=== PATIENT | male | born 1935 | race Caucasian/White ===

== ENCOUNTER → 2016-11-06 | Outpatient (CLI) | payer MEDICARE, BC ==
[2016-11-06 13:25] LABS: Blood Urea Nitrogen 18 mg/dL (9-20); Non-African American GFR(MDRD) 56 (>60 ml/min/1.73 sqM)
--- NOTE | 2016-11-06 16:16 | CT ---
EXAMINATION TYPE: CT abdomen pelvis w con DATE OF EXAM: 11/06/2016 2:52 PM COMPARISON: NONE HISTORY: Patient complains of episode of gross hematuria. Patient has a history of prior bladder CA. CT DLP: 1982.6 mGycm Automated exposure control for dose reduction was used. TECHNIQUE: Helical acquisition of images was performed from the lung bases through the pelvis. CONTRAST: Performed with Oral Contrast and with IV Contrast, patient injected with 100 mL of Omnipaque 300. FINDINGS: LUNG BASES: There are dependent atelectatic changes, motion is present on the exam. The heart is enla rged. LIVER/GB: The liver shows low attenuation likely due to fatty infiltration. Gallbladder is within nor mal limits. PANCREAS: No significant abnormality is seen. SPLEEN: No significant abnormality is seen. ADRENALS: No significant abnormality is seen. KIDNEYS: There is a nonobstructive calculus at the lower pole and upper pole each measuring approxima tely 5 mm on the left RETROPERITONEAL ADENOPATHY: None visualized REPRODUCTIVE ORGANS: Prostate shows some associated calcifications. There is a right-sided hydrocele and possibly left-sided hydrocele. URINARY BLADDER: There is some bladder wall thickening possibly due to chronic outlet obstruction PELVIC ADENOPATHY: None visualized. OSSEOUS STRUCTURES: Degenerative disc changes are present in the visualized spine, there may be diff use idiopathic skeletal hyperostosis present in the lower thoracic spine BOWEL: Extensive diverticular changes associated with the colon. There is no evident obstruction. Ap pendix is normal. OTHER: Aorta shows normal caliber. There is atheromatous change. IMPRESSION: LEFT-SIDED NEPHROLITHIASIS IS NONOBSTRUCTIVE. PROBABLE FATTY INFILTRATION OF THE LIVER. CARDIOMEGALY. DIVERTICULOSIS.
== END | disposition home or self-care (01) ==
LOC: RADCTMAIN 12:45
PROVIDERS: ATTEND Urology
DX: C67.9 Malignant neoplasm of bladder, unspecified (principal); N20.0 Calculus of kidney; K57.90 Diverticulosis of intestine, part unspecified, without perforation or abscess without bleeding
CPT/HCPCS: 82565; 84520; 74177; 36415; Q9967

== ENCOUNTER 2017-11-30 15:26 | Inpatient (IN) | payer MEDICARE, BC ==
[2017-11-30 16:35] LABS: Basophils % (A) 0 %; Eosinophils # (A) 0.2 k/uL (0-0.7); Eosinophils % (A) 1 %; HCT 42.2 % (39.0-53.0); HGB 14.4 gm/dL (13.0-17.5); Lymphocytes # (A) 0.4 k/uL (1.0-4.8); Lymphocytes % (A) 2 %; MCHC 34.1 g/dL (31.0-37.0); MCV 99.7 fL (80.0-100.0); Mean Platelet Volume 6.9; Monocytes # (A) 0.6 k/uL (0-1.0); Monocytes % (A) 3 %; Neutrophils # (A) 16.7 k/uL (1.3-7.7); Neutrophils % (A) 93 %; Platelet Count 193 k/uL (150-450); RBC 4.24 m/uL (4.30-5.90); RDW 13.4 % (11.5-15.5)
[2017-11-30 16:40] LABS: INR 1.6 (<1.2); Partial Thromboplastin Time 43.4 sec (22.0-30.0); Prothrombin Time 14.7 sec (9.0-12.0)
[2017-11-30 16:45] LABS: Albumin 3.8 g/dL (3.5-5.0); Calcium 9.2 mg/dL (8.4-10.2); Magnesium 1.5 mg/dL (1.6-2.3); Potassium 3.9 mmol/L (3.5-5.1); Total Bilirubin 4.6 mg/dL (0.2-1.3); Total Protein 6.8 g/dL (6.3-8.2)
--- NOTE | 2017-11-30 16:55 | ED ---
General Adult HPI - General Chief complaint: Chest Pain Stated complaint: CHest Pain Time Seen by Provider: 11/30/17 15:42 Source: patient, EMS, RN notes reviewed Mode of arrival: EMS Limitations: no limitations - History of Present Illness Initial comments: 82-year-old male presenting as transfer from outside hospital with troponin elevation and non-ST segment elevation TX. Patient was also found to have an elevated lipase at 1999. Chief complaint was epigastric pain. He also had some nausea and vomiting. Symptoms began earlier this morning prior to presentation to outside emergency department. Patient has no history of coronary artery disease, he does have history of DVT and pulmonary embolism. He is on XArelto. At the time my evaluation, patient's symptoms had improved, no abdominal pain. No chest pain. No dyspnea. No nausea. His states that prior to initial presentation patient did have subjective fever and chills. Patient was started on heparin prior to transfer. Chest x-ray and CT angiography was obtained. - Related Data Home Medications Medication Instructions Recorded Confirmed RX: Fenofibrate 160 mg PO DAILY 08/17/15 11/30/17 RX: Meloxicam [Mobic] 7.5 mg PO DAILY 08/17/15 11/30/17 RX: Omeprazole [PriLOSEC] 20 mg PO AC-BRKFST 08/17/15 11/30/17 RX: Simvastatin [Zocor] 40 mg PO HS 08/17/15 11/30/17 Albuterol Nebulized [Ventolin 2.5 mg INHALATION RT-QID PRN 11/30/17 11/30/17 Nebulized] RX: Bacitracin Oint 1 applic TOPICAL DAILY PRN 11/30/17 11/30/17 RX: Lisinopril 40 mg PO DAILY 11/30/17 11/30/17 Rivaroxaban [Xarelto] 20 mg PO DAILY 11/30/17 11/30/17 Thiamine [Vitamin B-1] 100 mg PO DAILY 11/30/17 11/30/17 Allergies Allergy/AdvReac Type Severity Reaction Status Date / Time tetanus toxoid, adsorbed AdvReac Nausea & Verified 12/08/15 15:16 Vomiting Review of Systems ROS Statement: Those systems with pertinent positive or pertinent negative responses have been documented in the HPI. ROS Other: All systems not noted in ROS Statement are negative. Past Medical History Past Medical History: Cancer, GERD/Reflux, Hyperlipidemia, Hypertension, Osteoarthritis (OA) Additional Past Medical History / Comment(s): bladder cancer 20 years ago History of Any Multi-Drug Resistant Organisms: None Reported Additional Past Surgical History / Comment(s): bladder cancer Past Anesthesia/Blood Transfusion Reactions: No Reported Reaction Past Psychological History: No Psychological Hx Reported Smoking Status: Former smoker Past Alcohol Use History: Daily Past Drug Use History: None Reported General Exam Limitations: no limitations General appearance: alert, in no apparent distress Head exam: Present: atraumatic, normocephalic Eye exam: Present: normal appearance, PERRL ENT exam: Present: normal exam Neck exam: Present: normal inspection. Absent: tenderness, meningismus Respiratory exam: Present: normal lung sounds bilaterally. Absent: respiratory distress Cardiovascular Exam: Present: regular rate, normal rhythm GI/Abdominal exam: Present: soft. Absent: distended, tenderness, guarding, rebound Extremities exam: Present: normal inspection, full ROM, normal capillary refill. Absent: pedal edema Neurological exam: Present: alert, oriented X3, CN II-XII intact. Absent: motor sensory deficit Psychiatric exam: Present: normal affect, normal mood Skin exam: Present: warm, dry, intact. Absent: cyanosis, diaphoretic Course Vital Signs 11/30/17 15:27 Temperature 98.4 F Pulse Rate 108 H Respiratory 16 Rate Blood Pressure 125/98 O2 Sat by Pulse 97 Oximetry EKG Findings - EKG Comments: EKG Findings:: EKG obtained at 1651 normal sinus rhythm, no ST segment elevation , there is concern for septal infarct. Ventricular rate 89, WA interval 198, QRS duration 104, QTC 450 Medical Decision Making - Medical Decision Making 82-year-old male presenting as non-ST segment elevated TX and pancreatitis. Patient is pain-free at the time my evaluation. Patient's laboratory studies revealed a troponin of 0.435, this was repeated, it is up trending at 2.03. Patient also had elevated lipase at 2000, this is down trending to 700. Ultrasound is obtained, there was a dilated gallbladder with no dilation of the common bile duct, no signs of pericholecystic fluid or gallbladder wall thickening. Bili is elevated at 4.7, bili fractions are pending. Patient is afebrile and pain-free. Although he does have a elevation in his white blood cell count, he is given 1 dose of IV antibiotics with his elevated total bili. Symptoms may be related pasted gallstone. He was started on heparin prior to arrival the patient is currently taking Xarelto, both heparin and Xarelto will be held. Case discussed with Dr. Miller, recommends restarting heparin in the morning. Serial cardiac enzymes will be obtained. Repeat total bili and lipase ordered for the morning. Cardiology and gastroenterology placed on consult. - Lab Data Result diagrams: 11/30/17 16:10 11/30/17 16:10 Lab Results 11/30/17 11/30/17 11/30/17 Range/Units 15:51 16:10 16:10 WBC 18.0 H (3.8-10.6) k/uL RBC 4.24 L (4.30-5.90) m/uL Hgb 14.4 (13.0-17.5) gm/dL Hct 42.2 (39.0-53.0) % MCV 99.7 (80.0-100.0) fL MCH 34.0 (25.0-35.0) pg MCHC 34.1 (31.0-37.0) g/dL RDW 13.4 (11.5-15.5) % Plt Count 193 (150-450) k/uL Neutrophils % 93 % Lymphocytes % 2 % Monocytes % 3 % Eosinophils % 1 % Basophils % 0 % Neutrophils # 16.7 H (1.3-7.7) k/uL Lymphocytes # 0.4 L (1.0-4.8) k/uL Monocytes # 0.6 (0-1.0) k/uL Eosinophils # 0.2 (0-0.7) k/uL Basophils # 0.0 (0-0.2) k/uL PT (9.0-12.0) sec INR (<1.2) APTT (22.0-30.0) sec Sodium (137-145) mmol/L Potassium (3.5-5.1) mmol/L Chloride (98-107) mmol/L Carbon Dioxide (22-30) mmol/L Anion Gap mmol/L BUN (9-20) mg/dL Creatinine (0.66-1.25) mg/dL Est GFR (CKD-EPI)AfAm (>60 ml/min/1.73 sqM) Est GFR (CKD-EPI)NonAf (>60 ml/min/1.73 sqM) Glucose (74-99) mg/dL Calcium (8.4-10.2) mg/dL Magnesium (1.6-2.3) mg/dL Total Bilirubin (0.2-1.3) mg/dL Conjugated Bilirubin (0.0-0.3) mg/dL Unconjugated Bilirubin (0.0-1.1) mg/dL Delta Bilirubin (0.0-0.2) mg/dL AST (17-59) U/L ALT (21-72) U/L Alkaline Phosphatase (38-126) U/L Total Creatine Kinase 174 H (55-170) U/L CK-MB (CK-2) 3.9 H* (0.0-2.4) ng/mL CK-MB (CK-2) Rel Index 2.2 Troponin I 2.030 H* (0.000-0.034) ng/mL NT-Pro-B Natriuret Pep 1400 pg/mL Total Protein (6.3-8.2) g/dL Albumin (3.5-5.0) g/dL Lipase (23-300) U/L 11/30/17 11/30/17 11/30/17 Range/Units 16:10 16:10 16:10 WBC (3.8-10.6) k/uL RBC (4.30-5.90) m/uL Hgb (13.0-17.5) gm/dL Hct (39.0-53.0) % MCV (80.0-100.0) fL MCH (25.0-35.0) pg MCHC (31.0-37.0) g/dL RDW (11.5-15.5) % Plt Count (150-450) k/uL Neutrophils % % Lymphocytes % % Monocytes % % Eosinophils % % Basophils % % Neutrophils # (1.3-7.7) k/uL Lymphocytes # (1.0-4.8) k/uL Monocytes # (0-1.0) k/uL Eosinophils # (0-0.7) k/uL Basophils # (0-0.2) k/uL PT 14.7 H (9.0-12.0) sec INR 1.6 H (<1.2) APTT 43.4 H (22.0-30.0) sec Sodium 141 (137-145) mmol/L Potassium 3.9 (3.5-5.1) mmol/L Chloride 106 (98-107) mmol/L Carbon Dioxide 24 (22-30) mmol/L Anion Gap 11 mmol/L BUN 17 (9-20) mg/dL Creatinine 1.10 (0.66-1.25) mg/dL Est GFR (CKD-EPI)AfAm 73 (>60 ml/min/1.73 sqM) Est GFR (CKD-EPI)NonAf 63 (>60 ml/min/1.73 sqM) Glucose 103 H (74-99) mg/dL Calcium 9.2 (8.4-10.2) mg/dL Magnesium 1.5 L (1.6-2.3) mg/dL Total Bilirubin 4.6 H 4.6 H (0.2-1.3) mg/dL Conjugated Bilirubin 2.3 H (0.0-0.3) mg/dL Unconjugated Bilirubin 0.9 (0.0-1.1) mg/dL Delta Bilirubin 1.4 H (0.0-0.2) mg/dL AST 147 H (17-59) U/L ALT 62 (21-72) U/L Alkaline Phosphatase 80 (38-126) U/L Total Creatine Kinase (55-170) U/L CK-MB (CK-2) (0.0-2.4) ng/mL CK-MB (CK-2) Rel Index Troponin I (0.000-0.034) ng/mL NT-Pro-B Natriuret Pep pg/mL Total Protein 6.8 (6.3-8.2) g/dL Albumin 3.8 (3.5-5.0) g/dL Lipase 719 H (23-300) U/L Critical Care Time Critical Care Time: Yes Total Critical Care Time: 35 Disposition Clinical Impression: NSTEMI (non-ST elevated myocardial infarction), Pancreatitis Disposition: ADMITTED IP TO THIS [facility] Condition: Stable Referrals: Jalen Cobos MD [Primary Care Provider] - 1-2 days Decision to Admit Reason: Admit from [facility] Decision Date: 11/30/17 Decision Time: 17:34
[2017-11-30 17:08] LABS: Creatine Kinase MB 3.9 ng/mL (0.0-2.4); Troponin I 2.03 ng/mL (0.000-0.034)
--- NOTE | 2017-11-30 17:10 | US ---
EXAMINATION TYPE: US gallbladder DATE OF EXAM: 11/30/2017 COMPARISON: CT 2017 CLINICAL HISTORY: pain. [facility] patient with epigastric pain; pancreatitis per [facility] physician EXAM MEASUREMENTS: Liver Length: 18.0 cm Gallbladder Wall: 2.6mm CBD: 0.5 cm Right Kidney: 10.1 x 7.5 x 5.3 cm Pancreas: hyperechoic and tail is obscured by overlying bowel gas Liver: enlarged, fatty Gallbladder: wnl Evidence for sonographic Snider's sign: No CBD: wnl Right Kidney: No hydronephrosis or masses seen IMPRESSION: No gallstones or dilated ducts. Borderline dilated gallbladder.
[2017-11-30] MEDS ORDERED: NALOXONE 0.4 MG/ML 1 ML VIAL IV PRN ×2 (17:14→20:17)
[2017-11-30] MEDS ORDERED: MORPHINE SULFATE 4 MG/ML SYRINGE IV PRN (17:14)
[2017-11-30] MEDS ORDERED: ONDANSETRON 4 MG/2 ML VIAL IVP PRN (17:14)
[2017-11-30] MEDS ORDERED: PIPERACILLIN-TAZOBACTAM 3.375 GM in DEXTROSE/WATER 1 50ML.BAG IVPB STA (17:20)
[2017-11-30 17:22] LABS: Bilirubin, Conjugated 2.3 mg/dL (0.0-0.3); Bilirubin, Delta 1.4 mg/dL (0.0-0.2); Bilirubin,Unconjugated 0.9 mg/dL (0.0-1.1); Total Bilirubin 4.6 mg/dL (0.2-1.3)
[2017-11-30] MEDS: MAGNESIUM SULFATE-D5W PMX 1 GM in DEXTROSE/WATER 1 100ML.BAG IVPB SCH ×2 (17:28→18:41)
[2017-11-30] MEDS ORDERED: ALBUTEROL NEBULIZED 2.5 MG/3 ML INHALATION PRN (17:37)
[2017-11-30] MEDS ORDERED: MELATONIN 3 MG TABLET PO PRN (20:17)
[2017-11-30] MEDS ORDERED: LACTULOSE 20 GM/30 ML CUP PO PRN (20:17)
[2017-11-30] MEDS ORDERED: ACETAMINOPHEN TAB 325 MG TAB PO PRN (20:17)
[2017-11-30] MEDS ORDERED: MAGNESIUM HYDROXIDE 2,400 MG/10 ML CUP PO PRN (20:17)
[2017-11-30] MEDS ORDERED: LORazepam 0.5 MG TAB PO PRN (20:17)
[2017-11-30] MEDS ORDERED: CALCIUM CARBONATE 500 MG CHEWABLE PO PRN (20:17)
[2017-11-30] MEDS ORDERED: HEPARIN SOD,PORK IN 0.45% NACL 25,000 UNIT in 0.45% NACL 1 500ML.BAG IV SCH ×2 (20:30→21:15)
[2017-11-30 21:01] LABS: Glucose,Whole Blood 106 mg/dL (75-99)
--- NOTE | 2017-11-30 21:10 | HP ---
HISTORY AND PHYSICAL DATE OF ADMISSION: 11/30/17 PRESENT COMPLAINT: Abdominal chest pain. HISTORY OF PRESENTING COMPLAINT: A very pleasant 82-year-old patient of Dr. Cobos. 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 The patient has had history of bilateral pulmonary embolism and DVT in 2014 and is on Xarelto for the same. History is obtained by the . The patient took a shower, His regular after sat down on his comfort. Then started off with abdominal pain that went up to his chest. The patient took Pepto- Bismol, did feel a bit better and then patient started having rigors and became really warm. Patient and did take the temperature, was afebrile. The patient broke out in a sweat. The patient was taken down to Dr. Scott's office. Seen by the nurse practitioner who moved him to the [place] [facility]. There, patient's troponin came back to be 0.435. The EKG shows some ST-segment changes. Also, amylase was 315 and lipase was 2246. Hence patient was sent down here to [facility] for possible TX. The patient continues to feel weak and tired, run down. Some chest discomfort. Currently none. REVIEW OF SYSTEMS: Constitutional: Chills, rigors, tired. HEENT none. Respiratory: Slight shortness of breath, more at baseline. Cardiovascular as above. No radiation to the neck or the arm. Gastrointestinal as above. Genitourinary none. Musculoskeletal: Arthritic pain in major joints including lower back. Dermatological, hematologic, lymphatics none. Psychiatry none. Neurological none. 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 PAST SURGICAL HISTORY: Bladder cancer surgery 20 years ago. SOCIAL HISTORY: The patient smoked for close to 50 years, cigars, stopped about 10 years ago. 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 Lives with his . Drinks about 3-4 mixed drinks a day. HOME MEDICATIONS: 1. Thiamine 100 mg a day. 2. Zocor 40 mg q.h.s. 3. Xarelto 20 mg daily. 4. Prilosec 20 mg with breakfast. 5. Mobic 7.5 p.o. daily. 6. Lisinopril 40 mg p.o. daily. 7. Tricor 160 mg p.o. daily. 8. Bacitracin topical daily p.r.n. 9. Ventolin 2.5 q.i.d. p.r.n. ALLERGIES: TETANUS TOXOID. PHYSICAL EXAMINATION: Temperature 98.4, pulse 95, respiratory 18, blood pressure 144/68, pulse ox 95% on 2 L. General appearance: Well built, BMI 35.3. Lying in bed, tired appearing. Eyes: Conjunctivae dirty appearing. HEENT external appearance of nose and ears normal. Oral cavity normal. Neck: JVD unable to assess. Mass not palpable. Respiratory effort: Slightly increased. Lungs decreased breath sounds. Cardiovascular: First and second sounds normal. No edema. Abdomen: Upper abdomen tenderness. No guarding, rigidity. Liver and spleen not palpable. Bowel sounds are present. Lymphatics: No lymph nodes palpable in the neck and axilla. PSYCHIATRY: Alert and oriented x3. Mood and affect normal. Neurological: Pupils equal. Cranial nerves grossly intact. Power and sensation grossly intact. INVESTIGATIONS: Patient blood work from [facility]-CT scan chest negative for PE, aortic aneurysm of 4 cm. White count 9.8, hemoglobin 14.2, platelets 184, BUN 17, creatinine 1.1, potassium 4.2. Bilirubin was 4.7. Troponin 0.435. Amylase 315, lipase 2246. Lab done here at [facility], showed a white count of 18, hemoglobin 14.4. Pro-time of 14.7, potassium 4.9. AST was 147, ALT 62. Troponin is 2.030. Lipase 719. EKG shows ST-segment depression, especially inferolateral leads. ASSESSMENT: 1. Acute non-Q-wave myocardial infarction probably in the anterolateral wall. 2. Acute pancreatitis. 3. Alcoholic liver disease. 4. Slight coagulopathy with a ProTime of 14.7 likely from underlying alcoholic disease. 5. Systemic inflammatory response syndrome from underlying acute pancreatitis. 6. 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 Did not take a dose this morning per the . 7. Essential hypertension. 8. Hyperlipidemia. 9. 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 10.Gastroesophageal reflux disease. 11.Colonic diverticulosis. PLAN: At this point patient is put on IV heparin, some clear liquids and will be n.p.o. after midnight. The patient did receive aspirin. We will also put the patient on a beta torres. Cardiology and GI was consulted. Care was discussed with the patient's family at the bedside. Overall prognosis guarded. Copy to Dr. Cobos. STEVE / SHADI: [id number] /
[2017-11-30] MEDS: METOPROLOL TARTRATE 25 MG TAB PO SCH (21:43)
[2017-11-30] MEDS: ATORVASTATIN 20 MG TAB PO SCH (21:43)
[2017-11-30] MEDS: Acetaminophen-Codeine 300-30mg TAB PO PRN (23:11)
[2017-11-30 23:41] LABS: Creatine Kinase MB 3.9 ng/mL (0.0-2.4); Troponin I 2.8 ng/mL (0.000-0.034)
[2017-12-01 03:35] LABS: Basophils % (A) 0 %; Eosinophils # (A) 0.1 k/uL (0-0.7); Eosinophils % (A) 0 %; HCT 38.1 % (39.0-53.0); HGB 12.9 gm/dL (13.0-17.5); Lymphocytes # (A) 0.4 k/uL (1.0-4.8); Lymphocytes % (A) 2 %; MCH 34.5 pg (25.0-35.0); MCHC 33.8 g/dL (31.0-37.0); MCV 102.2 fL (80.0-100.0); Macrocytosis Slight; Mean Platelet Volume 7.5; Monocytes # (A) 0.6 k/uL (0-1.0); Monocytes % (A) 4 %; Neutrophils # (A) 15.4 k/uL (1.3-7.7); Neutrophils % (A) 93 %; Platelet Count 164 k/uL (150-450); RBC 3.73 m/uL (4.30-5.90); RDW 13.5 % (11.5-15.5); WBC 16.6 k/uL (3.8-10.6)
[2017-12-01 03:46] LABS: Albumin 3.3 g/dL (3.5-5.0); Calcium 8.9 mg/dL (8.4-10.2); Potassium 4.5 mmol/L (3.5-5.1); Total Bilirubin 6.9 mg/dL (0.2-1.3); Total Protein 6.1 g/dL (6.3-8.2)
[2017-12-01 04:17] LABS: Creatine Kinase MB 4.5 ng/mL (0.0-2.4); Troponin I 3.26 ng/mL (0.000-0.034)
[2017-12-01] MEDS ORDERED: HEPARIN SODIUM,PORCINE 5,000 UNIT/ML 1 ML VIAL IV PRN (04:32)
[2017-12-01] MEDS: Acetaminophen-Codeine 300-30mg TAB PO PRN (09:35)
--- NOTE | 2017-12-01 12:46 | P.CONS ---
History of Present Illness - Reason for Consult Consult date: 12/01/17 pancreatitis elevated liver enzymes Requesting physician: Markie Noland - History of Present Illness 82-year-old gentleman with a past medical history of bilateral pulmonary embolism maintained on Xarelto, DVT, bladder carcinoma, hypertension, hyperlipidemia, acid arthritis. Patient presented with upper abdomen chest pain with rigors chills 2 days with dark colored urine. Patient drinks liquor/beer on a daily basis for many years. Consult requested for pancreatitis elevated liver enzymes. No history of hepatitis or pancreatitis. Denies weight loss. Admission white count 18. Hemoglobin 14.4 presently 12.9. MCV 102. Platelet 164. INR 1.6. Troponin 2.0-3.2. Total bilirubin 4.6. Conjugated bilirubin 2.3. AST 147. ALT 62. Alkaline phosphatase 80. Lipase 719. Presently lipase is 595. Ultrasound abdomen reported normal common bile duct no mentioning of cholelithiasis. Review of Systems Constitutional: Denies fever, chills, sweats, weight gain, or loss. HEENT: Negative for migraines, blurred vision or loss, earaches, drainage, tinnitus, oral mucosal lesions, dysphagia, or odynophagia. Cardiac: Hypertension. Hyperlipidemia. Negative for chest pain, arrhythmias, or palpitation. Respiratory: Negative for shortness of breath, hemoptysis, cough, or sputum production. Gastrointestinal: See HPI for pertinent findings. Genitourinary: Bladder carcinoma. Negative for hematuria, urgency, frequency, polyuria, dysuria, or penile discharge. Musculoskeletal: Negative for muscle aches, swelling, arthritis, and arthralgias. Neurologic: Negative for stroke or TIA. Endocrine: Negative for thyroid problems. Hematology: PE/DVT. Skin: Negative for rash or itching. Psychiatric: Negative history for depression and anxiety Past Medical History Past Medical History: Cancer, Deep Vein Thrombosis (DVT), GERD/Reflux, Hyperlipidemia, Hypertension, Osteoarthritis (OA), Pulmonary Embolus (PE) Additional Past Medical History / Comment(s): bladder cancer 20 years ago, DVT and PE 2017 History of Any Multi-Drug Resistant Organisms: None Reported Additional Past Surgical History / Comment(s): bladder cancer Past Anesthesia/Blood Transfusion Reactions: No Reported Reaction Past Psychological History: No Psychological Hx Reported Smoking Status: Former smoker Past Alcohol Use History: Daily Past Drug Use History: None Reported - Past Family History Mother History Unknown: Yes Medications and Allergies Home Medications Medication Instructions Recorded Confirmed Type Fenofibrate 160 mg PO DAILY 08/17/15 11/30/17 History Meloxicam [Mobic] 7.5 mg PO DAILY 08/17/15 11/30/17 History Omeprazole [PriLOSEC] 20 mg PO AC-BRKFST 08/17/15 11/30/17 History Simvastatin [Zocor] 40 mg PO HS 08/17/15 11/30/17 History Albuterol Nebulized [Ventolin 2.5 mg INHALATION RT-QID PRN 11/30/17 11/30/17 History Nebulized] Bacitracin Oint 1 applic TOPICAL DAILY PRN 11/30/17 11/30/17 History Lisinopril 40 mg PO DAILY 11/30/17 11/30/17 History Rivaroxaban [Xarelto] 20 mg PO DAILY 11/30/17 11/30/17 History Thiamine [Vitamin B-1] 100 mg PO DAILY 11/30/17 11/30/17 History Allergies Allergy/AdvReac Type Severity Reaction Status Date / Time tetanus toxoid, adsorbed AdvReac Nausea & Verified 12/08/15 15:16 Vomiting Physical Exam Vitals: Vital Signs Temp Pulse Pulse Resp BP BP Pulse Ox 12/01/17 08:00 98 F 54 L 16 106/56 94 L 12/01/17 04:00 98.1 F 56 L 20 106/59 95 12/01/17 00:00 98.7 F 63 20 108/63 94 L 11/30/17 22:08 94 20 116/55 95 11/30/17 21:38 101 H 18 109/57 94 L 11/30/17 20:49 114 H 24 184/84 94 L 11/30/17 20:25 98.7 F 11/30/17 20:20 98.4 F 11/30/17 19:46 99.2 F 11/30/17 17:36 95 18 144/68 95 11/30/17 15:27 98.4 F 108 H 16 125/98 97 Intake and Output 11/30/17 12/01/17 12/01/17 22:59 06:59 14:59 Intake Total 309.333 Balance 309.333 Intake: IV 160 Heparin Sod,Pork in 0.45% 160 NaCl 25,000 unit In 0.45 % NaCl 1 500ml.bag @ 8.48 UNITS/KG/HR 20 mls/hr IV .Q24H [facility] Rx#:[id number] Intake, IV Titration 149.333 Amount Heparin Sod,Pork in 0.45% 149.333 NaCl 25,000 unit In 0.45 % NaCl 1 500ml.bag @ 8.48 UNITS/KG/HR 20 mls/hr IV .Q24H [facility] Rx#:[id number] Other: Voiding Method Urinal Urinal # Voids 1 Weight 117.934 kg General appearance: The patient is alert, oriented, in no acute distress. HET: Head is normocephalic and atraumatic. Pupils are equal and reactive. Oropharynx is clear without lesions. Neck: Supple without lymphadenopathy. Trachea midline. Heart: S1 S2. Regular rate and rhythm. Lungs: No crackles or wheezes are heard. Abdomen: Soft, nontender, nondistended with bowel sounds. No peritoneal signs. No palpable organomegaly or masses. Extremities: Normal skin color and turgor. No cyanosis, rash, ulceration, clubbing, or edema. Radial and pedal pulses are 2/4 bilaterally. Neurological: No focal deficits. Strength and sensation are grossly intact. Results CBC & Chem 7: 12/01/17 03:07 12/01/17 03:07 Labs: Abnormal Lab Results - Last 24 Hours (Table) 11/30/17 11/30/17 11/30/17 Range/Units 16:10 16:10 16:10 WBC 18.0 H (3.8-10.6) k/uL RBC 4.24 L (4.30-5.90) m/uL Hgb (13.0-17.5) gm/dL Hct (39.0-53.0) % MCV (80.0-100.0) fL Neutrophils # 16.7 H (1.3-7.7) k/uL Lymphocytes # 0.4 L (1.0-4.8) k/uL PT (9.0-12.0) sec INR (<1.2) APTT (22.0-30.0) sec D-Dimer (<0.60) mg/L FEU BUN (9-20) mg/dL Creatinine (0.66-1.25) mg/dL Glucose 103 H (74-99) mg/dL POC Glucose (mg/dL) (75-99) mg/dL Magnesium 1.5 L (1.6-2.3) mg/dL Total Bilirubin 4.6 H (0.2-1.3) mg/dL Conjugated Bilirubin (0.0-0.3) mg/dL Delta Bilirubin (0.0-0.2) mg/dL AST 147 H (17-59) U/L Total Creatine Kinase 174 H (55-170) U/L CK-MB (CK-2) 3.9 H* (0.0-2.4) ng/mL Troponin I 2.030 H* (0.000-0.034) ng/mL Total Protein (6.3-8.2) g/dL Albumin (3.5-5.0) g/dL Amylase (30-110) U/L Lipase 719 H (23-300) U/L 11/30/17 11/30/17 11/30/17 Range/Units 16:10 16:10 20:59 WBC (3.8-10.6) k/uL RBC (4.30-5.90) m/uL Hgb (13.0-17.5) gm/dL Hct (39.0-53.0) % MCV (80.0-100.0) fL Neutrophils # (1.3-7.7) k/uL Lymphocytes # (1.0-4.8) k/uL PT 14.7 H (9.0-12.0) sec INR 1.6 H (<1.2) APTT 43.4 H (22.0-30.0) sec D-Dimer (<0.60) mg/L FEU BUN (9-20) mg/dL Creatinine (0.66-1.25) mg/dL Glucose (74-99) mg/dL POC Glucose (mg/dL) 106 H (75-99) mg/dL Magnesium (1.6-2.3) mg/dL Total Bilirubin 4.6 H (0.2-1.3) mg/dL Conjugated Bilirubin 2.3 H (0.0-0.3) mg/dL Delta Bilirubin 1.4 H (0.0-0.2) mg/dL AST (17-59) U/L Total Creatine Kinase (55-170) U/L CK-MB (CK-2) (0.0-2.4) ng/mL Troponin I (0.000-0.034) ng/mL Total Protein (6.3-8.2) g/dL Albumin (3.5-5.0) g/dL Amylase (30-110) U/L Lipase (23-300) U/L 11/30/17 12/01/17 12/01/17 Range/Units 22:44 03:07 03:07 WBC 16.6 H (3.8-10.6) k/uL RBC 3.73 L (4.30-5.90) m/uL Hgb 12.9 L (13.0-17.5) gm/dL Hct 38.1 L (39.0-53.0) % MCV 102.2 H (80.0-100.0) fL Neutrophils # 15.4 H (1.3-7.7) k/uL Lymphocytes # 0.4 L (1.0-4.8) k/uL PT (9.0-12.0) sec INR (<1.2) APTT (22.0-30.0) sec D-Dimer (<0.60) mg/L FEU BUN (9-20) mg/dL Creatinine (0.66-1.25) mg/dL Glucose (74-99) mg/dL POC Glucose (mg/dL) (75-99) mg/dL Magnesium (1.6-2.3) mg/dL Total Bilirubin (0.2-1.3) mg/dL Conjugated Bilirubin (0.0-0.3) mg/dL Delta Bilirubin (0.0-0.2) mg/dL AST (17-59) U/L Total Creatine Kinase 293 H 469 H (55-170) U/L CK-MB (CK-2) 3.9 H* 4.5 H* (0.0-2.4) ng/mL Troponin I 2.800 H* 3.260 H* (0.000-0.034) ng/mL Total Protein (6.3-8.2) g/dL Albumin (3.5-5.0) g/dL Amylase (30-110) U/L Lipase (23-300) U/L 03/14/18 03/14/18 03/14/18 Range/Units 03:07 03:07 10:58 WBC (3.8-10.6) k/uL RBC (4.30-5.90) m/uL Hgb (13.0-17.5) gm/dL Hct (39.0-53.0) % MCV (80.0-100.0) fL Neutrophils # (1.3-7.7) k/uL Lymphocytes # (1.0-4.8) k/uL PT (9.0-12.0) sec INR (<1.2) APTT 35.8 H 56.7 H (22.0-30.0) sec D-Dimer (<0.60) mg/L FEU BUN 22 H (9-20) mg/dL Creatinine 1.60 H (0.66-1.25) mg/dL Glucose (74-99) mg/dL POC Glucose (mg/dL) (75-99) mg/dL Magnesium (1.6-2.3) mg/dL Total Bilirubin 6.9 H (0.2-1.3) mg/dL Conjugated Bilirubin (0.0-0.3) mg/dL Delta Bilirubin (0.0-0.2) mg/dL AST 135 H (17-59) U/L Total Creatine Kinase (55-170) U/L CK-MB (CK-2) (0.0-2.4) ng/mL Troponin I (0.000-0.034) ng/mL Total Protein 6.1 L (6.3-8.2) g/dL Albumin 3.3 L (3.5-5.0) g/dL Amylase 229 H (30-110) U/L Lipase 595 H (23-300) U/L 12/01/17 Range/Units 10:58 WBC (3.8-10.6) k/uL RBC (4.30-5.90) m/uL Hgb (13.0-17.5) gm/dL Hct (39.0-53.0) % MCV (80.0-100.0) fL Neutrophils # (1.3-7.7) k/uL Lymphocytes # (1.0-4.8) k/uL PT (9.0-12.0) sec INR (<1.2) APTT (22.0-30.0) sec D-Dimer 2.41 H (<0.60) mg/L FEU BUN (9-20) mg/dL Creatinine (0.66-1.25) mg/dL Glucose (74-99) mg/dL POC Glucose (mg/dL) (75-99) mg/dL Magnesium (1.6-2.3) mg/dL Total Bilirubin (0.2-1.3) mg/dL Conjugated Bilirubin (0.0-0.3) mg/dL Delta Bilirubin (0.0-0.2) mg/dL AST (17-59) U/L Total Creatine Kinase (55-170) U/L CK-MB (CK-2) (0.0-2.4) ng/mL Troponin I (0.000-0.034) ng/mL Total Protein (6.3-8.2) g/dL Albumin (3.5-5.0) g/dL Amylase (30-110) U/L Lipase (23-300) U/L US - abdomen: report reviewed (Dr. Shultz) Assessment and Plan (1) Pancreatitis Narrative/Plan: 82-year-old gentleman admitted with acute upper abdominal pain elevated troponin possible CA elevated pancreatic liver enzymes consistent with acute pancreatitis hepatitis suspect alcohol related with history of long-standing daily alcohol consumption. Current Visit: Yes Status: Acute Code(s): K85.90 - ACUTE PANCREATITIS WITHOUT NECROSIS OR INFECTION, UNSP SNOMED Code(s): 88044613 (2) Alcoholic hepatitis Current Visit: Yes Status: Acute Code(s): K70.10 - ALCOHOLIC HEPATITIS WITHOUT ASCITES SNOMED Code(s): 007232060 (3) ETOH abuse Current Visit: Yes Status: Acute Code(s): F10.10 - ALCOHOL ABUSE, UNCOMPLICATED SNOMED Code(s): 53507246 (4) Elevated troponin Current Visit: Yes Status: Acute Code(s): R74.8 - ABNORMAL LEVELS OF OTHER SERUM ENZYMES SNOMED Code(s): 594830765 Plan: 1. Alcohol abstinence was discussed and advised. Continue supportive measures. GI prophylaxis. Will allow clear liquid diet. Will follow with you. Thank you for this kind referral and the opportunity to participate in the care of your patient. This consultation was discussed with Dr. Shultz. The impression and plan of care have been directed as dictated.
[2017-12-01 13:55] LABS: Appearance,Urine Cloudy (Clear); Bilirubin,Urine 2+ (Negative); Blood,Urine Negative (Negative); Color,Urine Dark Brown; Glucose,Urine (UA) Negative (Negative); Ketones,Urine Negative (Negative); Leukocyte Esterase,Urine Negative (Negative); Mucus,Urine Rare /hpf; Nitrite,Urine Negative (Negative); PH, Urine 5.5 (5.0-8.0); Protein,Urine Trace (Negative); RBC,Urine 7 /hpf (0-5); Specific Gravity,Urine 1.038 (1.001-1.035); Squamous Epithelial Cell,Urine 3 /hpf (0-4); WBC,Urine 11 /hpf (0-5)
--- NOTE | 2017-12-01 13:55 | P.CRDCN ---
History of Present Illness History of present illness: Patient presenting to the hospital with severe abdominal pain Denied any chest discomfort but his stated that the discomfort did move upwards into his mid chest but his main discomfort was in the belly and no dizziness lightheadedness no undue shortness of breath Review of systems: No fever chills or rigors, no cough, phlegm or expectoration , no nausea, vomiting or diarrhea, no hematuria, dysuria, no musculoskeletal complaints, no strokes or seizures, no skin lesions. Medication list reviewed ALLERGIES reviewed Past history bilateral pulmonary emboli, DVT 2015 dyslipidemia hypertension GERD lateral cancer Bladder cancer surgery Social history he smoked cigars 10 years back. He drinks about 3-4 mixed drinks a day Afebrile 90F, pulse rate in the 50s, respirations 16, blood pressure 106/56. His mercury On examination his breath sounds are normal no rhonchi no crackles Heart sounds are normal no murmurs or gallops no rub Extremities are warm Abdomen is mildly tender Labs are reviewed White count 16.6, hemoglobin 12.9, sodium and potassium normal. BUN 22 creatinine 1.6 CPK 293 and then 469 Troponin 2.8 and 3.2 Lipase in the 700s and now 595 amylase elevated Urine is pink, possible hematuria or myoglobinuria Twelve-lead ECG shows sinus rhythm with a very subtle ST depression in the lateral precordial leads Impression Abnormal troponins in the setting of acute pancreatitis without any significant EKG changes in 2 serial ECGs. Very borderline upsloping ST depression in the lateral precordial leads noted Elevated d-dimer is but the patient had a computed tomography scan which did not show any pulmonary emboli. This computed tomography scan was performed at the outside hospital from where he was transferred Suggest Continue cardiac medications may hold heparin since patient is on xarelto Xarelto may be stopped in preparation for ERCP Evaluate for causes of pancreatitis including drug-induced pancreatitis and alcohol-related pancreatitis Past Medical History Past Medical History: Cancer, Deep Vein Thrombosis (DVT), GERD/Reflux, Hyperlipidemia, Hypertension, Osteoarthritis (OA), Pulmonary Embolus (PE) Additional Past Medical History / Comment(s): bladder cancer 20 years ago, DVT and PE 2017 History of Any Multi-Drug Resistant Organisms: None Reported Additional Past Surgical History / Comment(s): bladder cancer Past Anesthesia/Blood Transfusion Reactions: No Reported Reaction Past Psychological History: No Psychological Hx Reported Smoking Status: Former smoker Past Alcohol Use History: Daily Past Drug Use History: None Reported - Past Family History Mother History Unknown: Yes Medications and Allergies Home Medications Medication Instructions Recorded Confirmed Type Fenofibrate 160 mg PO DAILY 08/17/15 11/30/17 History Meloxicam [Mobic] 7.5 mg PO DAILY 08/17/15 11/30/17 History Omeprazole [PriLOSEC] 20 mg PO AC-BRKFST 08/17/15 11/30/17 History Simvastatin [Zocor] 40 mg PO HS 08/17/15 11/30/17 History Albuterol Nebulized [Ventolin 2.5 mg INHALATION RT-QID PRN 11/30/17 11/30/17 History Nebulized] Bacitracin Oint 1 applic TOPICAL DAILY PRN 11/30/17 11/30/17 History Lisinopril 40 mg PO DAILY 11/30/17 11/30/17 History Rivaroxaban [Xarelto] 20 mg PO DAILY 11/30/17 11/30/17 History Thiamine [Vitamin B-1] 100 mg PO DAILY 11/30/17 11/30/17 History Allergies Allergy/AdvReac Type Severity Reaction Status Date / Time tetanus toxoid, adsorbed AdvReac Nausea & Verified 12/08/15 15:16 Vomiting Physical Exam Vitals: Vital Signs Temp Pulse Pulse Resp BP BP Pulse Ox 12/01/17 12:00 54 L 18 12/01/17 08:00 98 F 54 L 16 106/56 94 L 12/01/17 04:00 98.1 F 56 L 20 106/59 95 12/01/17 00:00 98.7 F 63 20 108/63 94 L 11/30/17 22:08 94 20 116/55 95 11/30/17 21:38 101 H 18 109/57 94 L 11/30/17 20:49 114 H 24 184/84 94 L 11/30/17 20:25 98.7 F 11/30/17 20:20 98.4 F 11/30/17 19:46 99.2 F 11/30/17 17:36 95 18 144/68 95 11/30/17 15:27 98.4 F 108 H 16 125/98 97 Intake and Output 11/30/17 12/01/17 12/01/17 22:59 06:59 14:59 Intake Total 309.333 Output Total 200 Balance 309.333 -200 Intake: IV 160 Heparin Sod,Pork in 0.45% 160 NaCl 25,000 unit In 0.45 % NaCl 1 500ml.bag @ 8.48 UNITS/KG/HR 20 mls/hr IV .Q24H [facility] Rx#:[id number] Intake, IV Titration 149.333 Amount Heparin Sod,Pork in 0.45% 149.333 NaCl 25,000 unit In 0.45 % NaCl 1 500ml.bag @ 8.48 UNITS/KG/HR 20 mls/hr IV .Q24H [facility] Rx#:[id number] Output: Urine 200 Other: Voiding Method Urinal Urinal # Voids 1 Weight 117.934 kg 119.93 kg Patient Weight 12/02/17 06:59 Weight 119.93 kg Results 12/01/17 03:07 12/01/17 03:07 Cardiac Enzymes 11/30/17 11/30/17 11/30/17 Range/Units 16:10 16:10 22:44 AST 147 H (17-59) U/L CK-MB (CK-2) 3.9 H* 3.9 H* (0.0-2.4) ng/mL Troponin I 2.030 H* 2.800 H* (0.000-0.034) ng/mL 12/01/17 12/01/17 Range/Units 03:07 03:07 AST 135 H (17-59) U/L CK-MB (CK-2) 4.5 H* (0.0-2.4) ng/mL Troponin I 3.260 H* (0.000-0.034) ng/mL Coagulation 11/30/17 12/01/17 12/01/17 Range/Units 16:10 03:07 10:58 PT 14.7 H (9.0-12.0) sec APTT 43.4 H 35.8 H 56.7 H (22.0-30.0) sec CBC 11/30/17 12/01/17 Range/Units 16:10 03:07 WBC 18.0 H 16.6 H (3.8-10.6) k/uL RBC 4.24 L 3.73 L (4.30-5.90) m/uL Hgb 14.4 12.9 L (13.0-17.5) gm/dL Hct 42.2 38.1 L (39.0-53.0) % Plt Count 193 164 (150-450) k/uL Comprehensive Metabolic Panel 11/30/17 11/30/17 12/01/17 Range/Units 16:10 16:10 03:07 Sodium 141 140 (137-145) mmol/L Potassium 3.9 4.5 (3.5-5.1) mmol/L Chloride 106 104 (98-107) mmol/L Carbon Dioxide 24 27 (22-30) mmol/L BUN 17 22 H (9-20) mg/dL Creatinine 1.10 1.60 H (0.66-1.25) mg/dL Glucose 103 H 99 (74-99) mg/dL Calcium 9.2 8.9 (8.4-10.2) mg/dL Unconjugated Bilirubin 0.9 (0.0-1.1) mg/dL AST 147 H 135 H (17-59) U/L ALT 62 66 (21-72) U/L Alkaline Phosphatase 80 52 (38-126) U/L Total Protein 6.8 6.1 L (6.3-8.2) g/dL Albumin 3.8 3.3 L (3.5-5.0) g/dL Current Medications Generic Name Dose Route Start Last Admin Trade Name Freq PRN Reason Stop Dose Admin Acetaminophen 650 mg 11/30/17 20:17 Tylenol Tab PO Q6HR PRN Mild Pain or Fever > 100.5 Acetaminophen/Codeine Phosphate 1 each 11/30/17 20:17 12/01/17 09:35 Tylenol #3 PO 1 each Q4HR PRN Administration Moderate Pain Albuterol Sulfate 2.5 mg 11/30/17 17:37 Ventolin Nebulized INHALATION RT-QID PRN Shortness Of Breath Aspirin 162 mg 12/01/17 09:00 Aspirin PO DAILY [facility] Atorvastatin Calcium 20 mg 11/30/17 21:00 11/30/17 21:43 Lipitor PO 20 mg HS [facility] Administration Calcium Carbonate/Glycine 1,000 mg 11/30/17 20:17 Tums PO Q4HR PRN Dyspepsia Lactulose 20 gm 11/30/17 20:17 Cephulac PO DAILY PRN Constipation Lisinopril 40 mg 12/01/17 09:00 Zestril PO DAILY [facility] Lorazepam 0.5 mg 11/30/17 20:17 Ativan PO Q6HR PRN Anxiety Magnesium Hydroxide 2,400 mg 11/30/17 20:17 Milk Of Magnesia PO DAILY PRN Constipation Melatonin 3 mg 11/30/17 20:17 Melatonin PO HS PRN Insomnia Metoprolol Tartrate 25 mg 11/30/17 21:00 11/30/17 21:43 Lopressor PO 25 mg BID [facility] Administration Morphine Sulfate 4 mg 11/30/17 17:14 11/30/17 19:34 Morphine Sulfate (Inj) IV 4 mg Q4HR PRN Administration Severe Pain Naloxone HCl 0.2 mg 11/30/17 17:14 Narcan IV Q2M PRN Opioid Reversal Ondansetron HCl 4 mg 11/30/17 17:14 11/30/17 19:34 Zofran IVP 4 mg Q8HR PRN Administration Nausea And Vomiting Pantoprazole Sodium 40 mg 12/01/17 09:00 Protonix IV DAILY [facility] Rivaroxaban 20 mg 12/01/17 17:30 Xarelto PO W/SUPPER [facility] Intake and Output 11/30/17 12/01/17 12/01/17 22:59 06:59 14:59 Intake Total 309.333 Output Total 200 Balance 309.333 -200 Intake: IV 160 Heparin Sod,Pork in 0.45% 160 NaCl 25,000 unit In 0.45 % NaCl 1 500ml.bag @ 8.48 UNITS/KG/HR 20 mls/hr IV .Q24H [facility] Rx#:[id number] Intake, IV Titration 149.333 Amount Heparin Sod,Pork in 0.45% 149.333 NaCl 25,000 unit In 0.45 % NaCl 1 500ml.bag @ 8.48 UNITS/KG/HR 20 mls/hr IV .Q24H [facility] Rx#:[id number] Output: Urine 200 Other: Voiding Method Urinal Urinal # Voids 1 Weight 117.934 kg 119.93 kg Patient Weight 12/02/17 06:59 Weight 119.93 kg 12/01/17 03:07 12/01/17 03:07
[2017-12-01] MEDS: METOPROLOL TARTRATE 25 MG TAB PO SCH ×2 (14:14→21:02)
[2017-12-01] MEDS: LISINOPRIL 20 MG TAB PO SCH (14:18)
[2017-12-01] MEDS: PANTOPRAZOLE 40 MG/10 ML VIAL IV SCH (17:22)
[2017-12-01] MEDS: ASPIRIN 81 MG PO SCH (17:22)
[2017-12-01] MEDS: RIVAROXABAN 20 MG TAB PO SCH (17:23)
[2017-12-01] MEDS: ATORVASTATIN 20 MG TAB PO SCH (21:02)
[2017-12-01] MEDS ORDERED: LORazepam 2 MG/ML INJ IV PRN ×3 (22:21)
--- NOTE | 2017-12-01 22:23 | PN ---
PROGRESS NOTE DATE OF SERVICE: 12/01/2017 PRESENTING COMPLAINT: Abdominal pain. INTERVAL HISTORY: This is a patient who presented with acute myocardial infarction and acute pancreatitis. at the bedside. Abdominal pain is a bit better. No further chest pain. The patient was on IV heparin and did have some hematuria. I told the nurse to stop the IV heparin and inform Cardiology. Patient does feel a bit tired. REVIEW OF SYSTEMS: Done for constitutional, cardiovascular, GI, pulmonary, musculoskeletal; relevant findings as above. CURRENT MEDICATIONS: Reviewed. IV heparin was discontinued. PHYSICAL EXAMINATION: Temperature 98, pulse 54, respiration 16, blood pressure 106/56, pulse ox 94% on 4 L. GENERAL APPEARANCE: Lying in bed, tired-appearing. EYES: Pupils equal. Conjunctivae dirty-appearing. HEENT: External appearance of nose and ears normal. Oral cavity normal. NECK: JVD unable to assess. Mass not palpable. RESPIRATORY: Effort normal. LUNGS: Decreased breath sounds. CARDIOVASCULAR: First and second sounds normal. No edema. ABDOMEN: Upper abdominal tenderness. No guarding or rigidity. Liver and spleen not palpable. Bowel sounds are present. PSYCHIATRY: Alert and oriented x3. Mood and affect normal. INVESTIGATIONS: White count 16.6, hemoglobin 12.9, potassium 4.5, BUN 22, creatinine 1.60, troponin 3.2. Amylase 229, lipase 595. ASSESSMENT: 1. Acute non-Q-wave myocardial infarction, probably in the anterolateral wall. 2. Acute pancreatitis with some biochemical improvement. 3. Alcoholic liver disease. 4. Hepatic coagulopathy with pro time elevated, likely from alcohol disease. 5. Systemic inflammatory response syndrome from underlying acute pancreatitis. 6. 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 7. Intravenous heparin monitoring, but now this was being stopped because of hematuria. 8. Hematuria. 9. Essential hypertension. 10.Hyperlipidemia. 11.Primary osteoarthritis in multiple joints, including the lumbar herniated discs. 12.Gastroesophageal reflux disease. 13.Colonic diverticulosis. PLAN: Care was discussed with the patient and his at the bedside. Overall prognosis is guarded. Await further input from GI. From a cardiac standpoint, patient will be managed conservatively. Keep a close eye on patient's hemoglobin. MMODL / IJN: [id number] /
[2017-12-02 06:16] LABS: Basophils % (A) 0 %; Eosinophils # (A) 0.2 k/uL (0-0.7); Eosinophils % (A) 3 %; HCT 37.1 % (39.0-53.0); HGB 11.5 gm/dL (13.0-17.5); Hypochromasia Slight; Lymphocytes # (A) 0.8 k/uL (1.0-4.8); Lymphocytes % (A) 12 %; MCH 32.5 pg (25.0-35.0); MCHC 31.1 g/dL (31.0-37.0); MCV 104.7 fL (80.0-100.0); Macrocytosis Slight; Mean Platelet Volume 7.9; Monocytes # (A) 0.4 k/uL (0-1.0); Monocytes % (A) 5 %; Neutrophils # (A) 5.5 k/uL (1.3-7.7); Neutrophils % (A) 78 %; Platelet Count 136 k/uL (150-450); RBC 3.54 m/uL (4.30-5.90); RDW 13.5 % (11.5-15.5); WBC 7.1 k/uL (3.8-10.6)
[2017-12-02] MEDS: ASPIRIN 81 MG PO SCH (09:18)
[2017-12-02] MEDS: METOPROLOL TARTRATE 25 MG TAB PO SCH ×2 (09:19→22:12)
[2017-12-02] MEDS: PANTOPRAZOLE 40 MG/10 ML VIAL IV SCH (09:19)
[2017-12-02] MEDS: LISINOPRIL 20 MG TAB PO SCH (09:19)
--- NOTE | 2017-12-02 11:25 | P.PN ---
Subjective Patient interviewed and examined Likely alcoholic pancreatitis Acute myocardial injury most likely secondary to an acute myocardial infarction Medical treatment recommended at this time Maximize medical treatment Once pancreatitis resolves then proceed with coronary angiography Patient was interviewed and examined heart sounds are normal abdomen is soft breath sounds are clear vitals are stable Objective - Vital Signs Vital signs: Vital Signs Temp 97 F L 12/02/17 08:00 Pulse 67 12/02/17 08:00 Resp 18 12/02/17 08:00 BP 130/60 12/02/17 08:00 Pulse Ox 92 L 12/02/17 08:00 Intake & Output 12/01/17 12/02/17 12/02/17 18:59 06:59 18:59 Intake Total 625 Output Total 525 Balance 100 Weight 119.93 kg 120.4 kg Intake: Oral 625 Output: Urine 525 Other: Voiding Method Urinal Urinal # Voids 1 - Labs CBC & Chem 7: 12/02/17 05:38 12/01/17 03:07 Labs: Abnormal Lab Results - Last 24 Hours (Table) 12/01/17 12/01/17 12/01/17 Range/Units 10:58 10:58 13:15 RBC (4.30-5.90) m/uL Hgb (13.0-17.5) gm/dL Hct (39.0-53.0) % MCV (80.0-100.0) fL Plt Count (150-450) k/uL Lymphocytes # (1.0-4.8) k/uL APTT 56.7 H (22.0-30.0) sec D-Dimer 2.41 H (<0.60) mg/L FEU Ur Specific [place] 1.038 H (1.001-1.035) Urine Protein Trace H (Negative) Urine Bilirubin 2+ H (Negative) Urine RBC 7 H (0-5) /hpf Urine WBC 11 H (0-5) /hpf Urine Mucus Rare H (None) /hpf 12/02/17 Range/Units 05:38 RBC 3.54 L (4.30-5.90) m/uL Hgb 11.5 L (13.0-17.5) gm/dL Hct 37.1 L (39.0-53.0) % MCV 104.7 H (80.0-100.0) fL Plt Count 136 L (150-450) k/uL Lymphocytes # 0.8 L (1.0-4.8) k/uL APTT (22.0-30.0) sec D-Dimer (<0.60) mg/L FEU Ur Specific [place] (1.001-1.035) Urine Protein (Negative) Urine Bilirubin (Negative) Urine RBC (0-5) /hpf Urine WBC (0-5) /hpf Urine Mucus (None) /hpf Microbiology - Last 24 Hours (Table) 11/30/17 17:30 Blood Culture - Preliminary Blood No Growth after 24 hours 12/01/17 13:15 Urine Culture - Preliminary Urine,Voided
--- NOTE | 2017-12-02 12:54 | ECHOF ---
Referral Reason:abn trop MEASUREMENTS -------- HEIGHT: 177.8 cm WEIGHT: 120.2 kg BP: 130/60 RVIDd: 3.5 cm (< 3.3) IVSd: 1.2 cm (0.6 - 1.1) LVIDd: 5.6 cm (3.9 - 5.3) LVPWd: 1.2 cm (0.6 - 1.1) IVSs: 1.5 cm LVIDs: 3.9 cm LVPWs: 2.0 cm LAESV Index (A-L): 27.92 ml/m Ao Diam: 4.4 cm (2.0 - 3.7) AV Cusp: 2.2 cm (1.5 - 2.6) LA Diam: 3.2 cm (2.7 - 3.8) EPSS: 0.6 cm MV E Ted: 0.89 m/s MV DecT: 435 ms MV A Ted: 1.15 m/s MV E/A Ratio: 0.78 RAP: 10.00 mmHg RVSP: 43.77 mmHg MV EF SLOPE: 84.64 mm/s (70 - 150) MV EXCURSION: 1.80 cm (> 18.000) FINDINGS -------- Sinus rhythm. This was a technically difficult study with suboptimal views. The left ventricular size is normal. There is mild concentric left ventricular hypertrophy. Overa ll left ventricular systolic function is normal with, an EF between 55 - 60 %. The right ventricle is mildly enlarged. Normal LA size by volume 22+/-6 ml/m2. RA appears enlarged. 5ml of Lumason was utilized for enhancement of images. Aortic valve is trileaflet and is mildly thickened. There is no evidence of aortic regurgitation. There is no evidence of aortic stenosis. The mitral valve leaflets are mildly thickened. There is trace to mild mitral regurgitation. Mild tricuspid regurgitation present. There is mild pulmonary hypertension. The right ventricular systolic pressure, as measured by Doppler, is 43.77mmHg. Trace/mild (physiologic) pulmonic regurgitation. The aortic root and ascending aorta are dilated measuring up to 3.8 cm. The IVC is dilated with normal collapse. There is no pericardial effusion. CONCLUSIONS -------- 1. Sinus rhythm. 2. This was a technically difficult study with suboptimal views. 3. The left ventricular size is normal. 4. There is mild concentric left ventricular hypertrophy. 5. Overall left ventricular systolic function is normal with, an EF between 55 - 60 %. 6. The right ventricle is mildly enlarged. 7. Normal LA size by volume 22+/-6 ml/m2. 8. RA appears enlarged. 9. 5ml of Lumason was utilized for enhancement of images. 10. Aortic valve is trileaflet and is mildly thickened. 11. The mitral valve leaflets are mildly thickened. 12. There is trace to mild mitral regurgitation. 13. Mild tricuspid regurgitation present. 14. There is mild pulmonary hypertension. 15. The right ventricular systolic pressure, as measured by Doppler, is 43.77mmHg. 16. Trace/mild (physiologic) pulmonic regurgitation. 17. The aortic root and ascending aorta are dilated measuring up to 3.8 cm. 18. The IVC is dilated with normal collapse. 19. There is no pericardial effusion. DIRECTOR OF ENTERPRISE STRATEGY: Flex Shirley RDCS
--- NOTE | 2017-12-02 13:13 | P.PN ---
Subjective Progress Note Date: 12/02/17 Principal diagnosis: Severe Abdominal Pain This is an 82-year-old gentleman with history of a DVT, hyperlipidemia , hypertension, GERD, PE, history of bladder cancer, patient presented to the hospital with symptoms of severe abdominal discomfort. He denied any chest discomfort, but according to the he had symptoms that initiated in his abdomen and moved up into his chest wall area. Patient was noted to have troponin elevation as well as associated EKG changes in the anterior leads. Echocardiogram with Doppler study revealed a normal left ventricular systolic function. Patient was seen in consultation by Dr. Llamas, decision was made to maximize medical therapy. Abnormality in troponin as well as EKG changes were felt to be also possibly secondary to the pancreatitis. Blood pressure 128 /68 with a heart rate in the 60s, 93% on 2 L of oxygen. Hemoglobin 11.5, platelet count 136. D-dimer 2.4. Objective - Vital Signs Vital signs: Vital Signs Temp 97 F L 12/02/17 11:20 Pulse 68 12/02/17 11:20 Resp 18 12/02/17 11:20 BP 128/68 12/02/17 11:20 Pulse Ox 93 L 12/02/17 11:20 Intake & Output 12/01/17 12/02/17 12/02/17 18:59 06:59 18:59 Intake Total 625 Output Total 525 Balance 100 Weight 119.93 kg 120.4 kg Intake: Oral 625 Output: Urine 525 Other: Voiding Method Urinal Urinal # Voids 1 - Exam PHYSICAL EXAMINATION: HEENT: Head is atraumatic, normocephalic. Pupils equal, round. Neck is supple. There is no elevated jugular venous pressure. HEART EXAMINATION: Heart S1, S2 normal. No murmur or gallop heard. CHEST EXAMINATION: Lungs reveal decreased air exchange to the bases. ABDOMEN: Soft, nontender. Bowel sounds are heard. No organomegaly noted. EXTREMITIES: 2+ peripheral pulses with no evidence of peripheral edema and no calf tenderness noted. NEUROLOGIC patient is awake, alert and oriented -3. . - Labs CBC & Chem 7: 12/02/17 05:38 12/01/17 03:07 Labs: Abnormal Lab Results - Last 24 Hours (Table) 12/01/17 12/02/17 Range/Units 13:15 05:38 RBC 3.54 L (4.30-5.90) m/uL Hgb 11.5 L (13.0-17.5) gm/dL Hct 37.1 L (39.0-53.0) % MCV 104.7 H (80.0-100.0) fL Plt Count 136 L (150-450) k/uL Lymphocytes # 0.8 L (1.0-4.8) k/uL Ur Specific [place] 1.038 H (1.001-1.035) Urine Protein Trace H (Negative) Urine Bilirubin 2+ H (Negative) Urine RBC 7 H (0-5) /hpf Urine WBC 11 H (0-5) /hpf Urine Mucus Rare H (None) /hpf Microbiology - Last 24 Hours (Table) 11/30/17 17:30 Blood Culture - Preliminary Blood No Growth after 24 hours 12/01/17 13:15 Urine Culture - Preliminary Urine,Voided Assessment and Plan Plan: Assessment and plan #1 acute pancreatitis #2 abnormality in troponin with associated EKG changes, could reflect non-Q- wave VT, may also be secondary to acute pancreatitis. LV function by echo is normal #3 alcoholic liver disease #4 hypertension #5 hyperlipidemia Plan From cardiology's perspective, we will recommend to continue current maximal medical therapy. Patient has been encouraged regarding the cessation of EtOH. DNP note has been reviewed, I agree with a documented findings and plan of care. Patient was seen and examined.
--- NOTE | 2017-12-02 14:38 | P.PN ---
Subjective Progress Note Date: 12/02/17 Principal diagnosis: pancreatitis hepatitis possible acute ME Seen around 0900 this morning. No abdominal complaints. Resting. No liver/ pancreatic chemistries to review. Afebrile. Objective - Vital Signs Vital signs: Vital Signs Temp 97 F L 12/02/17 11:20 Pulse 68 12/02/17 11:20 Resp 18 12/02/17 11:20 BP 128/68 12/02/17 11:20 Pulse Ox 93 L 12/02/17 11:20 Intake & Output 12/01/17 12/02/17 12/02/17 18:59 06:59 18:59 Intake Total 625 Output Total 525 Balance 100 Weight 119.93 kg 120.4 kg Intake: Oral 625 Output: Urine 525 Other: Voiding Method Urinal Urinal # Voids 1 - Constitutional General appearance: Present: obese - EENT Eyes: Present: normal appearance ENT: Present: hard of hearing - Neck Neck: Present: normal ROM - Respiratory Respiratory: bilateral: CTA - Cardiovascular Rhythm: regular - Gastrointestinal Gastrointestinal Comment(s): nontender General gastrointestinal: Present: soft - Integumentary Integumentary: Present: normal turgor - Neurologic Neurologic: Present: CNII-XII intact - Psychiatric Psychiatric: Present: A&O x's 3 - Labs CBC & Chem 7: 12/02/17 05:38 12/01/17 03:07 Labs: Abnormal Lab Results - Last 24 Hours (Table) 12/02/17 Range/Units 05:38 RBC 3.54 L (4.30-5.90) m/uL Hgb 11.5 L (13.0-17.5) gm/dL Hct 37.1 L (39.0-53.0) % MCV 104.7 H (80.0-100.0) fL Plt Count 136 L (150-450) k/uL Lymphocytes # 0.8 L (1.0-4.8) k/uL Microbiology - Last 24 Hours (Table) 11/30/17 17:30 Blood Culture - Preliminary Blood No Growth after 24 hours 12/01/17 13:15 Urine Culture - Preliminary Urine,Voided Assessment and Plan (1) Pancreatitis Narrative/Plan: 82-year-old gentleman admitted with acute upper abdominal pain elevated troponin possible ME elevated pancreatic liver enzymes consistent with acute pancreatitis hepatitis suspect alcohol related with history of long-standing daily alcohol consumption. Current Visit: Yes Status: Acute Code(s): K85.90 - ACUTE PANCREATITIS WITHOUT NECROSIS OR INFECTION, UNSP SNOMED Code(s): 46746513 (2) Alcoholic hepatitis Current Visit: Yes Status: Acute Code(s): K70.10 - ALCOHOLIC HEPATITIS WITHOUT ASCITES SNOMED Code(s): 836319313 (3) ETOH abuse Current Visit: Yes Status: Acute Code(s): F10.10 - ALCOHOL ABUSE, UNCOMPLICATED SNOMED Code(s): 68447822 (4) Elevated troponin Current Visit: Yes Status: Acute Code(s): R74.8 - ABNORMAL LEVELS OF OTHER SERUM ENZYMES SNOMED Code(s): 015913527 Plan: 1. Lipase/CMP in am. 2. Full liquid diet. 3. Will continue to follow. Assessment and plan of care discussed with Dr. Shultz
[2017-12-02] MEDS: RIVAROXABAN 20 MG TAB PO SCH (17:21)
[2017-12-02] MEDS: ATORVASTATIN 20 MG TAB PO SCH (22:12)
--- NOTE | 2017-12-02 22:57 | PN ---
PROGRESS NOTE DATE OF SERVICE: 12/02/2017 PRESENTING COMPLAINT: Abdominal pain. INTERVAL HISTORY: This patient presented with acute pancreatitis and acute myocardial infarction. Abdominal pain is better. Because of hematuria, IV heparin was discontinued. Later the patient was put back on Xarelto. Two-dimensional echo did not show any wall motion abnormality. Patient's chronic back pain is bothering him; otherwise comfortable. REVIEW OF SYSTEMS: Done for constitutional, cardiovascular, GI, pulmonary, musculoskeletal; relevant findings as above. CURRENT MEDICATIONS: Current medications are reviewed that include: 1. Aspirin. 2. Lipitor. 3. Lopressor. 4. Xarelto. PHYSICAL EXAMINATION: Temperature 97, pulse 68, respiration 18, blood pressure 128/68, pulse ox 93% on 2 L. GENERAL APPEARANCE: Lying in bed, more comfortable. EYES: Pupils equal. Conjunctivae normal, dirty-appearing. HEENT: External appearance of nose and ears normal. Oral cavity normal. NECK: JVD not raised. Mass not palpable. RESPIRATORY: Effort normal. LUNGS: Diminished breath sounds. CARDIOVASCULAR: First and second sounds normal. No edema. ABDOMEN: Decreased upper abdominal tenderness. No guarding or rigidity. Liver and spleen not palpable. PSYCHIATRY: Alert and oriented x3. Mood and affect normal. INVESTIGATIONS: White count 7.1, hemoglobin 11.5. Two-dimensional echo shows preserved LV function, no wall motion abnormality. ASSESSMENT: 1. Acute non-Q-wave myocardial infarction, present on admission. 2. Acute pancreatitis with clinical and biochemical improvement. 3. Alcoholic liver disease. 4. Hepatic coagulopathy with pro time elevated, likely from alcohol use. 5. Systemic inflammatory response syndrome response from acute pancreatitis. No evidence of infection. 6. 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 7. Hematuria from IV heparin which is now discontinued. 8. Essential hypertension. 9. Hyperlipidemia. 10.Primary osteoarthritis in multiple joints, including lumbar herniated disc. 11.Gastroesophageal reflux disease. 12.Colonic diverticulosis. PLAN: Patient was put on full liquid diet per GI. Other medication and treatment plan is to continue. Patient is back on Xarelto and a baby aspirin. Because of liver function, Lipitor dose will not be further increased. Care was discussed with the patient. Patient was encouraged to be out of bed. MMODL / IJN: [id number] /
[2017-12-03 06:54] LABS: Albumin 3.2 g/dL (3.5-5.0); Calcium 9.1 mg/dL (8.4-10.2); Potassium 4.5 mmol/L (3.5-5.1); Total Bilirubin 1.9 mg/dL (0.2-1.3)
[2017-12-03] MEDS: ASPIRIN 81 MG PO SCH (08:23)
[2017-12-03] MEDS: LISINOPRIL 20 MG TAB PO SCH (08:23)
[2017-12-03] MEDS: PANTOPRAZOLE 40 MG TABLET PO SCH (08:23)
[2017-12-03] MEDS: METOPROLOL TARTRATE 25 MG TAB PO SCH ×2 (08:24→20:35)
--- NOTE | 2017-12-03 09:27 | P.PN ---
Subjective Progress Note Date: 12/03/17 Principal diagnosis: pancreatitis hepatitis possible acute HI No abdominal complaints. Resting. Liver/pancreatic chemistries improved. Afebrile. Objective - Vital Signs Vital signs: Vital Signs Temp 96.3 F L 12/03/17 08:14 Pulse 60 12/03/17 08:14 Resp 20 12/03/17 08:14 BP 136/70 12/03/17 08:14 Pulse Ox 95 12/03/17 08:14 Intake & Output 12/02/17 12/03/17 12/03/17 18:59 06:59 18:59 Intake Total 720 Balance 720 Weight 119 kg Intake: Oral 720 Other: Voiding Method Toilet Urinal # Voids 1 2 - Exam General appearance: The patient is alert, oriented, in no acute distress. HET: Head is normocephalic and atraumatic. Pupils are equal and reactive. Oropharynx is clear without lesions. Neck: Supple without lymphadenopathy. Trachea midline. Heart: S1 S2. Regular rate and rhythm. Lungs: No crackles or wheezes are heard. Abdomen: Soft, nontender, nondistended with bowel sounds. No peritoneal signs. No palpable organomegaly or masses. Extremities: Normal skin color and turgor. No cyanosis, rash, ulceration, clubbing, or edema. Radial and pedal pulses are 2/4 bilaterally. Neurological: No focal deficits. Strength and sensation are grossly intact. - Labs CBC & Chem 7: 12/02/17 05:38 12/03/17 06:10 Labs: Abnormal Lab Results - Last 24 Hours (Table) 12/02/17 12/03/17 Range/Units 23:34 06:10 Glucose 104 H (74-99) mg/dL Total Bilirubin 1.9 H (0.2-1.3) mg/dL AST 64 H (17-59) U/L Troponin I 0.524 H* (0.000-0.034) ng/mL Total Protein 6.0 L (6.3-8.2) g/dL Albumin 3.2 L (3.5-5.0) g/dL Microbiology - Last 24 Hours (Table) 12/01/17 13:15 Urine Culture - Final Urine,Voided 11/30/17 17:30 Blood Culture - Preliminary Blood No Growth after 48 hours Assessment and Plan (1) Pancreatitis Narrative/Plan: 82-year-old gentleman admitted with acute upper abdominal pain elevated troponin possible HI elevated pancreatic liver enzymes consistent with acute pancreatitis hepatitis suspect alcohol related with history of long-standing daily alcohol consumption. Current Visit: Yes Status: Acute Code(s): K85.90 - ACUTE PANCREATITIS WITHOUT NECROSIS OR INFECTION, UNSP SNOMED Code(s): 37467748 (2) Alcoholic hepatitis Current Visit: Yes Status: Acute Code(s): K70.10 - ALCOHOLIC HEPATITIS WITHOUT ASCITES SNOMED Code(s): 445645564 (3) ETOH abuse Current Visit: Yes Status: Acute Code(s): F10.10 - ALCOHOL ABUSE, UNCOMPLICATED SNOMED Code(s): 65209632 (4) Elevated troponin Current Visit: Yes Status: Acute Code(s): R74.8 - ABNORMAL LEVELS OF OTHER SERUM ENZYMES SNOMED Code(s): 387371989 Plan: 1. Supportive measures. Discharge per medicine. 2. Healthy heart diet. Return to office 3-4 weeks for reevaluation. 3. Will follow as needed. Assessment and plan of care discussed with Dr. Pina
--- NOTE | 2017-12-03 11:25 | P.PN ---
Progress Note - Text Patient steadily improving in terms of his abdominal symptoms Amylase lipase has normalized. Liver function tests have improved When he came in he did complain of a burning sensation in the chest according to his and he had abnormal cardiac enzymes Medical treatment for CAD and non-Q-wave OK versus initiated He may not proceed with invasive workup in the next few days
[2017-12-03] MEDS ORDERED: ALPRAZolam 0.25 MG TAB PO PRN (12:48)
[2017-12-03] MEDS ORDERED: ASPIRIN 325 MG TAB PO STA (12:48)
[2017-12-03] MEDS ORDERED: SODIUM CHLORIDE 0.9% 1,000 ML in EMPTY BAG 1 BAG IV ONE (12:48)
[2017-12-03] MEDS ORDERED: NITROGLYCERIN SL TABS 0.4 MG TAB SUBLINGUAL PRN (12:48)
[2017-12-03] MEDS ORDERED: ATORVASTATIN 80 MG TAB PO STA (12:48)
[2017-12-03] MEDS ORDERED: ALPRAZolam 0.5 MG TAB PO PRN (12:48)
--- NOTE | 2017-12-03 12:53 | P.PN ---
Subjective Progress Note Date: 12/03/17 Principal diagnosis: Severe Abdominal Pain This is an 82-year-old gentleman with history of a DVT, hyperlipidemia , hypertension, GERD, PE, history of bladder cancer, patient presented to the hospital with symptoms of severe abdominal discomfort. He denied any chest discomfort, but according to the he had symptoms that initiated in his abdomen and moved up into his chest wall area. Patient was noted to have troponin elevation as well as associated EKG changes in the anterior leads. Echocardiogram with Doppler study revealed a normal left ventricular systolic function. Patient was seen in consultation by Dr. Llamas, decision was made to maximize medical therapy. Abnormality in troponin as well as EKG changes were felt to be also possibly secondary to the pancreatitis. Blood pressure 128 /68 with a heart rate in the 60s, 93% on 2 L of oxygen. Hemoglobin 11.5, platelet count 136. D-dimer 2.4. 12/03/2017 Patient was seen and examined this morning, denies any abdominal pain, no chest discomfort. Blood pressure 140/60 heart rate in the 60s. Sodium 139, potassium 4.5, BUN 19, creatinine 0.9. Total bilirubin 1.9 today, AST 64, ALT 52, alk phos 73. Amylase 37, lipase 65. It was explained to the patient and his , that he may benefit from undergoing a cardiac catheterization because of the abnormal enzymes and EKG changes. This was also discussed with Dr. London. The plan is to proceed with a cardiac catheterization on Wednesday. The risks and the benefits were explained to both the patient and his in detail and he is willing to proceed. The patient is currently on Xarelto, he will get a dose tomorrow morning, we will hold his dose on Wednesday and proceed with a heart cath on Wednesday. Objective - Vital Signs Vital signs: Vital Signs Temp 96.8 F L 12/03/17 12:00 Pulse 60 12/03/17 12:00 Resp 20 12/03/17 12:00 BP 148/62 12/03/17 12:00 Pulse Ox 95 12/03/17 12:00 Intake & Output 12/02/17 12/03/17 12/03/17 18:59 06:59 18:59 Intake Total 720 600 Output Total 400 Balance 720 200 Weight 119 kg Intake: Oral 720 600 Output: Urine 400 Other: Voiding Method Toilet Toilet Urinal # Voids 1 2 4 # Bowel Movements 1 - Exam PHYSICAL EXAMINATION: HEENT: Head is atraumatic, normocephalic. Pupils equal, round. Neck is supple. There is no elevated jugular venous pressure. HEART EXAMINATION: Heart S1, S2 normal. No murmur or gallop heard. CHEST EXAMINATION: Lungs reveal decreased air exchange to the bases. ABDOMEN: Soft, nontender. Bowel sounds are heard. No organomegaly noted. EXTREMITIES: 2+ peripheral pulses with no evidence of peripheral edema and no calf tenderness noted. NEUROLOGIC patient is awake, alert and oriented -3. . - Labs CBC & Chem 7: 12/02/17 05:38 12/03/17 06:10 Labs: Abnormal Lab Results - Last 24 Hours (Table) 12/02/17 12/03/17 Range/Units 23:34 06:10 Glucose 104 H (74-99) mg/dL Total Bilirubin 1.9 H (0.2-1.3) mg/dL AST 64 H (17-59) U/L Troponin I 0.524 H* (0.000-0.034) ng/mL Total Protein 6.0 L (6.3-8.2) g/dL Albumin 3.2 L (3.5-5.0) g/dL Microbiology - Last 24 Hours (Table) 12/01/17 13:15 Urine Culture - Final Urine,Voided 11/30/17 17:30 Blood Culture - Preliminary Blood No Growth after 48 hours Assessment and Plan Plan: Assessment and plan #1 acute pancreatitis #2 abnormality in troponin with associated EKG changes, suggesting non-Q-wave myocardial infarction #3 alcoholic liver disease #4 hypertension #5 hyperlipidemia #6 history of pulmonary embolism and DVT, on xarelto Plan From cardiology's perspective, we will recommend that the patient undergo cardiac catheterization. The risks and benefits were explained to him and his in detail. He is currently on Xarelto because of history of PE and DVT, he will get a dose tomorrow morning, then the Xarelto will be placed on hold, cardiac catheterization will be performed Wednesday by Dr. London. DNP note has been reviewed, I agree with a documented findings and plan of care. Patient was seen and examined.
--- NOTE | 2017-12-03 13:21 | XR ---
EXAMINATION TYPE: XR chest 2V DATE OF EXAM: 12/03/2017 COMPARISON: 12/08/2015 HISTORY: Shortness of breath TECHNIQUE: Frontal and lateral views of the chest are obtained. FINDINGS: Scattered senescent parenchymal changes noted. Hyperinflation compatible with COPD. No evidence for infiltrate. No evidence for atelectasis. Heart size is stable. Mediastinal structures are stable and grossly unremarkable. No evidence for hilar prominence. Degenerative changes dorsal spine. IMPRESSION: 1. No evidence for acute pulmonary disease.
[2017-12-03] MEDS ORDERED: MORPHINE ORAL SOLN 10 MG/5 ML CUP PO PRN (14:02)
[2017-12-03 16:07] VITALS: RESP 18
[2017-12-03] MEDS: RIVAROXABAN 20 MG TAB PO SCH (17:06)
--- NOTE | 2017-12-03 17:43 | PN ---
PROGRESS NOTE DATE OF SERVICE: 12/03/2017 PRESENTING COMPLAINT: Abdominal pain. INTERVAL HISTORY: This patient presented with acute pancreatitis and acute myocardial infarction. Abdominal pain has completely resolved. Patient is back on Xarelto. Patient has been up and about in the hallway, doing much better. Today he was seen earlier by Dr. Llamas from Cardiology, who decided to proceed with cardiac catheterization, scheduling him for Wednesday. REVIEW OF SYSTEMS: Done for constitutional, cardiovascular, GI, pulmonary; relevant findings as above. Currently no chest pain with walking about. CURRENT MEDICATIONS: Reviewed. They include: 1. Aspirin. 2. Lipitor. 3. Zestril. 4. Xarelto. 5. Lopressor. PHYSICAL EXAMINATION: Temperature 96.8, pulse 60, respiration 20, blood pressure 148/62, pulse ox 95% on 2 L. GENERAL APPEARANCE: Sitting on bed, comfortable. EYES: Pupils equal. Conjunctivae normal. HEENT: External appearance of nose and ears normal. Oral cavity normal. NECK: JVD not raised. Mass not palpable. RESPIRATORY: Effort normal. LUNGS: Decreased breath sounds. CARDIOVASCULAR: First and second sounds normal. No edema. ABDOMEN: Soft, nontender. Liver and spleen not palpable. PSYCHIATRY: Alert and oriented x3. Mood and affect normal. INVESTIGATIONS: Potassium 4.5. Troponin down to 0.524. ProBNP 2390. Amylase and lipase normal. ASSESSMENT: 1. Acute non-Q-wave myocardial infarction, present on admission. 2. Acute pancreatitis with clinical and biochemical resolution. 3. Alcoholic liver disease. 4. Hepatic coagulopathy with pro time elevated, likely from alcohol use. 5. Systemic inflammatory response syndrome, response from acute pancreatitis. No evidence of infection. 6. 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 7. Hematuria from IV heparin; that was discontinued. 8. Essential hypertension. 9. Hyperlipidemia. 10.Primary osteoarthritis in multiple joints, including the lumbar herniated disc. 11.Gastroesophageal reflux disease. 12.Colonic diverticulosis. PLAN: I talked to the patient earlier in the day and his . He was doing better. Then Cardiology decided to proceed with cardiac catheterization. Continue current medication and treatment plan and follow with Cardiology. MMODL / IJN: [id number] /
[2017-12-04] MEDS: PANTOPRAZOLE 40 MG TABLET PO SCH (06:18)
[2017-12-04 06:52] LABS: Anion Gap 7 mmol/L; Blood Urea Nitrogen 16 mg/dL (9-20); Calcium 9.6 mg/dL (8.4-10.2); Carbon Dioxide 30 mmol/L (22-30); Chloride 100 mmol/L (98-107); Glucose 113 mg/dL (74-99); Potassium 4.8 mmol/L (3.5-5.1); Sodium 137 mmol/L (137-145)
[2017-12-04] MEDS: LISINOPRIL 20 MG TAB PO SCH (08:47)
[2017-12-04] MEDS: ASPIRIN 81 MG PO SCH (08:47)
[2017-12-04] MEDS: METOPROLOL TARTRATE 25 MG TAB PO SCH ×2 (08:47→19:57)
--- NOTE | 2017-12-04 10:46 | P.PN ---
Subjective Progress Note Date: 12/04/17 Principal diagnosis: Severe Abdominal Pain This is an 82-year-old gentleman with history of a DVT, hyperlipidemia , hypertension, GERD, PE, history of bladder cancer, patient presented to the hospital with symptoms of severe abdominal discomfort. He denied any chest discomfort, but according to the he had symptoms that initiated in his abdomen and moved up into his chest wall area. Patient was noted to have troponin elevation as well as associated EKG changes in the anterior leads. Echocardiogram with Doppler study revealed a normal left ventricular systolic function. Patient was seen in consultation by Dr. Llamas, decision was made to maximize medical therapy. Abnormality in troponin as well as EKG changes were felt to be also possibly secondary to the pancreatitis. Blood pressure 128 /68 with a heart rate in the 60s, 93% on 2 L of oxygen. Hemoglobin 11.5, platelet count 136. D-dimer 2.4. 12/03/2017 Patient was seen and examined this morning, denies any abdominal pain, no chest discomfort. Blood pressure 140/60 heart rate in the 60s. Sodium 139, potassium 4.5, BUN 19, creatinine 0.9. Total bilirubin 1.9 today, AST 64, ALT 52, alk phos 73. Amylase 37, lipase 65. It was explained to the patient and his , that he may benefit from undergoing a cardiac catheterization because of the abnormal enzymes and EKG changes. This was also discussed with Dr. London. The plan is to proceed with a cardiac catheterization on Wednesday. The risks and the benefits were explained to both the patient and his in detail and he is willing to proceed. The patient is currently on Xarelto, he will get a dose tomorrow morning, we will hold his dose on Wednesday and proceed with a heart cath on Wednesday. 12/04/2017 Patient was seen and examined this morning, denies any chest pain, no abdominal discomfort or difficulty in breathing. Blood pressure 140/70, heart rate in the 60s, 94% on 2 L of oxygen. Sodium 137, potassium 4.8, BUN 16, creatinine 0.9. Objective - Vital Signs Vital signs: Vital Signs Temp 98.3 F 12/04/17 08:00 Pulse 68 12/04/17 08:00 Resp 18 12/04/17 08:00 BP 144/73 12/04/17 08:00 Pulse Ox 94 L 12/04/17 08:00 Intake & Output 12/03/17 12/04/17 12/04/17 18:59 06:59 18:59 Intake Total 830 600 Output Total 1850 Balance -1020 600 Weight 117 kg Intake: Oral 830 600 Output: Urine 1850 Other: Voiding Method Toilet Toilet Toilet # Voids 4 2 # Bowel Movements 1 - Exam PHYSICAL EXAMINATION: HEENT: Head is atraumatic, normocephalic. Pupils equal, round. Neck is supple. There is no elevated jugular venous pressure. HEART EXAMINATION: Heart S1, S2 normal. No murmur or gallop heard. CHEST EXAMINATION: Lungs clear to auscultation. ABDOMEN: Soft, nontender. Bowel sounds are heard. No organomegaly noted. EXTREMITIES: 2+ peripheral pulses with no evidence of peripheral edema and no calf tenderness noted. NEUROLOGIC patient is awake, alert and oriented -3. . - Labs CBC & Chem 7: 12/02/17 05:38 12/04/17 06:07 Labs: Abnormal Lab Results - Last 24 Hours (Table) 12/04/17 Range/Units 06:07 Glucose 113 H (74-99) mg/dL Microbiology - Last 24 Hours (Table) 11/30/17 17:30 Blood Culture - Preliminary Blood No Growth after 72 hours Assessment and Plan Plan: Assessment and plan #1 acute pancreatitis #2 abnormality in troponin with associated EKG changes, suggesting non-Q-wave myocardial infarction #3 alcoholic liver disease #4 hypertension #5 hyperlipidemia #6 history of pulmonary embolism and DVT, on xarelto Plan From cardiology's perspective, we will recommend that the patient undergo cardiac catheterization. The risks and benefits were explained to him and his in detail. He is currently on Xarelto because of history of PE and DVT, he will receive his dose today, then it will be discontinued until after the heart catheterization which will be performed Wednesday by Dr. London. DNP note has been reviewed, I agree with a documented findings and plan of care. Patient was seen and examined.
--- NOTE | 2017-12-04 11:59 | P.PN ---
Subjective 82-year-old gentleman was admitted for acute pancreatitis found to have non-ST elevation microinfarction is presently on anticoagulation with Xeralto for his pulmonary embolism 3 years ago. Patient will undergo cardiac catheterization on Wednesday patient is clinically doing well. Constitutional: Denied any fatigue denied any fever. Cardio vascular: denied any chest pain, palpitations Gastrointestinal denied any nausea vomiting Pulmonary: Denied any shortness of breath cough Neurologic denied any new focal deficits Objective - Vital Signs Vital signs: Vital Signs Temp 96.8 F L 12/04/17 11:45 Pulse 66 12/04/17 11:45 Resp 18 12/04/17 11:45 BP 146/82 12/04/17 11:45 Pulse Ox 93 L 12/04/17 11:45 Intake & Output 12/03/17 12/04/17 12/04/17 18:59 06:59 18:59 Intake Total 830 600 Output Total 1850 Balance -1020 600 Weight 117 kg Intake: Oral 830 600 Output: Urine 1850 Other: Voiding Method Toilet Toilet Toilet # Voids 4 2 # Bowel Movements 1 - Exam PHYSICAL EXAMINATION: GENERAL: The patient is alert and oriented x3, not in any acute distress. Well developed, well nourished. HEENT: Pupils are round and equally reacting to light. EOMI. No scleral icterus. No conjunctival pallor. Normocephalic, atraumatic. No pharyngeal erythema. No thyromegaly. CARDIOVASCULAR: S1 and S2 present. No murmurs, rubs, or gallops. PULMONARY: Chest is clear to auscultation, no wheezing or crackles. ABDOMEN: Soft, nontender, nondistended, normoactive bowel sounds. No palpable organomegaly. MUSCULOSKELETAL: No joint swelling or deformity. EXTREMITIES: No cyanosis, clubbing, or pedal edema. NEUROLOGICAL: Gross neurological examination did not reveal any focal deficits. SKIN: No rashes. - Labs CBC & Chem 7: 12/02/17 05:38 12/04/17 06:07 Labs: Abnormal Lab Results - Last 24 Hours (Table) 12/04/17 Range/Units 06:07 Glucose 113 H (74-99) mg/dL Microbiology - Last 24 Hours (Table) 11/30/17 17:30 Blood Culture - Preliminary Blood No Growth after 72 hours Assessment and Plan Plan: -Acute pancreatitis: Resolved at this point of time patient is on regular diet. -Non-ST elevation microinfarction: Cardiac catheterization on Wednesday patient is on anti-correlation as mentioned above -history of pulmonary embolism in the past -Hyperlipidemia -hypertension -Gastroesophageal reflux disease
[2017-12-04] MEDS: RIVAROXABAN 20 MG TAB PO SCH (16:48)
[2017-12-04] MEDS: ATORVASTATIN 20 MG TAB PO SCH (19:57)
[2017-12-05] MEDS: PANTOPRAZOLE 40 MG TABLET PO SCH (06:22)
[2017-12-05 07:00] LABS: Calcium 9.6 mg/dL (8.4-10.2); Potassium 4.4 mmol/L (3.5-5.1)
[2017-12-05] MEDS: ASPIRIN 81 MG PO SCH (08:56)
[2017-12-05] MEDS: LISINOPRIL 20 MG TAB PO SCH (08:57)
[2017-12-05] MEDS: METOPROLOL TARTRATE 25 MG TAB PO SCH ×2 (08:57→19:59)
[2017-12-05] MEDS ORDERED: SODIUM CHLORIDE 0.9% 1,000 ML in EMPTY BAG 1 BAG IV ONE (14:00)
--- NOTE | 2017-12-05 14:24 | P.PN ---
Subjective Progress Note Date: 12/05/17 Mr. Katz seen today in follow-up. He has family at the bedside. He denies symptoms of chest pain, shortness of breath, dizziness or palpitations.potassium 4.4, creatinine 1.0. Blood [id number] heart rate 54 afebrile maintaining oxygen saturation on nasal cannula. Telemetry tracings have been unremarkable. Objective - Vital Signs Vital signs: Vital Signs Temp 97.9 F 12/05/17 12:00 Pulse 54 L 12/05/17 12:00 Resp 18 12/05/17 12:00 BP 132/72 12/05/17 12:00 Pulse Ox 95 12/05/17 12:00 Intake & Output 12/04/17 12/05/17 12/05/17 18:59 06:59 18:59 Intake Total 900 Balance 900 Weight 116.5 kg Intake: Oral 900 Other: Voiding Method Toilet Toilet Toilet # Voids 2 - Exam GENERAL: Well-appearing, well-nourished and in no acute distress. NECK: Supple without JVD or thyromegaly. LUNGS: Breath sounds clear to auscultation bilaterally. Respiration equal and unlabored. No wheezes, rales or rhonchi. HEART: Regular rate and rhythm without murmurs, rubs or gallops. S1 and S2 heard. EXTREMITIES: Normal range of motion, no edema. No clubbing or cyanosis. Peripheral pulses intact and strong. - Labs CBC & Chem 7: 12/02/17 05:38 12/05/17 06:04 Labs: Abnormal Lab Results - Last 24 Hours (Table) 12/05/17 Range/Units 06:04 Glucose 113 H (74-99) mg/dL Microbiology - Last 24 Hours (Table) 11/30/17 17:30 Blood Culture - Preliminary Blood No Growth after 96 hours Assessment and Plan Assessment: ASSESSMENT 1. acute pancreatitis 2. Troponin abnormality with associated EKG changes, suggesting non-Q-wave myocardial infarction 3. Alcoholic liver disease 4. Hypertension 5. Dyslipidemia 6. History of pulmonary embolism and DVT on Xarelto PLAN He will be nothing by mouth after midnight for cardiac catheterization tomorrow morning. Xarelto is currently on hold. Further recommendations to follow. The above impression and plan of care have been discussed and directed by the signing physician. Lacey Webster, nurse practitioner, acting as scribe for signing physician.
--- NOTE | 2017-12-05 14:41 | P.PN ---
Subjective 82-year-old gentleman was admitted for acute pancreatitis found to have non-ST elevation microinfarction is presently on anticoagulation with Xeralto for his pulmonary embolism 3 years ago. Patient will undergo cardiac catheterization on Wednesday patient is clinically doing well. 12/05/2017 No overnight events awaiting cardiac catheterization tomorrow Constitutional: Denied any fatigue denied any fever. Cardio vascular: denied any chest pain, palpitations Gastrointestinal denied any nausea vomiting Pulmonary: Denied any shortness of breath cough Neurologic denied any new focal deficits Objective - Vital Signs Vital signs: Vital Signs Temp 97.9 F 12/05/17 12:00 Pulse 54 L 12/05/17 12:00 Resp 18 12/05/17 12:00 BP 132/72 12/05/17 12:00 Pulse Ox 95 12/05/17 12:00 Intake & Output 12/04/17 12/05/17 12/05/17 18:59 06:59 18:59 Intake Total 900 Balance 900 Weight 116.5 kg Intake: Oral 900 Other: Voiding Method Toilet Toilet Toilet # Voids 2 - Exam PHYSICAL EXAMINATION: GENERAL: The patient is alert and oriented x3, not in any acute distress. Well developed, well nourished. HEENT: Pupils are round and equally reacting to light. EOMI. No scleral icterus. No conjunctival pallor. Normocephalic, atraumatic. No pharyngeal erythema. No thyromegaly. CARDIOVASCULAR: S1 and S2 present. No murmurs, rubs, or gallops. PULMONARY: Chest is clear to auscultation, no wheezing or crackles. ABDOMEN: Soft, nontender, nondistended, normoactive bowel sounds. No palpable organomegaly. MUSCULOSKELETAL: No joint swelling or deformity. EXTREMITIES: No cyanosis, clubbing, or pedal edema. NEUROLOGICAL: Gross neurological examination did not reveal any focal deficits. SKIN: No rashes. - Labs CBC & Chem 7: 12/02/17 05:38 12/05/17 06:04 Labs: Abnormal Lab Results - Last 24 Hours (Table) 12/05/17 Range/Units 06:04 Glucose 113 H (74-99) mg/dL Microbiology - Last 24 Hours (Table) 11/30/17 17:30 Blood Culture - Preliminary Blood No Growth after 96 hours Assessment and Plan Plan: -Acute pancreatitis: Resolved at this point of time patient is on regular diet. -Non-ST elevation microinfarction: Cardiac catheterization on Wednesday patient is on anti-correlation as mentioned above -history of pulmonary embolism in the past -Hyperlipidemia -hypertension -Gastroesophageal reflux disease
[2017-12-05] MEDS: ATORVASTATIN 20 MG TAB PO SCH (19:59)
[2017-12-05] MEDS ORDERED: ATORVASTATIN 80 MG TAB PO STA (23:59)
[2017-12-06] MEDS ORDERED: ASPIRIN 325 MG TAB PO STA (00:02)
[2017-12-06] MEDS: METOPROLOL TARTRATE 25 MG TAB PO SCH ×2 (05:58→20:14)
[2017-12-06] MEDS: LISINOPRIL 20 MG TAB PO SCH (05:58)
[2017-12-06] MEDS: PANTOPRAZOLE 40 MG TABLET PO SCH (05:59)
[2017-12-06] MEDS: ASPIRIN 81 MG PO SCH (05:59)
[2017-12-06 06:32] LABS: Calcium 9.6 mg/dL (8.4-10.2); Potassium 4.4 mmol/L (3.5-5.1)
[2017-12-06] MEDS ORDERED: LIDOCAINE 2% INJ 20 MG/ML (20 ML MDV) ONE (07:16)
[2017-12-06] MEDS ORDERED: fentaNYL (PF) 50 MCG/ML 2 ML AMP ONE (07:17)
[2017-12-06] MEDS ORDERED: VERAPAMIL 2.5 MG/ML 2 ML AMP ONE (07:27)
[2017-12-06] MEDS ORDERED: IV FLUID CONTINUATION 1,000 ML IV ONE (07:33)
[2017-12-06] MEDS ORDERED: fentaNYL (PF) 50 MCG/ML 2 ML AMP IV ONE (07:33)
[2017-12-06] MEDS ORDERED: LIDOCAINE 2% INJ 20 MG/ML SQ ONE (07:38)
[2017-12-06] MEDS: VERAPAMIL SYRINGE (5 MG/10 ML) IV ONE ×3 (07:41→08:17)
[2017-12-06] MEDS ORDERED: MIDAZOLAM 2 MG/2 ML VIAL ONE (07:51)
[2017-12-06] MEDS ORDERED: MIDAZOLAM 2 MG/2 ML VIAL IV ONE (07:53)
[2017-12-06] MEDS ORDERED: HEPARIN SODIUM 1,000 UN/ML (10ML VL) ONE (07:53)
[2017-12-06] MEDS ORDERED: HEPARIN SODIUM 1,000 UN/ML (10ML VL) IV ONE (07:55)
[2017-12-06] MEDS ORDERED: IOHEXOL 350 MG/ML 125ML BOTTLE INJ ONE (08:22)
[2017-12-06] MEDS ORDERED: RX INFO: IV CONTRAST WAS GIVEN 1 EACH MISC MISCELLANE PRN (08:23)
[2017-12-06] MEDS ORDERED: SODIUM CHLORIDE 0.9% 1,000 ML IV SCH (08:30)
--- NOTE | 2017-12-06 10:15 | CC ---
CARDIAC CATHETERIZATION REPORT HISTORY: Mr. Espinoza is an 82-year-old male, known history of hypertension, hyperlipidemia, who presented with symptoms of abdominal discomfort, was diagnosed with pancreatitis and had elevation of the troponins. After resolution of his pancreatitis and evaluation by Dr. Llamas, recommendations were made regarding cardiac catheterization. The procedure as well as the risks and complications, were discussed with the patient who is in full understanding and agreement. PROCEDURE: Patient was brought to carpenter/labor in a fasting, semi-sedated state, after receiving fentanyl Benadryl and achieving moderate conscious sedated state. Using Xylocaine anesthesia and Seldinger technique, a 6-Nigerian sheath was introduced in the right radial artery. Right coronary angiography performed using 5-Nigerian 3 and half bend right Stephie catheter. Multiple attempts to cannulate the left coronary ostium using 5-Nigerian 3-1/2 bend left Stephie, a Edwardo 6-Nigerian, a Jayashree 6-Nigerian, as well as multipurpose B2 were unsuccessful because of tortuosity in the subclavian area. In view of that, using Xylocaine anesthesia in the Seldinger technique, a 6-Nigerian sheath was introduced in right femoral artery. Selective left coronary angiography performed using 6-Nigerian 4 bend left chest catheter. Images of the coronary arteries were obtained. Following that, a 6-Nigerian tight pigtail catheter was introduced in the left ventricle and a 30 degree GARCIA view of the left ventricle was obtained. Following that, the catheter and sheaths were removed. Hemostasis was obtained with deployment of Angio-Seal on the left femoral artery and a TR band on the right radial artery. There was no immediate complication. Patient was returned to his room in stable condition. Of note, the patient received 5000 units of intravenous heparin as well as intra - arterial verapamil. FINDINGS: LEFT MAIN: This is a short size vessel bifurcating in left circumflex, left anterior descending artery. Left main coronary artery has no evidence of high-grade stenosis. LEFT ANTERIOR DESCENDING ARTERY: This is a large-sized vessel reaching toward the apex with a wraparound the apex segment, giving rise to a large diagonal branch proximally. In the mid segment of the LAD. There was a 40 to 50% plaque. The rest of the vessel has no high-grade stenosis. LEFT CIRCUMFLEX: This is a nondominant vessel giving rise to 2 obtuse marginal branches. The first one is very proximal, almost in the ramus intermedius territory. The left circumflex and its branches have no evidence of obstructive coronary disease. RIGHT CORONARY ARTERY: This is a large dominant vessel, bifurcating into PDA and posterolateral segment branches. The right coronary artery has mild intimal disease proximally, 10% to 20% without any evidence of high-grade stenosis. LEFT VENTRICULOGRAM: Left ventriculogram performed in 30 degree GARCIA view, reveals small area of hypokinesis in the mid anterior wall. Ejection fraction 50%. HEMODYNAMICS: There was no gradient across the aortic valve. The left ventricle end-diastolic pressure was 40 mmHg. CONCLUSION: 1. Mild disease involving the LAD and the right coronary artery. 2. minimally impaired left ventricular systolic function. RECOMMENDATIONS: In view of finding anatomy, recommend continued medical therapy with aggressive those medications been initiated. It is possible that the patient may have an acute thrombosis that resolved. Those findings and recommendation were discussed with the patient and his family who are in full understanding and agreement. DURATION OF PROCEDURE: 42 minutes. MMJERIL / JALENN: [id number] / MAURICE
--- NOTE | 2017-12-06 13:48 | P.PN ---
Subjective 82-year-old gentleman was admitted for acute pancreatitis found to have non-ST elevation microinfarction is presently on anticoagulation with Xeralto for his pulmonary embolism 3 years ago. Patient will undergo cardiac catheterization on Wednesday patient is clinically doing well. 12/05/2017 No overnight events awaiting cardiac catheterization tomorrow 12/06/2017 Patient underwent cardiac catheterization today which did not show any significant coronary atherosclerotic occlusive disease, patient will be discharged tomorrow patient's saturations are on the low normal side most probably related to atelectasis we'll obtain a chest x-ray to make sure patient does not have any pulmonary edema. Constitutional: Denied any fatigue denied any fever. Cardio vascular: denied any chest pain, palpitations Gastrointestinal denied any nausea vomiting Pulmonary: Denied any shortness of breath cough Neurologic denied any new focal deficits Objective - Vital Signs Vital signs: Vital Signs Temp 97.0 F L 12/06/17 08:35 Pulse 63 12/06/17 12:20 Resp 18 12/06/17 12:20 BP 152/72 12/06/17 12:20 Pulse Ox 90 L 12/06/17 12:20 Intake & Output 12/05/17 12/06/17 12/06/17 18:59 06:59 18:59 Intake Total 720 1000 425 Output Total 400 Balance 720 1000 25 Weight 115.6 kg Intake: IV 75 Intake, IV Titration 700 350 Amount Sodium Chloride 0.9% 1, 350 000 ml @ 100 mls/hr IV . Q10H [facility] Rx#:[id number] Sodium Chloride 0.9% 1, 700 000 ml In Empty Bag 1 bag @ 1 ML/KG/HR 119 mls/hr IV .[id number] [facility] Rx#: [id number] Oral 720 300 0 Output: Urine 400 Other: Voiding Method Toilet Toilet Toilet # Voids 1 1 - Exam PHYSICAL EXAMINATION: GENERAL: The patient is alert and oriented x3, not in any acute distress. Well developed, well nourished. HEENT: Pupils are round and equally reacting to light. EOMI. No scleral icterus. No conjunctival pallor. Normocephalic, atraumatic. No pharyngeal erythema. No thyromegaly. CARDIOVASCULAR: S1 and S2 present. No murmurs, rubs, or gallops. PULMONARY: Chest is clear to auscultation, no wheezing or crackles. ABDOMEN: Soft, nontender, nondistended, normoactive bowel sounds. No palpable organomegaly. MUSCULOSKELETAL: No joint swelling or deformity. EXTREMITIES: No cyanosis, clubbing, or pedal edema. NEUROLOGICAL: Gross neurological examination did not reveal any focal deficits. SKIN: No rashes. - Labs CBC & Chem 7: 12/02/17 05:38 12/06/17 05:54 Labs: Abnormal Lab Results - Last 24 Hours (Table) 12/06/17 Range/Units 05:54 Glucose 114 H (74-99) mg/dL Microbiology - Last 24 Hours (Table) 11/30/17 17:30 Blood Culture - Preliminary Blood No Growth after 120 hours Assessment and Plan Plan: -Acute pancreatitis: Resolved at this point of time patient is on regular diet. -Non-ST elevation microinfarction: Cardiac catheterization did not show any significant coronary occlusive disease, elevation of troponin is probably related to systemic inflammatory response from pancreatitis -history of pulmonary embolism in the past -Hyperlipidemia -hypertension -Gastroesophageal reflux disease
--- NOTE | 2017-12-06 15:53 | XR ---
EXAMINATION TYPE: XR chest 1V portable DATE OF EXAM: 12/06/2017 COMPARISON: 12/03/2017 HISTORY: Low oxygen saturation TECHNIQUE: Single frontal view of the chest is obtained. FINDINGS: Prominence of the upper mediastinum. There is subsegmental changes at both lung bases. Tin y effusions not excluded. There is arthropathy of the AC joints. There is diffuse osteopenia. Hypertr ophic change of the spine noted. Interstitium stable. IMPRESSION: 1. Bibasilar subsegmental atelectasis or early infiltrate with tiny effusion. 2. Mild prominence to the central interstitium can be seen with mild central venous congestion.
[2017-12-06] MEDS: ATORVASTATIN 20 MG TAB PO SCH (20:14)
[2017-12-07] MEDS: PANTOPRAZOLE 40 MG TABLET PO SCH (06:13)
[2017-12-07] MEDS: METOPROLOL TARTRATE 25 MG TAB PO SCH (09:06)
[2017-12-07] MEDS: LISINOPRIL 20 MG TAB PO SCH (09:06)
[2017-12-07] MEDS: ASPIRIN 81 MG PO SCH (09:06)
--- NOTE | 2017-12-07 11:15 | P.PN ---
Subjective Progress Note Date: 12/07/17 Principal diagnosis: Severe Abdominal Pain This is an 82-year-old gentleman with history of a DVT, hyperlipidemia , hypertension, GERD, PE, history of bladder cancer, patient presented to the hospital with symptoms of severe abdominal discomfort. He denied any chest discomfort, but according to the he had symptoms that initiated in his abdomen and moved up into his chest wall area. Patient was noted to have troponin elevation as well as associated EKG changes in the anterior leads. Echocardiogram with Doppler study revealed a normal left ventricular systolic function. Patient was seen in consultation by Dr. Llamas, decision was made to maximize medical therapy. Abnormality in troponin as well as EKG changes were felt to be also possibly secondary to the pancreatitis. Blood pressure 128 /68 with a heart rate in the 60s, 93% on 2 L of oxygen. Hemoglobin 11.5, platelet count 136. D-dimer 2.4. 12/03/2017 Patient was seen and examined this morning, denies any abdominal pain, no chest discomfort. Blood pressure 140/60 heart rate in the 60s. Sodium 139, potassium 4.5, BUN 19, creatinine 0.9. Total bilirubin 1.9 today, AST 64, ALT 52, alk phos 73. Amylase 37, lipase 65. It was explained to the patient and his , that he may benefit from undergoing a cardiac catheterization because of the abnormal enzymes and EKG changes. This was also discussed with Dr. London. The plan is to proceed with a cardiac catheterization on Wednesday. The risks and the benefits were explained to both the patient and his in detail and he is willing to proceed. The patient is currently on Xarelto, he will get a dose tomorrow morning, we will hold his dose on Wednesday and proceed with a heart cath on Wednesday. 12/04/2017 Patient was seen and examined this morning, denies any chest pain, no abdominal discomfort or difficulty in breathing. Blood pressure 140/70, heart rate in the 60s, 94% on 2 L of oxygen. Sodium 137, potassium 4.8, BUN 16, creatinine 0.9. 12/07/2017 Patient was taken to the cardiac catheterization lab yesterday by Dr. London, he was found to have mild disease involving the LAD and right coronary artery, minimally impaired left ventricular systolic function. In view of the findings of his anatomy, maximal medical therapy was advised. It is possible that the patient may have had an acute thrombosis that resolved. Patient was seen and examined this morning, denies any chest pain or difficulty in breathing. Right groin is soft no hematoma, right radial site clean and dry, good distal pulse. Blood pressure 136/80 with a heart rate in the 80s, 91% on room air. Sodium 141 , potassium 4.4, BUN 17, creatinine 1.0. Objective - Vital Signs Vital signs: Vital Signs Temp 97.6 F 12/07/17 08:00 Pulse 81 12/07/17 08:00 Resp 18 12/07/17 08:00 BP 137/84 12/07/17 08:00 Pulse Ox 91 L 12/07/17 08:00 Intake & Output 12/06/17 12/07/17 12/07/17 18:59 06:59 18:59 Intake Total 1025 120 240 Output Total 400 Balance 625 120 240 Weight 115.8 kg Intake: IV 75 Intake, IV Titration 350 Amount Sodium Chloride 0.9% 1, 350 000 ml @ 100 mls/hr IV . Q10H [facility] Rx#:[id number] Oral 600 120 240 Output: Urine 400 Other: Voiding Method Toilet Toilet Toilet # Voids 1 1 2 - Exam PHYSICAL EXAMINATION: HEENT: Head is atraumatic, normocephalic. Pupils equal, round. Neck is supple. There is no elevated jugular venous pressure. HEART EXAMINATION: Heart S1, S2 normal. No murmur or gallop heard. CHEST EXAMINATION: Lungs clear to auscultation. ABDOMEN: Soft, nontender. Bowel sounds are heard. No organomegaly noted. EXTREMITIES: 2+ peripheral pulses with no evidence of peripheral edema and no calf tenderness noted. Right groin soft, no hematoma. Right radial site clean and dry, good distal pulse. NEUROLOGIC patient is awake, alert and oriented -3. . - Labs CBC & Chem 7: 12/02/17 05:38 12/06/17 05:54 Labs: Microbiology - Last 24 Hours (Table) 11/30/17 17:30 Blood Culture - Final Blood No Growth after 144 hours Assessment and Plan Plan: Assessment and plan #1 acute pancreatitis #2 abnormality in troponin with associated EKG changes, suggesting non-Q-wave myocardial infarction #3 alcoholic liver disease #4 hypertension #5 hyperlipidemia #6 history of pulmonary embolism and DVT, on xarelto at home Plan Patient did undergo a cardiac catheterization yesterday which revealed mild disease involving the LAD and right coronary artery. In view of this patient was recommended maximum medical therapy, it is possible that the patient may have had an acute thrombosis that resolved. Xarelto will be resumed at 20 mg daily, we'll continue his current medications. He may be able to be discharged home today from cardiology's perspective, we will make him a follow-up appointment to see Dr. London in the office post discharge. DNP note has been reviewed, I agree with a documented findings and plan of care. Patient was seen and examined.
[2017-12-07 11:50] VITALS: BMI 36.6
[2017-12-07 12:37] VITALS: BP 150/87; PULSE 63; TEMP 96.2
[2017-12-07] MEDS ORDERED: FUROSEMIDE 10 MG/ML 4 ML VIAL IV STA (12:37)
--- NOTE | 2017-12-07 13:30 | P.DS ---
Providers Date of admission: 11/30/17 17:14 Attending physician: Markie Noland Consults: 11/30/17 17:18 Consult Physician Urgent Consulting Provider: Michael Miller Consult Reason/Comments: NSTEMI Do you want consulting provider notified?: Already Contacted Primary care physician: [facility] Course: 82-year-old gentleman was admitted for acute pancreatitis found to have non-ST elevation microinfarction is presently on anticoagulation with Xeralto for his pulmonary embolism 3 years ago. Patient will undergo cardiac catheterization on Wednesday patient is clinically doing well. 12/05/2017 No overnight events awaiting cardiac catheterization tomorrow 12/06/2017 Patient underwent cardiac catheterization today which did not show any significant coronary atherosclerotic occlusive disease, patient will be discharged tomorrow patient's saturations are on the low normal side most probably related to atelectasis we'll obtain a chest x-ray to make sure patient does not have any pulmonary edema. 12/07/2017 Patient is clinically doing well is cleared for discharge patient will be discharged today. PHYSICAL EXAMINATION: GENERAL: The patient is alert and oriented x3, not in any acute distress. Well developed, well nourished. HEENT: Pupils are round and equally reacting to light. EOMI. No scleral icterus. No conjunctival pallor. Normocephalic, atraumatic. No pharyngeal erythema. No thyromegaly. CARDIOVASCULAR: S1 and S2 present. No murmurs, rubs, or gallops. PULMONARY: Chest is clear to auscultation, no wheezing or crackles. ABDOMEN: Soft, nontender, nondistended, normoactive bowel sounds. No palpable organomegaly. MUSCULOSKELETAL: No joint swelling or deformity. EXTREMITIES: No cyanosis, clubbing, or pedal edema. NEUROLOGICAL: Gross neurological examination did not reveal any focal deficits. SKIN: No rashes. Assessment and Plan Plan: -Acute pancreatitis: Resolved at this point of time patient is on regular diet. -Non-ST elevation microinfarction: Cardiac catheterization did not show any significant coronary occlusive disease, elevation of troponin is probably related to systemic inflammatory response from pancreatitis -history of pulmonary embolism in the past -Hyperlipidemia -hypertension -Gastroesophageal reflux disease Patient Condition at Discharge: Stable Plan - Discharge Summary Discharge Rx Participant: No New Discharge Prescriptions: New Aspirin 81 mg PO DAILY #30 chew Metoprolol Tartrate [Lopressor] 25 mg PO BID #60 tab Nitroglycerin Sl Tabs [Nitrostat] 0.4 mg SUBLINGUAL Q5M PRN #25 tab PRN Reason: Chest Pain Continue Omeprazole [PriLOSEC] 20 mg PO AC-BRKFST Simvastatin [Zocor] 40 mg PO HS Fenofibrate 160 mg PO DAILY Lisinopril 40 mg PO DAILY Albuterol Nebulized [Ventolin Nebulized] 2.5 mg INHALATION RT-QID PRN PRN Reason: Shortness Of Breath Thiamine [Vitamin B-1] 100 mg PO DAILY Rivaroxaban [Xarelto] 20 mg PO DAILY Bacitracin Oint 1 applic TOPICAL DAILY PRN PRN Reason: Skin Irritation Discontinued Meloxicam [Mobic] 7.5 mg PO DAILY Discharge Medication List Fenofibrate 160 mg PO DAILY 08/17/15 [History] Omeprazole [PriLOSEC] 20 mg PO AC-BRKFST 08/17/15 [History] Simvastatin [Zocor] 40 mg PO HS 08/17/15 [History] Albuterol Nebulized [Ventolin Nebulized] 2.5 mg INHALATION RT-QID PRN 11/30/17 [ History] Bacitracin Oint 1 applic TOPICAL DAILY PRN 11/30/17 [History] Lisinopril 40 mg PO DAILY 11/30/17 [History] Rivaroxaban [Xarelto] 20 mg PO DAILY 11/30/17 [History] Thiamine [Vitamin B-1] 100 mg PO DAILY 11/30/17 [History] Aspirin 81 mg PO DAILY #30 chew 12/07/17 [Rx] Metoprolol Tartrate [Lopressor] 25 mg PO BID #60 tab 12/07/17 [Rx] Nitroglycerin Sl Tabs [Nitrostat] 0.4 mg SUBLINGUAL Q5M PRN #25 tab 12/07/17 [Rx ] Follow up Appointment(s)/Referral(s): Angel Luis London MD [STAFF PHYSICIAN] - 12/14/17 3:30 pm (wednesday) Jalen Cobos MD [Primary Care Provider] - 12/15/17 4:00 pm (Wednesday) Michelle Shultz MD [STAFF PHYSICIAN] - 01/19/18 1:45 pm Patient Instructions/Handouts: *Surgery [facility] - After Heart Catheterization - Chip Mucker Instructions, Left Heart Catheterization (DC) Discharge Disposition: HOME SELF-CARE
[2017-12-07] MEDS ORDERED: RIVAROXABAN 20 MG TAB PO SCH (17:30)
== END 2017-12-07 14:59 | disposition home or self-care (01) | DRG 280 ==
LOC: EC 15:26 → 6SEL 17:14
PROVIDERS: ADMIT Hospitalist; ATTEND Hospitalist
PROC: 4A023N7 Measurement of Cardiac Sampling and Pressure, Left Heart, Percutaneous Approach (ICD-10-PCS; principal; 2017-11-30)
PROC: B2111ZZ Fluoroscopy of Multiple Coronary Arteries using Low Osmolar Contrast (ICD-10-PCS; 2017-11-30)
PROC: B2151ZZ Fluoroscopy of Left Heart using Low Osmolar Contrast (ICD-10-PCS; 2017-11-30)
DX: I21.4 Non-ST elevation (NSTEMI) myocardial infarction (principal); K85.90 Acute pancreatitis without necrosis or infection, unspecified; D68.4 Acquired coagulation factor deficiency; R65.10 Systemic inflammatory response syndrome (SIRS) of non-infectious origin without acute organ dysfunction; K70.10 Alcoholic hepatitis without ascites; J98.11 Atelectasis; R31.9 Hematuria, unspecified; I25.10 Atherosclerotic heart disease of native coronary artery without angina pectoris; E78.5 Hyperlipidemia, unspecified; G89.29 Other chronic pain; I10 Essential (primary) hypertension; K21.9 Gastro-esophageal reflux disease without esophagitis; F10.10 Alcohol abuse, uncomplicated; E78.00 Pure hypercholesterolemia, unspecified; K57.30 Diverticulosis of large intestine without perforation or abscess without bleeding; M15.9 Polyosteoarthritis, unspecified; M47.9 Spondylosis, unspecified; M51.26 Other intervertebral disc displacement, lumbar region; Z79.01 Long term (current) use of anticoagulants; Z79.899 Other long term (current) drug therapy; Z88.7 Allergy status to serum and vaccine; Z85.51 Personal history of malignant neoplasm of bladder; Z87.891 Personal history of nicotine dependence; Z86.718 Personal history of other venous thrombosis and embolism; Z86.711 Personal history of pulmonary embolism
CPT/HCPCS: 36415; 71045; 71046; 76705; 80048; 80053; 81001; 82150; 82248; 82550; 82553; 83605; 83690; 83735; 83880; 84484; 85025; 85379; 85610; 85730; 87040; 87086; 93005; 93306; 93458; 94760; 96365; 96366; 96368; 96375; 99291

== ENCOUNTER 2018-01-13 17:13 | Inpatient (IN) | payer MEDICARE, BC ==
[2018-01-13] MEDS ORDERED: ONDANSETRON 4 MG/2 ML VIAL IVP PRN (18:09)
[2018-01-13] MEDS ORDERED: NALOXONE 0.4 MG/ML 1 ML VIAL IV PRN (18:09)
[2018-01-13] MEDS ORDERED: MORPHINE SULFATE 4 MG/0.8 ML SYRINGE (INJ) IVP PRN (18:14)
[2018-01-13] MEDS ORDERED: NITROGLYCERIN SL TABS 0.4 MG TAB SUBLINGUAL PRN (18:15)
[2018-01-13] MEDS ORDERED: ALBUTEROL NEBULIZED 2.5 MG/3 ML INHALATION PRN (18:15)
--- NOTE | 2018-01-13 18:27 | P.GSHP ---
History of Present Illness H&P Date: 01/13/18 Chief Complaint: Abdominal pain The patient is a 82-year-old man who presented to my office with complaints of abdominal pain. He had a outpatient CT scan showing gallbladder wall thickening and fluid. He's had severe pain in the right upper quadrant which woke him from sleep on Wednesday night. He had never had anything like this. He was hospitalized last month with pancreatitis and jaundice. At that time his ultrasound was normal. The pancreatitis was felt to be due to alcohol. He has not had any alcohol since that admission. The pain has been continuous. He hasn't felt like eating anything. No diarrhea or constipation. No vomiting. No jaundice that he or his had noticed. - Constitutional Constitutional: Reports as per HPI, Reports anorexia, Reports malaise, Reports poor appetite - Cardiovascular Cardiovascular: Reports as per HPI, Denies dyspnea on exertion, Denies leg edema , Denies shortness of breath - Respiratory Respiratory: Reports cough - Gastrointestinal Gastrointestinal: Reports as per HPI, Reports abdominal pain, Reports bloating, Reports loss of appetite, Denies jaundice - Integumentary Integumentary: Denies darkening of skin Past Medical History Past Medical History: Cancer, Deep Vein Thrombosis (DVT), GERD/Reflux, Hyperlipidemia, Hypertension, Osteoarthritis (OA), Pulmonary Embolus (PE) Additional Past Medical History / Comment(s): bladder cancer 20 years ago, DVT and PE 2017 History of Any Multi-Drug Resistant Organisms: None Reported Additional Past Surgical History / Comment(s): bladder cancer Past Anesthesia/Blood Transfusion Reactions: No Reported Reaction Past Psychological History: No Psychological Hx Reported Smoking Status: Former smoker Past Alcohol Use History: Daily Additional Past Alcohol Use History / Comment(s): None since previous hospitalization in November Past Drug Use History: None Reported - Past Family History Mother History Unknown: Yes Medications and Allergies Home Medications Medication Instructions Recorded Confirmed Type Fenofibrate 160 mg PO DAILY 08/17/15 11/30/17 History Omeprazole [PriLOSEC] 20 mg PO AC-BRKFST 08/17/15 11/30/17 History Simvastatin [Zocor] 40 mg PO HS 08/17/15 11/30/17 History Albuterol Nebulized [Ventolin 2.5 mg INHALATION RT-QID PRN 11/30/17 11/30/17 History Nebulized] Bacitracin Oint 1 applic TOPICAL DAILY PRN 11/30/17 11/30/17 History Lisinopril 40 mg PO DAILY 11/30/17 11/30/17 History Rivaroxaban [Xarelto] 20 mg PO DAILY 11/30/17 11/30/17 History Thiamine [Vitamin B-1] 100 mg PO DAILY 11/30/17 11/30/17 History Aspirin 81 mg PO DAILY #30 chew 12/07/17 Rx Metoprolol Tartrate [Lopressor] 25 mg PO BID #60 tab 12/07/17 Rx Nitroglycerin Sl Tabs [Nitrostat] 0.4 mg SUBLINGUAL Q5M PRN #25 tab 12/07/17 Rx Allergies Allergy/AdvReac Type Severity Reaction Status Date / Time tetanus toxoid, adsorbed AdvReac Nausea & Verified 12/08/15 15:16 Vomiting Surgical - Exam Osteopathic Statement: *. No significant issues noted on an osteopathic structural exam other than those noted in the History and Physical/Consult. Vital Signs Temp Pulse Resp BP Pulse Ox 98.7 F 96 16 115/68 90 L 01/13/18 18:04 01/13/18 18:04 01/13/18 18:04 01/13/18 18:04 01/13/18 18:04 - General well developed, well nourished, moderate distress - Eyes normal ocular movement, no icteric - ENT normal nares, normal mucosa - Neck no masses, trachea midline, no lymphadectomy - Respiratory normal respiratory effort - Cardiovascular Rhythm: regular - Abdomen Abdomen: soft, tender (Right upper quadrant), masses (Fullness in the right upper quadrant), guarding (Voluntary), rebound (Tenderness to percussion) - Integumentary no abnormal pigmentation Assessment and Plan (1) Acute cholecystitis Current Visit: Yes Status: Acute Code(s): K81.0 - ACUTE CHOLECYSTITIS SNOMED Code(s): 46255151 (2) History of DVT (deep vein thrombosis) Current Visit: Yes Status: Acute Code(s): Z86.718 - PERSONAL HISTORY OF OTHER VENOUS THROMBOSIS AND EMBOLISM SNOMED Code(s): 087437178 (3) History of pulmonary embolism Current Visit: Yes Status: Acute Code(s): Z86.711 - PERSONAL HISTORY OF PULMONARY EMBOLISM SNOMED Code(s): 244285944 (4) GERD (gastroesophageal reflux disease) Current Visit: Yes Status: Acute Code(s): K21.9 - GASTRO-ESOPHAGEAL REFLUX DISEASE WITHOUT ESOPHAGITIS SNOMED Code(s): 223213802 (5) History of pancreatitis Current Visit: Yes Status: Acute Code(s): Z87.19 - PERSONAL HISTORY OF OTHER DISEASES OF THE DIGESTIVE SYSTEM SNOMED Code(s): 74030148646160 (6) HTN (hypertension) Current Visit: No Status: Acute Code(s): I10 - ESSENTIAL (PRIMARY) HYPERTENSION SNOMED Code(s): 18744115 (7) Hyperlipemia Current Visit: No Status: Acute Code(s): E78.5 - HYPERLIPIDEMIA, UNSPECIFIED SNOMED Code(s): 21474297 (8) History of bladder cancer Current Visit: Yes Status: Acute Code(s): Z85.51 - PERSONAL HISTORY OF MALIGNANT NEOPLASM OF BLADDER SNOMED Code(s): 324108274 Plan: A CT scan done at [facility] showed evidence of gallbladder distention, gallbladder wall thickening, pericholecystic fluid. The patient's having significant pain. He will be admitted. IV antibiotics. Pain control. Hydration. DVT and ulcer prophylaxis. We will hold his or L toe at this time and start him on Lovenox with SCDs. Labs including CBC, CMP, amylase, lipase, coags. Depending on the laboratory picture, may consult GI if it appears there is a common bile duct stone. Consult medicine and cardiology. Further recommendations to follow.
[2018-01-13 19:04] LABS: HCT 35.3 % (39.0-53.0); HGB 11.8 gm/dL (13.0-17.5); MCH 32.6 pg (25.0-35.0); MCHC 33.3 g/dL (31.0-37.0); Mean Platelet Volume 7.8; Platelet Count 188 k/uL (150-450); RBC 3.61 m/uL (4.30-5.90); RDW 12.9 % (11.5-15.5); WBC 12.7 k/uL (3.8-10.6)
[2018-01-13 19:06] LABS: MCV 97.8 fL (80.0-100.0)
[2018-01-13 19:09] LABS: Amylase <30 U/L (30-110); Lipase 25 U/L (23-300)
[2018-01-13] MEDS: MORPHINE SULFATE 4 MG/0.8 ML SYRINGE (INJ) IVP PRN (19:25)
[2018-01-13] MEDS: D5-0.45% NACL WITH KCL 20MEQ/L 1,000 ML IV SCH (19:27)
[2018-01-13] MEDS: AMPICILLIN-SULBACTAM 3 GM in SODIUM CHLORIDE 0.9% 100 ML IVPB SCH (19:28)
[2018-01-13] MEDS: ENOXAPARIN 40 MG/0.4 ML SYRINGE SQ SCH (19:28)
[2018-01-13 19:29] LABS: INR 1.8 (<1.2); Prothrombin Time 16.8 sec (9.0-12.0)
[2018-01-13] MEDS: METOPROLOL TARTRATE 25 MG TAB PO SCH (21:29)
[2018-01-13] MEDS: ATORVASTATIN 20 MG TAB PO SCH (21:29)
[2018-01-14] MEDS: AMPICILLIN-SULBACTAM 3 GM in SODIUM CHLORIDE 0.9% 100 ML IVPB SCH ×3 (00:29→22:21)
[2018-01-14 07:35] LABS: Basophils % (A) 0 %; Eosinophils # (A) 0.1 k/uL (0-0.7); Eosinophils % (A) 1 %; HCT 35.4 % (39.0-53.0); HGB 11.3 gm/dL (13.0-17.5); Lymphocytes % (A) 9 %; MCH 31.5 pg (25.0-35.0); MCV 98.4 fL (80.0-100.0); Mean Platelet Volume 8.2; Monocytes # (A) 0.6 k/uL (0-1.0); Monocytes % (A) 6 %; Neutrophils # (A) 9.1 k/uL (1.3-7.7); Neutrophils % (A) 84 %; Platelet Count 160 k/uL (150-450); RBC 3.59 m/uL (4.30-5.90); RDW 12.9 % (11.5-15.5); WBC 10.9 k/uL (3.8-10.6)
--- NOTE | 2018-01-14 07:41 | P.PN ---
Subjective Progress Note Date: 01/14/18 Principal diagnosis: Cholecystitis The patient continues to have pain in the right upper quadrant and epigastrium. Worse if he coughs. He doesn't want to take a deep breath. He does want something to drink. He is on oxygen as his pulse oximetry was low. Objective - Vital Signs Vital signs: Vital Signs Temp 97.3 F L 01/13/18 22:20 Pulse 68 01/13/18 22:20 Resp 16 01/13/18 22:20 BP 101/64 01/13/18 22:20 Pulse Ox 95 01/13/18 22:20 Intake & Output 01/13/18 01/14/18 01/14/18 18:59 06:59 18:59 Intake Total 1290 Balance 1290 Weight 68.039 kg Intake: Intake, IV Titration 700 Amount Ampicillin-Sulbactam 3 gm 100 In Sodium Chloride 0.9% 100 ml @ 100 mls/hr IVPB Q8HR MEL Rx#:[id number] D5-0.45% NaCl with KCl 600 20Meq/l 1,000 ml @ 75 mls /hr IV .[id number] MEL Rx#: [id number] Oral 590 Other: # Voids 1 - Constitutional General appearance: Present: cooperative - Respiratory Respiratory: bilateral: CTA, diminished (At the bases) - Gastrointestinal General gastrointestinal: Present: decreased bowel sounds, distended (In the upper abdomen), tenderness Localized gastrointestinal: guarding: RUQ (Fullness and tenderness in the epigastrium and right upper quadrant), mass: RUQ - Labs CBC & Chem 7: 01/13/18 18:38 Labs: Abnormal Lab Results - Last 24 Hours (Table) 01/13/18 01/13/18 01/13/18 Range/Units 18:38 18:38 18:38 WBC 12.7 H (3.8-10.6) k/uL RBC 3.61 L (4.30-5.90) m/uL Hgb 11.8 L (13.0-17.5) gm/dL Hct 35.3 L (39.0-53.0) % PT 16.8 H (9.0-12.0) sec INR 1.8 H (<1.2) APTT 54.8 H (22.0-30.0) sec Amylase (30-110) U/L 01/13/18 Range/Units 18:38 WBC (3.8-10.6) k/uL RBC (4.30-5.90) m/uL Hgb (13.0-17.5) gm/dL Hct (39.0-53.0) % PT (9.0-12.0) sec INR (<1.2) APTT (22.0-30.0) sec Amylase <30 L (30-110) U/L Assessment and Plan (1) Acute cholecystitis Current Visit: Yes Status: Acute Code(s): K81.0 - ACUTE CHOLECYSTITIS SNOMED Code(s): 99902225 (2) History of DVT (deep vein thrombosis) Current Visit: Yes Status: Acute Code(s): Z86.718 - PERSONAL HISTORY OF OTHER VENOUS THROMBOSIS AND EMBOLISM SNOMED Code(s): 378812780 (3) History of pulmonary embolism Current Visit: Yes Status: Acute Code(s): Z86.711 - PERSONAL HISTORY OF PULMONARY EMBOLISM SNOMED Code(s): 721191425 (4) GERD (gastroesophageal reflux disease) Current Visit: Yes Status: Acute Code(s): K21.9 - GASTRO-ESOPHAGEAL REFLUX DISEASE WITHOUT ESOPHAGITIS SNOMED Code(s): 350952234 (5) History of pancreatitis Current Visit: Yes Status: Acute Code(s): Z87.19 - PERSONAL HISTORY OF OTHER DISEASES OF THE DIGESTIVE SYSTEM SNOMED Code(s): 51414045177927 (6) HTN (hypertension) Current Visit: No Status: Acute Code(s): I10 - ESSENTIAL (PRIMARY) HYPERTENSION SNOMED Code(s): 61886932 (7) Hyperlipemia Current Visit: No Status: Acute Code(s): E78.5 - HYPERLIPIDEMIA, UNSPECIFIED SNOMED Code(s): 59415198 (8) History of bladder cancer Current Visit: Yes Status: Acute Code(s): Z85.51 - PERSONAL HISTORY OF MALIGNANT NEOPLASM OF BLADDER SNOMED Code(s): 166994842 (9) Coagulopathy Current Visit: Yes Status: Acute Code(s): D68.9 - COAGULATION DEFECT, UNSPECIFIED SNOMED Code(s): 25396824 Plan: We'll order a ultrasound of the abdomen to evaluate the common bile duct. Also consult GI due to the coagulopathy also review the results of the ultrasound to see if he needs a ERCP.. His liver function tests this morning are still pending. His amylase and lipase were normal. Obtain a PA lateral chest x-ray due to the cough. Further recommendations to follow
[2018-01-14 08:11] LABS: Albumin 2.5 g/dL (3.5-5.0); Calcium 8.4 mg/dL (8.4-10.2); Potassium 3.9 mmol/L (3.5-5.1); Total Bilirubin 3.6 mg/dL (0.2-1.3); Total Protein 5.1 g/dL (6.3-8.2)
--- NOTE | 2018-01-14 08:51 | US ---
EXAMINATION TYPE: US abdomen limited DATE OF EXAM: 01/14/2018 COMPARISON: US 11/30/2017, CT 11/06/2016 CLINICAL HISTORY: cholecystitis. Extremely difficult and limited exam due to patient body habitus and overlying bowel gas EXAM MEASUREMENTS: Liver Length: 20.0 cm Gallbladder Wall: 0.26 cm CBD: 0.86 cm Right Kidney: 10.5 x 5.3 x 4.3 cm Pancreas: Obscured by bowel gas Liver: Limited visualization due to overlying bowel gas. Visualized portion heterogeneous Gallbladder: No shadowing mobile gallstones visualized Evidence for sonographic Snider's sign: Yes CBD: Dilated. Distal portion obscured by bowel gas Right Kidney: No hydronephrosis or masses seen Suboptimal study per technologist due to patient's body habitus and overlying bowel gas. There is sub optimal evaluation of pancreas. Visualized liver is heterogeneous. Evaluation for focal masses is sub optimal due to the heterogeneity. Visualized portion of gallbladder shows no shadowing mobile gallsto leon. IMPRESSION: No shadowing mobile gallstones or convincing secondary ultrasound evidence for acute chol ecystitis. Consider HIDA scan correlation given suboptimal study if clinical suspicion persists.
--- NOTE | 2018-01-14 09:06 | XR ---
EXAMINATION TYPE: XR chest 2V DATE OF EXAM: 01/14/2018 COMPARISON: 12/06/2017 TECHNIQUE: PA and lateral views submitted. HISTORY: Cough FINDINGS: Subsegmental consolidation in both lung bases with tiny effusion. Interstitial pattern is prominent t here is cardiomegaly. Hypertrophic and degenerative change of the spine. Arthropathy of the AC joints . Upper mediastinal remains prominent and stable. IMPRESSION: 1. Basilar atelectasis or infiltrate with tiny effusion. Mild central venous congestion in the differ ential diagnosis. Correlate clinically.
--- NOTE | 2018-01-14 09:23 | P.CONS ---
History of Present Illness - Reason for Consult Consult date: 01/14/18 abdominal pain Requesting physician: Gracie Barnard - History of Present Illness 82-year-old gentleman with a past medical history of bilateral pulmonary embolism maintained on Xarelto, DVT, bladder carcinoma, hypertension, hyperlipidemia, and EtOH abuse. Patient admitted with severe right upper quadrant abdominal pain that started Wednesday without fever chills hematemesis hematochezia or melena. He has not had an alcoholic drink for at least a month. Prior to that he was drinking liquor and beer on a daily basis for more than 10 years. He was recently hospitalized 6 weeks ago with upper abdominal chest pain with elevated troponin, liver enzymes and pancreatic enzymes. His presentation was suspected alcohol-induced pancreatitis hepatitis. Ultrasound of the abdomen at that time was within normal limits also acalculus. Prior to discharge his pancreatic liver enzymes improved. On this admission white count was 12.7. Hemoglobin 11.8. Platelet 188. INR 1.8. BUN 46. Creatinine 2.0. Total bilirubin 3.6. AST/ALT/AP within normal limits. Lipase 25. Amylase less than 30. T-max 98.7. Repeat abdominal ultrasound suboptimal study liver is heterogeneous. No shadowing mobile gallstones. Gallbladder wall 0.26 cm. CBD 0.8 cm. Review of Systems Constitutional: Denies fever, chills, sweats, weight gain, or loss. HEENT: Negative for migraines, blurred vision or loss, earaches, drainage, tinnitus, oral mucosal lesions, dysphagia, or odynophagia. Cardiac: Hypertension. Hyperlipidemia. Negative for chest pain, arrhythmias, or palpitation. Respiratory: Negative for shortness of breath, hemoptysis, cough, or sputum production. Gastrointestinal: See HPI for pertinent findings. Genitourinary: Bladder carcinoma. Negative for hematuria, urgency, frequency, polyuria, dysuria, or penile discharge. Musculoskeletal: Negative for muscle aches, swelling, arthritis, and arthralgias. Neurologic: Negative for stroke or TIA. Endocrine: Negative for thyroid problems. Hematology: PE/DVT. Skin: Negative for rash or itching. Psychiatric: Negative history for depression and anxiety 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 lesion-sees cattyman, vertigo , no cpap machine- tired in past but could'nt tolerate."never definitely told if he had aheart attack or not when here in november" History of Any Multi-Drug Resistant Organisms: None Reported Past Surgical History: Heart Catheterization Additional Past Surgical History / Comment(s): bladder cancer d/t cancer(sx only , no chemo, no radiaiton), maximilian cataracats removed-lens implants, colonoscopy/ polypectomy-benign Past Anesthesia/Blood Transfusion Reactions: Motion Sickness Smoking Status: Former smoker - Past Family History Mother History Unknown: Yes Additional Family Medical History / Comment(s): bladder tumor. lived till age 93 Father Additional Family Medical History / Comment(s): ? cancer of the stomach, lung disease, smoker Medications and Allergies Home Medications Medication Instructions Recorded Confirmed Type Omeprazole [PriLOSEC] 20 mg PO AC-BRKFST 08/17/15 01/13/18 History Simvastatin [Zocor] 40 mg PO HS 08/17/15 01/13/18 History Lisinopril 40 mg PO BID 11/30/17 01/13/18 History Rivaroxaban [Xarelto] 20 mg PO DAILY 11/30/17 01/13/18 History Metoprolol Tartrate [Lopressor] 25 mg PO BID #60 tab 12/07/17 01/13/18 Rx Allergies Allergy/AdvReac Type Severity Reaction Status Date / Time tetanus toxoid, adsorbed AdvReac Nausea & Verified 01/13/18 19:39 Vomiting Physical Exam Vitals: Vital Signs Temp Pulse Resp BP Pulse Ox 01/14/18 08:44 98.7 F 88 16 126/66 91 L 01/13/18 22:20 97.3 F L 68 16 101/64 95 01/13/18 19:19 98.4 F 92 16 103/60 93 L 01/13/18 18:04 98.7 F 96 16 115/68 90 L Intake and Output 01/13/18 01/14/18 01/14/18 22:59 06:59 14:59 Intake Total 590 700 Balance 590 700 Intake: Intake, IV Titration 700 Amount Ampicillin-Sulbactam 3 gm 100 In Sodium Chloride 0.9% 100 ml @ 100 mls/hr IVPB Q8HR MEL Rx#:[id number] D5-0.45% NaCl with KCl 600 20Meq/l 1,000 ml @ 75 mls /hr IV .[id number] MEL Rx#: [id number] Oral 590 Other: # Voids 2 1 Weight 68.039 kg General appearance: The patient is alert, oriented, in no acute distress. HET: Head is normocephalic and atraumatic. Pupils are equal and reactive. Sclerae dull. Oropharynx is clear without lesions. Neck: Supple without lymphadenopathy. Trachea midline. Heart: S1 S2. Regular rate and rhythm. Lungs: No crackles or wheezes are heard. Abdomen: Soft, moderate tenderness right upper quadrant positive McBurney, nondistended with bowel sounds. No peritoneal signs. No palpable organomegaly or masses. Extremities: Normal skin color and turgor. No cyanosis, rash, ulceration, clubbing, or edema. Radial and pedal pulses are 2/4 bilaterally. Neurological: No focal deficits. Strength and sensation are grossly intact. Results CBC & Chem 7: 01/14/18 06:40 01/14/18 06:40 Labs: Abnormal Lab Results - Last 24 Hours (Table) 01/13/18 01/13/18 01/13/18 Range/Units 18:38 18:38 18:38 WBC 12.7 H (3.8-10.6) k/uL RBC 3.61 L (4.30-5.90) m/uL Hgb 11.8 L (13.0-17.5) gm/dL Hct 35.3 L (39.0-53.0) % Neutrophils # (1.3-7.7) k/uL PT 16.8 H (9.0-12.0) sec INR 1.8 H (<1.2) APTT 54.8 H (22.0-30.0) sec Sodium (137-145) mmol/L Chloride (98-107) mmol/L BUN (9-20) mg/dL Creatinine (0.66-1.25) mg/dL Glucose (74-99) mg/dL Total Bilirubin (0.2-1.3) mg/dL Total Protein (6.3-8.2) g/dL Albumin (3.5-5.0) g/dL Amylase (30-110) U/L 01/13/18 01/14/18 01/14/18 Range/Units 18:38 06:40 06:40 WBC 10.9 H (3.8-10.6) k/uL RBC 3.59 L (4.30-5.90) m/uL Hgb 11.3 L (13.0-17.5) gm/dL Hct 35.4 L (39.0-53.0) % Neutrophils # 9.1 H (1.3-7.7) k/uL PT (9.0-12.0) sec INR (<1.2) APTT (22.0-30.0) sec Sodium 130 L (137-145) mmol/L Chloride 95 L (98-107) mmol/L BUN 46 H (9-20) mg/dL Creatinine 2.08 H (0.66-1.25) mg/dL Glucose 105 H (74-99) mg/dL Total Bilirubin 3.6 H (0.2-1.3) mg/dL Total Protein 5.1 L (6.3-8.2) g/dL Albumin 2.5 L (3.5-5.0) g/dL Amylase <30 L (30-110) U/L US - abdomen: report reviewed (Dr. Shultz) Assessment and Plan (1) Right upper quadrant pain Narrative/Plan: 82 year old male history of bilateral PE DVT maintained on anticoagulation with underlying history of EtOH abuse admitted with severe right upper quadrant abdominal pain 4 days with leukocytosis and hyperbilirubinemia suspect secondary to acute acalculous cholecystitis underlying alcohool liver disease cannot be entirely excluded. Last alcohol consumption 6 weeks ago. Recent hospitalization for suspected alcohol related pancreatitis hepatitis. Current Visit: Yes Status: Acute Code(s): R10.11 - RIGHT UPPER QUADRANT PAIN SNOMED Code(s): 312781728 (2) H/O ETOH abuse Current Visit: Yes Status: Acute Code(s): Z87.898 - PERSONAL HISTORY OF OTHER SPECIFIED CONDITIONS SNOMED Code(s): 557757537 (3) Coagulopathy Narrative/Plan: possible underlying alcohol liver disease contributing to the coagulopathy. Current Visit: Yes Status: Acute Code(s): D68.9 - COAGULATION DEFECT, UNSPECIFIED SNOMED Code(s): 44215371 (4) History of DVT (deep vein thrombosis) Current Visit: Yes Status: Acute Code(s): Z86.718 - PERSONAL HISTORY OF OTHER VENOUS THROMBOSIS AND EMBOLISM SNOMED Code(s): 267708957 (5) History of pancreatitis Current Visit: Yes Status: Acute Code(s): Z87.19 - PERSONAL HISTORY OF OTHER DISEASES OF THE DIGESTIVE SYSTEM SNOMED Code(s): 97980216667115 (6) History of pulmonary embolism Current Visit: Yes Status: Acute Code(s): Z86.711 - PERSONAL HISTORY OF PULMONARY EMBOLISM SNOMED Code(s): 223137614 (7) Elevated serum creatinine Current Visit: Yes Status: Acute Code(s): R79.89 - OTHER SPECIFIED ABNORMAL FINDINGS OF BLOOD CHEMISTRY SNOMED Code(s): 683644465 Plan: 1. Agree with general surgical evaluation of acute cholecystitis. Surgical intervention recommendations per GS. ERCP not indicated at this time. 2. Nothing by mouth. IV antibiotics. 3. Supportive measures. GI prophylaxis. Hold anticoagulation. Thank you for this kind referral and the opportunity to participate in the care of your patient. This consultation was discussed with Dr. Shultz. The impression and plan of care have been directed as dictated.
[2018-01-14] MEDS: METOPROLOL TARTRATE 25 MG TAB PO SCH ×2 (09:31→22:21)
[2018-01-14] MEDS: ENOXAPARIN 40 MG/0.4 ML SYRINGE SQ SCH (09:31)
[2018-01-14] MEDS: FENOFIBRATE 160 MG TAB PO SCH ×2 (09:31→09:44)
[2018-01-14] MEDS: LISINOPRIL 20 MG TAB PO SCH (09:31)
[2018-01-14] MEDS: PANTOPRAZOLE 40 MG/10 ML VIAL IV SCH (09:32)
[2018-01-14] MEDS ORDERED: PHYTONADIONE 10 MG in SODIUM CHLORIDE 0.9% 50 ML IVPB STA (10:58)
[2018-01-14] MEDS: D5-0.45% NACL WITH KCL 20MEQ/L 1,000 ML IV SCH ×2 (11:19→22:37)
[2018-01-14] MEDS: MORPHINE SULFATE 4 MG/0.8 ML SYRINGE (INJ) IVP PRN ×2 (11:28→18:09)
[2018-01-14] MEDS: THIAMINE 100 MG TAB PO SCH (13:14)
--- NOTE | 2018-01-14 13:38 | P.CRDCN ---
History of Present Illness Consult date: 01/14/18 History of present illness: Mr. 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 He follows with Dr. London in the office. We have been asked to see him for cardiac evaluation prior to surgery for removal of his gallbladder. He presented to the hospital after seeing Dr. Barnard in the office for acute right upper quadrant abdominal pain. He underwent outpatient diagnostic testing that revealed gallbladder wall thickening with fluid. Repeat ultrasound today shows no mobile gallstones or acute cholecystitis. HIDA recommended. GI was consulted for possible ERCP and recommends no ERCP, ongoing surgical management. Xarelto has been held since admission yesterday. He was recently admitted with acute pancreaatits and troponin elevation and underwent cardiac catheterization that revealed mild non-obstructive disease in the mid- LAD and EF 50%. Medical therapy recommended. Chest xray reveals bibasilar atelectasis or infiltrate with tiny effusion. Mild central venous congestion. Laboratory data reviewed, WBC 10.9 down from 12.7 on admission, hemoglobin 11.3 , platelets 160, INR 1.8, sodium 1:30, potassium 3.9, creatinine 2.08. Current medications include simvastatin 40 mg daily, Xarelto 20 mg daily, Lopressor 25 mg twice a day and Lopressor 40 mg twice a day. He also takes omeprazole 20 mg daily. Most recent echocardiogram performed 12/02/2017 reveals preserved left ventricular systolic function with ejection fraction 55-60%, RA enlargement, mild TR and mild pulmonary hypertension with an RVSP of 43.77 mmHg. Review of Systems At the time of my exam: CONSTITUTIONAL: Denies fever. Denies chills. EYES: Denies blurred vision. Denies vision changes. Denies eye pain. EARS, NOSE, MOUTH & THROAT: Denies headache. Denies sore throat. Denies ear pain. CARDIOVASCULAR: Denies chest pain. Denies shortness of breath. Denies orthopnea. Denies PND. Denies palpitations. RESPIRATORY: Denies cough. GASTROINTESTINAL: Complains of abdominal pain. Denies diarrhea. Denies constipation. Denies nausea. Denies vomiting. MUSCULOSKELETAL: Denies myalgias. INTEGUMENTARY: Denies pruitis. Denies rash. NEUROLOGIC: Denies numbness. Denies tingling. Denies weakness. PSYCHIATRIC: Denies anxiety. Denies depression. ENDOCRINE: Denies fatigue. Denies weight change. Denies polydipsia. Denies polyurina. GENITOURINARY: Denies burning, hematuria or urgency with micturation. HEMATOLOGIC: Denies history of anemia. Denies bleeding. 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 lesion-sees machine staker, vertigo , no cpap machine- tired in past but could'nt tolerate."never definitely told if he had aheart attack or not when here in november" History of Any Multi-Drug Resistant Organisms: None Reported Past Surgical History: Heart Catheterization Additional Past Surgical History / Comment(s): bladder cancer d/t cancer(sx only , no chemo, no radiaiton), maximilian cataracats removed-lens implants, colonoscopy/ polypectomy-benign Past Anesthesia/Blood Transfusion Reactions: Motion Sickness Smoking Status: Former smoker - Past Family History Mother History Unknown: Yes Additional Family Medical History / Comment(s): bladder tumor. lived till age 93 Father Additional Family Medical History / Comment(s): ? cancer of the stomach, lung disease, smoker Medications and Allergies Home Medications Medication Instructions Recorded Confirmed Type Omeprazole [PriLOSEC] 20 mg PO AC-BRKFST 08/17/15 01/13/18 History Simvastatin [Zocor] 40 mg PO HS 08/17/15 01/13/18 History Lisinopril 40 mg PO BID 11/30/17 01/13/18 History Rivaroxaban [Xarelto] 20 mg PO DAILY 11/30/17 01/13/18 History Metoprolol Tartrate [Lopressor] 25 mg PO BID #60 tab 12/07/17 01/13/18 Rx Allergies Allergy/AdvReac Type Severity Reaction Status Date / Time tetanus toxoid, adsorbed AdvReac Nausea & Verified 01/13/18 19:39 Vomiting Physical Exam Vitals: Vital Signs Temp Pulse Resp BP Pulse Ox 01/14/18 12:17 98.9 F 80 16 124/67 95 01/14/18 11:57 98.9 F 86 16 117/67 90 L 01/14/18 08:44 98.7 F 88 16 126/66 91 L 01/13/18 22:20 97.3 F L 68 16 101/64 95 01/13/18 19:19 98.4 F 92 16 103/60 93 L 01/13/18 18:04 98.7 F 96 16 115/68 90 L Intake and Output 01/13/18 01/14/18 01/14/18 22:59 06:59 14:59 Intake Total 590 700 Balance 590 700 Intake: Intake, IV Titration 700 Amount Ampicillin-Sulbactam 3 gm 100 In Sodium Chloride 0.9% 100 ml @ 100 mls/hr IVPB Q8HR MEL Rx#:[id number] D5-0.45% NaCl with KCl 600 20Meq/l 1,000 ml @ 75 mls /hr IV .[id number] MEL Rx#: [id number] Oral 590 Other: # Voids 2 1 Weight 68.039 kg Blood pressure 126/66 heart rate 88 afebrile maintaining oxygen saturation on room air GENERAL: This is a 82-year-old male in no apparent distress at the time of my examination. HEENT: Head is atraumatic, normocephalic. Pupils are equal, round. Sclerae anicteric. Conjunctivae are clear. Mucous membranes of the mouth are moist. Neck is supple. There is no jugular venous distention. No carotid bruit is heard. LUNGS: Clear to auscultation no wheezes, rales or rhonchi. No chest wall tenderness is noted on palpation or with deep breathing. HEART: Regular rate and rhythm without murmurs, rubs or gallops. S1 and S2 heard. ABDOMEN: Soft, diffusely tender. Bowel sounds are heard. No organomegaly noted. Positive Snider sign. EXTREMITIES: No evidence of peripheral edema and no calf tenderness noted. VASCULAR: Radial and dorsalis pedis pulses palpated, no evidence of clubbing. NEUROLOGIC: Patient is awake, alert and oriented x3. Results 01/14/18 06:40 01/14/18 06:40 Cardiac Enzymes 01/14/18 Range/Units 06:40 AST 45 (17-59) U/L Coagulation 01/13/18 01/13/18 Range/Units 18:38 18:38 PT 16.8 H (9.0-12.0) sec APTT 54.8 H (22.0-30.0) sec CBC 01/13/18 01/14/18 Range/Units 18:38 06:40 WBC 12.7 H 10.9 H (3.8-10.6) k/uL RBC 3.61 L 3.59 L (4.30-5.90) m/uL Hgb 11.8 L 11.3 L (13.0-17.5) gm/dL Hct 35.3 L 35.4 L (39.0-53.0) % Plt Count 188 160 (150-450) k/uL Comprehensive Metabolic Panel 01/14/18 Range/Units 06:40 Sodium 130 L (137-145) mmol/L Potassium 3.9 (3.5-5.1) mmol/L Chloride 95 L (98-107) mmol/L Carbon Dioxide 23 (22-30) mmol/L BUN 46 H (9-20) mg/dL Creatinine 2.08 H (0.66-1.25) mg/dL Glucose 105 H (74-99) mg/dL Calcium 8.4 (8.4-10.2) mg/dL AST 45 (17-59) U/L ALT 37 (21-72) U/L Alkaline Phosphatase 123 (38-126) U/L Total Protein 5.1 L (6.3-8.2) g/dL Albumin 2.5 L (3.5-5.0) g/dL Current Medications Generic Name Dose Route Start Last Admin Trade Name Freq PRN Reason Stop Dose Admin Albuterol Sulfate 2.5 mg 01/13/18 18:15 Ventolin Nebulized INHALATION RT-QID PRN Shortness Of Breath Atorvastatin Calcium 20 mg 01/13/18 21:00 01/13/18 21:29 Lipitor PO 20 mg HS MEL Administration Enoxaparin Sodium 30 mg 01/15/18 09:00 Lovenox SQ DAILY MEL Potassium Chloride/Dextrose/Sod Cl 1,000 mls @ 75 mls/hr 01/13/18 18:15 01/14 11:19 D5%-1/2ns-Kcl 20 Meq/L Iv Solution IV 75 mls/hr .[id number] [facility] Administration Ampicillin Sodium/Sulbactam 100 mls @ 100 mls/hr 01/14/18 21:00 Sodium 3 gm/ Sodium Chloride IVPB Q12HR [facility] Lisinopril 40 mg 01/14/18 09:00 01/14/18 09:31 Zestril PO 40 mg DAILY [facility] Administration Metoprolol Tartrate 25 mg 01/13/18 21:00 01/14/18 09:31 Lopressor PO 25 mg BID [facility] Administration Morphine Sulfate 2 mg 01/13/18 18:14 Morphine Sulfate (Inj) IVP Q4HR PRN Pain Morphine Sulfate 4 mg 01/13/18 18:14 01/14/18 11:28 Morphine Sulfate (Inj) IVP 4 mg Q4HR PRN Administration SEVERE PAIN Naloxone HCl 0.2 mg 01/13/18 18:09 Narcan IV Q2M PRN Opioid Reversal Nitroglycerin 0.4 mg 01/13/18 18:15 Nitrostat SUBLINGUAL Q5M PRN Chest Pain Ondansetron HCl 4 mg 01/13/18 18:09 Zofran IVP Q8HR PRN Nausea And Vomiting Pantoprazole Sodium 40 mg 01/14/18 09:00 01/14/18 09:32 Protonix IV 40 mg DAILY [facility] Administration Thiamine HCl 100 mg 01/14/18 12:00 Vitamin B-1 PO 1200 [facility] Intake and Output 01/13/18 01/14/18 01/14/18 22:59 06:59 14:59 Intake Total 590 700 Balance 590 700 Intake: Intake, IV Titration 700 Amount Ampicillin-Sulbactam 3 gm 100 In Sodium Chloride 0.9% 100 ml @ 100 mls/hr IVPB Q8HR [facility] Rx#:[id number] D5-0.45% NaCl with KCl 600 20Meq/l 1,000 ml @ 75 mls /hr IV .[id number] [facility] Rx#: [id number] Oral 590 Other: # Voids 2 1 Weight 68.039 kg 01/14/18 06:40 01/14/18 06:40 Assessment and Plan Assessment: ASSESSMENT 1. Acute cholecystitis 2. Hypertension 3. Dyslipidemia 4. History of DVT and PE on terminal worker anticoagulation with xarelto 5. 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 Acute kidney injury, GFR 29. Stage 4. 7. Chronic alcohol abuse PLAN Mr. Espinoza is an appropriate surgical risk from a cardiac perspective. Hold Xarelto 24-48 prior to surgery and resume post-operatively as soon as is possible per surgeon. Continue with simvastatin 40 mg daily, metoprolol 25 mg twice a day and lisinopril 40 mg twice a day. Thank you kindly for this consultation. The above impression and plan of care have been discussed and directed by the signing physician. Lacey Webster, nurse practitioner, acting as scribe for signing physician.
--- NOTE | 2018-01-14 20:02 | CONS ---
CONSULTATION DATE OF CONSULTATION: 01/14/2018 REASON FOR CONSULTATION: Medical management requested by Dr. Barnard. CONSULTATION: This is an 82-year-old patient of Dr. 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 The patient in November of this year had an acute WI with cardiac cath only showing mild coronary artery disease. Patient may have had a thrombus that got resolved, it was felt. Patient is here with his . Starting 4 days ago, patient developed right upper quadrant pain that has been getting worse. Denies any nausea or vomiting. No obvious fever. Pain has become rather severe, kind of localized there. Patient has a bowel movement normally every other day. Patient is felt to have acute cholecystitis, being admitted for the same. REVIEW OF SYSTEMS: CONSTITUTIONAL: Tired. HEENT: None. RESPIRATORY: None. CARDIOVASCULAR: None. GASTROINTESTINAL: As above. GENITOURINARY: None. MUSCULOSKELETAL: Arthritic pain in many joints, including lower back. DERMATOLOGICAL: None. HEMATOLOGICAL: None. LYMPHATICS: None. PSYCHIATRY: None. NEUROLOGICAL: None. PAST MEDICAL HISTORY: 1. Acute WI with cardiac catheterization showing mild coronary artery disease. 2. Alcoholic liver disease. 3. DVT and bilateral PE in 2016, for which patient is on Xarelto. 4. Hypertension. 5. Hyperlipidemia. 6. Osteoarthritis of the lumbar spine. 7. Herniated disc. 8. GERD. 9. Diverticulosis. 10.Obstructive sleep apnea; does not use CPAP machine. PAST SURGICAL HISTORY: 1. Cardiac catheterization. 2. Bladder cancer treated with surgery. 3. Bilateral cataract removal with lens implants. 4. Colonoscopy with polypectomy. SOCIAL HISTORY: Patient was drinking 4-5 drinks a day up until November of this year. Patient was smoking cigars up until near 1999; smoked for close to 50 years. . FAMILY HISTORY: Bladder tumor. HOME MEDICATIONS: 1. Zocor 40 mg at bedtime. 2. Xarelto 20 mg p.o. daily. 3. Prilosec 20 mg p.o. daily. 4. Lopressor 25 p.o. b.i.d. 5. Lisinopril 40 mg b.i.d. ALLERGIES: TETANUS TOXOID only causing nausea and vomiting. PHYSICAL EXAMINATION: Temperature 98.7, pulse 88, respiration 16, blood pressure 126/66, pulse ox 91% on room air. GENERAL APPEARANCE: Average build. Lying in bed, somewhat uncomfortable-appearing. EYES: Pupils equal. Conjunctivae normal. HEENT: External appearance of nose and ears normal. Oral cavity normal. NECK: JVD not raised. Mass not palpable. RESPIRATORY: Effort normal. LUNGS: Slightly decreased breath sounds. CARDIOVASCULAR: First and second sounds normal. No edema. ABDOMEN: Right upper tenderness. No guarding or rigidity. Liver and spleen not palpable. LYMPHATIC: No lymph node palpable in neck or axillae. PSYCHIATRY: Alert and oriented x3. Mood and affect normal. NEUROLOGICAL: Pupils equal. Cranial nerves grossly intact. Power and sensation grossly intact. MUSCULOSKELETAL: Evidence of osteoarthritis in multiple joints. INVESTIGATIONS: White count 12.7; repeat 10.9. Hemoglobin 11.8, platelets 188. Pro time 16.8, potassium 3.9. BUN 46, creatinine 2.08. Total bilirubin is 3.6. Patient's BUN and creatinine were 17 and 1 on 12/06/2017. Abdominal ultrasound showed no convincing evidence of acute cholecystitis. Chest x-ray showed some atelectasis. ASSESSMENT: 1. Acute right upper quadrant does appear to be cholecystitis. Patient is rather tender in the area, though the ultrasound is not very impressive. 2. Coronary artery disease with myocardial infarction in November of this year with cardiac catheterization showing mild coronary artery disease. 3. 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 4. Essential hypertension. 5. Hyperlipidemia. 6. Primary osteoarthritis in multiple joints, including herniated lumbar disc. 7. Gastroesophageal reflux disease. 8. Diverticulosis. 9. Obstructive sleep apnea; does not use CPAP machine. PLAN: Given that patient was on Xarelto, surgery probably needs to be postponed for at least 24 hours. Patient in the meantime is put on IV Unasyn. Since the patient is already anticoagulated, we will hold off any DVT prophylaxis at this point. The patient is n.p.o., getting IV fluids. Definitely given the half-life of Xarelto, patient's risk for bleeding from surgery is far less after 24 hours. Patient needs to go back on Xarelto once postoperatively the risk of bleeding reduces; that is within 24 hours. Care was discussed with the patient's family at the bedside. Thank you, Dr. Barnard. STEVE / SHADI: [id number] /
[2018-01-14] MEDS: ATORVASTATIN 20 MG TAB PO SCH (22:21)
[2018-01-15 07:04] LABS: HCT 33.2 % (39.0-53.0); HGB 11.2 gm/dL (13.0-17.5); MCH 33.1 pg (25.0-35.0); MCHC 33.8 g/dL (31.0-37.0); MCV 97.9 fL (80.0-100.0); Mean Platelet Volume 7.6; Platelet Count 172 k/uL (150-450); RBC 3.39 m/uL (4.30-5.90); RDW 12.8 % (11.5-15.5); WBC 10.5 k/uL (3.8-10.6)
[2018-01-15 07:14] LABS: INR 1.3 (<1.2); Partial Thromboplastin Time 37.2 sec (22.0-30.0); Prothrombin Time 12.7 sec (9.0-12.0)
[2018-01-15] MEDS ORDERED: ENOXAPARIN 30 MG/0.3 ML SYRINGE SQ SCH (09:00)
[2018-01-15] MEDS: PANTOPRAZOLE 40 MG/10 ML VIAL IV SCH (09:52)
[2018-01-15] MEDS: METOPROLOL TARTRATE 25 MG TAB PO SCH ×2 (09:53→22:11)
[2018-01-15] MEDS: AMPICILLIN-SULBACTAM 3 GM in SODIUM CHLORIDE 0.9% 100 ML IVPB SCH ×2 (09:53→22:11)
[2018-01-15] MEDS: LISINOPRIL 20 MG TAB PO SCH (09:53)
--- NOTE | 2018-01-15 10:42 | PN ---
PROGRESS NOTE DATE OF SERVICE: 01/15/18 Patient is an 82-year-old pleasant white male admitted to hospital with severe epigastric and right upper quadrant abdominal pain. For the last 4 days duration the pain has been progressively getting worse. No nausea, vomiting. The patient was admitted to hospital yesterday for possible acute cholecystitis and was seen by Dr. Barnard. He did have ultrasound of the gallbladder done that did not show any evidence of gallstones. The patient had an episode of acute pancreatitis about a month ago at which time he was treated symptomatically and was discharged home and was thought to be alcohol related. This morning he feels a little bit better. He still has persistent epigastric right upper quadrant abdominal pain. No fever or chills. PHYSICAL EXAMINATION: He appears comfortable. No apparent distress. Vital signs stable. Blood pressure is 110/63, pulse 80, temperature 98.5. HEENT examination unremarkable. Conjunctivae pink. Sclerae anicteric. Oral cavity no lesions. Neck no JVD or lymph node enlargement. Chest was clear to auscultation. HEART: Regular rate and rhythm. ABDOMEN: Soft. There was severe tenderness in the epigastric area as well as in the right upper quadrant area. Extremities: No pedal edema. Skin: No rashes. Neuro: He is alert and oriented x3. No focal deficits. LABS: From today WBC 7.5, hemoglobin 11.2, platelets 172. INR is 1.3. Yesterday AST, ALT were 45 and 37 respectively. T- bilirubin is 3.6, alkaline phosphatase is normal. IMPRESSION: The patient presents to the hospital with acute onset of epigastric and right upper quadrant abdominal pain for the last 4-5 days duration and clinically has significant tenderness in the right upper quadrant area. Ultrasound of the abdomen did not show any evidence of gallstones but there was positive Snider sign. Clinically patient appears to have acute cholecystitis/acalculous cholecystitis. RECOMMENDATIONS: 1. Agree with broad-spectrum antibiotics. 2. Patient is already scheduled for laparoscopic cholecystectomy this afternoon by Dr. Barnard. Thank you for this consultation. MMODL / IJN: [id number] /
[2018-01-15] MEDS: THIAMINE 100 MG TAB PO SCH (11:41)
[2018-01-15] MEDS: D5-0.45% NACL WITH KCL 20MEQ/L 1,000 ML IV SCH (11:41)
--- NOTE | 2018-01-15 14:02 | P.PN ---
Subjective Progress Note Date: 01/15/18 Principal diagnosis: Cholecystitis The patient continues with abdominal pain, more so in RUQ. He has been cleared medically for surgery. His INR and ptt are improved. Objective - Vital Signs Vital signs: Vital Signs Temp 98.6 F 01/15/18 07:00 Pulse 75 01/15/18 07:00 Resp 14 01/15/18 07:00 BP 124/78 01/15/18 09:49 Pulse Ox 97 01/15/18 07:38 Intake & Output 01/14/18 01/15/18 01/15/18 18:59 06:59 18:59 Intake Total 1390 Balance 1390 Intake: Intake, IV Titration 850 Amount Ampicillin-Sulbactam 3 gm 100 In Sodium Chloride 0.9% 100 ml @ 100 mls/hr IVPB Q12HR [facility] Rx#:[id number] D5-0.45% NaCl with KCl 750 20Meq/l 1,000 ml @ 75 mls /hr IV .[id number] [facility]EL Rx#: [id number] Oral 540 Other: Voiding Method Toilet Toilet Urinal Urinal # Voids 3 # Bowel Movements 1 - Constitutional General appearance: Present: average body habitus, no acute distress - Gastrointestinal General gastrointestinal: Present: decreased bowel sounds, tenderness Localized gastrointestinal: tender: diffuse, guarding: RUQ, mass: RUQ - Labs CBC & Chem 7: 01/15/18 06:36 01/14/18 06:40 Labs: Abnormal Lab Results - Last 24 Hours (Table) 01/15/18 01/15/18 Range/Units 06:36 06:36 RBC 3.39 L (4.30-5.90) m/uL Hgb 11.2 L (13.0-17.5) gm/dL Hct 33.2 L (39.0-53.0) % PT 12.7 H (9.0-12.0) sec INR 1.3 H (<1.2) APTT 37.2 H (22.0-30.0) sec Assessment and Plan (1) Acute cholecystitis Current Visit: Yes Status: Acute Code(s): K81.0 - ACUTE CHOLECYSTITIS SNOMED Code(s): 28489084 (2) History of DVT (deep vein thrombosis) Current Visit: Yes Status: Acute Code(s): Z86.718 - PERSONAL HISTORY OF OTHER VENOUS THROMBOSIS AND EMBOLISM SNOMED Code(s): 087136011 (3) History of pulmonary embolism Current Visit: Yes Status: Acute Code(s): Z86.711 - PERSONAL HISTORY OF PULMONARY EMBOLISM SNOMED Code(s): 598389177 (4) GERD (gastroesophageal reflux disease) Current Visit: Yes Status: Acute Code(s): K21.9 - GASTRO-ESOPHAGEAL REFLUX DISEASE WITHOUT ESOPHAGITIS SNOMED Code(s): 387320730 (5) History of pancreatitis Current Visit: Yes Status: Acute Code(s): Z87.19 - PERSONAL HISTORY OF OTHER DISEASES OF THE DIGESTIVE SYSTEM SNOMED Code(s): 05991401828337 (6) HTN (hypertension) Current Visit: No Status: Acute Code(s): I10 - ESSENTIAL (PRIMARY) HYPERTENSION SNOMED Code(s): 74881559 (7) Hyperlipemia Current Visit: No Status: Acute Code(s): E78.5 - HYPERLIPIDEMIA, UNSPECIFIED SNOMED Code(s): 78919910 (8) History of bladder cancer Current Visit: Yes Status: Acute Code(s): Z85.51 - PERSONAL HISTORY OF MALIGNANT NEOPLASM OF BLADDER SNOMED Code(s): 358507795 (9) Coagulopathy Current Visit: Yes Status: Acute Code(s): D68.9 - COAGULATION DEFECT, UNSPECIFIED SNOMED Code(s): 51979245 Plan: Laparoscopic cholecystectomy today. The risk for open cholecystectomy is high due to length of symptoms and amount of distention of the gallbladder. The procedure, risks and complications were discussed with patient and . To OR.
[2018-01-15 14:25] VITALS: BMI 20.9
[2018-01-15] MEDS ORDERED: LIDOCAINE 1% INJ 10MG/ML (20 ML MDV) ONE (15:06)
[2018-01-15] MEDS ORDERED: PROPOFOL 10 MG/ML 20 ML VIAL IV ONE (15:06)
[2018-01-15] MEDS ORDERED: IV FLUID CONTINUATION 100 ML IV ONE (15:06)
[2018-01-15] MEDS ORDERED: MIDAZOLAM 2 MG/2 ML VIAL ONE (15:06)
[2018-01-15] MEDS ORDERED: NEOSTIGMINE 1 MG/ML 10 ML VIAL ONE (15:06)
[2018-01-15] MEDS ORDERED: fentaNYL (PF) 50 MCG/ML 2 ML AMP ONE (15:06)
[2018-01-15] MEDS ORDERED: ROCURONIUM BROMIDE 10 MG/ML 10 ML VIAL IV ONE (15:06)
[2018-01-15] MEDS ORDERED: SUCCINYLCHOLINE CHLORIDE 100 MG/5 ML SYR IV ONE (15:06)
[2018-01-15] MEDS ORDERED: KETOROLAC 30 MG/ML 1 ML VIAL ONE (15:06)
[2018-01-15] MEDS ORDERED: ePHEDrine SULFATE/0.9% NACL/PF 50 MG/5 ML SYRINGE IV ONE (15:06)
[2018-01-15] MEDS ORDERED: GLYCOPYRROLATE 0.2 MG/ML 2 ML VIAL ONE (15:06)
[2018-01-15] MEDS ORDERED: LACTATED RINGERS 1,000 ML IV ONE (15:20)
[2018-01-15] MEDS ORDERED: PHYTONADIONE 10 MG in SODIUM CHLORIDE 0.9% 50 ML IVPB STA (15:49)
[2018-01-15] MEDS ORDERED: BUPIVACAINE (PF) 0.25% 30 ML VIAL SQ ONE (15:53)
--- NOTE | 2018-01-15 16:20 | P.OP ---
Date of Procedure: 01/15/18 Preoperative Diagnosis: Acute cholecystitis Postoperative Diagnosis: Acute gangrenous cholecystitis Procedure(s) Performed: Laparoscopy, open cholecystectomy with placement of drain Anesthesia: JEAN-PIERRE Surgeon: [employer] [facility] [employer] Receptionist #1: Juan Carlos Nunes Estimated Blood Loss (ml): 200 Pathology: other (Gallbladder) Condition: stable Disposition: PACU Indications for Procedure: The patient presented with acute onset of abdominal pain Wednesday. I saw him in the office on and admitted him. His PT, PTT and INR were all elevated. He was stabilized for surgery and given IV antibiotics. Operative Findings: Densely adherent omentum to the gallbladder, falciform ligament, liver. The gallbladder was markedly distended and gangrenous. Description of Procedure: The patient is taken to the operative suite where he is prepped and draped in the usual sterile manner under general endotracheal anesthetic. A supraumbilical incision was made and a varies needle was placed into the abdominal cavity. Pneumoperitoneum was established with CO2 gas. Trochars were placed through accessory trochars. The omentum was peeled off the falciform ligament, liver and gallbladder. The gallbladder was markedly distended with gangrenous changes. He was converted to an open cholecystectomy. The abdomen was entered through a right upper quadrant incision. A Bookwalter retractor was placed. The area where the common bile duct, cystic duct and cystic artery were were very edematous. The gallbladder was dissected free from the liver bed in a domed down manner. The cystic artery and cystic duct were then able to be identified. The artery was clipped and cut. The duct was clipped and then suture of 0 silk was placed. The gallbladder was passed off. The liver bed was irrigated. Small bleeding points are controlled with electrocautery. A drain was placed through one of the trocar sites and allowed to lay in the liver bed and right paracolic gutter. The retractor and lap pads were removed. The posterior fashion peritoneum were closed with #1 Vicryl. The anterior fascia was closed with 1 Vicryl. The fascia at the umbilical port site was closed with 0 Vicryl. Skin was closed with verito. Sterile dressings were applied. He tolerated the procedure without difficulty and was taken recovery room in satisfactory condition. According to or personnel, WERE correct.
[2018-01-15] MEDS ORDERED: ONDANSETRON 4 MG/2 ML VIAL IVP ONE (16:44)
[2018-01-15] MEDS ORDERED: MORPHINE SULFATE 4 MG/0.8 ML SYRINGE (INJ) IVP ONE (16:45)
--- NOTE | 2018-01-15 18:17 | XR ---
EXAMINATION TYPE: XR chest 1V DATE OF EXAM: 01/15/2018 COMPARISON: 01/14/2018 HISTORY: 82 year-old male shortness of breath, evaluate for possible CHF TECHNIQUE: Single frontal view of the chest is obtained. FINDINGS: Heart is mildly moderately enlarged. Diffuse interstitial prominence. Some thickening of the minor fi ssure could be secondary to fluid patchy bibasilar densities. Left basilar underpenetrated and not we ll assessed. IMPRESSION: 1. Cardiomegaly and interstitial changes. Possible fluid thickening the minor fissure. Mild CHF is no t excluded. 2. Patchy atelectasis or consolidation at the right base. Left base underpenetrated and not well asse ssed.
--- NOTE | 2018-01-15 18:32 | P.PN ---
Subjective Patient is admitted for a cholecystitis underwent cholecystectomy. Patient is getting half-normal saline but patient's sodium is only 1:30 because of which I' ll change in the IV fluids to either D5 normal saline are normal saline. Patient is on 4 L of oxygen I'm unable to assess JVD, chest x-ray from yesterday was suspicious for pulmonary edema will end up in the chest x-ray make sure patient is not having pulmonary edema, we'll also obtain BNP, patient does have history of PE in the past anticoagulation will be resumed whenever it's appropriate from surgical perspective. Patient had a recent episode of pancreatitis. Constitutional: Denied any fatigue denied any fever. Cardio vascular: denied any chest pain, palpitations Gastrointestinal denied any nausea vomiting Pulmonary: Denied any shortness of breath cough Neurologic denied any new focal deficits Objective - Vital Signs Vital signs: Vital Signs Temp 98.0 F 01/15/18 16:28 Pulse 98 01/15/18 17:46 Resp 14 01/15/18 17:00 BP 126/63 01/15/18 17:00 Pulse Ox 92 L 01/15/18 17:47 Intake & Output 01/14/18 01/15/18 01/15/18 18:59 06:59 18:59 Intake Total 1390 400 Output Total 25 Balance 1390 375 Weight 68.039 kg Intake: IV 400 Intake, IV Titration 850 Amount Ampicillin-Sulbactam 3 gm 100 In Sodium Chloride 0.9% 100 ml @ 100 mls/hr IVPB Q12HR MEL Rx#:[id number] D5-0.45% NaCl with KCl 750 20Meq/l 1,000 ml @ 75 mls /hr IV .[id number] MEL Rx#: [id number] Oral 540 Output: Estimated Blood Loss 25 Other: Voiding Method Toilet Toilet Urinal Urinal # Voids 3 # Bowel Movements 1 - Exam PHYSICAL EXAMINATION: GENERAL: The patient is alert and oriented x3, not in any acute distress. Obese HEENT: Pupils are round and equally reacting to light. EOMI. No scleral icterus. No conjunctival pallor. Normocephalic, atraumatic. No pharyngeal erythema. No thyromegaly. CARDIOVASCULAR: S1 and S2 present. No murmurs, rubs, or gallops. PULMONARY: Rhonchus breath sounds, no wheezing or crackles. ABDOMEN: Sluggish bowel sounds abdominal binder in place MUSCULOSKELETAL: No joint swelling or deformity. EXTREMITIES: No cyanosis, clubbing, or pedal edema. NEUROLOGICAL: Gross neurological examination did not reveal any focal deficits. SKIN: No rashes. - Labs CBC & Chem 7: 01/15/18 06:36 01/14/18 06:40 Labs: Abnormal Lab Results - Last 24 Hours (Table) 01/15/18 01/15/18 Range/Units 06:36 06:36 RBC 3.39 L (4.30-5.90) m/uL Hgb 11.2 L (13.0-17.5) gm/dL Hct 33.2 L (39.0-53.0) % PT 12.7 H (9.0-12.0) sec INR 1.3 H (<1.2) APTT 37.2 H (22.0-30.0) sec Assessment and Plan Plan: -Hyponatremia: Hypervolemic hyponatremia possibly from sepsis patient will be continued on IV fluids after making sure doesn't have any worsening pulmonary edema area -Acute renal failure:. Most probably poorly azotemia rather than acute tubular necrosis IV fluids as mentioned above -Acute cholecystitis status post cholecystectomy -History of DVT patient will be resumed on anticoagulation as mentioned above since we can -Acute hypoxemia: Obtain chest x-ray as mentioned above and a BNP as mentioned above. -Essential hypertension: Patient is expected to be hypotensive postsurgery because of which hold off on lisinopril -Hyperlipidemia -Obstructive sleep apnea uses CPAP machine at home
[2018-01-15] MEDS: SODIUM CHLORIDE 0.9% 1,000 ML IV SCH (18:55)
[2018-01-15] MEDS: ATORVASTATIN 20 MG TAB PO SCH (22:12)
[2018-01-16] MEDS: SODIUM CHLORIDE 0.9% 1,000 ML IV SCH ×2 (04:46→10:10)
[2018-01-16 07:37] LABS: Calcium 8.5 mg/dL (8.4-10.2); Potassium 4.4 mmol/L (3.5-5.1)
--- NOTE | 2018-01-16 08:40 | P.PN ---
Subjective Progress Note Date: 01/16/18 Patient seen and examined at bedside. Complains of appropriate abdominal pain. Denies nausea and vomiting. Tolerating diet. Needed straight catheterization around midnight with 700 mL output. He has not urinated since. Last bladder scan did not show a significant amount of bladder. Objective - Vital Signs Vital signs: Vital Signs Temp 98.1 F 01/16/18 01:15 Pulse 68 01/16/18 01:15 Resp 16 01/16/18 01:15 BP 99/62 01/16/18 01:15 Pulse Ox 95 01/16/18 07:20 Intake & Output 01/15/18 01/16/18 01/16/18 18:59 06:59 18:59 Intake Total 400 60 Output Total 25 815 Balance 375 -755 Weight 68.039 kg Intake: IV 400 Intake, IV Titration 60 Amount Sodium Chloride 0.9% 1, 60 000 ml @ 100 mls/hr IV . Q10H MEL Rx#:[id number] Output: Drainage 90 Left Abdomen 90 Urine 725 Straight 725 Estimated Blood Loss 25 Other: Voiding Method Toilet Urinal # Voids 0 - Constitutional General appearance: Present: cooperative - EENT ENT: Present: hearing grossly normal - Neck Neck: Present: normal ROM - Respiratory Details: No difficulty with respiration, appropriate cough - Gastrointestinal Gastrointestinal Comment(s): Soft, appropriate tenderness, nondistended, no rebound, no guarding, incision sites with dressings in place and clean and dry - Musculoskeletal Musculoskeletal: Present: generalized weakness - Psychiatric Psychiatric: Present: A&O x's 3 - Labs CBC & Chem 7: 01/15/18 06:36 01/16/18 06:44 Labs: Abnormal Lab Results - Last 24 Hours (Table) 01/16/18 Range/Units 06:44 Sodium 133 L (137-145) mmol/L BUN 34 H (9-20) mg/dL Creatinine 1.41 H (0.66-1.25) mg/dL Glucose 115 H (74-99) mg/dL Assessment and Plan (1) Acute cholecystitis Narrative/Plan: 82-year-old male status post laparoscopic converted to open cholecystectomy, postoperative day #1 - Needed straight catheterization at midnight, has not urinated since. We will restart fluids at 50 mL an hour and recheck bladder scan in few hours. Plan for possible straight catheterization if unable to urinate. - Continue diet - Increase activity - Discussed the importance of incentive spirometry and deep breathing and coughing. The patient states that he understood and will continue to do deep breathing. - Continue antibiotics. Current Visit: Yes Status: Acute Code(s): K81.0 - ACUTE CHOLECYSTITIS SNOMED Code(s): 95019755
[2018-01-16] MEDS: AMPICILLIN-SULBACTAM 3 GM in SODIUM CHLORIDE 0.9% 100 ML IVPB SCH ×2 (10:09→21:54)
[2018-01-16] MEDS: METOPROLOL TARTRATE 25 MG TAB PO SCH ×2 (10:09→21:54)
[2018-01-16] MEDS: PANTOPRAZOLE 40 MG/10 ML VIAL IV SCH (10:09)
[2018-01-16] MEDS: THIAMINE 100 MG TAB PO SCH (10:10)
--- NOTE | 2018-01-16 16:04 | P.PN ---
Subjective Patient is admitted for a cholecystitis underwent cholecystectomy. Patient is getting half-normal saline but patient's sodium is only 1:30 because of which I' ll change in the IV fluids to either D5 normal saline are normal saline. Patient is on 4 L of oxygen I'm unable to assess JVD, chest x-ray from yesterday was suspicious for pulmonary edema will end up in the chest x-ray make sure patient is not having pulmonary edema, we'll also obtain BNP, patient does have history of PE in the past anticoagulation will be resumed whenever it's appropriate from surgical perspective. Patient had a recent episode of pancreatitis. 01/16/2018 Patient's overall clinical condition did improve respiratory status did improve and patient is presently on 3 L of oxygen saturating well patient hypoxemia may be related to atelectasis and unable to take deep breaths because of the abdominal pain. BNP is only minimally elevated my suspicion is low for pulmonary edema either cardiogenic or noncardiogenic pending echocardiogram serum sodium did improve, patient is not on any IV fluids at this time. Serum creatinine did improve. Patient didn't move his bowel did pass gas. Constitutional: Denied any fatigue denied any fever. Cardio vascular: denied any chest pain, palpitations Gastrointestinal denied any nausea vomiting Pulmonary: Denied any shortness of breath cough Neurologic denied any new focal deficits Objective - Vital Signs Vital signs: Vital Signs Temp 98.1 F 01/16/18 15:00 Pulse 85 01/16/18 15:00 Resp 18 01/16/18 15:00 BP 121/68 01/16/18 15:00 Pulse Ox 93 L 01/16/18 15:00 Intake & Output 01/15/18 01/16/18 01/16/18 18:59 06:59 18:59 Intake Total 400 60 577 Output Total 25 815 460 Balance 375 -755 117 Weight 68.039 kg Intake: IV 400 100 Ampicillin-Sulbactam 3 gm 100 In Sodium Chloride 0.9% 100 ml @ 100 mls/hr IVPB Q12HR MEL Rx#:[id number] Intake, IV Titration 60 Amount Sodium Chloride 0.9% 1, 60 000 ml @ 100 mls/hr IV . Q10H MEL Rx#:[id number] Oral 477 Output: Drainage 90 60 Left Abdomen 90 60 Urine 725 400 Straight 725 400 Estimated Blood Loss 25 Other: Voiding Method Toilet Urinal # Voids 0 - Exam PHYSICAL EXAMINATION: GENERAL: The patient is alert and oriented x3, not in any acute distress. Obese HEENT: Pupils are round and equally reacting to light. EOMI. No scleral icterus. No conjunctival pallor. Normocephalic, atraumatic. No pharyngeal erythema. No thyromegaly. CARDIOVASCULAR: S1 and S2 present. No murmurs, rubs, or gallops. PULMONARY: Rhonchus breath sounds, no wheezing or crackles. ABDOMEN: Abdominal binder in place normoactive bowel sounds MUSCULOSKELETAL: No joint swelling or deformity. EXTREMITIES: No cyanosis, clubbing, or pedal edema. NEUROLOGICAL: Gross neurological examination did not reveal any focal deficits. SKIN: No rashes. - Labs CBC & Chem 7: 01/15/18 06:36 01/16/18 06:44 Labs: Abnormal Lab Results - Last 24 Hours (Table) 01/16/18 Range/Units 06:44 Sodium 133 L (137-145) mmol/L BUN 34 H (9-20) mg/dL Creatinine 1.41 H (0.66-1.25) mg/dL Glucose 115 H (74-99) mg/dL Assessment and Plan Plan: -Hyponatremia: Hypervolemic hyponatremia improved and patient is not getting any IV fluids because of concerns of pulmonary edema although my suspicion is low for that -Acute renal failure:. Most probably poorly azotemia rather than acute tubular necrosis IV fluids as mentioned above, improved compared to yesterday Will repeat basic metabolic profile tomorrow -Acute cholecystitis status post cholecystectomy -History of DVT patient will be resumed on anticoagulation as mentioned above since we can -Acute hypoxemia: Most probably due to atelectasis and patient is unable to take deep breaths -Essential hypertension: Patient is expected to be hypotensive postsurgery because of which hold off on lisinopril -Hyperlipidemia -Obstructive sleep apnea uses CPAP machine at home
[2018-01-16] MEDS: ATORVASTATIN 20 MG TAB PO SCH (21:54)
[2018-01-17] MEDS: SODIUM CHLORIDE 0.9% 1,000 ML IV SCH ×2 (01:45→09:38)
[2018-01-17 07:31] LABS: Basophils % (A) 0 %; Eosinophils # (A) 0.2 k/uL (0-0.7); Eosinophils % (A) 4 %; HCT 33.6 % (39.0-53.0); HGB 10.4 gm/dL (13.0-17.5); Lymphocytes # (A) 0.7 k/uL (1.0-4.8); Lymphocytes % (A) 12 %; MCHC 30.9 g/dL (31.0-37.0); MCV 100.3 fL (80.0-100.0); Mean Platelet Volume 8.2; Monocytes # (A) 0.4 k/uL (0-1.0); Monocytes % (A) 6 %; Neutrophils # (A) 4.7 k/uL (1.3-7.7); Neutrophils % (A) 76 %; Platelet Count 242 k/uL (150-450); RBC 3.35 m/uL (4.30-5.90); RDW 13.1 % (11.5-15.5); WBC 6.2 k/uL (3.8-10.6)
[2018-01-17 07:50] LABS: ALT 39 U/L (21-72); AST 44 U/L (17-59); Albumin 2.3 g/dL (3.5-5.0); Alkaline Phosphatase 206 U/L (38-126); Anion Gap 8 mmol/L; Bilirubin, Delta 1.6 mg/dL (0.0-0.2); Bilirubin,Unconjugated 0.4 mg/dL (0.0-1.1); Blood Urea Nitrogen 19 mg/dL (9-20); Calcium 8.5 mg/dL (8.4-10.2); Carbon Dioxide 26 mmol/L (22-30); Chloride 102 mmol/L (98-107); Glucose 116 mg/dL (74-99); Potassium 4.3 mmol/L (3.5-5.1); Sodium 136 mmol/L (137-145); Total Protein 4.9 g/dL (6.3-8.2)
--- NOTE | 2018-01-17 08:44 | P.PN ---
Subjective Progress Note Date: 01/17/18 Principal diagnosis: Acute gangrenous cholecystitis, status post open cholecystectomy The patient is seen on rounds. He is postoperative day 2 open cholecystectomy for gangrenous cholecystitis. He says he is "going home today ". He admits to not doing well on his incentive spirometry. He states that he hasn't been out of bed since surgery. No nausea or vomiting. Passing flatus. Objective - Vital Signs Vital signs: Vital Signs Temp 97.8 F 01/17/18 07:10 Pulse 79 01/17/18 00:45 Resp 18 01/17/18 07:10 BP 128/68 01/17/18 07:10 Pulse Ox 93 L 01/17/18 07:10 Intake & Output 01/16/18 01/17/18 01/17/18 18:59 06:59 18:59 Intake Total 577 240 Output Total 570 1050 Balance 7 -810 Intake: IV 100 Ampicillin-Sulbactam 3 gm 100 In Sodium Chloride 0.9% 100 ml @ 100 mls/hr IVPB Q12HR MEL Rx#:[id number] Intake, IV Titration 240 Amount Sodium Chloride 0.9% 1, 240 000 ml @ 100 mls/hr IV . Q10H MEL Rx#:[id number] Oral 477 Output: Drainage 120 Left Abdomen 120 Urine 450 1050 Straight 400 Other: # Voids 1 - Constitutional Constitutional Comment(s): Seems somewhat confused. He is complaining about a pile of dirty clothing in the corner of his room, I do not see any there. General appearance: Present: cooperative, no acute distress - Respiratory Respiratory: bilateral: CTA, diminished (At the bases) - Cardiovascular Rhythm: regular - Gastrointestinal General gastrointestinal: Present: normal bowel sounds, soft Localized gastrointestinal: surgical scar: RUQ (Incision is intact clean and dry , minimal ecchymosis. MARYAM is serosanguineous) - Labs CBC & Chem 7: 01/17/18 07:12 01/17/18 07:12 Labs: Abnormal Lab Results - Last 24 Hours (Table) 01/17/18 01/17/18 Range/Units 07:12 07:12 RBC 3.35 L (4.30-5.90) m/uL Hgb 10.4 L (13.0-17.5) gm/dL Hct 33.6 L (39.0-53.0) % MCV 100.3 H (80.0-100.0) fL MCHC 30.9 L (31.0-37.0) g/dL Lymphocytes # 0.7 L (1.0-4.8) k/uL Sodium 136 L (137-145) mmol/L Glucose 116 H (74-99) mg/dL Total Bilirubin 2.0 H (0.2-1.3) mg/dL Delta Bilirubin 1.6 H (0.0-0.2) mg/dL Alkaline Phosphatase 206 H (38-126) U/L Total Protein 4.9 L (6.3-8.2) g/dL Albumin 2.3 L (3.5-5.0) g/dL Assessment and Plan (1) Acute cholecystitis Current Visit: Yes Status: Acute Code(s): K81.0 - ACUTE CHOLECYSTITIS SNOMED Code(s): 98160720 (2) History of DVT (deep vein thrombosis) Current Visit: Yes Status: Acute Code(s): Z86.718 - PERSONAL HISTORY OF OTHER VENOUS THROMBOSIS AND EMBOLISM SNOMED Code(s): 031494799 (3) History of pulmonary embolism Current Visit: Yes Status: Acute Code(s): Z86.711 - PERSONAL HISTORY OF PULMONARY EMBOLISM SNOMED Code(s): 253449307 (4) GERD (gastroesophageal reflux disease) Current Visit: Yes Status: Acute Code(s): K21.9 - GASTRO-ESOPHAGEAL REFLUX DISEASE WITHOUT ESOPHAGITIS SNOMED Code(s): 850562069 (5) History of pancreatitis Current Visit: Yes Status: Acute Code(s): Z87.19 - PERSONAL HISTORY OF OTHER DISEASES OF THE DIGESTIVE SYSTEM SNOMED Code(s): 41922169168606 (6) HTN (hypertension) Current Visit: No Status: Acute Code(s): I10 - ESSENTIAL (PRIMARY) HYPERTENSION SNOMED Code(s): 24730018 (7) Hyperlipemia Current Visit: No Status: Acute Code(s): E78.5 - HYPERLIPIDEMIA, UNSPECIFIED SNOMED Code(s): 10952603 (8) History of bladder cancer Current Visit: Yes Status: Acute Code(s): Z85.51 - PERSONAL HISTORY OF MALIGNANT NEOPLASM OF BLADDER SNOMED Code(s): 080679264 (9) Coagulopathy Current Visit: Yes Status: Acute Code(s): D68.9 - COAGULATION DEFECT, UNSPECIFIED SNOMED Code(s): 05684967 (10) Hypoxemia Current Visit: Yes Status: Acute Code(s): R09.02 - HYPOXEMIA SNOMED Code(s ): 258605289 (11) Urinary retention Current Visit: Yes Status: Acute Code(s): R33.9 - RETENTION OF URINE, UNSPECIFIED SNOMED Code(s): 562416528 Plan: We'll make sure the patient ambulates today. Order physical therapy evaluation. I encouraged incentive spirometry. I explained that he cannot go home until his hypoxia is improved. He can improve this by using his incentive spirometry, coughing, deep breathing. We'll start Flomax on him for the urinary retention. Progressing slowly.
[2018-01-17] MEDS ORDERED: MORPHINE ORAL SOLN 10 MG/5 ML CUP PO PRN (08:57)
[2018-01-17] MEDS: PANTOPRAZOLE 40 MG/10 ML VIAL IV SCH (09:35)
[2018-01-17] MEDS: METOPROLOL TARTRATE 25 MG TAB PO SCH ×2 (09:35→21:33)
[2018-01-17] MEDS: TAMSULOSIN 0.4 MG CAP.ER.24H PO SCH (09:35)
[2018-01-17] MEDS: AMPICILLIN-SULBACTAM 3 GM in SODIUM CHLORIDE 0.9% 100 ML IVPB SCH ×2 (09:35→16:10)
[2018-01-17] MEDS: THIAMINE 100 MG TAB PO SCH (09:35)
[2018-01-17] MEDS: MORPHINE ORAL SOLN 10 MG/5 ML CUP PO PRN (09:44)
--- NOTE | 2018-01-17 10:15 | ECHOF ---
Referral Reason:CHF MEASUREMENTS -------- HEIGHT: 180.3 cm WEIGHT: 113.4 kg BP: 136/71 RVIDd: 3.7 cm (< 3.3) IVSd: 1.3 cm (0.6 - 1.1) LVIDd: 5.1 cm (3.9 - 5.3) LVPWd: 1.3 cm (0.6 - 1.1) IVSs: 2.1 cm LVIDs: 3.9 cm LVPWs: 2.0 cm LA Diam: 3.7 cm (2.7 - 3.8) LAESV Index (A-L): 20.40 ml/m Ao Diam: 4.2 cm (2.0 - 3.7) AV Cusp: 2.7 cm (1.5 - 2.6) MV EXCURSION: 14.382 mm (> 18.000) MV EF SLOPE: 44 mm/s (70 - 150) EPSS: 0.8 cm MV E Ted: 0.89 m/s MV DecT: 247 ms MV A Ted: 0.98 m/s MV E/A Ratio: 0.91 FINDINGS -------- Sinus rhythm. This was a technically adequate study. The left ventricular size is normal. There is mild concentric left ventricular hypertrophy. Overa ll left ventricular systolic function is normal with, an EF between 55 - 60 %. The right ventricle is mildly enlarged. Normal LA size by volume 22+/-6 ml/m2. The right atrium is normal in size. The aortic valve is trileaflet and appears structurally normal. There is trace to mild mitral regurgitation. The tricuspid valve appears structurally normal. Trace/mild (physiologic) pulmonic regurgitation. The aortic root is dilated measuring 4.2cm. There is no pericardial effusion. CONCLUSIONS -------- 1. Sinus rhythm. 2. This was a technically adequate study. 3. The left ventricular size is normal. 4. There is mild concentric left ventricular hypertrophy. 5. Overall left ventricular systolic function is normal with, an EF between 55 - 60 %. 6. The right ventricle is mildly enlarged. 7. Normal LA size by volume 22+/-6 ml/m2. 8. The right atrium is normal in size. 9. The aortic valve is trileaflet and appears structurally normal. 10. There is trace to mild mitral regurgitation. 11. The tricuspid valve appears structurally normal. 12. Trace/mild (physiologic) pulmonic regurgitation. 13. The aortic root is dilated measuring 4.2cm. 14. There is no pericardial effusion. CHANNEL BUSINESS MANAGER: Neeta Hancock RDCS
[2018-01-17] MEDS ORDERED: KETOROLAC 30 MG/ML 1 ML VIAL IVP PRN (10:50)
--- NOTE | 2018-01-17 11:04 | P.PN ---
Subjective Patient is admitted for a cholecystitis underwent cholecystectomy. Patient is getting half-normal saline but patient's sodium is only 1:30 because of which I' ll change in the IV fluids to either D5 normal saline are normal saline. Patient is on 4 L of oxygen I'm unable to assess JVD, chest x-ray from yesterday was suspicious for pulmonary edema will end up in the chest x-ray make sure patient is not having pulmonary edema, we'll also obtain BNP, patient does have history of PE in the past anticoagulation will be resumed whenever it's appropriate from surgical perspective. Patient had a recent episode of pancreatitis. 01/16/2018 Patient's overall clinical condition did improve respiratory status did improve and patient is presently on 3 L of oxygen saturating well patient hypoxemia may be related to atelectasis and unable to take deep breaths because of the abdominal pain. BNP is only minimally elevated my suspicion is low for pulmonary edema either cardiogenic or noncardiogenic pending echocardiogram serum sodium did improve, patient is not on any IV fluids at this time. Serum creatinine did improve. Patient didn't move his bowel did pass gas. 01/17/2018 Patient is off oxygen now, saturating well is passing gas but did not move his bowel yet patient is on morphine which I will try to avoid and use Toradol for pain. Patient related to ambulate. Patient's echo cardiac exam is essentially within normal limits patient is off lisinopril since his hospitalization, patient anti-correlation is being held and will restart anticoagulation effect agreeable by surgery. Patient will need to hold his lisinopril at the time of discharge until he sees his primary care physician and continued metoprolol. Constitutional: Denied any fatigue denied any fever. Cardio vascular: denied any chest pain, palpitations Gastrointestinal denied any nausea vomiting Pulmonary: Denied any shortness of breath cough Neurologic denied any new focal deficits Objective - Vital Signs Vital signs: Vital Signs Temp 97.8 F 01/17/18 07:10 Pulse 79 01/17/18 00:45 Resp 18 01/17/18 08:20 BP 128/68 01/17/18 07:10 Pulse Ox 93 L 01/17/18 07:10 Intake & Output 01/16/18 01/17/18 01/17/18 18:59 06:59 18:59 Intake Total 577 240 Output Total 570 1050 Balance 7 -810 Intake: IV 100 Ampicillin-Sulbactam 3 gm 100 In Sodium Chloride 0.9% 100 ml @ 100 mls/hr IVPB Q12HR MEL Rx#:[id number] Intake, IV Titration 240 Amount Sodium Chloride 0.9% 1, 240 000 ml @ 100 mls/hr IV . Q10H MEL Rx#:[id number] Oral 477 Output: Drainage 120 Left Abdomen 120 Urine 450 1050 Straight 400 Other: Voiding Method Indwelling Catheter # Voids 1 - Exam PHYSICAL EXAMINATION: GENERAL: The patient is alert and oriented x3, not in any acute distress. Obese HEENT: Pupils are round and equally reacting to light. EOMI. No scleral icterus. No conjunctival pallor. Normocephalic, atraumatic. No pharyngeal erythema. No thyromegaly. CARDIOVASCULAR: S1 and S2 present. No murmurs, rubs, or gallops. PULMONARY: Rhonchus breath sounds, no wheezing or crackles. ABDOMEN: Abdominal binder in place normoactive bowel sounds MUSCULOSKELETAL: No joint swelling or deformity. EXTREMITIES: No cyanosis, clubbing, or pedal edema. NEUROLOGICAL: Gross neurological examination did not reveal any focal deficits. SKIN: No rashes. - Labs CBC & Chem 7: 01/17/18 07:12 01/17/18 07:12 Labs: Abnormal Lab Results - Last 24 Hours (Table) 01/17/18 01/17/18 Range/Units 07:12 07:12 RBC 3.35 L (4.30-5.90) m/uL Hgb 10.4 L (13.0-17.5) gm/dL Hct 33.6 L (39.0-53.0) % MCV 100.3 H (80.0-100.0) fL MCHC 30.9 L (31.0-37.0) g/dL Lymphocytes # 0.7 L (1.0-4.8) k/uL Sodium 136 L (137-145) mmol/L Glucose 116 H (74-99) mg/dL Total Bilirubin 2.0 H (0.2-1.3) mg/dL Delta Bilirubin 1.6 H (0.0-0.2) mg/dL Alkaline Phosphatase 206 H (38-126) U/L Total Protein 4.9 L (6.3-8.2) g/dL Albumin 2.3 L (3.5-5.0) g/dL Assessment and Plan Plan: -Hyponatremia: Hypervolemic hyponatremia improved, part related tolerating oral diet well and patient's the hyponatremia resolved and patient's echo cardiac murmur essentially within normal limits -Acute renal failure:. Most probably poorly azotemia , improved creatinine. -Acute cholecystitis status post cholecystectomy -History of DVT patient will be resumed on anticoagulation as mentioned above since we can -Acute hypoxemia: Most probably due to atelectasis, patient is off oxygen now and saturating well -Essential hypertension: Hold lisinopril until he sees his prior care physician -Hyperlipidemia -Obstructive sleep apnea uses CPAP machine at home
[2018-01-17] MEDS: ATORVASTATIN 20 MG TAB PO SCH (21:33)
[2018-01-18] MEDS: AMPICILLIN-SULBACTAM 3 GM in SODIUM CHLORIDE 0.9% 100 ML IVPB SCH ×3 (00:48→15:03)
[2018-01-18] MEDS: TAMSULOSIN 0.4 MG CAP.ER.24H PO SCH (07:35)
[2018-01-18] MEDS: METOPROLOL TARTRATE 25 MG TAB PO SCH ×2 (07:35→22:32)
[2018-01-18] MEDS: RIVAROXABAN 20 MG TAB PO SCH (07:35)
[2018-01-18] MEDS: PANTOPRAZOLE 40 MG/10 ML VIAL IV SCH (07:36)
--- NOTE | 2018-01-18 08:57 | P.PN ---
Subjective Progress Note Date: 01/18/18 Principal diagnosis: Acute gangrenous cholecystitis, status post open cholecystectomy The patient is anxious to go home. He doesn't think he is ambulated in the [place] yet. He is tolerating a diet. Passing some flatus. No nausea or vomiting. Pain is controlled. Objective - Vital Signs Vital signs: Vital Signs Temp 98.7 F 01/18/18 07:35 Pulse 63 01/18/18 07:35 Resp 16 01/18/18 07:35 BP 137/75 01/18/18 07:35 Pulse Ox 95 01/18/18 07:35 Intake & Output 01/17/18 01/18/18 01/18/18 18:59 06:59 18:59 Intake Total 750 1380 1280 Output Total 940 540 300 Balance -190 840 980 Intake: IV 100 800 Ampicillin-Sulbactam 3 gm 100 800 In Sodium Chloride 0.9% 100 ml @ 100 mls/hr IVPB Q12HR MEL Rx#:[id number] Intake, IV Titration 500 800 Amount Ampicillin-Sulbactam 3 gm 100 In Sodium Chloride 0.9% 100 ml @ 100 mls/hr IVPB Q8HR MEL Rx#:[id number] Sodium Chloride 0.9% 1, 400 800 000 ml @ 100 mls/hr IV . Q10H MEL Rx#:[id number] Oral 250 480 480 Output: Drainage 40 40 Left Abdomen 40 40 Urine 900 500 300 Straight 300 Other: Voiding Method Indwelling Catheter Indwelling Catheter - Constitutional General appearance: Present: cooperative, no acute distress - Respiratory Details: Still requiring O2 by nasal cannula Respiratory: bilateral: CTA, diminished (At the bases) - Gastrointestinal General gastrointestinal: Present: normal bowel sounds, soft Localized gastrointestinal: surgical scar: RUQ (Healing well, MARYAM is serous) - Labs CBC & Chem 7: 01/17/18 07:12 01/17/18 07:12 Assessment and Plan (1) Acute cholecystitis Current Visit: Yes Status: Acute Code(s): K81.0 - ACUTE CHOLECYSTITIS SNOMED Code(s): 39525849 (2) History of DVT (deep vein thrombosis) Current Visit: Yes Status: Acute Code(s): Z86.718 - PERSONAL HISTORY OF OTHER VENOUS THROMBOSIS AND EMBOLISM SNOMED Code(s): 268367627 (3) History of pulmonary embolism Current Visit: Yes Status: Acute Code(s): Z86.711 - PERSONAL HISTORY OF PULMONARY EMBOLISM SNOMED Code(s): 322623315 (4) GERD (gastroesophageal reflux disease) Current Visit: Yes Status: Acute Code(s): K21.9 - GASTRO-ESOPHAGEAL REFLUX DISEASE WITHOUT ESOPHAGITIS SNOMED Code(s): 211588946 (5) History of pancreatitis Current Visit: Yes Status: Acute Code(s): Z87.19 - PERSONAL HISTORY OF OTHER DISEASES OF THE DIGESTIVE SYSTEM SNOMED Code(s): 95037497614597 (6) HTN (hypertension) Current Visit: No Status: Acute Code(s): I10 - ESSENTIAL (PRIMARY) HYPERTENSION SNOMED Code(s): 83196120 (7) Hyperlipemia Current Visit: No Status: Acute Code(s): E78.5 - HYPERLIPIDEMIA, UNSPECIFIED SNOMED Code(s): 68318145 (8) History of bladder cancer Current Visit: Yes Status: Acute Code(s): Z85.51 - PERSONAL HISTORY OF MALIGNANT NEOPLASM OF BLADDER SNOMED Code(s): 874173663 (9) Coagulopathy Current Visit: Yes Status: Resolved Code(s): D68.9 - COAGULATION DEFECT, UNSPECIFIED SNOMED Code(s): 32748942 (10) Hypoxemia Current Visit: Yes Status: Acute Code(s): R09.02 - HYPOXEMIA SNOMED Code(s ): 155411888 (11) Urinary retention Current Visit: Yes Status: Acute Code(s): R33.9 - RETENTION OF URINE, UNSPECIFIED SNOMED Code(s): 619272101 Plan: We'll decrease the rate of his IV fluids. Encouraged incentive spirometry. Ambulate in the halls. Explained the need to improve his oxygenation before discharge. Progressing slowly.
--- NOTE | 2018-01-18 14:22 | P.PN ---
Subjective Patient is admitted for a cholecystitis underwent cholecystectomy. Patient is getting half-normal saline but patient's sodium is only 1:30 because of which I' ll change in the IV fluids to either D5 normal saline are normal saline. Patient is on 4 L of oxygen I'm unable to assess JVD, chest x-ray from yesterday was suspicious for pulmonary edema will end up in the chest x-ray make sure patient is not having pulmonary edema, we'll also obtain BNP, patient does have history of PE in the past anticoagulation will be resumed whenever it's appropriate from surgical perspective. Patient had a recent episode of pancreatitis. 01/16/2018 Patient's overall clinical condition did improve respiratory status did improve and patient is presently on 3 L of oxygen saturating well patient hypoxemia may be related to atelectasis and unable to take deep breaths because of the abdominal pain. BNP is only minimally elevated my suspicion is low for pulmonary edema either cardiogenic or noncardiogenic pending echocardiogram serum sodium did improve, patient is not on any IV fluids at this time. Serum creatinine did improve. Patient didn't move his bowel did pass gas. 01/17/2018 Patient is off oxygen now, saturating well is passing gas but did not move his bowel yet patient is on morphine which I will try to avoid and use Toradol for pain. Patient related to ambulate. Patient's echo cardiac exam is essentially within normal limits patient is off lisinopril since his hospitalization, patient anti-correlation is being held and will restart anticoagulation effect agreeable by surgery. Patient will need to hold his lisinopril at the time of discharge until he sees his primary care physician and continued metoprolol. 01/18/2018 Patient the full catheter is out unable to urinate during bladder scan patient' s urinary retention is probably secondary to pain patient did not receive any morphine are Toradol today kidney function did improve. Constitutional: Denied any fatigue denied any fever. Cardio vascular: denied any chest pain, palpitations Gastrointestinal denied any nausea vomiting Pulmonary: Denied any shortness of breath cough Neurologic denied any new focal deficits Objective - Vital Signs Vital signs: Vital Signs Temp 98.7 F 01/18/18 07:35 Pulse 63 01/18/18 07:35 Resp 16 01/18/18 07:35 BP 137/75 01/18/18 07:35 Pulse Ox 95 01/18/18 07:35 Intake & Output 01/17/18 01/18/18 01/18/18 18:59 06:59 18:59 Intake Total 750 1380 1280 Output Total 940 540 300 Balance -190 840 980 Weight 68.039 kg Intake: IV 100 800 Ampicillin-Sulbactam 3 gm 100 800 In Sodium Chloride 0.9% 100 ml @ 100 mls/hr IVPB Q12HR MEL Rx#:[id number] Intake, IV Titration 500 800 Amount Ampicillin-Sulbactam 3 gm 100 In Sodium Chloride 0.9% 100 ml @ 100 mls/hr IVPB Q8HR MEL Rx#:[id number] Sodium Chloride 0.9% 1, 400 800 000 ml @ 100 mls/hr IV . Q10H MEL Rx#:[id number] Oral 250 480 480 Output: Drainage 40 40 Left Abdomen 40 40 Urine 900 500 300 Straight 300 Other: Voiding Method Indwelling Catheter Indwelling Catheter Indwelling Catheter - Exam PHYSICAL EXAMINATION: GENERAL: The patient is alert and oriented x3, not in any acute distress. Obese HEENT: Pupils are round and equally reacting to light. EOMI. No scleral icterus. No conjunctival pallor. Normocephalic, atraumatic. No pharyngeal erythema. No thyromegaly. CARDIOVASCULAR: S1 and S2 present. No murmurs, rubs, or gallops. PULMONARY: Bibasilar crackles no wheezing was appreciated ABDOMEN: Abdominal binder in place normoactive bowel sounds MUSCULOSKELETAL: No joint swelling or deformity. EXTREMITIES: No cyanosis, clubbing, or pedal edema. NEUROLOGICAL: Gross neurological examination did not reveal any focal deficits. SKIN: No rashes. - Labs CBC & Chem 7: 01/17/18 07:12 01/17/18 07:12 Assessment and Plan Plan: -Hyponatremia: Hypervolemic hyponatremia improved, part related tolerating oral diet well and patient's the hyponatremia resolved and patient's echo cardiac murmur essentially within normal limits -Acute renal failure:. Most probably poorly azotemia , improved creatinine. -Acute cholecystitis status post cholecystectomy -History of DVT patient will be resumed on anticoagulation as mentioned above since we can -Acute hypoxemia: Most probably due to atelectasis, patient is off oxygen now and saturating well -Essential hypertension: Hold lisinopril until he sees his prior care physician -Hyperlipidemia -Obstructive sleep apnea uses CPAP machine at home
[2018-01-18] MEDS: THIAMINE 100 MG TAB PO SCH (15:30)
[2018-01-18] MEDS: SODIUM CHLORIDE 0.9% 1,000 ML IV SCH (15:31)
[2018-01-18] MEDS: ATORVASTATIN 20 MG TAB PO SCH (22:32)
[2018-01-19] MEDS: AMPICILLIN-SULBACTAM 3 GM in SODIUM CHLORIDE 0.9% 100 ML IVPB SCH ×3 (00:07→16:26)
[2018-01-19] MEDS: SODIUM CHLORIDE 0.9% 1,000 ML IV SCH ×2 (00:15→10:55)
[2018-01-19 07:20] VITALS: RESP 16
[2018-01-19] MEDS ORDERED: PANTOPRAZOLE 40 MG TABLET PO SCH (07:30)
[2018-01-19 07:58] LABS: HGB 10.4 gm/dL (13.0-17.5); Hypochromasia Slight; MCH 32.7 pg (25.0-35.0); MCHC 32.4 g/dL (31.0-37.0); MCV 100.8 fL (80.0-100.0); Platelet Count 296 k/uL (150-450); RBC 3.18 m/uL (4.30-5.90); RDW 13.1 % (11.5-15.5); WBC 6.6 k/uL (3.8-10.6)
[2018-01-19 08:11] LABS: Anion Gap 7 mmol/L; Blood Urea Nitrogen 12 mg/dL (9-20); Calcium 8.3 mg/dL (8.4-10.2); Carbon Dioxide 29 mmol/L (22-30); Chloride 99 mmol/L (98-107); Glucose 107 mg/dL (74-99); Sodium 135 mmol/L (137-145)
[2018-01-19] MEDS: MORPHINE ORAL SOLN 10 MG/5 ML CUP PO PRN (09:18)
[2018-01-19] MEDS: RIVAROXABAN 20 MG TAB PO SCH (09:19)
[2018-01-19] MEDS: TAMSULOSIN 0.4 MG CAP.ER.24H PO SCH (09:19)
[2018-01-19] MEDS: METOPROLOL TARTRATE 25 MG TAB PO SCH (09:19)
[2018-01-19 15:16] VITALS: BP 128/73; PULSE 62; TEMP 98.9
--- NOTE | 2018-01-19 15:38 | P.PN ---
Subjective Patient is admitted for a cholecystitis underwent cholecystectomy. Patient is getting half-normal saline but patient's sodium is only 1:30 because of which I' ll change in the IV fluids to either D5 normal saline are normal saline. Patient is on 4 L of oxygen I'm unable to assess JVD, chest x-ray from yesterday was suspicious for pulmonary edema will end up in the chest x-ray make sure patient is not having pulmonary edema, we'll also obtain BNP, patient does have history of PE in the past anticoagulation will be resumed whenever it's appropriate from surgical perspective. Patient had a recent episode of pancreatitis. 01/16/2018 Patient's overall clinical condition did improve respiratory status did improve and patient is presently on 3 L of oxygen saturating well patient hypoxemia may be related to atelectasis and unable to take deep breaths because of the abdominal pain. BNP is only minimally elevated my suspicion is low for pulmonary edema either cardiogenic or noncardiogenic pending echocardiogram serum sodium did improve, patient is not on any IV fluids at this time. Serum creatinine did improve. Patient didn't move his bowel did pass gas. 01/17/2018 Patient is off oxygen now, saturating well is passing gas but did not move his bowel yet patient is on morphine which I will try to avoid and use Toradol for pain. Patient related to ambulate. Patient's echo cardiac exam is essentially within normal limits patient is off lisinopril since his hospitalization, patient anti-correlation is being held and will restart anticoagulation effect agreeable by surgery. Patient will need to hold his lisinopril at the time of discharge until he sees his primary care physician and continued metoprolol. 01/18/2018 Patient the full catheter is out unable to urinate during bladder scan patient' s urinary retention is probably secondary to pain patient did not receive any morphine are Toradol today kidney function did improve. 01/19/2018 Patient's drain was removed. Patient is not taking deep breaths leading to atelectasis because of which will obtain a chest x-ray make sure patient doesn' t have any pneumonic process patient is high risk for pneumonia extensive counseling regarding atelectasis was provided and patient whenever patient doesn 't take deep breath his saturations does drop upper ambulation. Although patient will not require any home oxygen. Patient should be encouraged to do incentive spirometry at home now that his biliary drain is out hopefully he will keep doing the incentive spirometry. or else patient will be high risk for pneumonia Constitutional: Denied any fatigue denied any fever. Cardio vascular: denied any chest pain, palpitations Gastrointestinal denied any nausea vomiting Pulmonary: Denied any shortness of breath cough Neurologic denied any new focal deficits Objective - Vital Signs Vital signs: Vital Signs Temp 98.9 F 01/19/18 14:25 Pulse 62 01/19/18 14:25 Resp 16 01/19/18 14:25 BP 128/73 01/19/18 14:25 Pulse Ox 97 01/19/18 14:25 Intake & Output 01/18/18 01/19/18 01/19/18 18:59 06:59 18:59 Intake Total 1780 550 Output Total 600 630 480 Balance 1180 -630 70 Weight 68.039 kg Intake: IV 800 Ampicillin-Sulbactam 3 gm 800 In Sodium Chloride 0.9% 100 ml @ 100 mls/hr IVPB Q12HR MEL Rx#:[id number] Intake, IV Titration 500 100 Amount Ampicillin-Sulbactam 3 gm 500 100 In Sodium Chloride 0.9% 100 ml @ 100 mls/hr IVPB Q8HR MEL Rx#:[id number] Oral 480 450 Output: Drainage 80 Left Abdomen 80 Urine 600 630 400 Straight 600 Other: Voiding Method Indwelling Catheter Urinal # Voids 2 - Exam PHYSICAL EXAMINATION: GENERAL: The patient is alert and oriented x3, not in any acute distress. Obese HEENT: Pupils are round and equally reacting to light. EOMI. No scleral icterus. No conjunctival pallor. Normocephalic, atraumatic. No pharyngeal erythema. No thyromegaly. CARDIOVASCULAR: S1 and S2 present. No murmurs, rubs, or gallops. PULMONARY: Bibasilar crackles no wheezing was appreciated ABDOMEN: Abdominal binder in place normoactive bowel sounds MUSCULOSKELETAL: No joint swelling or deformity. EXTREMITIES: No cyanosis, clubbing, or pedal edema. NEUROLOGICAL: Gross neurological examination did not reveal any focal deficits. SKIN: No rashes. - Labs CBC & Chem 7: 01/19/18 06:58 01/19/18 06:58 Labs: Abnormal Lab Results - Last 24 Hours (Table) 01/19/18 01/19/18 Range/Units 06:58 06:58 RBC 3.18 L (4.30-5.90) m/uL Hgb 10.4 L (13.0-17.5) gm/dL Hct 32.0 L (39.0-53.0) % MCV 100.8 H (80.0-100.0) fL Sodium 135 L (137-145) mmol/L Glucose 107 H (74-99) mg/dL Calcium 8.3 L (8.4-10.2) mg/dL Assessment and Plan Plan: -Hyponatremia: Hypervolemic hyponatremia improved -Atelectasis bilateral : patient should be using incentive spirometry at home. Patient is high risk for pneumonia because of continued atelectasis and poor inspiration -Acute renal failure:. Most probably poorly azotemia , improved creatinine. -Acute cholecystitis status post cholecystectomy -History of DVT patient will be resumed on anticoagulation -Acute hypoxemia: Most probably due to atelectasis, patient is off oxygen now and saturating well though still desaturates initially upon ambulation and does well after taking deep breath -Essential hypertension: Hold lisinopril until he sees his prior care physician -Hyperlipidemia -Obstructive sleep apnea uses CPAP machine at home Patient is okay to be discharged from medical perspective.
--- NOTE | 2018-01-19 15:59 | XR ---
EXAMINATION TYPE: XR chest 1V portable DATE OF EXAM: 01/19/2018 HISTORY: Shortness of breath. Hypoxia COMPARISON: 01/15/2018 TECHNIQUE: Single view of the chest is submitted. FINDINGS: Demonstrated are scattered senescent parenchymal change. Basilar atelectasis and small effusions. Overall no significant change from prior examination. The heart is stable. Hilar and mediastinal structures are within normal limits. Degenerative changes are seen of the dorsal spine. IMPRESSION: 1. Basilar atelectasis and small effusions. Overall no significant change from prior examination.
[2018-01-19] MEDS: THIAMINE 100 MG TAB PO SCH (16:26)
--- NOTE | 2018-01-19 18:35 | P.DS ---
Providers Date of admission: 01/13/18 17:34 Expected date of discharge: 01/19/18 Attending physician: Gracie Barnard Consults: 01/13/18 18:09 Consult Physician Routine Consulting Provider: Markie Noland Consult Reason/Comments: medical management Do you want consulting provider notified?: Yes Primary care physician: Jalen Cobos - Discharge Diagnosis(es) (1) Acute cholecystitis Current Visit: Yes Status: Acute (2) History of DVT (deep vein thrombosis) Current Visit: Yes Status: Acute (3) History of pulmonary embolism Current Visit: Yes Status: Acute (4) GERD (gastroesophageal reflux disease) Current Visit: Yes Status: Acute (5) History of pancreatitis Current Visit: Yes Status: Acute (6) HTN (hypertension) Current Visit: No Status: Acute (7) Hyperlipemia Current Visit: No Status: Acute (8) History of bladder cancer Current Visit: Yes Status: Acute (9) Coagulopathy Current Visit: Yes Status: Resolved (10) Hypoxemia Current Visit: Yes Status: Acute (11) Urinary retention Current Visit: Yes Status: Acute Hospital Course: The patient presented to the office with right upper quadrant pain which had started Wednesday night. An outpatient computed tomography scan was performed which showed gallbladder wall thickening and possible pericholecystic fluid. He was very tender and was felt to have acute cholecystitis so was admitted. His anti-coagulation was held. He was started on IV antibiotics. He was given vitamin K. By Wednesday as INR was 1.3 and he was felt to be stable for the OR. He had a laparoscopy performed and the gallbladder was very thickened and showed gangrenous changes. An open cholecystectomy was carried out. A drain was placed. He was given antibiotics. He was given DVT and ulcer prophylaxis. He was gradually increase his activity. He was doing fairly poorly initially was that this incentive spirometry. That had to be encouraged and he did have hypoxemia and required supplemental oxygen. By 01-19-2018 he was felt to be's stable for discharge. Plan - Discharge Summary Discharge Rx Participant: No New Discharge Prescriptions: New Tamsulosin HCl [Flomax] 0.4 mg PO DAILY #30 cap Continue Omeprazole [PriLOSEC] 20 mg PO AC-BRKFST Simvastatin [Zocor] 40 mg PO HS Rivaroxaban [Xarelto] 20 mg PO DAILY Metoprolol Tartrate [Lopressor] 25 mg PO BID #60 tab Discharge Medication List Omeprazole [PriLOSEC] 20 mg PO AC-BRKFST 08/17/15 [History] Simvastatin [Zocor] 40 mg PO HS 08/17/15 [History] Rivaroxaban [Xarelto] 20 mg PO DAILY 11/30/17 [History] Metoprolol Tartrate [Lopressor] 25 mg PO BID #60 tab 12/07/17 [Rx] Tamsulosin HCl [Flomax] 0.4 mg PO DAILY #30 cap 01/19/18 [Rx] Follow up Appointment(s)/Referral(s): Grcaie Barnard DO [Doctor of Osteopathic Medicine] - 1 Week Activity/Diet/Wound Care/Special Instructions: You may shower. A light dressing over verito if they are draining or rubbing on your clothes. No driving for 1 week. No lifting > 10# for 4-6 weeks. Low- fat diet. Continue to use incentive spirometry every hour for the next week. Call if you develop fever, chills, nausea, vomiting, wound concerns. Discharge Disposition: HOME SELF-CARE
== END 2018-01-19 19:35 | disposition home or self-care (01) | DRG 415 ==
LOC: 3SUR 17:34
PROVIDERS: ADMIT Surgery; ATTEND Surgery
PROC: 0FT40ZZ Resection of Gallbladder, Open Approach (ICD-10-PCS; principal; 2018-01-15 14:00)
PROC: 0FJ44ZZ Inspection of Gallbladder, Percutaneous Endoscopic Approach (ICD-10-PCS; principal; 2018-01-15 14:00)
DX: K81.0 Acute cholecystitis (principal); D68.9 Coagulation defect, unspecified; J98.11 Atelectasis; K86.0 Alcohol-induced chronic pancreatitis; N17.9 Acute kidney failure, unspecified; E87.1 Hypo-osmolality and hyponatremia; Z85.51 Personal history of malignant neoplasm of bladder; E78.5 Hyperlipidemia, unspecified; F10.10 Alcohol abuse, uncomplicated; F17.290 Nicotine dependence, other tobacco product, uncomplicated; G47.33 Obstructive sleep apnea (adult) (pediatric); I10 Essential (primary) hypertension; I25.10 Atherosclerotic heart disease of native coronary artery without angina pectoris; I25.2 Old myocardial infarction; I27.20 Pulmonary hypertension, unspecified; K21.9 Gastro-esophageal reflux disease without esophagitis; K57.90 Diverticulosis of intestine, part unspecified, without perforation or abscess without bleeding; K70.9 Alcoholic liver disease, unspecified; M15.9 Polyosteoarthritis, unspecified; M51.26 Other intervertebral disc displacement, lumbar region; R09.02 Hypoxemia; Z79.01 Long term (current) use of anticoagulants; Z79.82 Long term (current) use of aspirin; Z79.899 Other long term (current) drug therapy; Z80.0 Family history of malignant neoplasm of digestive organs; Z86.711 Personal history of pulmonary embolism; Z86.718 Personal history of other venous thrombosis and embolism; Z96.1 Presence of intraocular lens; Z98.41 Cataract extraction status, right eye; Z98.42 Cataract extraction status, left eye; Z88.7 Allergy status to serum and vaccine; R33.9 Retention of urine, unspecified; E66.9 Obesity, unspecified; Z68.20 Body mass index [BMI] 20.0-20.9, adult
CPT/HCPCS: 71045; 71046; 76705; 80048; 80053; 80076; 82150; 83690; 83880; 85025; 85027; 85610; 85730; 88304; 93306; 94640; 94760

== ENCOUNTER 2018-04-01 20:01 | Inpatient (IN) | payer MEDICARE, BC ==
[2018-04-01] MEDS ORDERED: SODIUM CHLORIDE 0.9% 1,000 ML IV STA (21:00)
[2018-04-01] MEDS ORDERED: IBUPROFEN 600 MG TAB PO STA (21:03)
--- NOTE | 2018-04-01 21:03 | ED ---
Abdominal Pain HPI - General Source: patient Mode of arrival: ambulatory Limitations: no limitations <Amy Deras - Last Filed: 04/01/18 23:29> <Elias Mejia - Last Filed: 04/04/18 09:22> - General Chief Complaint: Abdominal Pain Stated Complaint: Abd pain Time Seen by Provider: 04/01/18 20:20 - History of Present Illness Initial Comments: 83-year-old male patient presents to the emergency department today for evaluation of upper abdominal pain and fever. Patient states that early this morning he developed some upper abdominal pain. States that it resolved after a short period. States that he went shopping was feeling okay and then when he got home the pain started again. He describes the pain as a cramping. Patient states he also developed shaking chills and felt ill. Patient states he has not had an appetite today. Patient states he has had a history of pancreatitis has had a cholecystectomy. He denies any nausea or vomiting with this. States last bowel movement was 3-4 days ago. No hematochezia or melena. States he is urinating without difficulty. Patient denies any recent rash, shortness breath, chest pain, back pain, numbness, tingling, dizziness, weakness, hematuria, dysuria, urinary urgency, urinary frequency, headache, visual changes, or any other complaints. reports that patient is a daily drinker. (Amy Deras) - Related Data Home Medications Medication Instructions Recorded Confirmed Omeprazole [PriLOSEC] 20 mg PO AC-BRKFST 08/17/15 04/01/18 Simvastatin [Zocor] 40 mg PO 08/17/15 04/01/18 Rivaroxaban [Xarelto] 20 mg PO DAILY 11/30/17 04/01/18 Acetaminophen Tab [Tylenol Tab] 1,000 mg PO HS 04/01/18 04/01/18 Lisinopril 40 mg PO DAILY 04/01/18 04/01/18 Previous Rx's Medication Instructions Recorded Metoprolol Tartrate [Lopressor] 25 mg PO BID #60 tab 12/07/17 Allergies Allergy/AdvReac Type Severity Reaction Status Date / Time tetanus toxoid, adsorbed AdvReac Nausea & Verified 04/01/18 20:38 Vomiting Review of Systems ROS Other: All systems not noted in ROS Statement are negative. <Amy Deras - Last Filed: 04/01/18 23:29> ROS Other: All systems not noted in ROS Statement are negative. <Elias Mejia - Last Filed: 04/04/18 09:22> ROS Statement: Those systems with pertinent positive or pertinent negative responses have been documented in the HPI. 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, vertigo , no cpap machine- tired in past but could'nt tolerate."never definitely told if he had aheart attack or not when here in november" History of Any Multi-Drug Resistant Organisms: None Reported Past Surgical History: Heart Catheterization Additional Past Surgical History / Comment(s): bladder cancer d/t cancer(sx only , no chemo, no radiaiton), maximilian cataracats removed-lens implants, colonoscopy/ polypectomy-benign Past Anesthesia/Blood Transfusion Reactions: Motion Sickness Past Psychological History: No Psychological Hx Reported Smoking Status: Former smoker - Past Family History Mother History Unknown: Yes Additional Family Medical History / Comment(s): bladder tumor. lived till age 93 Father Additional Family Medical History / Comment(s): ? cancer of the stomach, lung disease, smoker <Amy Deras - Last Filed: 04/01/18 23:29> General Exam Limitations: no limitations General appearance: alert, in no apparent distress, other (This is a well- developed, well-nourished adult male patient no acute distress. Vital signs upon presentation are temperature 101.7F, pulse 75, respirations 18, blood pressure 122/62, pulse ox 95% on room air.) Eye exam: Present: normal appearance, PERRL, EOMI. Absent: scleral icterus, conjunctival injection, periorbital swelling ENT exam: Present: normal exam, normal oropharynx, mucous membranes moist Neck exam: Present: normal inspection. Absent: tenderness, meningismus, lymphadenopathy Respiratory exam: Present: normal lung sounds bilaterally. Absent: respiratory distress, wheezes, rales, rhonchi, stridor Cardiovascular Exam: Present: regular rate, normal rhythm, normal heart sounds. Absent: systolic murmur, diastolic murmur, rubs, gallop, clicks GI/Abdominal exam: Present: soft, tenderness (Midepigastric tenderness), normal bowel sounds. Absent: distended, guarding, rebound, rigid Neurological exam: Present: alert, oriented X3, CN II-XII intact Psychiatric exam: Present: normal affect, normal mood Skin exam: Present: warm, dry, intact, normal color. Absent: rash <Amy Deras - Last Filed: 04/01/18 23:29> Vital Signs 04/01/18 04/01/18 04/01/18 20:15 22:52 23:25 Temperature 101.7 F H 98.7 F 98.7 F Pulse Rate 75 84 80 Respiratory 18 16 16 Rate Blood Pressure 122/62 95/50 100/80 O2 Sat by Pulse 95 98 99 Oximetry Medical Decision Making - Lab Data Result diagrams: 04/01/18 21:03 04/01/18 21:03 - Radiology Data Radiology results: report reviewed, image reviewed <Amy Deras - Last Filed: 04/01/18 23:29> - Lab Data Result diagrams: 04/03/18 07:20 04/03/18 07:20 <Elias Mejia - Last Filed: 04/04/18 09:22> - Medical Decision Making 83-year-old male patient with history of drinking alcohol daily presents the emergency department today for intermittent upper abdominal pain today and fever. Physical examination does reveal some midepigastric tenderness. Labs reviewed and showed an elevated lipase at over 9000. Patient will be admitted for acute pancreatitis. IV fluids and pain management will be provided. He is made nothing by mouth. He'll be admitted to Dr. Noland with GI consult. (Amy Deras) I saw this patient in conjunction with the physician print shop assistant. I performed independent history and physical exam. Agree with case management. (Elias Mejia) - Lab Data Lab Results 04/01/18 04/01/18 04/01/18 Range/Units 21:03 21:03 21:03 WBC 9.4 (3.8-10.6) k/uL RBC 4.17 L (4.30-5.90) m/uL Hgb 13.8 (13.0-17.5) gm/dL Hct 41.0 (39.0-53.0) % MCV 98.2 (80.0-100.0) fL MCH 33.0 (25.0-35.0) pg MCHC 33.5 (31.0-37.0) g/dL RDW 14.6 (11.5-15.5) % Plt Count 300 (150-450) k/uL Neutrophils % 91 % Lymphocytes % 4 % Monocytes % 3 % Eosinophils % 2 % Basophils % 0 % Neutrophils # 8.5 H (1.3-7.7) k/uL Lymphocytes # 0.3 L (1.0-4.8) k/uL Monocytes # 0.3 (0-1.0) k/uL Eosinophils # 0.2 (0-0.7) k/uL Basophils # 0.0 (0-0.2) k/uL Sodium 137 (137-145) mmol/L Potassium 4.3 (3.5-5.1) mmol/L Chloride 105 (98-107) mmol/L Carbon Dioxide 23 (22-30) mmol/L Anion Gap 9 mmol/L BUN 14 (9-20) mg/dL Creatinine 0.80 (0.66-1.25) mg/dL Est GFR (CKD-EPI)AfAm >90 (>60 ml/min/1.73 sqM) Est GFR (CKD-EPI)NonAf 84 (>60 ml/min/1.73 sqM) Glucose 92 (74-99) mg/dL Plasma Lactic Acid Kei 0.9 (0.7-2.0) mmol/L Calcium 9.2 (8.4-10.2) mg/dL Total Bilirubin 6.2 H (0.2-1.3) mg/dL AST 149 H (17-59) U/L ALT 102 H (21-72) U/L Alkaline Phosphatase 190 H (38-126) U/L Total Protein 6.7 (6.3-8.2) g/dL Albumin 3.7 (3.5-5.0) g/dL Amylase 746 H* (30-110) U/L Lipase 9430 H (23-300) U/L Urine Color Urine Appearance (Clear) Urine pH (5.0-8.0) Ur Specific Wheeler (1.001-1.035) Urine Protein (Negative) Urine Glucose (UA) (Negative) Urine Ketones (Negative) Urine Blood (Negative) Urine Nitrite (Negative) Urine Bilirubin (Negative) Urine Urobilinogen (<2.0) mg/dL Ur Leukocyte Esterase (Negative) Urine RBC (0-5) /hpf Urine WBC (0-5) /hpf Ur Squamous Epith Cells (0-4) /hpf Urine Mucus (None) /hpf 04/01/18 Range/Units 21:41 WBC (3.8-10.6) k/uL RBC (4.30-5.90) m/uL Hgb (13.0-17.5) gm/dL Hct (39.0-53.0) % MCV (80.0-100.0) fL MCH (25.0-35.0) pg MCHC (31.0-37.0) g/dL RDW (11.5-15.5) % Plt Count (150-450) k/uL Neutrophils % % Lymphocytes % % Monocytes % % Eosinophils % % Basophils % % Neutrophils # (1.3-7.7) k/uL Lymphocytes # (1.0-4.8) k/uL Monocytes # (0-1.0) k/uL Eosinophils # (0-0.7) k/uL Basophils # (0-0.2) k/uL Sodium (137-145) mmol/L Potassium (3.5-5.1) mmol/L Chloride (98-107) mmol/L Carbon Dioxide (22-30) mmol/L Anion Gap mmol/L BUN (9-20) mg/dL Creatinine (0.66-1.25) mg/dL Est GFR (CKD-EPI)AfAm (>60 ml/min/1.73 sqM) Est GFR (CKD-EPI)NonAf (>60 ml/min/1.73 sqM) Glucose (74-99) mg/dL Plasma Lactic Acid Kei (0.7-2.0) mmol/L Calcium (8.4-10.2) mg/dL Total Bilirubin (0.2-1.3) mg/dL AST (17-59) U/L ALT (21-72) U/L Alkaline Phosphatase (38-126) U/L Total Protein (6.3-8.2) g/dL Albumin (3.5-5.0) g/dL Amylase (30-110) U/L Lipase (23-300) U/L Urine Color Dark Yellow Urine Appearance Clear (Clear) Urine pH 6.5 (5.0-8.0) Ur Specific Wheeler 1.011 (1.001-1.035) Urine Protein Negative (Negative) Urine Glucose (UA) Negative (Negative) Urine Ketones Negative (Negative) Urine Blood Moderate H (Negative) Urine Nitrite Negative (Negative) Urine Bilirubin 1+ H (Negative) Urine Urobilinogen 12.0 (<2.0) mg/dL Ur Leukocyte Esterase Negative (Negative) Urine RBC 103 H (0-5) /hpf Urine WBC <1 (0-5) /hpf Ur Squamous Epith Cells 1 (0-4) /hpf Urine Mucus Rare H (None) /hpf - Radiology Data Two-view x-ray of the chest is obtained. Report was reviewed in its entirety. Impression by Dr. Naidu shows no definite acute process. Two-view x-ray of the abdomen is obtained. Report was reviewed in its entirety. Impression by Dr. Kye Belcher shows negative examination. (Amy Deras) Disposition Decision to Admit Reason: Admit from EC Decision Date: 04/01/18 Decision Time: 22:43 <Amy Deras - Last Filed: 04/01/18 23:29> <Elias Mejia - Last Filed: 04/04/18 09:22> Clinical Impression: Pancreatitis, Fever Disposition: ADMITTED IP TO THIS [facility] Condition: Serious
[2018-04-01 21:33] LABS: Basophils % (A) 0 %; Eosinophils # (A) 0.2 k/uL (0-0.7); Eosinophils % (A) 2 %; HGB 13.8 gm/dL (13.0-17.5); Lymphocytes # (A) 0.3 k/uL (1.0-4.8); Lymphocytes % (A) 4 %; MCHC 33.5 g/dL (31.0-37.0); MCV 98.2 fL (80.0-100.0); Monocytes # (A) 0.3 k/uL (0-1.0); Monocytes % (A) 3 %; Neutrophils # (A) 8.5 k/uL (1.3-7.7); Neutrophils % (A) 91 %; Platelet Count 300 k/uL (150-450); RBC 4.17 m/uL (4.30-5.90); RDW 14.6 % (11.5-15.5); WBC 9.4 k/uL (3.8-10.6)
--- NOTE | 2018-04-01 21:39 | XR ---
EXAMINATION: XR chest 2V DATE AND TIME: 04/01/2018 9:29 PM ORDERING PROVIDER: Amy Deras CLINICAL INDICATION: Pain fever TECHNIQUE: PA and lateral COMPARISON: 01/19/2018 DESCRIPTION: The lungs are clear. The pleural spaces are negative. The cardiac silhouette is mildly enlarged. The mediastinal and pleural silhouettes are unremarkable. The skeletal structures are intact without focal findings. The soft tissues are unremarkable. IMPRESSION: NO DEFINITE ACUTE PROCESS.
--- NOTE | 2018-04-01 21:40 | XR ---
EXAMINATION TYPE: XR KUB 2 views DATE OF EXAM: 04/01/2018 COMPARISON: NONE HISTORY: Fever and abdominal pain TECHNIQUE: 2 upright views FINDINGS: The visualized lung bases and pleural spaces are unremarkable. There is no pneumoperitoneum or pneumatosis. Bowel gas pattern is normal. No definite acute skeletal or soft tissue findings are evident. IMPRESSION: NEGATIVE EXAMINATION.
[2018-04-01 21:44] LABS: ALT 102 U/L (21-72); AST 149 U/L (17-59); Albumin 3.7 g/dL (3.5-5.0); Alkaline Phosphatase 190 U/L (38-126); Anion Gap 9 mmol/L; Blood Urea Nitrogen 14 mg/dL (9-20); Calcium 9.2 mg/dL (8.4-10.2); Carbon Dioxide 23 mmol/L (22-30); Chloride 105 mmol/L (98-107); Glucose 92 mg/dL (74-99); Potassium 4.3 mmol/L (3.5-5.1); Sodium 137 mmol/L (137-145); Total Bilirubin 6.2 mg/dL (0.2-1.3); Total Protein 6.7 g/dL (6.3-8.2)
[2018-04-01 21:51] LABS: Amylase 746 U/L (30-110)
[2018-04-01 22:12] LABS: Appearance,Urine Clear (Clear); Bilirubin,Urine 1+ (Negative); Blood,Urine Moderate (Negative); Color,Urine Dark Yellow; Glucose,Urine (UA) Negative (Negative); Ketones,Urine Negative (Negative); Leukocyte Esterase,Urine Negative (Negative); Mucus,Urine Rare /hpf; Nitrite,Urine Negative (Negative); PH, Urine 6.5 (5.0-8.0); Protein,Urine Negative (Negative); RBC,Urine 103 /hpf (0-5); Specific Gravity,Urine 1.011 (1.001-1.035); Squamous Epithelial Cell,Urine 1 /hpf (0-4); WBC,Urine <1 /hpf (0-5)
[2018-04-01 22:37] LABS: Lipase 9430 U/L (23-300)
[2018-04-01] MEDS ORDERED: NALOXONE 0.4 MG/ML 1 ML VIAL IV PRN (22:41)
[2018-04-01] MEDS ORDERED: MORPHINE SULFATE 4 MG/ML SYRINGE IV PRN (22:41)
[2018-04-01] MEDS ORDERED: ONDANSETRON 4 MG/2 ML VIAL IVP PRN (22:41)
[2018-04-01] MEDS: SODIUM CHLORIDE 0.9% 1,000 ML IV SCH (23:48)
[2018-04-01 23:56] VITALS: BMI 34.7
[2018-04-02 07:55] LABS: Albumin 2.9 g/dL (3.5-5.0); Calcium 8.5 mg/dL (8.4-10.2); Total Bilirubin 7.7 mg/dL (0.2-1.3); Total Protein 5.6 g/dL (6.3-8.2)
[2018-04-02 08:12] LABS: HCT 38.1 % (39.0-53.0); HGB 12.6 gm/dL (13.0-17.5); MCH 33.3 pg (25.0-35.0); MCV 100.8 fL (80.0-100.0); Macrocytosis Slight; Mean Platelet Volume 7.6; Platelet Count 289 k/uL (150-450); RBC 3.78 m/uL (4.30-5.90); RDW 14.7 % (11.5-15.5); WBC 11.3 k/uL (3.8-10.6)
[2018-04-02 08:36] LABS: Toxic Granulation Present
[2018-04-02 08:37] LABS: Toxic Vacuolation Present
[2018-04-02 08:39] LABS: Band Neutrophils % 10 %; Lymphocytes # (M) 0.23 k/uL (1.0-4.8); Metamyelocytes # (M) 0.23 k/uL (0); Metamyelocytes % 2 %; Monocytes # (M) 0.23 k/uL (0-1.0); Neutrophils % (M) 85 %; Nucleated Red Blood Cells 0 /100 WBC (0-0); Total Cells Counted 200
[2018-04-02] MEDS ORDERED: LORazepam 0.5 MG TAB PO PRN (12:33)
[2018-04-02] MEDS ORDERED: CALCIUM CARBONATE 500 MG CHEWABLE PO PRN (12:33)
[2018-04-02] MEDS ORDERED: MELATONIN 3 MG TABLET PO PRN (12:33)
--- NOTE | 2018-04-02 13:32 | CT ---
EXAMINATION TYPE: CT abdomen pelvis wo con DATE OF EXAM: 04/02/2018 COMPARISON: Previous study dated 11/06/2016 HISTORY: Stomach pains CT DLP: 1380.80 mGycm Automated exposure control for dose reduction was used. FINDINGS: There is dependent atelectasis in the dependent portions of the lungs. There are tiny, bila teral pleural effusions. The heart is enlarged. There is a tiny hiatal hernia present. Within the abdomen, the gallbladder is been removed. Liver and spleen appear unremarkable. Both adrenal glands appear normal. There is a nonobstructing 5.6 mm calculus in the posterior lower pole calyx of the left kidney. There is no evidence of hydronephrosis in either kidney. The pancreas appears mildly atrophic. There is no significant retroperitoneal, iliac or inguinal adenopathy. The bladder is unremarkable. There is moderate diverticular change throughout the left side of the colon without radiographic evid ence of diverticulitis. Breathing motion artifact makes assessment of the hepatic flexure incomplete. The appendix appears unremarkable. The small bowel is normal in caliber. No free fluid and no free air is seen. 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 No bony destructive lesion is seen. IMPRESSION: 1. TINY, BILATERAL EFFUSIONS. 2. SMALL HIATAL HERNIA. 3. BREATHING MOTION ARTIFACT IS CAUSING RIGHT UPPER QUADRANT ARTIFACT. IT WOULD BE DIFFICULT TO EXCLU DE INFLAMMATORY CHANGE IN THIS REGION. 4. DIVERTICULOSIS INVOLVING THE LEFT SIDE OF THE COLON. 5. NONOBSTRUCTING LEFT RENAL CALCULUS. 6. 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
[2018-04-02] MEDS: METOPROLOL TARTRATE 25 MG TAB PO SCH ×2 (14:41→20:17)
[2018-04-02] MEDS: LISINOPRIL 20 MG TAB PO SCH (14:41)
[2018-04-02] MEDS: SODIUM CHLORIDE 0.9% 1,000 ML IV SCH (14:41)
[2018-04-02] MEDS: LACTATED RINGERS 1,000 ML IV SCH (14:44)
[2018-04-02] MEDS: RIVAROXABAN 20 MG TAB PO SCH (14:44)
[2018-04-02] MEDS: PANTOPRAZOLE 40 MG TABLET PO SCH (14:45)
--- NOTE | 2018-04-02 15:02 | HP ---
HISTORY AND PHYSICAL DATE OF ADMISSION: 04/01/2018 DATE OF SERVICE: 04/02/2018. PRESENTING COMPLAINT: Abdominal pain. HISTORY OF PRESENTING COMPLAINT: This is a pleasant 83-year-old patient of Dr. Cobos. Chronic stable medical conditions include DVT with PE in 2017, for which patient is on Xarelto, GERD, hypertension, hyperlipidemia, osteoarthritis. Patient was drinking 4-5 drinks a day up until about 3 months ago, and 2 days ago went to a friend's republican and also drank alcohol there. Yesterday morning patient started off with severe abdominal pain which progressed, more so in the central abdomen, slightly going to the back. There was no nausea or vomiting. No obvious fever or chills. Pain did get a bit better but again got worse. Patient's last bowel movement was 2 days ago. Patient was somewhat uncomfortable. Patient was admitted from the ER with a diagnosis of acute pancreatitis with amylase being 746, lipase being 9430. REVIEW OF SYSTEMS: CONSTITUTIONAL: Weak, tired. HEENT: None. RESPIRATORY: None. CARDIOVASCULAR: None. GASTROINTESTINAL: As above. GENITOURINARY: None. MUSCULOSKELETAL: Arthritic pain in joints. DERMATOLOGICAL: None. HEMATOLOGICAL: None. LYMPHATICS: None. PSYCHIATRY: None. NEUROLOGICAL: None. PAST MEDICAL HISTORY: 1. DVT. 2. GERD. 3. Hyperlipidemia. 4. Hypertension. 5. Osteoarthritis. 6. Pulmonary embolism in 2017. 7. Sleep apnea; does not use CPAP. 8. Bladder cancer 20 years ago. 9. DVT and PE in 2017. 10.Pancreatitis. 11.Pre-cancerous skin lesions; sees awake overnight monitor. 12.Vertigo. 13.Does not use CPAP. PAST SURGICAL HISTORY: 1. Bladder cancer. 2. Cardiac catheterization. 3. Bilateral cataracts removed. 4. Colonoscopy. 5. Polypectomy. SOCIAL HISTORY: Was drinking 4-5 drinks per day until about 3 months ago, then had 2 drinks 2 nights ago. Patient has been smoking cigars up until about 1999; now stopped. FAMILY HISTORY: Bladder tumor. HOME MEDICATIONS: 1. Zocor 40 mg at bedtime. 2. Xarelto 20 mg p.o. daily. 3. Prilosec 20 mg with breakfast. 4. Lopressor 25 p.o. b.i.d. 5. Lisinopril 40 mg a day. 6. Tylenol 1000 mg p.o. at bedtime. ALLERGIES: TETANUS TOXOID. PHYSICAL EXAMINATION: VITAL SIGNS ON PRESENTATION: Temperature 101.7, pulse 75, respiration 18, blood pressure 122/62, pulse ox 95% on 2 L. GENERAL APPEARANCE: Well built; BMI 34.7. Lying in bed. EYES: Pupils equal. Conjunctivae normal. HEENT: External appearance of nose and ears normal. Oral cavity normal. NECK: JVD not raised. Mass not palpable. RESPIRATORY: Effort normal. LUNGS: Slightly decreased breath sounds. CARDIOVASCULAR: First and second sounds normal. No edema. ABDOMEN: Diffuse tenderness. No guarding or rigidity. Liver and spleen not palpable. LYMPHATIC: No lymph node palpable in neck or axillae. PSYCHIATRY: Alert and oriented x3. Mood and affect normal. NEUROLOGICAL: Pupils equal. Cranial nerves grossly intact. Power and sensation grossly intact. INVESTIGATIONS: Relevant labs as below: White count 9.4; went up to 11.3. Hemoglobin 12.6. Left shift. Creatinine was 0.8, then 1.42. Total bilirubin 6.2, then 7.7. Amylase 746, then 608. Lipase 9430, then 4667. KUB x-ray film interpreted by me shows some slight small bowel distention, no air fluid level. Chest x-ray film interpreted by me shows a bit unfolding of the aorta, mild cardiomegaly, slightly elevated right diaphragm. ASSESSMENT: 1. Acute severe pancreatitis in a patient who has been drinking alcohol for quite a few years, stopped 3 months ago, then had some drinks again 2 nights ago, manifested by elevated amylase and lipase of 746 and 9430 on presentation and significant abdominal tenderness. 2. Hyperbilirubinemia. Bilirubin went from 6.2 to 7.7. 3. Acute renal failure, probably acute tubular necrosis from systemic inflammatory response syndrome. The creatinine has gone from 0.8 to 1.42 this morning. 4. Systemic inflammatory response syndrome due to acute pancreatitis. Patient's white count is 11.3. Patient has evidence of probably significant inflammation in the pancreas. 5. Obesity; body mass index of 34.7. 6. 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 7. Chronic gastroesophageal reflux disease. 8. Essential hypertension. 9. Hyperlipidemia. 10.Primary osteoarthritis in multiple joints. PLAN: Patient is getting morphine for pain control. Patient is getting IV fluids. Consultation to GI has been done. No obvious evidence of infection. Probably all these signs are from inflammation. I told the patient to completely abstain from alcohol. Will follow electrolytes closely. Will get a CT scan of the abdomen without contrast. Will keep the patient strictly n.p.o. Patient is rather sick and will require hospitalization for at least 2 nights. STEVE / SHADI: [id number] /
[2018-04-02] MEDS: ACETAMINOPHEN TAB 325 MG TAB PO PRN (20:16)
[2018-04-02] MEDS: ATORVASTATIN 20 MG TAB PO SCH (20:17)
[2018-04-03] MEDS: LACTATED RINGERS 1,000 ML IV SCH ×4 (06:37→22:29)
[2018-04-03] MEDS: LISINOPRIL 20 MG TAB PO SCH (07:17)
[2018-04-03] MEDS: METOPROLOL TARTRATE 25 MG TAB PO SCH ×2 (07:17→22:29)
[2018-04-03] MEDS: PANTOPRAZOLE 40 MG TABLET PO SCH (07:17)
[2018-04-03] MEDS: RIVAROXABAN 20 MG TAB PO SCH (07:18)
[2018-04-03 07:38] LABS: Basophils % (A) 0 %; Eosinophils # (A) 0.2 k/uL (0-0.7); Eosinophils % (A) 2 %; HCT 35.8 % (39.0-53.0); HGB 11.7 gm/dL (13.0-17.5); Lymphocytes % (A) 11 %; MCH 32.6 pg (25.0-35.0); MCHC 32.6 g/dL (31.0-37.0); MCV 99.8 fL (80.0-100.0); Macrocytosis Slight; Mean Platelet Volume 7.6; Monocytes # (A) 0.4 k/uL (0-1.0); Monocytes % (A) 5 %; Neutrophils % (A) 81 %; Platelet Count 233 k/uL (150-450); RBC 3.59 m/uL (4.30-5.90); RDW 14.6 % (11.5-15.5); WBC 8.7 k/uL (3.8-10.6)
[2018-04-03 07:53] LABS: Albumin 2.7 g/dL (3.5-5.0); Calcium 8.3 mg/dL (8.4-10.2); Potassium 3.8 mmol/L (3.5-5.1); Total Bilirubin 5.4 mg/dL (0.2-1.3); Total Protein 5.2 g/dL (6.3-8.2)
--- NOTE | 2018-04-03 16:39 | P.CONS ---
History of Present Illness - Reason for Consult Consult date: 04/03/18 - History of Present Illness Pleasant 83-year-old male who presented to Hospital with concerns to significant progressive abdominal pain as well as fever without significant amounts of chills or rigors. The patient's is present who does help also with history. The patient is a pleasant gentleman relates it has been doing relatively well over time. Apparently in the recent past he has started to ingest some alcohol again, patient's relates he does have history of pancreatitis in the past. The patient developed a progressive and severe abdominal pain and upon presentation emergency center had evidence of pancreatitis. He also had evidence of significant elevated total bilirubin that fortunately is improving at this time. The patient relates that his pain is now much improved. He is trying some ice chips without great difficulty. He has been seen by gastroenterology. Infectious diseases consultation regarding the fever and leukocytosis. Fortunately the patient is feeling better at this time. He does not have taken other symptoms relates that he is starting to feel somewhat hungry. Review of Systems HEENT:Denies headache or acute visual change. Denies sinus or mouth discomforts. Denies neck stiffness or pain. Denies significant oral cavity pain. Denies difficulty on swallowing. Lungs: Denies significant shortness of breath, cough, sputum production, or hemoptysis. Cardiovascular: Denies significant shortness of breath, chest pain, chest wall pain, orthopnea, dyspnea on exertion, syncope Gastrointestinal: Significant abdominal pain is improved and he is not having significant ongoing nausea or emesis. He is in no hematemesis melena or hematochezia. No spitting and diarrhea Musculoskeletal: denies significant myalgias or arthralgias. No new joint swelling. Denies new back pain. Skin: Denies new rash or lesions. No new ulcers or wounds are related.. Neuro: Denies headache or visual change. Denies any new onset weakness or difficulty with ambulation. Denies falls or seizures. Psychiatric:Denies anxiety or depression. 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, vertigo , no cpap machine- tired in past but could'nt tolerate."never definitely told if he had aheart attack or not when here in november" History of Any Multi-Drug Resistant Organisms: None Reported Past Surgical History: Heart Catheterization Additional Past Surgical History / Comment(s): bladder cancer d/t cancer(sx only , no chemo, no radiaiton), maximilian cataracats removed-lens implants, colonoscopy/ polypectomy-benign Past Anesthesia/Blood Transfusion Reactions: Motion Sickness Past Psychological History: No Psychological Hx Reported Additional Psychological History / Comment(s): and lives with the and the family home. 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 Was in the [place] traveling overseas but no international travel since. No animals in the home. As noted is a history of alcohol use. Not been using for a while recently restarted Smoking Status: Former smoker Past Alcohol Use History: Daily Additional Past Alcohol Use History / Comment(s): used to drink 4-5 drinks a day -None since november except last night 03/31/18 had 2 drinks.. started smoking as a teen smoked cigarettes for 2 years then switched to cigars and quit 1999 Past Drug Use History: None Reported - Past Family History Mother History Unknown: Yes Additional Family Medical History / Comment(s): bladder tumor. lived till age 93 Father Additional Family Medical History / Comment(s): ? cancer of the stomach, lung disease, smoker Medications and Allergies Home Medications and Allergies Comment(s): Current Medications Acetaminophen (Tylenol Tab) 650 mg PO Q6HR PRN PRN Reason: Mild Pain or Fever > 100.5 Last Admin: 04/02/18 20:16 Dose: 650 mg Atorvastatin Calcium (Lipitor) 20 mg PO HS MEL Last Admin: 04/02/18 20:17 Dose: 20 mg Calcium Carbonate/Glycine (Tums) 1,000 mg PO Q4HR PRN PRN Reason: Dyspepsia Lactated Ringer's (Lactated Ringers) 1,000 mls @ 125 mls/hr IV .Q8H MEL Last Admin: 04/03/18 14:22 Dose: 125 mls/hr Lisinopril (Zestril) 40 mg PO DAILY MEL Last Admin: 04/03/18 07:17 Dose: 40 mg Lorazepam (Ativan) 0.5 mg PO Q6HR PRN PRN Reason: Anxiety Melatonin (Melatonin) 3 mg PO HS PRN PRN Reason: Insomnia Metoprolol Tartrate (Lopressor) 25 mg PO BID [facility] Last Admin: 04/03/18 07:17 Dose: 25 mg Morphine Sulfate (Morphine Sulfate (Inj)) 4 mg IV Q4HR PRN PRN Reason: Severe Pain Naloxone HCl (Narcan) 0.2 mg IV Q2M PRN PRN Reason: Opioid Reversal Ondansetron HCl (Zofran) 4 mg IVP Q8HR PRN PRN Reason: Nausea And Vomiting Pantoprazole Sodium (Protonix) 40 mg PO [facility] Last Admin: 04/03/18 07:17 Dose: 40 mg Rivaroxaban (Xarelto) 20 mg PO DAILY [facility] Last Admin: 04/03/18 07:18 Dose: 20 mg Home Medications Medication Instructions Recorded Confirmed Type Omeprazole [PriLOSEC] 20 mg PO [facility] 08/17/15 04/01/18 History Simvastatin [Zocor] 40 mg PO 08/17/15 04/01/18 History Rivaroxaban [Xarelto] 20 mg PO DAILY 11/30/17 04/01/18 History Metoprolol Tartrate [Lopressor] 25 mg PO BID #60 tab 12/07/17 04/01/18 Rx Acetaminophen Tab [Tylenol Tab] 1,000 mg PO 04/01/18 04/01/18 History Lisinopril 40 mg PO DAILY 04/01/18 04/01/18 History Allergies Allergy/AdvReac Type Severity Reaction Status Date / Time tetanus toxoid, adsorbed AdvReac Nausea & Verified 04/01/18 20:38 Vomiting Physical Exam Vitals: Vital Signs Temp Pulse Resp BP Pulse Ox 04/03/18 15:31 60 18 04/03/18 15:00 98.2 F 57 L 20 165/82 93 L 04/03/18 12:52 95 04/03/18 07:00 98.2 F 60 18 143/76 94 L 04/03/18 00:00 58 L 16 04/02/18 23:00 97.9 F 58 L 16 95/54 91 L 04/02/18 20:15 73 121/62 Intake and Output 04/03/18 04/03/18 04/03/18 06:59 14:59 22:59 Intake Total 1000 1500 Balance 1000 1500 Intake: Intake, IV Titration 1000 1500 Amount Lactated Ringers 1,000 ml 1000 1500 @ 125 mls/hr IV .Q8H [facility] Rx#:[id number] Other: Voiding Method Toilet Toilet # Voids 3 4 4 # Bowel Movements 1 2 2 Weight 106.594 kg Pleasant 83-year-old male who is obese seems comfortable at this time which apparently is much improved the patient is obviously jaundiced HEENT: Significantly jaundiced, conjunctiva are pink and moist nasal mucosa grossly intact without significant lesions, there is no thrush. Evidence of jaundice under the tongue Neck: The neck is supple without significant lymphadenopathy or thyromegaly. Lungs: Good bilateral air entry without significant crackles or wheezing. There is no significant bronchial sounds. There is no egophony or dullness. Heart: Regular rate and rhythm with an audible S1-S2, no S3 no S4. There is no significant murmur click or rub, PMI was nondisplaced. Abdomen: Obese, there are positive bowel sounds, abdomen is soft but is tender in the epigastrium without palpable mass. There is minimal right upper quadrant tenderness but no hepatosplenomegaly is noted. There is no guarding or rebound. The abdomen was not rigid. Extremities: The upper extremities have excellent pulses they are symmetric, no significant petechiae or telangiectasia. No splinter hemorrhages were noted. The lower extremities are free from significant edema. The peripheral pulses were 2+ and symmetric. Neuro: Awake alert oriented to person place and time. There are no acute new gross focal sensory motor deficits. Results CBC & Chem 7: 04/03/18 07:20 04/03/18 07:20 Labs: Abnormal Lab Results - Last 24 Hours (Table) 04/03/18 04/03/18 Range/Units 07:20 07:20 RBC 3.59 L (4.30-5.90) m/uL Hgb 11.7 L (13.0-17.5) gm/dL Hct 35.8 L (39.0-53.0) % BUN 28 H (9-20) mg/dL Creatinine 1.30 H (0.66-1.25) mg/dL Calcium 8.3 L (8.4-10.2) mg/dL Total Bilirubin 5.4 H (0.2-1.3) mg/dL Alkaline Phosphatase 135 H (38-126) U/L Total Protein 5.2 L (6.3-8.2) g/dL Albumin 2.7 L (3.5-5.0) g/dL Microbiology - Last 24 Hours (Table) 04/01/18 21:03 Blood Culture Gram Stain - Preliminary Blood Blood Culture - Preliminary Gram Neg Bacilli 04/01/18 21:03 Blood Culture - Final Blood Laboratory Results WBC 8.7 k/uL (3.8-10.6) 04/03/18 07:20 RBC 3.59 m/uL (4.30-5.90) L 04/03/18 07:20 Hgb 11.7 gm/dL (13.0-17.5) L 04/03/18 07:20 Hct 35.8 % (39.0-53.0) L 04/03/18 07:20 MCV 99.8 fL (80.0-100.0) 04/03/18 07:20 MCH 32.6 pg (25.0-35.0) 04/03/18 07:20 MCHC 32.6 g/dL (31.0-37.0) 04/03/18 07:20 RDW 14.6 % (11.5-15.5) 04/03/18 07:20 Plt Count 233 k/uL (150-450) 04/03/18 07:20 Neutrophils % 81 % 04/03/18 07:20 Neutrophils % (Manual) 85 % 04/02/18 07:01 Band Neutrophils % 10 % 04/02/18 07:01 Lymphocytes % 11 % 04/03/18 07:20 Lymphocytes % (Manual) 2 % 04/02/18 07:01 Monocytes % 5 % 04/03/18 07:20 Monocytes % (Manual) 2 % 04/02/18 07:01 Eosinophils % 2 % 04/03/18 07:20 Basophils % 0 % 04/03/18 07:20 Metamyelocytes % 2 % 04/02/18 07:01 Neutrophils # 7.0 k/uL (1.3-7.7) 04/03/18 07:20 Neutrophils # (Manual) 10.70 k/uL (1.3-7.7) H 04/02/18 07:01 Lymphocytes # 1.0 k/uL (1.0-4.8) 04/03/18 07:20 Lymphocytes # (Manual) 0.23 k/uL (1.0-4.8) L 04/02/18 07:01 Monocytes # 0.4 k/uL (0-1.0) 04/03/18 07:20 Monocytes # (Manual) 0.23 k/uL (0-1.0) 04/02/18 07:01 Eosinophils # 0.2 k/uL (0-0.7) 04/03/18 07:20 Basophils # 0.0 k/uL (0-0.2) 04/03/18 07:20 Metamyelocytes # (Man) 0.23 k/uL (0) H 04/02/18 07:01 Nucleated RBCs 0 /100 WBC (0-0) 04/02/18 07:01 Manual Slide Review Performed 04/02/18 07:01 Toxic Granulation Present 04/02/18 07:01 Toxic Vacuolation Present 04/02/18 07:01 Macrocytosis Slight 04/03/18 07:20 Sodium 138 mmol/L (137-145) 04/03/18 07:20 Potassium 3.8 mmol/L (3.5-5.1) 04/03/18 07:20 Chloride 107 mmol/L (98-107) 04/03/18 07:20 Carbon Dioxide 25 mmol/L (22-30) 04/03/18 07:20 Anion Gap 6 mmol/L 04/03/18 07:20 BUN 28 mg/dL (9-20) H 04/03/18 07:20 Creatinine 1.30 mg/dL (0.66-1.25) H 04/03/18 07:20 Est GFR (CKD-EPI)AfAm 59 (>60 ml/min/1.73 sqM) 04/03/18 07:20 Est GFR (CKD-EPI)NonAf 51 (>60 ml/min/1.73 sqM) 04/03/18 07:20 Glucose 81 mg/dL (74-99) 04/03/18 07:20 Plasma Lactic Acid Kei 0.9 mmol/L (0.7-2.0) 04/01/18 21:03 Calcium 8.3 mg/dL (8.4-10.2) L 04/03/18 07:20 Total Bilirubin 5.4 mg/dL (0.2-1.3) H 04/03/18 07:20 AST 49 U/L (17-59) 04/03/18 07:20 ALT 62 U/L (21-72) 04/03/18 07:20 Alkaline Phosphatase 135 U/L (38-126) H 04/03/18 07:20 Total Protein 5.2 g/dL (6.3-8.2) L 04/03/18 07:20 Albumin 2.7 g/dL (3.5-5.0) L 04/03/18 07:20 Amylase 608 U/L (30-110) H* 04/02/18 07:01 Lipase 4667 U/L (23-300) H 04/02/18 07:01 Urine Color Dark Yellow 04/01/18 21:41 Urine Appearance Clear (Clear) 04/01/18 21:41 Urine pH 6.5 (5.0-8.0) 04/01/18 21:41 Ur Specific [place] 1.011 (1.001-1.035) 04/01/18 21:41 Urine Protein Negative (Negative) 04/01/18 21:41 Urine Glucose (UA) Negative (Negative) 04/01/18 21:41 Urine Ketones Negative (Negative) 04/01/18 21:41 Urine Blood Moderate (Negative) H 04/01/18 21:41 Urine Nitrite Negative (Negative) 04/01/18 21:41 Urine Bilirubin 1+ (Negative) H 04/01/18 21:41 Urine Urobilinogen 12.0 mg/dL (<2.0) 04/01/18 21:41 Ur Leukocyte Esterase Negative (Negative) 04/01/18 21:41 Urine RBC 103 /hpf (0-5) H 04/01/18 21:41 Urine WBC <1 /hpf (0-5) 04/01/18 21:41 Ur Squamous Epith Cells 1 /hpf (0-4) 04/01/18 21:41 Urine Mucus Rare /hpf (None) H 04/01/18 21:41 Microbiology 04/01/18 21:03 Blood Blood Culture Gram Stain - Preliminary 04/01/18 21:03 Blood Blood Culture - Preliminary Gram Neg Bacilli 04/01/18 21:03 Blood Blood Culture - Final Assessment and Plan (1) Pancreatitis Current Visit: Yes Status: Acute Code(s): K85.90 - ACUTE PANCREATITIS WITHOUT NECROSIS OR INFECTION, UNSP SNOMED Code(s): 12164541 (2) Jaundice Current Visit: Yes Status: Acute Code(s): R17 - UNSPECIFIED JAUNDICE SNOMED Code(s): 63000577 (3) Gram negative sepsis Narrative/Plan: 83-year-old male with a history of multiple medical troubles presents to hospital with significant abdominal pain associated with nausea emesis and jaundice. As noted the patient had been abstaining from alcohol for a while and started to drink some alcohol prior to the onset of his severe symptoms. Concerned underlying pancreatitis. The patient does have a history of cholecystectomy earlier this year. There is concern about potential retained stone in the onset of a gallstone pancreatitis. He has been seen by gastroenterology. Fortunately total bilirubin history to improve a bit however the patient does have evidence of gram-negative bacteremia. With this carbapenem is initiated until we have further information given the biliary tract infection and concern to infected pancreatitis. Follow blood cultures are requested Diet as per gastroenterology Continue IV fluids currently with lactated Ringer's. Current Visit: Yes Status: Acute Code(s): A41.50 - GRAM-NEGATIVE SEPSIS, UNSPECIFIED SNOMED Code(s): 587604967
[2018-04-03] MEDS: MEROPENEM 1 GM in SODIUM CHLORIDE 0.9% 100 ML IVPB SCH ×2 (17:46→23:51)
[2018-04-03] MEDS: ATORVASTATIN 20 MG TAB PO SCH (22:29)
[2018-04-03] MEDS: ACETAMINOPHEN TAB 325 MG TAB PO PRN (22:30)
[2018-04-04] MEDS: LACTATED RINGERS 1,000 ML IV SCH (06:44)
[2018-04-04] MEDS: METOPROLOL TARTRATE 25 MG TAB PO SCH ×2 (08:57→21:13)
[2018-04-04] MEDS: PANTOPRAZOLE 40 MG TABLET PO SCH (08:57)
[2018-04-04] MEDS: LISINOPRIL 20 MG TAB PO SCH (08:57)
[2018-04-04] MEDS: MEROPENEM 1 GM in SODIUM CHLORIDE 0.9% 100 ML IVPB SCH ×2 (08:57→17:26)
[2018-04-04] MEDS: RIVAROXABAN 20 MG TAB PO SCH (08:57)
--- NOTE | 2018-04-04 10:48 | P.CONS ---
History of Present Illness - Reason for Consult Consult date: 04/03/18 Pancreatitis. - History of Present Illness 83-year-old male patient presents to the emergency department today for evaluation of upper abdominal pain and fever. Patient states that early this morning he developed some upper abdominal pain. States that it resolved after a short period. States that he went shopping was feeling okay and then when he got home the pain started again. He describes the pain as a cramping. Patient states he also developed shaking chills and felt ill. Patient states he has not had an appetite today. Patient states he has had a history of pancreatitis has had a cholecystectomy. He denies any nausea or vomiting with this. States last bowel movement was 3-4 days ago. No hematochezia or melena. States he is urinating without difficulty. Patient denies any recent rash, shortness breath, chest pain, back pain, numbness, tingling, dizziness, weakness, hematuria, dysuria, urinary urgency, urinary frequency, headache, visual changes, or any other complaints. reports that patient is a daily drinker. Review of Systems Constitutional: Denies fever, chills or unintentional weight loss Neurologic: No headaches, double vision, slurring in the speech or other sensory or motor changes Cardiopulmonary: No chest pains, shortness of breath or palpitations Gastrointestinal: See present illness above Genitourinary: No hematuria, dysuria or frequency Musculoskeletal: No joint swelling or pain Skin: No rashes Endocrine: No diabetes or thyroid disease Hematologic: No bleeding tendency or anemia Psychiatry: No anxiety or depression 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, vertigo , no cpap machine- tired in past but could'nt tolerate."never definitely told if he had aheart attack or not when here in november" History of Any Multi-Drug Resistant Organisms: None Reported Past Surgical History: Heart Catheterization Additional Past Surgical History / Comment(s): bladder cancer d/t cancer(sx only , no chemo, no radiaiton), maximilian cataracats removed-lens implants, colonoscopy/ polypectomy-benign Past Anesthesia/Blood Transfusion Reactions: Motion Sickness Past Psychological History: No Psychological Hx Reported Smoking Status: Former smoker Past Alcohol Use History: Daily Additional Past Alcohol Use History / Comment(s): used to drink 4-5 drinks a day -None since november except last night 03/31/18 had 2 drinks.. started smoking as a teen smoked cigarettes for 2 years then switched to cigars and quit 1999 Past Drug Use History: None Reported - Past Family History Mother History Unknown: Yes Additional Family Medical History / Comment(s): bladder tumor. lived till age 93 Father Additional Family Medical History / Comment(s): ? cancer of the stomach, lung disease, smoker Medications and Allergies Home Medications Medication Instructions Recorded Confirmed Type Omeprazole [PriLOSEC] 20 mg PO AC-BRKFST 08/17/15 04/01/18 History Simvastatin [Zocor] 40 mg PO HS 08/17/15 04/01/18 History Rivaroxaban [Xarelto] 20 mg PO DAILY 11/30/17 04/01/18 History Metoprolol Tartrate [Lopressor] 25 mg PO BID #60 tab 12/07/17 04/01/18 Rx Acetaminophen Tab [Tylenol Tab] 1,000 mg PO HS 04/01/18 04/01/18 History Lisinopril 40 mg PO DAILY 04/01/18 04/01/18 History Allergies Allergy/AdvReac Type Severity Reaction Status Date / Time tetanus toxoid, adsorbed AdvReac Nausea & Verified 04/01/18 20:38 Vomiting Physical Exam Vitals: Vital Signs Temp Pulse Resp BP Pulse Ox 04/03/18 07:00 98.2 F 60 18 143/76 94 L 04/03/18 00:00 58 L 16 04/02/18 23:00 97.9 F 58 L 16 95/54 91 L 04/02/18 20:15 73 121/62 04/02/18 14:35 98.4 F 77 18 102/65 91 L 04/02/18 13:28 91 L Intake and Output 04/02/18 04/03/18 04/03/18 22:59 06:59 14:59 Intake Total 1000 1000 Balance 1000 1000 Intake: Intake, IV Titration 1000 1000 Amount Lactated Ringers 1,000 ml 1000 1000 @ 125 mls/hr IV .Q8H [facility] Rx#:[id number] Other: Voiding Method Toilet # Voids 2 3 # Bowel Movements 1 General: Appeared stated age, very pleasant in no acute distress Head and neck: Normocephalic and atraumatic, conjunctivae pink and sclerae are not icteric, mucous membranes moist and pink. No masses in the neck or tracheal shifts Lungs: Clear to auscultation with no dullness to percussion Heart: Regular, no murmurs, gallops or friction rubs Abdomen: Soft, no masses or organomegalies. No tenderness. Bowel sounds present Extremities: No clubbing, cyanosis or edema Neurologic: Alert and oriented 3. Cranial nerves grossly intact, no gross sensory or motor abnormalities Results CBC & Chem 7: 04/03/18 07:20 04/03/18 07:20 Labs: Abnormal Lab Results - Last 24 Hours (Table) 04/03/18 04/03/18 Range/Units 07:20 07:20 RBC 3.59 L (4.30-5.90) m/uL Hgb 11.7 L (13.0-17.5) gm/dL Hct 35.8 L (39.0-53.0) % BUN 28 H (9-20) mg/dL Creatinine 1.30 H (0.66-1.25) mg/dL Calcium 8.3 L (8.4-10.2) mg/dL Total Bilirubin 5.4 H (0.2-1.3) mg/dL Alkaline Phosphatase 135 H (38-126) U/L Total Protein 5.2 L (6.3-8.2) g/dL Albumin 2.7 L (3.5-5.0) g/dL Microbiology - Last 24 Hours (Table) 04/01/18 21:03 Blood Culture Gram Stain - Preliminary Blood Blood Culture - Preliminary Gram Neg Bacilli 04/01/18 21:03 Blood Culture - Final Blood Assessment and Plan Assessment: Acute pancreatitis and abnormal liver chemistries could be related to choledocholithiasis. With his history of alcohol use, alcohol etiology we have to be considered as well. Plan: Agree with your current management. We will follow with you closely. I would consider an ERCP this hospitalization depending on his course.
--- NOTE | 2018-04-04 12:01 | P.PN ---
Subjective 83-year-old with history of gallstone pancreas in the past came in with pancreatitis and elevated liver enzymes. Elevated liver enzymes are improving because of which I'm not anticipating ERCP. Patient has bacteremia with gram- negative bacilli because of which patient was started on meropenem with concerns of intra-abdominal source contributing to his bacteremia. Repeat blood cultures were obtained as today we'll obtain another repeat today. Patient is clinically doing well patient will be started on diet and will be advanced. Patient has poor renal function secondary to hypotension and lisinopril the dose of which I'll cut it down to 10 mg from 40 mg repeat basic metabolic profile tomorrow I'll also discontinue IV fluids which are going on at higher rate with concerns of fluid retention secondary to his age Constitutional: Denied any fatigue denied any fever. Cardio vascular: denied any chest pain, palpitations Gastrointestinal denied any nausea vomiting Pulmonary: Denied any shortness of breath cough Neurologic denied any new focal deficits Objective - Vital Signs Vital signs: Vital Signs Temp 97.9 F 04/04/18 07:00 Pulse 53 L 04/04/18 08:50 Resp 18 04/04/18 08:50 BP 134/72 04/04/18 07:00 Pulse Ox 92 L 04/04/18 07:00 Intake & Output 04/03/18 04/04/18 04/04/18 18:59 06:59 18:59 Intake Total 1500 1350 Balance 1500 1350 Weight 106.594 kg Intake: Intake, IV Titration 1500 1350 Amount Lactated Ringers 1,000 ml 1500 1250 @ 125 mls/hr IV .Q8H [facility] Rx#:[id number] Meropenem 1 gm In Sodium 100 Chloride 0.9% 100 ml @ 100 mls/hr IVPB Q8HR [facility] Rx#:[id number] Other: Voiding Method Toilet Toilet Toilet # Voids 4 1 # Bowel Movements 2 - Exam PHYSICAL EXAMINATION: GENERAL: The patient is alert and oriented x3, not in any acute distress. Well developed, well nourished. HEENT: Pupils are round and equally reacting to light. EOMI. No scleral icterus. No conjunctival pallor. Normocephalic, atraumatic. No pharyngeal erythema. No thyromegaly. CARDIOVASCULAR: S1 and S2 present. No murmurs, rubs, or gallops. PULMONARY: Chest is clear to auscultation, no wheezing or crackles. ABDOMEN: Soft, nontender, nondistended, normoactive bowel sounds. No palpable organomegaly. MUSCULOSKELETAL: No joint swelling or deformity. EXTREMITIES: No cyanosis, clubbing, or pedal edema. NEUROLOGICAL: Gross neurological examination did not reveal any focal deficits. SKIN: No rashes. - Labs CBC & Chem 7: 04/03/18 07:20 04/03/18 07:20 Assessment and Plan Plan: -Acute pancreatitis, with bacteremia: Patient will be started on diet as thank you Aníbal is improving continue with meropenem repeat blood cultures as mentioned above -Bacteremia possibly secondary to pancreatitis necrotizing pancreatitis is a concern. -Acute renal failure secondary to hypotension, cut down the dose of lisinopril -Obesity with BMI of 34 -DVT in the past continue with anticoagulation -Gastroesophageal reflux disease -Essential hypertension -hyperlipidemia -Osteoarthritis
[2018-04-04 14:02] LABS: Basophils % (A) 0 %; Eosinophils # (A) 0.1 k/uL (0-0.7); Eosinophils % (A) 2 %; HCT 36.7 % (39.0-53.0); HGB 11.8 gm/dL (13.0-17.5); Lymphocytes # (A) 0.8 k/uL (1.0-4.8); Lymphocytes % (A) 13 %; MCH 32.3 pg (25.0-35.0); Macrocytosis Slight; Mean Platelet Volume 7.7; Monocytes # (A) 0.3 k/uL (0-1.0); Monocytes % (A) 5 %; Neutrophils # (A) 4.6 k/uL (1.3-7.7); Neutrophils % (A) 79 %; Platelet Count 220 k/uL (150-450); RBC 3.64 m/uL (4.30-5.90); RDW 14.7 % (11.5-15.5); WBC 5.9 k/uL (3.8-10.6)
[2018-04-04 14:06] LABS: ALT 47 U/L (21-72); AST 32 U/L (17-59); Albumin 2.7 g/dL (3.5-5.0); Alkaline Phosphatase 163 U/L (38-126); Amylase 89 U/L (30-110); Anion Gap 9 mmol/L; Blood Urea Nitrogen 20 mg/dL (9-20); Calcium 8.9 mg/dL (8.4-10.2); Carbon Dioxide 20 mmol/L (22-30); Chloride 107 mmol/L (98-107); Lipase 860 U/L (23-300); Potassium 4.3 mmol/L (3.5-5.1); Sodium 136 mmol/L (137-145); Total Bilirubin 2.8 mg/dL (0.2-1.3); Total Protein 5.5 g/dL (6.3-8.2)
[2018-04-04 14:18] LABS: Glucose 48 mg/dL (74-99)
--- NOTE | 2018-04-04 14:22 | PN ---
PROGRESS NOTE DATE OF SERVICE: 04/03/2018 PRESENTING COMPLAINT: Abdominal pain. INTERVAL HISTORY: This patient is seen by me yesterday afternoon, presented with acute pancreatitis and also a septic picture with blood cultures being positive. CT scan of the abdomen was nonspecific, abdominal pain is a bit better. No nausea, vomiting. Patient had spiked a fever when he initially presented, but no further fevers. Patient is on meropenem. Patient is tolerating some ice chips. REVIEW OF SYSTEMS: Done for constitutional, cardiovascular, GI, pulmonary; relevant findings as above. CURRENT MEDICATIONS: Reviewed that include IV meropenem. PHYSICAL EXAMINATION: Afebrile, pulse 60, respiration 18, blood pressure 143/76, pulse ox 94% on room air. GENERAL APPEARANCE: Lying in bed, awake. Looks a bit better. EYES: Pupils equal, conjunctivae normal. HEENT: External appearance of nose and ear normal, oral cavity normal. NECK: JVD not raised. Mass not palpable. RESPIRATORY: Effort normal. LUNGS: Decreased breath sounds. CARDIOVASCULAR: First and second sounds normal, no edema. ABDOMEN: Decreased tenderness. No guarding or rigidity. Liver and spleen not palpable. PSYCHIATRY: Alert and oriented x3. Mood and affect normal. INVESTIGATIONS: White count 8.7, hemoglobin 11.7, BUN 28, creatinine 1.30, potassium 3.8, total bilirubin 5.4, AST 49, ALT 62, blood cultures growing gram-negative bacilli. ASSESSMENT: 1. Acute severe pancreatitis secondary to chronic alcoholism with some clinical improvement. 2. Hyperbilirubinemia. 3. Acute renal failure probably. 4. Acute renal failure probably from acute tubular necrosis from sepsis. Note that patient's blood pressure has been running good this morning. 5. Sepsis from acute pancreatitis. Blood cultures positive for gram-negative bacilli this could be from initial hypotension translocations. 6. Obesity; BMI 34.7. 7. 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 8. Chronic gastroesophageal reflux disease. 9. Essential hypertension. 10.Hyperlipidemia. 11.Primary osteoarthritis multiple joints. Abdomen investigations the patient's CT scan of the abdomen did not show much evidence of pancreatitis and also shows diverticulosis active assessment colonic diverticulosis asymptomatic. Also, kidney and also nephrolithiasis asymptomatic. PLAN: Continue medication and treatment plan antibiotics await cultures to come back. He is following the case. Blood pressure actually has come up. Expect renal function to start improving care was discussed with the patient and at the bedside the patient is on ice chips. We will see how he does. Repeat labs in the morning. STEVE / JALENN: [id number] /
[2018-04-04 14:29] LABS: Glucose,Whole Blood 111 mg/dL (75-99)
--- NOTE | 2018-04-04 15:17 | US ---
EXAMINATION TYPE: US abdomen limited DATE OF EXAM: 04/04/2018 COMPARISON: CT 04/02/18 CLINICAL HISTORY: ASSESS GALLBLADDER-acute pancreatitis/acute abdomen. Pain EXAM MEASUREMENTS: Liver is 18.3 cm Gallbladder Wall: Surgically absent cm CBD: 0.5 cm Right Kidney: 12.1 x 5.5 x 5.2 cm Pancreas: Obscured by bowel gas Liver: Partially obscured by overlying bowel gas, liver is poorly penetrated by the ultrasound being Gallbladder: Surgically absent Evidence for sonographic Snider's sign: No CBD: wnl Right Kidney: No hydronephrosis or masses seen There is no ascites. IMPRESSION: Gallbladder is absent. Suspect possible hepatic steatosis. Exam is limited.
[2018-04-04] MEDS: ATORVASTATIN 20 MG TAB PO SCH (21:13)
--- NOTE | 2018-04-04 21:34 | P.PN ---
Subjective Progress Note Date: 04/04/18 - History of Present Illness Pleasant 83-year-old male who presented to Hospital with concerns to significant progressive abdominal pain as well as fever without significant amounts of chills or rigors. The patient's is present who does help also with history. The patient is a pleasant gentleman relates it has been doing relatively well over time. Apparently in the recent past he has started to ingest some alcohol again, patient's relates he does have history of pancreatitis in the past. The patient developed a progressive and severe abdominal pain and upon presentation emergency center had evidence of pancreatitis. He also had evidence of significant elevated total bilirubin that fortunately is improving at this time. The patient relates that his pain is now much improved. He is trying some ice chips without great difficulty. He has been seen by gastroenterology. Infectious diseases consultation regarding the fever and leukocytosis. Fortunately the patient is feeling better at this time. He does not have taken other symptoms relates that he is starting to feel somewhat hungry. 04/04/2018 reveals this patient to be feeling somewhat better. He did have evidence of extensive pancreatitis admission which is improving. As with significant jaundice which is also improving. He is on clear liquids. As noted blood cultures become back is positive for gram-negative bacilli and we await the final culture. Is improved on current antibiotic therapy. Objective - Vital Signs Vital signs: Vital Signs Temp 98.4 F 04/04/18 15:20 Pulse 50 L 04/04/18 15:20 Resp 16 04/04/18 15:20 BP 162/75 04/04/18 15:20 Pulse Ox 93 L 04/04/18 15:20 Intake & Output 04/04/18 04/04/18 04/05/18 06:59 18:59 06:59 Intake Total 1350 240 Balance 1350 240 Intake: Intake, IV Titration 1350 Amount Lactated Ringers 1,000 ml 1250 @ 125 mls/hr IV .Q8H [facility] Rx#:[id number] Meropenem 1 gm In Sodium 100 Chloride 0.9% 100 ml @ 100 mls/hr IVPB Q8HR [facility] Rx#:[id number] Oral 240 Other: Voiding Method Toilet Toilet # Voids 1 2 - Exam Pleasant 83-year-old male who is obese seems comfortable at this time which apparently is much improved the patient is less jaundiced HEENT: Remains jaundiced but improved, conjunctiva are pink and moist nasal mucosa grossly intact without significant lesions, there is no thrush. Evidence of jaundice under the tongue Neck: The neck is supple without significant lymphadenopathy or thyromegaly. Lungs: Good bilateral air entry without significant crackles or wheezing. There is no significant bronchial sounds. There is no egophony or dullness. Heart: Regular rate and rhythm with an audible S1-S2, no S3 no S4. There is no significant murmur click or rub, PMI was nondisplaced. Abdomen: Obese, there are positive bowel sounds, abdomen is soft but is tender in the epigastrium without palpable mass. There is minimal right upper quadrant tenderness but no hepatosplenomegaly is noted. There is no guarding or rebound. The abdomen was not rigid. Extremities: The upper extremities have excellent pulses they are symmetric, no significant petechiae or telangiectasia. No splinter hemorrhages were noted. The lower extremities are free from significant edema. The peripheral pulses were 2+ and symmetric. Neuro: Awake alert oriented to person place and time. There are no acute new gross focal sensory motor deficits. - Labs CBC & Chem 7: 04/04/18 12:24 04/04/18 12:24 Labs: Abnormal Lab Results - Last 24 Hours (Table) 04/04/18 04/04/18 04/04/18 Range/Units 12:24 12:24 14:28 RBC 3.64 L (4.30-5.90) m/uL Hgb 11.8 L (13.0-17.5) gm/dL Hct 36.7 L (39.0-53.0) % MCV 101.0 H (80.0-100.0) fL Lymphocytes # 0.8 L (1.0-4.8) k/uL Sodium 136 L (137-145) mmol/L Carbon Dioxide 20 L (22-30) mmol/L Glucose 48 L* (74-99) mg/dL POC Glucose (mg/dL) 111 H (75-99) mg/dL Total Bilirubin 2.8 H (0.2-1.3) mg/dL Alkaline Phosphatase 163 H (38-126) U/L Total Protein 5.5 L (6.3-8.2) g/dL Albumin 2.7 L (3.5-5.0) g/dL Lipase 860 H (23-300) U/L Microbiology - Last 24 Hours (Table) 04/01/18 21:03 Blood Culture Gram Stain - Final Blood Blood Culture - Final Klebsiella oxytoca 04/03/18 18:00 Blood Culture - Preliminary Blood No Growth after 24 hours 04/03/18 17:30 Blood Culture - Preliminary Blood No Growth after 24 hours Laboratory Results WBC 5.9 k/uL (3.8-10.6) 04/04/18 12:24 RBC 3.64 m/uL (4.30-5.90) L 04/04/18 12:24 Hgb 11.8 gm/dL (13.0-17.5) L 04/04/18 12:24 Hct 36.7 % (39.0-53.0) L 04/04/18 12:24 MCV 101.0 fL (80.0-100.0) H 04/04/18 12:24 MCH 32.3 pg (25.0-35.0) 04/04/18 12:24 MCHC 32.0 g/dL (31.0-37.0) 04/04/18 12:24 RDW 14.7 % (11.5-15.5) 04/04/18 12:24 Plt Count 220 k/uL (150-450) 04/04/18 12:24 Neutrophils % 79 % 04/04/18 12:24 Neutrophils % (Manual) 85 % 04/02/18 07:01 Band Neutrophils % 10 % 04/02/18 07:01 Lymphocytes % 13 % 04/04/18 12:24 Lymphocytes % (Manual) 2 % 04/02/18 07:01 Monocytes % 5 % 04/04/18 12:24 Monocytes % (Manual) 2 % 04/02/18 07:01 Eosinophils % 2 % 04/04/18 12:24 Basophils % 0 % 04/04/18 12:24 Metamyelocytes % 2 % 04/02/18 07:01 Neutrophils # 4.6 k/uL (1.3-7.7) 04/04/18 12:24 Neutrophils # (Manual) 10.70 k/uL (1.3-7.7) H 04/02/18 07:01 Lymphocytes # 0.8 k/uL (1.0-4.8) L 04/04/18 12:24 Lymphocytes # (Manual) 0.23 k/uL (1.0-4.8) L 04/02/18 07:01 Monocytes # 0.3 k/uL (0-1.0) 04/04/18 12:24 Monocytes # (Manual) 0.23 k/uL (0-1.0) 04/02/18 07:01 Eosinophils # 0.1 k/uL (0-0.7) 04/04/18 12:24 Basophils # 0.0 k/uL (0-0.2) 04/04/18 12:24 Metamyelocytes # (Man) 0.23 k/uL (0) H 04/02/18 07:01 Nucleated RBCs 0 /100 WBC (0-0) 04/02/18 07:01 Manual Slide Review Performed 04/02/18 07:01 Toxic Granulation Present 04/02/18 07:01 Toxic Vacuolation Present 04/02/18 07:01 Macrocytosis Slight 04/04/18 12:24 Sodium 136 mmol/L (137-145) L 04/04/18 12:24 Potassium 4.3 mmol/L (3.5-5.1) 04/04/18 12:24 Chloride 107 mmol/L (98-107) 04/04/18 12:24 Carbon Dioxide 20 mmol/L (22-30) L 04/04/18 12:24 Anion Gap 9 mmol/L 04/04/18 12:24 BUN 20 mg/dL (9-20) 04/04/18 12:24 Creatinine 0.70 mg/dL (0.66-1.25) 04/04/18 12:24 Est GFR (CKD-EPI)AfAm >90 (>60 ml/min/1.73 sqM) 04/04/18 12:24 Est GFR (CKD-EPI)NonAf 89 (>60 ml/min/1.73 sqM) 04/04/18 12:24 Glucose 48 mg/dL (74-99) L* 04/04/18 12:24 POC Glucose (mg/dL) 111 mg/dL (75-99) H 04/04/18 14:28 POC Glu Supervisor Hardboard ID Eliseo Welch 04/04/18 14:28 Plasma Lactic Acid Kei 0.9 mmol/L (0.7-2.0) 04/01/18 21:03 Calcium 8.9 mg/dL (8.4-10.2) 04/04/18 12:24 Total Bilirubin 2.8 mg/dL (0.2-1.3) H 04/04/18 12:24 AST 32 U/L (17-59) 04/04/18 12:24 ALT 47 U/L (21-72) 04/04/18 12:24 Alkaline Phosphatase 163 U/L (38-126) H 04/04/18 12:24 Total Protein 5.5 g/dL (6.3-8.2) L 04/04/18 12:24 Albumin 2.7 g/dL (3.5-5.0) L 04/04/18 12:24 Amylase 89 U/L (30-110) 04/04/18 12:24 Lipase 860 U/L (23-300) H 04/04/18 12:24 Urine Color Dark Yellow 04/01/18 21:41 Urine Appearance Clear (Clear) 04/01/18 21:41 Urine pH 6.5 (5.0-8.0) 04/01/18 21:41 Ur Specific [place] 1.011 (1.001-1.035) 04/01/18 21:41 Urine Protein Negative (Negative) 04/01/18 21:41 Urine Glucose (UA) Negative (Negative) 04/01/18 21:41 Urine Ketones Negative (Negative) 04/01/18 21:41 Urine Blood Moderate (Negative) H 04/01/18 21:41 Urine Nitrite Negative (Negative) 04/01/18 21:41 Urine Bilirubin 1+ (Negative) H 04/01/18 21:41 Urine Urobilinogen 12.0 mg/dL (<2.0) 04/01/18 21:41 Ur Leukocyte Esterase Negative (Negative) 04/01/18 21:41 Urine RBC 103 /hpf (0-5) H 04/01/18 21:41 Urine WBC <1 /hpf (0-5) 04/01/18 21:41 Ur Squamous Epith Cells 1 /hpf (0-4) 04/01/18 21:41 Urine Mucus Rare /hpf (None) H 04/01/18 21:41 Microbiology 04/01/18 21:03 Blood Blood Culture Gram Stain - Final 04/01/18 21:03 Blood Blood Culture - Final Klebsiella oxytoca 04/03/18 18:00 Blood Blood Culture - Preliminary No Growth after 24 hours 04/03/18 17:30 Blood Blood Culture - Preliminary No Growth after 24 hours 04/01/18 21:03 Blood Blood Culture - Final Assessment and Plan (1) Pancreatitis Current Visit: Yes Status: Acute Code(s): K85.90 - ACUTE PANCREATITIS WITHOUT NECROSIS OR INFECTION, UNSP SNOMED Code(s): 36055088 (2) Jaundice Current Visit: Yes Status: Acute Code(s): R17 - UNSPECIFIED JAUNDICE SNOMED Code(s): 04555128 (3) Gram negative sepsis Narrative/Plan: 83-year-old male with a history of multiple medical troubles presents to hospital with significant abdominal pain associated with nausea emesis and jaundice. As noted the patient had been abstaining from alcohol for a while and started to drink some alcohol prior to the onset of his severe symptoms. Concerned underlying pancreatitis. The patient does have a history of cholecystectomy earlier this year. There is concern about potential retained stone in the onset of a gallstone pancreatitis. He has been seen by gastroenterology. Fortunately total bilirubin history to improve a bit however the patient does have evidence of gram-negative bacteremia. With this carbapenem is initiated until we have further information given the biliary tract infection and concern to infected pancreatitis. Follow blood cultures are requested Diet as per gastroenterology Continue IV fluids currently with lactated Ringer's. 04/04/2018 patient is feeling better today. With fluids and medications and antibiotic therapy he has had a significant improvement with resolution of fever , leukocytosis is improving and his hyperbilirubinemia is also improving. Gastroenterology has not commented on the need for an ERCP at this time. Possibly can be done as an outpatient. Final culture results will direct the course of antibiotic therapy. Current Visit: Yes Status: Acute Code(s): A41.50 - GRAM-NEGATIVE SEPSIS, UNSPECIFIED SNOMED Code(s): 228379764
[2018-04-04] MEDS ORDERED: LEVOFLOXACIN 500MG-D5W PMX 500 MG in DEXTROSE/WATER 1 100ML.BAG IVPB SCH (22:00)
[2018-04-05 06:10] VITALS: BP 154/72; PULSE 51; RESP 20; TEMP 98.4
[2018-04-05] MEDS ORDERED: LISINOPRIL 10 MG TAB PO SCH (09:00)
[2018-04-05] MEDS: METOPROLOL TARTRATE 25 MG TAB PO SCH (09:04)
[2018-04-05] MEDS: PANTOPRAZOLE 40 MG TABLET PO SCH (09:04)
[2018-04-05] MEDS: RIVAROXABAN 20 MG TAB PO SCH (09:05)
[2018-04-05 09:11] LABS: ALT 41 U/L (21-72); AST 26 U/L (17-59); Albumin 2.9 g/dL (3.5-5.0); Alkaline Phosphatase 176 U/L (38-126); Anion Gap 7 mmol/L; Blood Urea Nitrogen 12 mg/dL (9-20); Calcium 8.9 mg/dL (8.4-10.2); Carbon Dioxide 26 mmol/L (22-30); Chloride 102 mmol/L (98-107); Glucose 108 mg/dL (74-99); Lipase 557 U/L (23-300); Potassium 4.2 mmol/L (3.5-5.1); Sodium 135 mmol/L (137-145); Total Bilirubin 2.4 mg/dL (0.2-1.3); Total Protein 5.7 g/dL (6.3-8.2)
--- NOTE | 2018-04-05 09:49 | P.PN ---
Subjective Progress Note Date: 04/05/18 Principal diagnosis: Pancreatitis Feels better. Positive blood cultures Klebsiella. Transaminases pancreatic enzymes improving. Afebrile. Abdominal pain improved. Requesting diet advancement. Objective - Vital Signs Vital signs: Vital Signs Temp 98.4 F 04/05/18 06:10 Pulse 51 L 04/05/18 06:10 Resp 20 04/05/18 06:10 BP 154/72 04/05/18 06:10 Pulse Ox 95 04/05/18 06:10 Intake & Output 04/04/18 04/05/18 04/05/18 18:59 06:59 18:59 Intake Total 240 Balance 240 Intake: Oral 240 Other: Voiding Method Toilet Toilet Toilet # Voids 2 1 - Exam General appearance: The patient is alert, oriented, in no acute distress. HET: Head is normocephalic and atraumatic. Pupils are equal and reactive. Oropharynx is clear without lesions. Neck: Supple without lymphadenopathy. Trachea midline. Heart: S1 S2. Regular rate and rhythm. Lungs: No crackles or wheezes are heard. Abdomen: Soft, midepigastric left upper quadrant tenderness, nondistended with bowel sounds. No peritoneal signs. No palpable organomegaly or masses. Extremities: Normal skin color and turgor. No cyanosis, rash, ulceration, clubbing, or edema. Radial and pedal pulses are 2/4 bilaterally. Neurological: No focal deficits. Strength and sensation are grossly intact. - Labs CBC & Chem 7: 04/04/18 12:24 04/05/18 08:14 Labs: Abnormal Lab Results - Last 24 Hours (Table) 04/04/18 04/04/18 04/04/18 Range/Units 12:24 12:24 14:28 RBC 3.64 L (4.30-5.90) m/uL Hgb 11.8 L (13.0-17.5) gm/dL Hct 36.7 L (39.0-53.0) % MCV 101.0 H (80.0-100.0) fL Lymphocytes # 0.8 L (1.0-4.8) k/uL Sodium 136 L (137-145) mmol/L Carbon Dioxide 20 L (22-30) mmol/L Glucose 48 L* (74-99) mg/dL POC Glucose (mg/dL) 111 H (75-99) mg/dL Total Bilirubin 2.8 H (0.2-1.3) mg/dL Alkaline Phosphatase 163 H (38-126) U/L Total Protein 5.5 L (6.3-8.2) g/dL Albumin 2.7 L (3.5-5.0) g/dL Lipase 860 H (23-300) U/L 04/05/18 Range/Units 08:14 RBC (4.30-5.90) m/uL Hgb (13.0-17.5) gm/dL Hct (39.0-53.0) % MCV (80.0-100.0) fL Lymphocytes # (1.0-4.8) k/uL Sodium 135 L (137-145) mmol/L Carbon Dioxide (22-30) mmol/L Glucose 108 H (74-99) mg/dL POC Glucose (mg/dL) (75-99) mg/dL Total Bilirubin 2.4 H (0.2-1.3) mg/dL Alkaline Phosphatase 176 H (38-126) U/L Total Protein 5.7 L (6.3-8.2) g/dL Albumin 2.9 L (3.5-5.0) g/dL Lipase 557 H (23-300) U/L Microbiology - Last 24 Hours (Table) 04/01/18 21:03 Blood Culture Gram Stain - Final Blood Blood Culture - Final Klebsiella oxytoca 04/03/18 18:00 Blood Culture - Preliminary Blood No Growth after 24 hours 04/03/18 17:30 Blood Culture - Preliminary Blood No Growth after 24 hours Assessment and Plan (1) Pancreatitis Narrative/Plan: Cannot exclude choledocholithiasis passage of cholelithiasis. Current Visit: Yes Status: Acute Code(s): K85.90 - ACUTE PANCREATITIS WITHOUT NECROSIS OR INFECTION, UNSP SNOMED Code(s): 22278466 (2) Alcoholic hepatitis Current Visit: No Status: Acute Code(s): K70.10 - ALCOHOLIC HEPATITIS WITHOUT ASCITES SNOMED Code(s): 239707295 (3) ETOH abuse Current Visit: No Status: Acute Code(s): F10.10 - ALCOHOL ABUSE, UNCOMPLICATED SNOMED Code(s): 43470732 (4) Bacteremia Narrative/Plan: Klebsiella oxytoca Current Visit: Yes Status: Acute Code(s): R78.81 - BACTEREMIA SNOMED Code( s): 4002575 Plan: 1. Healthy heart diet. Outpatient ERCP discussed. Continue IV antibiotics infectious disease following. 2. Supportive measures. We'll continue to follow. Assessment and plan a care discussed with Dr. Shultz
--- NOTE | 2018-04-05 15:40 | P.DS ---
Providers Date of admission: 04/01/18 22:43 Attending physician: Markie Noland Consults: 04/01/18 22:41 Consult Physician Routine Consulting Provider: Rangel Pina Consult Reason/Comments: Pancreatitis Do you want consulting provider notified?: Yes 04/02/18 16:43 Consult Physician Routine Consulting Provider: Kye Noyola Consult Reason/Comments: positive blood cult Do you want consulting provider notified?: Yes Primary care physician: [facility] Course: 83-year-old with history of gallstone pancreas in the past came in with pancreatitis and elevated liver enzymes. Elevated liver enzymes are improving because of which I'm not anticipating ERCP. Patient has bacteremia with gram- negative bacilli because of which patient was started on meropenem with concerns of intra-abdominal source contributing to his bacteremia. Repeat blood cultures were obtained as today we'll obtain another repeat today. Patient is clinically doing well patient will be started on diet and will be advanced. Patient has poor renal function secondary to hypotension and lisinopril the dose of which I'll cut it down to 10 mg from 40 mg repeat basic metabolic profile tomorrow I'll also discontinue IV fluids which are going on at higher rate with concerns of fluid retention secondary to his age 0704/05/2018 Patient blood cultures are positive for Klebsiella oxytoca which is sensitive to fluoroquinolones and is ESBL. Patient will be discharged on levofloxacin and patient is able to tolerate diet well. PHYSICAL EXAMINATION: GENERAL: The patient is alert and oriented x3, not in any acute distress. Well developed, well nourished. HEENT: Pupils are round and equally reacting to light. EOMI. No scleral icterus. No conjunctival pallor. Normocephalic, atraumatic. No pharyngeal erythema. No thyromegaly. CARDIOVASCULAR: S1 and S2 present. No murmurs, rubs, or gallops. PULMONARY: Chest is clear to auscultation, no wheezing or crackles. ABDOMEN: Soft, nontender, nondistended, normoactive bowel sounds. No palpable organomegaly. MUSCULOSKELETAL: No joint swelling or deformity. EXTREMITIES: No cyanosis, clubbing, or pedal edema. NEUROLOGICAL: Gross neurological examination did not reveal any focal deficits. SKIN: No rashes. Assessment and Plan Plan: -Acute pancreatitis, with bacteremia: Secondary to pancreatitis with Klebsiella oxytoca -Bacteremia : Repeat blood cultures are negative for more than 48 hours -Acute renal failure secondary to hypotension, cut down the dose of lisinopril -Obesity with BMI of 34 -DVT in the past continue with anticoagulation -Gastroesophageal reflux disease -Essential hypertension -hyperlipidemia -Osteoarthritis Patient Condition at Discharge: Serious Plan - Discharge Summary Discharge Rx Participant: No New Discharge Prescriptions: New Levofloxacin [Levaquin] 500 mg PO DAILY #14 tab Lisinopril [Zestril] 10 mg PO DAILY #30 tab Continue Omeprazole [PriLOSEC] 20 mg PO -[facility] Simvastatin [Zocor] 40 mg PO HS Rivaroxaban [Xarelto] 20 mg PO DAILY Metoprolol Tartrate [Lopressor] 25 mg PO BID #60 tab Acetaminophen Tab [Tylenol] 1,000 mg PO HS Discontinued Lisinopril 40 mg PO DAILY Discharge Medication List Omeprazole [PriLOSEC] 20 mg PO AC-BRKFST 08/17/15 [History] Simvastatin [Zocor] 40 mg PO HS 08/17/15 [History] Rivaroxaban [Xarelto] 20 mg PO DAILY 11/30/17 [History] Metoprolol Tartrate [Lopressor] 25 mg PO BID #60 tab 12/07/17 [Rx] Acetaminophen Tab [Tylenol] 1,000 mg PO HS 04/01/18 [History] Levofloxacin [Levaquin] 500 mg PO DAILY #14 tab 04/05/18 [Rx] Lisinopril [Zestril] 10 mg PO DAILY #30 tab 04/05/18 [Rx] Follow up Appointment(s)/Referral(s): Jalen Cobos MD [Primary Care Provider] - 04/12/18 11:00 am Patient Instructions/Handouts: Lisinopril (By mouth), Levofloxacin (By mouth), Pancreatitis (DC), Low Fat Diet (DC), Fever in Adults (GEN), Abuse of Alcohol ( DC), Jaundice (DC), Bacteremia (DC) Discharge Disposition: HOME SELF-CARE
--- NOTE | 2018-04-07 16:50 | CDI ---
Last Revision, August 2017 Documentation Clarification Form Date: 04/07/18 From: Marry Barriga Phone: If you have a question regarding this query, please contact Tracie Garcia at [phone] between 8am and 5pm. Admit Date: 04/01/2018 10:43:00 PM Patient Name: Heber Espinoza Visit Number: [id number] Discharge Date: 04/05/18 ATTENTION: The Clinical Documentation Specialists (CDI) and [facility] Coding Staff appreciate your assistance in clarifying documentation. Please respond to the clarification below the line at the bottom and electronically sign. The CDI & [facility] Coding staff will review the response and follow-up if needed. Please note: Queries are made part of the Legal Health Record. If you have any questions, please contact the author of this message via ITS. Dr. Javi Sosa Bacteremia is documented in your discharge summary. Sepsis is documented in Dr. Noyola consult note and 04/04 progress note and in Dr. Noland's 04/04 progress note. Patient history/risk factors: Patient was admitted with acute pancreatitis. Patient also had acute renal failure with possible acute tubular necrosis, alcoholic hepatitis, hypertension and chronic DVT. Clinical Indicators: Klebsiella oxytoca in the blood cultures. WBC: 9.4 on admission then up to 11.3 the next day. Left Shift: 8.5 on admission Blood Culture: Klebsiella oxytoca Treatment: IV fluid bolus of Sodium Chloride 1,000 mls @ 999 mls/hr Antibiotics: IV Levofloxacin changed to IV Meropenem Bacteremia is considered a lab finding. Please clarify if that lab finding is clinical indicator of a more definitive medical diagnosis such as: Sepsis Infectious Process, please specify: Other, please specify Unable to determine Sepsis MTDD
== END 2018-04-05 15:51 | disposition home or self-care (01) | DRG 871 ==
LOC: EC 20:01 → 5MS5E 22:43
PROVIDERS: ADMIT Hospitalist; ATTEND Hospitalist
DX: A41.50 Gram-negative sepsis, unspecified (principal); I26.99 Other pulmonary embolism without acute cor pulmonale; K85.90 Acute pancreatitis without necrosis or infection, unspecified; N17.0 Acute kidney failure with tubular necrosis; I82.509 Chronic embolism and thrombosis of unspecified deep veins of unspecified lower extremity; I27.82 Chronic pulmonary embolism; K91.86 Retained cholelithiasis following cholecystectomy; E66.9 Obesity, unspecified; E78.5 Hyperlipidemia, unspecified; G47.30 Sleep apnea, unspecified; I10 Essential (primary) hypertension; K21.9 Gastro-esophageal reflux disease without esophagitis; K70.10 Alcoholic hepatitis without ascites; M15.9 Polyosteoarthritis, unspecified; N20.0 Calculus of kidney; R65.20 Severe sepsis without septic shock; K57.30 Diverticulosis of large intestine without perforation or abscess without bleeding; F10.10 Alcohol abuse, uncomplicated; T46.4X5A Adverse effect of angiotensin-converting-enzyme inhibitors, initial encounter; Z16.12 Extended spectrum beta lactamase (ESBL) resistance; Z68.34 Body mass index [BMI] 34.0-34.9, adult; Z90.49 Acquired absence of other specified parts of digestive tract; Z85.51 Personal history of malignant neoplasm of bladder; Z87.01 Personal history of pneumonia (recurrent); Z88.8 Allergy status to other drugs, medicaments and biological substances; Z79.01 Long term (current) use of anticoagulants; Z79.899 Other long term (current) drug therapy; Z98.42 Cataract extraction status, left eye; Z98.41 Cataract extraction status, right eye; Z96.1 Presence of intraocular lens; Z86.010 Personal history of colon polyps; Z80.0 Family history of malignant neoplasm of digestive organs; Z83.6 Family history of other diseases of the respiratory system; Y92.009 Unspecified place in unspecified non-institutional (private) residence as the place of occurrence of the external cause
CPT/HCPCS: 36415; 71046; 74018; 74176; 76705; 80053; 81001; 82150; 83605; 83690; 85025; 87040; 87077; 87186; 96360; 99285

== ENCOUNTER 2018-11-20 18:28 | Inpatient (IN) | payer MEDICARE, BC ==
[2018-11-20] MEDS ORDERED: SODIUM CHLORIDE 0.9% 1,000 ML IV STA (18:53)
[2018-11-20] MEDS ORDERED: ONDANSETRON 4 MG/2 ML VIAL IVP STA (18:53)
[2018-11-20] MEDS ORDERED: IBUPROFEN 400 MG TAB PO STA (18:57)
--- NOTE | 2018-11-20 18:57 | ED ---
General Adult HPI - General Source: patient, RN notes reviewed Mode of arrival: ambulatory Limitations: no limitations <Олег Lopez P - Last Filed: 11/20/18 22:34> <Krystina Guaman P - Last Filed: 11/21/18 05:38> - General Chief complaint: Abdominal Pain Stated complaint: FEVER - History of Present Illness Initial comments: 83-year-old male With the past medical history of GERD, hyperlipidemia, hypertension, PE, pancreatitis presents to the emergency department for a chief complaint of fever and nausea. Patient states he has had intermittent nausea for several months followed by upper abdominal pain. He states is generally worsens after he eats. Patient states that today he noticed he had a fever. He states he has had similar symptoms in the past and has had pancreatitis. Patient states he has had similar symptoms with a fever once a month for the past 2 months. He states he saw his GI doctor Dr. Hopkins about 4 days ago with similar complaints. Dr. Hopkins told him if he had the symptoms with the fever to go to the ER. Patient states that he noticed a fever today so presented. He denies any chest pain or shortness of breath. No other complaints at this time. No hemoptysis, melena, hematochezia. Patient has no other complaints at this time including shortness of breath, chest pain, vomiting, headache, or visual changes. (Олег Lopez) - Related Data Home Medications Medication Instructions Recorded Confirmed Omeprazole [PriLOSEC] 20 mg PO AC-BRKFST 08/17/15 04/01/18 Simvastatin [Zocor] 40 mg PO 08/17/15 04/01/18 Rivaroxaban [Xarelto] 20 mg PO DAILY 11/30/17 04/01/18 Acetaminophen Tab [Tylenol] 1,000 mg PO HS 04/01/18 04/01/18 Previous Rx's Medication Instructions Recorded Metoprolol Tartrate [Lopressor] 25 mg PO BID #60 tab 12/07/17 Levofloxacin [Levaquin] 500 mg PO DAILY #14 tab 04/05/18 Lisinopril [Zestril] 10 mg PO DAILY #30 tab 04/05/18 Allergies Allergy/AdvReac Type Severity Reaction Status Date / Time tetanus toxoid, adsorbed AdvReac Nausea & Verified 04/01/18 20:38 Vomiting Review of Systems ROS Other: All systems not noted in ROS Statement are negative. <Олег Lopez P - Last Filed: 11/20/18 22:34> ROS Other: All systems not noted in ROS Statement are negative. <Heidy Guamanica P - Last Filed: 11/21/18 05:38> ROS Statement: Those systems with pertinent positive or pertinent negative responses have been documented in the HPI. 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, vertigo , no cpap machine- tired in past but could'nt tolerate."never definitely told if he had aheart attack or not when here in november" History of Any Multi-Drug Resistant Organisms: CRE, ESBL, Other MDRO Date of last positivie culture/infection: 04/01/18 CRE CONFIRMED [facility] MDRO Source:: ESBL BLOOD Past Surgical History: Heart Catheterization Additional Past Surgical History / Comment(s): bladder cancer d/t cancer(sx only , no chemo, no radiaiton), maximilian cataracats removed-lens implants, colonoscopy/ polypectomy-benign Past Anesthesia/Blood Transfusion Reactions: Motion Sickness Past Psychological History: No Psychological Hx Reported Smoking Status: Former smoker Past Alcohol Use History: Daily Past Drug Use History: None Reported - Past Family History Mother History Unknown: Yes Additional Family Medical History / Comment(s): bladder tumor. lived till age 93 Father Additional Family Medical History / Comment(s): ? cancer of the stomach, lung disease, smoker <Олег Lopez P - Last Filed: 11/20/18 22:34> General Exam Limitations: no limitations General appearance: alert, in no apparent distress Head exam: Present: atraumatic, normocephalic, normal inspection Eye exam: Present: normal appearance, PERRL, EOMI. Absent: scleral icterus, conjunctival injection, periorbital swelling ENT exam: Present: normal exam, mucous membranes moist Neck exam: Present: normal inspection, full ROM. Absent: tenderness, meningismus, lymphadenopathy Respiratory exam: Present: normal lung sounds bilaterally. Absent: respiratory distress, wheezes, rales, rhonchi, stridor Cardiovascular Exam: Present: regular rate, normal rhythm, normal heart sounds. Absent: systolic murmur, diastolic murmur, rubs, gallop, clicks GI/Abdominal exam: Present: soft, tenderness (minimal epigastric tenderness without guarding), normal bowel sounds. Absent: distended, guarding, rebound, rigid Neurological exam: Present: alert, oriented X3, CN II-XII intact Psychiatric exam: Present: normal affect, normal mood <Олег Lopez P - Last Filed: 11/20/18 22:34> Vital Signs 11/20/18 11/20/18 11/20/18 18:31 20:50 22:43 Temperature 101.9 F H 98.1 F 98.0 F Pulse Rate 100 88 77 Respiratory 18 16 16 Rate Blood Pressure 100/62 110/62 100/56 O2 Sat by Pulse 93 L 98 98 Oximetry EKG Findings - EKG Comments: EKG Findings:: Normal sinus rhythm, ventricular rate 94, HI interval 198, QTC 432 <Олег Lopez P - Last Filed: 11/20/18 22:34> Medical Decision Making - Lab Data Result diagrams: 11/20/18 19:15 11/20/18 19:13 <Олег Lopez P - Last Filed: 11/20/18 22:34> - Lab Data Result diagrams: 11/20/18 19:15 11/20/18 19:13 <Krystina Guaman P - Last Filed: 11/21/18 05:38> - Medical Decision Making 83-year-old male presents to the emergency department for a chief complaint of fever and abdominal pain. Patient has a history of pancreatitis. He does have a history of alcoholism although has not had any drinks in the past year. Patient underwent cholecystectomy about one year ago. Family states patient has been expressing to me symptoms of upper abdominal pain, nausea, fevers on and off for the past several months. They state they [facility] specialist Dr. Pina several days ago who recommended he come to the ER if these symptoms occur again. Family states there is concern for stone possibly in the CBD and he that he would do a scope if necessary. Exam patient does not have any significant tenderness but there is minimal epigastric tenderness. CBC unremarkable. CMP that show elevated bilirubin at 3.6 which is above patient's baseline as well as mild transaminitis above patient's baseline. Troponin negative. Amylase and lipase are within normal limits. X-ray negative as well as influenza which was ordered given patient's fever. At this point CT was ordered which showed extensive diverticulosis without diverticulitis. Patchy interstitial infiltrates at the lung bases that are improved compared to the old exam. Patient started on Unasyn. Patient will be admitted for further management with GI consult (Олег Lopez) I personally saw and examined the patient. I reviewed and agree with the mid- level provider findings including all diagnostic interpretations and treatment plans as written. Given the patient's elevated bilirubin and fever I recommend admission for IV antibiotics and evaluation by gastroenterology. She is agreeable of this. (Krystina Guaman) - Lab Data Lab Results 11/20/18 11/20/18 11/20/18 Range/Units 19:13 19:13 19:13 WBC (3.8-10.6) k/uL RBC (4.30-5.90) m/uL Hgb (13.0-17.5) gm/dL Hct (39.0-53.0) % MCV (80.0-100.0) fL MCH (25.0-35.0) pg MCHC (31.0-37.0) g/dL RDW (11.5-15.5) % Plt Count (150-450) k/uL Neutrophils % % Lymphocytes % % Monocytes % % Eosinophils % % Basophils % % Neutrophils # (1.3-7.7) k/uL Lymphocytes # (1.0-4.8) k/uL Monocytes # (0-1.0) k/uL Eosinophils # (0-0.7) k/uL Basophils # (0-0.2) k/uL PT 12.9 H (9.0-12.0) sec INR 1.2 H (<1.2) APTT 29.2 (22.0-30.0) sec Sodium 138 (137-145) mmol/L Potassium 4.4 (3.5-5.1) mmol/L Chloride 107 (98-107) mmol/L Carbon Dioxide 22 (22-30) mmol/L Anion Gap 9 mmol/L BUN 16 (9-20) mg/dL Creatinine 0.90 (0.66-1.25) mg/dL Est GFR (CKD-EPI)AfAm >90 (>60 ml/min/1.73 sqM) Est GFR (CKD-EPI)NonAf 80 (>60 ml/min/1.73 sqM) Glucose 108 H (74-99) mg/dL Plasma Lactic Acid Eki 1.3 (0.7-2.0) mmol/L Calcium 9.1 (8.4-10.2) mg/dL Total Bilirubin 3.6 H (0.2-1.3) mg/dL AST 113 H (17-59) U/L ALT 108 H (21-72) U/L Alkaline Phosphatase 255 H (38-126) U/L Troponin I (0.000-0.034) ng/mL Total Protein 6.7 (6.3-8.2) g/dL Albumin 3.6 (3.5-5.0) g/dL Amylase 49 (30-110) U/L Lipase 74 (23-300) U/L Urine Color Urine Appearance (Clear) Urine pH (5.0-8.0) Ur Specific [place] (1.001-1.035) Urine Protein (Negative) Urine Glucose (UA) (Negative) Urine Ketones (Negative) Urine Blood (Negative) Urine Nitrite (Negative) Urine Bilirubin (Negative) Urine Urobilinogen (<2.0) mg/dL Ur Leukocyte Esterase (Negative) Influenza Type A RNA (Not Detectd) Influenza Type B (PCR) (Not Detectd) 11/20/18 11/20/18 11/20/18 Range/Units 19:13 19:15 19:15 WBC 10.0 (3.8-10.6) k/uL RBC 4.32 (4.30-5.90) m/uL Hgb 13.9 (13.0-17.5) gm/dL Hct 42.6 (39.0-53.0) % MCV 98.6 (80.0-100.0) fL MCH 32.1 (25.0-35.0) pg MCHC 32.6 (31.0-37.0) g/dL RDW 13.1 (11.5-15.5) % Plt Count 182 (150-450) k/uL Neutrophils % 93 % Lymphocytes % 4 % Monocytes % 3 % Eosinophils % 0 % Basophils % 0 % Neutrophils # 9.3 H (1.3-7.7) k/uL Lymphocytes # 0.4 L (1.0-4.8) k/uL Monocytes # 0.3 (0-1.0) k/uL Eosinophils # 0.0 (0-0.7) k/uL Basophils # 0.0 (0-0.2) k/uL PT (9.0-12.0) sec INR (<1.2) APTT (22.0-30.0) sec Sodium (137-145) mmol/L Potassium (3.5-5.1) mmol/L Chloride (98-107) mmol/L Carbon Dioxide (22-30) mmol/L Anion Gap mmol/L BUN (9-20) mg/dL Creatinine (0.66-1.25) mg/dL Est GFR (CKD-EPI)AfAm (>60 ml/min/1.73 sqM) Est GFR (CKD-EPI)NonAf (>60 ml/min/1.73 sqM) Glucose (74-99) mg/dL Plasma Lactic Acid Kei (0.7-2.0) mmol/L Calcium (8.4-10.2) mg/dL Total Bilirubin (0.2-1.3) mg/dL AST (17-59) U/L ALT (21-72) U/L Alkaline Phosphatase (38-126) U/L Troponin I <0.012 (0.000-0.034) ng/mL Total Protein (6.3-8.2) g/dL Albumin (3.5-5.0) g/dL Amylase (30-110) U/L Lipase (23-300) U/L Urine Color Urine Appearance (Clear) Urine pH (5.0-8.0) Ur Specific [place] (1.001-1.035) Urine Protein (Negative) Urine Glucose (UA) (Negative) Urine Ketones (Negative) Urine Blood (Negative) Urine Nitrite (Negative) Urine Bilirubin (Negative) Urine Urobilinogen (<2.0) mg/dL Ur Leukocyte Esterase (Negative) Influenza Type A RNA Not Detected (Not Detectd) Influenza Type B (PCR) Not Detected (Not Detectd) 11/20/18 Range/Units 21:15 WBC (3.8-10.6) k/uL RBC (4.30-5.90) m/uL Hgb (13.0-17.5) gm/dL Hct (39.0-53.0) % MCV (80.0-100.0) fL MCH (25.0-35.0) pg MCHC (31.0-37.0) g/dL RDW (11.5-15.5) % Plt Count (150-450) k/uL Neutrophils % % Lymphocytes % % Monocytes % % Eosinophils % % Basophils % % Neutrophils # (1.3-7.7) k/uL Lymphocytes # (1.0-4.8) k/uL Monocytes # (0-1.0) k/uL Eosinophils # (0-0.7) k/uL Basophils # (0-0.2) k/uL PT (9.0-12.0) sec INR (<1.2) APTT (22.0-30.0) sec Sodium (137-145) mmol/L Potassium (3.5-5.1) mmol/L Chloride (98-107) mmol/L Carbon Dioxide (22-30) mmol/L Anion Gap mmol/L BUN (9-20) mg/dL Creatinine (0.66-1.25) mg/dL Est GFR (CKD-EPI)AfAm (>60 ml/min/1.73 sqM) Est GFR (CKD-EPI)NonAf (>60 ml/min/1.73 sqM) Glucose (74-99) mg/dL Plasma Lactic Acid Kei (0.7-2.0) mmol/L Calcium (8.4-10.2) mg/dL Total Bilirubin (0.2-1.3) mg/dL AST (17-59) U/L ALT (21-72) U/L Alkaline Phosphatase (38-126) U/L Troponin I (0.000-0.034) ng/mL Total Protein (6.3-8.2) g/dL Albumin (3.5-5.0) g/dL Amylase (30-110) U/L Lipase (23-300) U/L Urine Color Yellow Urine Appearance Clear (Clear) Urine pH 6.0 (5.0-8.0) Ur Specific [place] 1.034 (1.001-1.035) Urine Protein Negative (Negative) Urine Glucose (UA) Negative (Negative) Urine Ketones Negative (Negative) Urine Blood Negative (Negative) Urine Nitrite Negative (Negative) Urine Bilirubin Negative (Negative) Urine Urobilinogen 8.0 (<2.0) mg/dL Ur Leukocyte Esterase Negative (Negative) Influenza Type A RNA (Not Detectd) Influenza Type B (PCR) (Not Detectd) Disposition Is patient prescribed a controlled substance at d/c from ED?: No Time of Disposition: 22:39 <Олег Lopez P - Last Filed: 11/20/18 22:34> <Krystina Guaman P - Last Filed: 11/21/18 05:38> Clinical Impression: Abdominal pain, Nausea, Hyperbilirubinemia, Transaminitis, History of pancreatitis Disposition: ADMITTED IP TO THIS HOSP Condition: Fair
[2018-11-20] MEDS ORDERED: SODIUM CHLORIDE 0.9% 500 ML 500 ML IV SCH (19:00)
[2018-11-20 20:04] LABS: ALT 108 U/L (21-72); AST 113 U/L (17-59); Albumin 3.6 g/dL (3.5-5.0); Alkaline Phosphatase 255 U/L (38-126); Amylase 49 U/L (30-110); Anion Gap 9 mmol/L; Blood Urea Nitrogen 16 mg/dL (9-20); Calcium 9.1 mg/dL (8.4-10.2); Carbon Dioxide 22 mmol/L (22-30); Chloride 107 mmol/L (98-107); Glucose 108 mg/dL (74-99); Lipase 74 U/L (23-300); Potassium 4.4 mmol/L (3.5-5.1); Sodium 138 mmol/L (137-145); Total Bilirubin 3.6 mg/dL (0.2-1.3); Total Protein 6.7 g/dL (6.3-8.2)
[2018-11-20 20:06] LABS: INR 1.2 (<1.2); Partial Thromboplastin Time 29.2 sec (22.0-30.0); Prothrombin Time 12.9 sec (9.0-12.0)
[2018-11-20 20:16] LABS: Basophils % (A) 0 %; Eosinophils % (A) 0 %; HCT 42.6 % (39.0-53.0); HGB 13.9 gm/dL (13.0-17.5); Lymphocytes # (A) 0.4 k/uL (1.0-4.8); Lymphocytes % (A) 4 %; MCH 32.1 pg (25.0-35.0); MCHC 32.6 g/dL (31.0-37.0); MCV 98.6 fL (80.0-100.0); Mean Platelet Volume 6.6; Monocytes # (A) 0.3 k/uL (0-1.0); Monocytes % (A) 3 %; Neutrophils # (A) 9.3 k/uL (1.3-7.7); Neutrophils % (A) 93 %; Platelet Count 182 k/uL (150-450); RBC 4.32 m/uL (4.30-5.90); RDW 13.1 % (11.5-15.5)
--- NOTE | 2018-11-20 20:50 | CT ---
EXAMINATION TYPE: CT abdomen pelvis w con DATE OF EXAM: 11/20/2018 COMPARISON: 04/02/2018 HISTORY: Abdominal pain and fever CT DLP: mGycm Automated exposure control for dose reduction was used. TECHNIQUE: Helical acquisition of images was performed from the lung bases through the pelvis. CONTRAST: Performed and , patient injected with mL of . The contrast was Isovue 100 mL. FINDINGS: There are mild interstitial infiltrates and atelectasis at the lung bases. There is no pleural effusi on. Heart appears slightly enlarged. Stomach appears normal. There are clips from cholecystectomy. Liver shows no focal defect. There is n o evidence of a pancreatic mass. Spleen appears normal. There is no adrenal mass. Kidneys show satisfactory contrast opacification. There is no hydronephrosi s. There is no retroperitoneal adenopathy. There is no ascites. There are multiple diverticula in the sigmoid colon. Bladder distends smoothly. There is no free fluid in the pelvis. There is no inguinal hernia. There is no mesenteric edema. There is no sign of free air. There is no ascites. IMPRESSION: COLONIC EXTENSIVE DIVERTICULOSIS WITHOUT DIVERTICULITIS. THERE IS CLEARING OF THE MINIMAL LEFT SIDE R ETROPERITONEAL FLUID COMPARED TO OLD CT SCAN. THERE IS SOME PATCHY INTERSTITIAL INFILTRATES AND ATELE CTASIS AT THE LUNG BASES IMPROVED COMPARED TO LAST EXAM.
--- NOTE | 2018-11-20 20:52 | XR ---
EXAMINATION TYPE: XR chest 2V DATE OF EXAM: 11/20/2018 COMPARISON: 04/01/2018 HISTORY: Syncope TECHNIQUE: Frontal and lateral views of the chest are obtained. FINDINGS: Heart is enlarged. There is no heart failure. Costophrenic angles are clear. There are no hilar masses. IMPRESSION: Mild cardiomegaly. No heart failure. Heart appears increased compared to last exam.
[2018-11-20 21:32] LABS: Appearance,Urine Clear (Clear); Bilirubin,Urine Negative (Negative); Blood,Urine Negative (Negative); Color,Urine Yellow; Glucose,Urine (UA) Negative (Negative); Ketones,Urine Negative (Negative); Leukocyte Esterase,Urine Negative (Negative); Nitrite,Urine Negative (Negative); Protein,Urine Negative (Negative); Specific Gravity,Urine 1.034 (1.001-1.035)
[2018-11-20] MEDS ORDERED: NALOXONE 0.4 MG/ML 1 ML VIAL IV PRN (22:31)
[2018-11-20] MEDS ORDERED: ONDANSETRON 4 MG/2 ML VIAL IVP PRN (22:31)
[2018-11-20] MEDS ORDERED: MORPHINE SULFATE 4 MG/ML SYRINGE IV PRN (22:31)
[2018-11-20] MEDS ORDERED: AMPICILLIN-SULBACTAM 3 GM in SODIUM CHLORIDE 0.9% 100 ML IVPB STA (22:32)
[2018-11-21] MEDS: SODIUM CHLORIDE 0.9% 1,000 ML IV SCH ×3 (03:36→12:58)
[2018-11-21] MEDS: AMPICILLIN-SULBACTAM 3 GM in SODIUM CHLORIDE 0.9% 100 ML IVPB SCH ×3 (05:56→17:59)
[2018-11-21] MEDS ORDERED: CALAMINE/ZINC OXIDE LOTION 177 ML BTL TOPICAL SCH (13:00)
[2018-11-21] MEDS: METOPROLOL TARTRATE 25 MG TAB PO SCH ×2 (13:10→20:19)
[2018-11-21] MEDS: PANTOPRAZOLE 40 MG TABLET PO SCH (13:16)
[2018-11-21] MEDS: LISINOPRIL 10 MG TAB PO SCH (13:16)
[2018-11-21] MEDS ORDERED: LORazepam 1 MG TAB PO STA (17:55)
[2018-11-21] MEDS: ATORVASTATIN 20 MG TAB PO SCH (20:19)
--- NOTE | 2018-11-21 20:58 | P.CONS ---
History of Present Illness - Reason for Consult Consult date: 11/21/18 Abdominal pain, elevated bilirubin Requesting physician: Markie Noland - Chief Complaint Abdominal pain, chills, nausea - History of Present Illness 83-year-old male with a medical history significant for GERD, hyperlipidemia, hypertension, previous episode of gallstone pancreatitis, previous episode of PE /DVT on Xarelto therapy who presented with complaints of abdominal pain, nausea and chills. The patient reports having 3 episodes similar in the past, at the beginning of September, October and then prior to presentation he reports episodes of chills with fevers as high as 103F. The patient had associated nausea without vomiting. The patient describes associated epigastric abdominal pain. Described as in the periumbilical and epigastric region, achy in quality without radiation. He previously was diagnosed with gallstone pancreatitis and underwent cholecystectomy. Denies any NSAID use. On presentation hemoglobin was 13.9, platelets 182,000, total bilirubin 3.6, alkaline phosphatase 255, AST 113, and ALT 108. CT of the abdomen was significant for diverticulosis without diverticulitis or any defects in the liver or pancreas. Review of Systems REVIEW OF SYSTEMS: CONSTITUTIONAL: Denies any weight change or fatigue, but she does report fevers and chills. CARDIOVASCULAR: Denies any chest pain, palpitations high or low blood pressures RESPIRATORY: Denies any shortness of breath, hemoptysis or cough. GENITOURINARY: No dysuria or hematuria. MUSCULOSKELETAL: No weakness reported. SKIN: Denies any new rashes or lesions, jaundice or pallor. PSYCHIATRIC: Denies any depression or anxiety. NEUROLOGY: Denies headache, denies any new focal deficits. EARS/NOSE/THROAT: No recent hearing change, congestion, nasal discharge or sore throat. EYES: No pain in eyes, discharge or change in vision. GASTROINTESTINAL: As per HPI. Past Medical History Past Medical History: Cancer, Deep Vein Thrombosis (DVT), GERD/Reflux, Hearing Disorder / Deafness, Hyperlipidemia, Hypertension, Osteoarthritis (OA), Pulmonary Embolus (PE), Sleep Apnea/CPAP/BIPAP Additional Past Medical History / Comment(s): bladder cancer 20 years ago, DVT and PE 2017, pancreatitis, precancerous skin lesion-sees tear down man, vertigo , no cpap machine- tired in past but could'nt tolerate."never definitely told if he had aheart attack or not when here in november" History of Any Multi-Drug Resistant Organisms: CRE, ESBL, Other MDRO Year Discovered:: 04/01/18 CRE CONFIRMED [facility] MDRO Source:: ESBL BLOOD Past Surgical History: Cholecystectomy, Heart Catheterization Additional Past Surgical History / Comment(s): bladder cancer d/t cancer(sx only , no chemo, no radiaiton), maximilian cataracats removed-lens implants, colonoscopy/ polypectomy-benign Past Anesthesia/Blood Transfusion Reactions: Motion Sickness Past Psychological History: No Psychological Hx Reported Additional Psychological History / Comment(s): and lives with the and the family home. 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 Was in the [place] traveling overseas but no international travel since. As noted is a history of alcohol use. Not been using for a while recently restarted Smoking Status: Former smoker Past Alcohol Use History: Daily Additional Past Alcohol Use History / Comment(s): used to drink 4-5 drinks a day -none since March/2018. started smoking as a teen smoked cigarettes for 2 years then switched to cigars and quit 1999 Past Drug Use History: None Reported - Past Family History Mother History Unknown: Yes Additional Family Medical History / Comment(s): bladder tumor. lived till age 93 Father Additional Family Medical History / Comment(s): ? cancer of the stomach, lung disease, smoker Medications and Allergies Home Medications Medication Instructions Recorded Confirmed Type Omeprazole [PriLOSEC] 20 mg PO AC-BRKFST 08/17/15 11/21/18 History Simvastatin [Zocor] 40 mg PO HS 08/17/15 11/21/18 History Metoprolol Tartrate [Lopressor] 25 mg PO BID #60 tab 12/07/17 11/21/18 Rx Lisinopril [Zestril] 10 mg PO DAILY #30 tab 04/05/18 11/21/18 Rx Rivaroxaban [Xarelto] 20 mg PO DAILY 11/21/18 11/21/18 History Allergies Allergy/AdvReac Type Severity Reaction Status Date / Time tetanus toxoid, adsorbed AdvReac Nausea & Verified 11/21/18 09:10 Vomiting Physical Exam Vitals: Vital Signs Temp Pulse Pulse Resp BP BP Pulse Ox 11/21/18 16:18 99.1 F 11/21/18 14:44 99.8 F H 58 L 18 116/64 90 L 11/21/18 07:54 97.9 F 52 L 18 101/60 94 L 11/21/18 06:00 98.2 F 46 L 18 98/56 92 L 11/20/18 23:40 97.8 F 71 18 118/63 91 L 11/20/18 22:43 98.0 F 77 16 100/56 98 11/20/18 20:50 98.1 F 88 16 110/62 98 Intake and Output 11/21/18 11/21/18 11/21/18 06:59 14:59 22:59 Intake Total 1000 Balance 1000 Intake: Amount of Fluid Infused ( 1000 ml) Oral 0 Other: # Voids 1 2 On physical examination, patient appears comfortable in no apparent distress. HEAD: Normocephalic, atraumatic. EYES: No scleral icterus. No conjunctival injection. MOUTH: No lesions, tongue midline. NECK: Trachea midline, no gross abnormalities. CHEST: Clear to auscultation with no wheezing or rhonchi appreciated. HEART: Regular rate and rhythm. ABDOMEN: Soft, mildly tender to palpation. Bowel sounds are positive. No organomegaly. No guarding or rigidity. EXTREMITIES: No pedal edema. SKIN: No rashes, no jaundice. NEUROLOGIC: Alert and oriented x3. No focal deficits. Results CBC & Chem 7: 11/20/18 19:15 11/20/18 19:13 Labs: Microbiology - Last 24 Hours (Table) 11/20/18 21:12 Urine Culture - Preliminary Urine,Voided CT scan - abdomen: report reviewed (CT of the abdomen with findings of diverticulosis without diverticulitis and no abnormalities of the liver and pancreas.) Assessment and Plan (1) Abdominal pain Narrative/Plan: 83-year-old with a history of gallstone pancreatitis who presented with complaints of abdominal pain, fevers and nausea. CT of the abdomen was significant only for diverticulosis without diverticulitis and no abnormalities of the liver and pancreas noted. The patient had elevation in his liver enzymes and predominantly a cholestatic pattern with a total bilirubin 3.6. Unknown etiology with differential including a passed stone, choledocholithiasis , gastroenteritis or other etiology. Current Visit: Yes Status: Acute Code(s): R10.9 - UNSPECIFIED ABDOMINAL PAIN SNOMED Code(s): 61322086 (2) Hyperbilirubinemia Current Visit: Yes Status: Acute Code(s): E80.6 - OTHER DISORDERS OF BILIRUBIN METABOLISM SNOMED Code(s): 16795791 (3) History of pancreatitis Current Visit: Yes Status: Acute Code(s): Z87.19 - PERSONAL HISTORY OF OTHER DISEASES OF THE DIGESTIVE SYSTEM SNOMED Code(s): 37991009386202 Plan: Supportive care Repeat liver enzymes in the morning Continue antibiotic therapy, Zosyn ordered MRCP/MRI ordered to rule out choledocholithiasis or underlying pancreatic lesion Continue to hold Xarelto Nothing by mouth after midnight If choledocholithiasis found plan on ERCP with timing to be determined based on clinical course in the setting of Xarelto therapy yesterday Thank you for allowing us to participate in the care of the patient, we will continue to follow
--- NOTE | 2018-11-21 22:07 | HP ---
HISTORY AND PHYSICAL DATE OF ADMISSION: 11/20/2018 DATE OF SERVICE: 11/21/2018 PRESENTING COMPLAINT: Chills, abdominal pain. HISTORY OF PRESENTING COMPLAINT: This is a pleasant 83-year-old patient of Dr. Cobos. 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 Patient is present here with his . Patient presented with some fever and chills that started yesterday, and he also had some abdominal pain. The patient has had some abdominal pain on and off for quite some time with nausea; in fact, he did see Dr. Pina 4 days ago. Patient has a bowel movement about every 3 days and consistency varies. Appetite is good. Patient has slightly elevated liver enzymes with a bilirubin of 3.6. Patient was put on IV Unasyn. Patient denies any urinary symptoms, denies any respiratory symptoms. He has no skin changes. Patient had a similar episode about a month ago and once in September. The patient has also had acute pancreatitis in the past from alcoholism. Patient has not drunk any alcohol since March of last year. Otherwise, patient does not appear to be very sick. He is sitting up and able to give a history. REVIEW OF SYSTEMS: CONSTITUTIONAL: Fever. HEENT: None. RESPIRATORY: Occasional cough; currently none. CARDIOVASCULAR: None. GASTROINTESTINAL: As above. GENITOURINARY: None. MUSCULOSKELETAL: None. DERMATOLOGICAL: None. HEMATOLOGICAL: None. LYMPHATICS: None. PSYCHIATRY: None. NEUROLOGICAL: None. PAST MEDICAL HISTORY: 1. DVT. 2. GERD. 3. Decreased hearing. 4. Hyperlipidemia. 5. Hypertension. 6. Osteoarthritis. 7. Sleep apnea. 8. Bladder cancer 20 years ago. 9. DVT and PE in 2017. 10.Pancreatitis. 11.CRE and ESBL infections in the past. PAST SURGICAL HISTORY: 1. Cholecystectomy. 2. Cardiac catheterization. 3. Bladder cancer. 4. Bilateral cataracts removed. SOCIAL HISTORY: . 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 Was in the [place] traveling overseas. Patient was doing drinking up to 4 to 5 drinks a day up to March of 2018. Stopping smoking cigars back in 1999. FAMILY HISTORY: Bladder tumor. HOME MEDICATIONS: 1. Xarelto 20 mg daily. 2. Zocor 40 mg at bedtime. 3. Prilosec 20 mg with breakfast. 4. Lopressor 25 mg b.i.d. 5. Zestril 10 mg p.o. daily. ALLERGIES: NONE. PHYSICAL EXAMINATION: VITAL SIGNS ON PRESENTATION: Temperature 101.9, pulse 100, respiration 18, blood pressure 100/62, pulse ox 93% on room air. GENERAL APPEARANCE: Well built; BMI 31.4. Sitting on the edge of the bed, awake. EYES: Pupils equal. Conjunctivae normal. HEENT: External appearance of nose and ears normal. Oral cavity normal. NECK: JVD not raised. Mass not palpable. RESPIRATORY: Effort normal. Lungs are clear. CARDIOVASCULAR: First and second sounds normal. No edema. ABDOMEN: Soft. Minimal tenderness, if any. Liver and spleen not palpable. LYMPHATIC: No lymph node palpable in neck or axillae. PSYCHIATRY: Alert and oriented x3. Mood and affect normal. NEUROLOGICAL: Pupils equal. Cranial nerves grossly intact. Power and sensation grossly intact. INVESTIGATIONS: Reviewed in the clinical context. White count 10, hemoglobin 13.9, potassium 4.4, total bilirubin 3.6, AST 113, ALT 108, alkaline phosphatase 255. Troponin negative. Amylase and lipase negative. UA negative. Influenza A and B negative. EKG tracing, personally reviewed by me, shows normal sinus rhythm. Chest x-ray film, personally reviewed by me, shows some cardiomegaly, doubtful infiltrate. ASSESSMENT: 1. This is a patient who presented with one day of fever, some abdominal pain which was not severe. No obvious right upper quadrant pain, even though patient's bilirubin and LFTs were up and alkaline phosphatase was up. I am not sure this is entirely compatible with cholangitis. Patient does not have a gallbladder. There is no change in patient's bowel or bladder, no urine symptoms. Occasional cough. Differential still includes mild form of acute cholangitis. 2. Colonic diverticulosis. 3. Hyperlipidemia. 4. Essential hypertension. 5. Gastroesophageal reflux disease. 6. History of deep venous thrombosis and pulmonary embolus, for which patient is on Xarelto. PLAN: Patient will be kept on IV Unasyn. Home medications are resumed. Xarelto is held if any intervention is to be done. I spoke to Dr. Bassett from GI. Patient may need MRCP. Blood cultures were ordered earlier today. We will also do a 2D echocardiogram to rule out any vegetation. Clinically otherwise patient does not look too bad, including a normal white count, though has a left shift. Care was discussed with the patient and his . MMODL / IJN: [id number] /
[2018-11-21] MEDS: PIPERACILLIN-TAZOBACTAM 3.375 GM in SODIUM CHLORIDE 0.9% 100 ML IVPB SCH (22:14)
--- NOTE | 2018-11-21 22:26 | MR ---
EXAMINATION TYPE: MR abdomen wo/w con DATE OF EXAM: 11/21/2018 COMPARISON: CT abdomen and pelvis from yesterday and older CTs. HISTORY: rule out choledocholithiasis, pancreatic mass. Abdominal pain and fever. History of pancreat itis. CONTRAST: Standard multiplanar, multisequence MRI departmental protocol utilizing 10 mL intravenous Gadavist ga dolinium contrast. FINDINGS: Examination is suboptimal as patient is claustrophobic, in a lot of pain, and cannot hold b reath. All findings contribute to patient motion or motion artifact degradation. LIVER/GB/PANCREAS: Liver size is stable in lower limits of normal. There is mild diffuse signal dropo ut consistent with mild diffuse fatty infiltration. Gallbladder is surgically absent. Oval 6 mm focus of low T2 signal is felt identified, bile duct coronal image 23. There is no suspicious intrahepatic or extrahepatic biliary dilatation but extrahepatic biliary ducts are more prominent from the 2017 C T. Because of motion artifact aggravation and non-performance of MRCP imaging evaluation is noted sub optimal. There is suggestion of surrounding inflammatory change postcontrast axial image 46 at this l evel. Pancreas is normal in size without suspicious solid or cystic mass or ductal dilatation. OTHER: There is no pleural effusion identified. The spleen and both adrenal glands are normal in size . There is no concerning renal mass or hydronephrosis. There is no suspicious small or large bowel di latation. Scattered colonic diverticula are redemonstrated. Visualized osseous structures are intact. IMPRESSION: Suboptimal study with confirmation of suspected 6 mm partially obstructing gallstone in d istal common bile duct before ampulla and pancreatic duct junction. Consider ERCP to further evaluate and/or treatment.
[2018-11-22] MEDS: SODIUM CHLORIDE 0.9% 1,000 ML IV SCH ×2 (02:07→17:46)
[2018-11-22] MEDS: PIPERACILLIN-TAZOBACTAM 3.375 GM in SODIUM CHLORIDE 0.9% 100 ML IVPB SCH ×3 (05:38→20:13)
[2018-11-22] MEDS: LISINOPRIL 10 MG TAB PO SCH (08:24)
[2018-11-22] MEDS: METOPROLOL TARTRATE 25 MG TAB PO SCH ×2 (08:25→20:12)
[2018-11-22] MEDS: PANTOPRAZOLE 40 MG TABLET PO SCH (08:25)
[2018-11-22 09:03] LABS: Basophils % (A) 0 %; Eosinophils # (A) 0.2 k/uL (0-0.7); Eosinophils % (A) 3 %; HCT 36.5 % (39.0-53.0); HGB 11.7 gm/dL (13.0-17.5); Lymphocytes % (A) 18 %; MCH 32.2 pg (25.0-35.0); MCHC 32.1 g/dL (31.0-37.0); MCV 100.3 fL (80.0-100.0); Monocytes # (A) 0.3 k/uL (0-1.0); Monocytes % (A) 5 %; Neutrophils # (A) 4.1 k/uL (1.3-7.7); Neutrophils % (A) 72 %; Platelet Count 150 k/uL (150-450); RBC 3.64 m/uL (4.30-5.90); WBC 5.7 k/uL (3.8-10.6)
[2018-11-22 09:13] LABS: Bilirubin, Delta 0.6 mg/dL (0.0-0.2); Bilirubin,Unconjugated 0.9 mg/dL (0.0-1.1); Calcium 8.9 mg/dL (8.4-10.2); Potassium 4.3 mmol/L (3.5-5.1); Total Bilirubin 1.5 mg/dL (0.2-1.3); Total Protein 5.7 g/dL (6.3-8.2)
--- NOTE | 2018-11-22 10:30 | P.PN ---
Subjective Progress Note Date: 11/22/18 Principal diagnosis: Abdominal pain elevated liver enzymes LFTs improved total bilirubin 1.5. AST 34. ALT 60. BP 160. MRI abdomen confirm 6 mm partially obstructing gallstone in the distal common bile duct before ampulla. Afebrile. Denies abdominal pain. Objective - Vital Signs Vital signs: Vital Signs Temp 98.0 F 11/22/18 06:40 Pulse 56 L 11/22/18 06:40 Resp 18 11/22/18 06:40 BP 143/71 11/22/18 06:40 Pulse Ox 91 L 11/22/18 06:40 Intake & Output 11/21/18 11/22/18 11/22/18 18:59 06:59 18:59 Intake Total 350 Balance 350 Intake: Oral 350 Other: # Voids 2 2 - Exam General appearance: The patient is alert, oriented, in no acute distress. HET: Head is normocephalic and atraumatic. Pupils are equal and reactive. Oropharynx is clear without lesions. Neck: Supple without lymphadenopathy. Trachea midline. Heart: S1 S2. Regular rate and rhythm. Lungs: No crackles or wheezes are heard. Abdomen: Soft, nontender, nondistended with bowel sounds. No peritoneal signs. No palpable organomegaly or masses. Extremities: Normal skin color and turgor. No cyanosis, rash, ulceration, clubbing, or edema. Radial and pedal pulses are 2/4 bilaterally. Neurological: No focal deficits. Strength and sensation are grossly intact. - Labs CBC & Chem 7: 11/22/18 07:56 11/22/18 07:56 Labs: Abnormal Lab Results - Last 24 Hours (Table) 11/22/18 11/22/18 Range/Units 07:56 07:56 RBC 3.64 L (4.30-5.90) m/uL Hgb 11.7 L (13.0-17.5) gm/dL Hct 36.5 L (39.0-53.0) % MCV 100.3 H (80.0-100.0) fL Total Bilirubin 1.5 H (0.2-1.3) mg/dL Delta Bilirubin 0.6 H (0.0-0.2) mg/dL Alkaline Phosphatase 160 H (38-126) U/L Total Protein 5.7 L (6.3-8.2) g/dL Albumin 3.0 L (3.5-5.0) g/dL Microbiology - Last 24 Hours (Table) 11/20/18 19:15 Blood Culture - Preliminary Blood No Growth after 24 hours 11/20/18 21:12 Urine Culture - Preliminary Urine,Voided Assessment and Plan (1) Choledocholithiasis Narrative/Plan: LFTs improved however MRI abdomen confirmed 6 mm distal common bile duct stone Current Visit: Yes Status: Acute Code(s): K80.50 - CALCULUS OF BILE DUCT W/ O CHOLANGITIS OR CHOLECYST W/O OBST SNOMED Code(s): 651444938 (2) Elevated liver enzymes Current Visit: Yes Status: Acute Code(s): R74.8 - ABNORMAL LEVELS OF OTHER SERUM ENZYMES SNOMED Code(s): 912122398 (3) Abdominal pain Current Visit: Yes Status: Acute Code(s): R10.9 - UNSPECIFIED ABDOMINAL PAIN SNOMED Code(s): 13793982 (4) History of pancreatitis Current Visit: Yes Status: Acute Code(s): Z87.19 - PERSONAL HISTORY OF OTHER DISEASES OF THE DIGESTIVE SYSTEM SNOMED Code(s): 97205379838656 Plan: 1. ERCP tomorrow Dr. Bassett recommends another day holding Xarelto due to increased bleeding risk. 2. Continue to hold anticoagulation. Full liquids; NPO after mn. Continue ABX. 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 The patient has indicated understanding and acceptance of the risks and procedures discussed. Assessment and plan a care discussed with Dr. Bassett
--- NOTE | 2018-11-22 11:49 | P.CONS ---
History of Present Illness - Reason for Consult Consult date: 11/22/18 Abdominal pain, fever - History of Present Illness This is an 83-year-old male patient who was last seen in March 2018 at which time he was treated for acute pancreatitis, choledocholithiasis was not ruled out, history of alcoholic hepatitis and Klebsiella bacteremia and was discharged home on oral Levaquin. Patient states that he was having fever and chills at home along with some nausea and upper abdominal pain. The symptoms were similar to when he had the previous pain grade Aníbal. He was seen by Dr. Pina in the office and the patient had fever he was to come into the emergency center. Patient did present to the emergency center on November 20 where he was found to have a temperature of 101.9, heart rate 100, blood pressure 100/62, creatinine 0.9. Total bilirubin 3.6, AST 113, ALT 108, alkaline phosphatase 255. Amylase and lipase were normal. Lactic acid 1.3, urinalysis negative, influenza and testing negative. CAT scan of the abdomen and pelvis with contrast showed colonic extensive diverticulosis without diverticulitis. Clearing of minimal left-sided retroperitoneal fluid. Patchy interstitial infiltrates and atelectasis at the lung bases improved. Chest x-ray showed mild cardiomegaly. No heart failure. Patient was given 1 L of IV fluids and started on Unasyn and admitted to the [facility] floor. Patient has been seen in consultation by GI. He underwent an MRI of the abdomen yesterday that did show a 6 mm partially obstructed gallstone distal CBD before ampulla and pancreatic d uct junction. Total bilirubin and liver function tests have improved since admission. He has been maintained on Zosyn. GI his scheduled ERCP for tomorrow. His last bowel movement was this morning at 3 AM and was normal. He states that fever and chills as well as abdominal pain have all resolved. Review of Systems All systems: negative Constitutional: Reports chills, Reports fever, Reports poor appetite Eyes: denies blurred vision, denies pain Ears, nose, mouth and throat: Denies dysphagia, Denies headache, Denies sore throat, Denies vertigo Cardiovascular: Denies chest pain, Denies edema, Denies leg edema, Denies shortness of breath, Denies syncope Respiratory: Denies cough, Denies cough with sputum, Denies dyspnea, Denies excessive sputum, Denies hemoptysis, Denies home oxygen, Denies wheezing Gastrointestinal: Reports abdominal pain, Denies diarrhea, Denies nausea, Denies vomiting Musculoskeletal: Denies myalgias Integumentary: Denies pruritus, Denies rash, Denies wounds Neurological: Denies numbness, Denies weakness Psychiatric: Denies anxiety, Denies depression Endocrine: Denies fatigue, Denies weight change Past Medical History Past Medical History: Cancer, Deep Vein Thrombosis (DVT), GERD/Reflux, Hearing Disorder / Deafness, Hyperlipidemia, Hypertension, Osteoarthritis (OA), Pulmonary Embolus (PE), Sleep Apnea/CPAP/BIPAP Additional Past Medical History / Comment(s): bladder cancer 20 years ago, DVT and PE 2017, pancreatitis, 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, vertigo, no cpap machine- tired in past but could'nt tolerate."never definitely told if he had aheart attack or not when here in november" History of Any Multi-Drug Resistant Organisms: CRE, ESBL, Other MDRO Year Discovered:: 04/01/18 CRE CONFIRMED [facility] MDRO Source:: ESBL BLOOD Past Surgical History: Cholecystectomy, Heart Catheterization Additional Past Surgical History / Comment(s): bladder cancer d/t cancer(sx only, no chemo, no radiaiton), maximilian cataracats removed-lens implants, colonosc opy/polypectomy-benign Past Anesthesia/Blood Transfusion Reactions: Motion Sickness Past Psychological History: No Psychological Hx Reported Additional Psychological History / Comment(s): and lives with the and the family home. 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 Was in the [place] traveling overseas but no international travel since. As noted is a history of alcohol use. Not been using for a while recently restarted Smoking Status: Former smoker Past Alcohol Use History: Daily Additional Past Alcohol Use History / Comment(s): used to drink 4-5 drinks a day-none since March/2018. started smoking as a teen smoked cigarettes for 2 years then switched to cigars and quit 1999 Past Drug Use History: None Reported - Past Family History Mother History Unknown: Yes Additional Family Medical History / Comment(s): bladder tumor. lived till age 93 Father Additional Family Medical History / Comment(s): ? cancer of the stomach, lung disease, smoker Medications and Allergies Home Medications Medication Instructions Recorded Confirmed Type Omeprazole [PriLOSEC] 20 mg PO AC-BRKFST 08/17/15 11/21/18 History Simvastatin [Zocor] 40 mg PO HS 08/17/15 11/21/18 History Metoprolol Tartrate [Lopressor] 25 mg PO BID #60 tab 12/07/17 11/21/18 Rx Lisinopril [Zestril] 10 mg PO DAILY #30 tab 04/05/18 11/21/18 Rx Rivaroxaban [Xarelto] 20 mg PO DAILY 11/21/18 11/21/18 History Allergies Allergy/AdvReac Type Severity Reaction Status Date / Time tetanus toxoid, adsorbed AdvReac Nausea & Verified 11/21/18 09:10 Vomiting Physical Exam Vitals: Vital Signs Temp Pulse Resp BP Pulse Ox 11/22/18 06:40 98.0 F 56 L 18 143/71 91 L 11/21/18 20:15 98.3 F 64 18 155/70 93 L 11/21/18 16:18 99.1 F 11/21/18 14:44 99.8 F H 58 L 18 116/64 90 L Intake and Output 11/21/18 11/22/18 11/22/18 22:59 06:59 14:59 Intake Total 350 Balance 350 Intake: Oral 350 Other: # Voids 1 2 Gen: This is an 83-year-old obese male. He is sitting in bed and appears to be comfortable and in no acute distress. HEENT: Head is atraumatic, normocephalic. Pupils equal, round. Sclerae is anicteric. Conjunctiva pink. Mucous members of the mouth are moist. Dentures are in place. NECK: Supple. No JVD. No lymphadenopathy. No thyromegaly. LUNGS: Clear to auscultation. No wheezes or rhonchi. No intercostal retractions. HEART: Regular rate and rhythm. No murmur. ABDOMEN: Soft. Bowel sounds are present. No masses. No tenderness. Large scar across the upper abdomen from previous gallbladder surgery. EXTREMITIES: No pedal edema. No calf tenderness. Dorsalis pedis +2 bilaterally. NEUROLOGICAL: Patient is awake, alert and oriented x3. Cranial nerves 2 through 12 are grossly intact. Results Results: Laboratory Results WBC 5.7 k/uL (3.8-10.6) 11/22/18 07:56 RBC 3.64 m/uL (4.30-5.90) L 11/22/18 07:56 Hgb 11.7 gm/dL (13.0-17.5) L 11/22/18 07:56 Hct 36.5 % (39.0-53.0) L 11/22/18 07:56 MCV 100.3 fL (80.0-100.0) H 11/22/18 07:56 MCH 32.2 pg (25.0-35.0) 11/22/18 07:56 MCHC 32.1 g/dL (31.0-37.0) 11/22/18 07:56 RDW 13.0 % (11.5-15.5) 11/22/18 07:56 Plt Count 150 k/uL (150-450) 11/22/18 07:56 Neutrophils % 72 % 11/22/18 07:56 Lymphocytes % 18 % 11/22/18 07:56 Monocytes % 5 % 11/22/18 07:56 Eosinophils % 3 % 11/22/18 07:56 Basophils % 0 % 11/22/18 07:56 Neutrophils # 4.1 k/uL (1.3-7.7) 11/22/18 07:56 Lymphocytes # 1.0 k/uL (1.0-4.8) 11/22/18 07:56 Monocytes # 0.3 k/uL (0-1.0) 11/22/18 07:56 Eosinophils # 0.2 k/uL (0-0.7) 11/22/18 07:56 Basophils # 0.0 k/uL (0-0.2) 11/22/18 07:56 PT 12.9 sec (9.0-12.0) H 11/20/18 19:13 INR 1.2 (<1.2) H 11/20/18 19:13 APTT 29.2 sec (22.0-30.0) 11/20/18 19:13 Sodium 139 mmol/L (137-145) 11/22/18 07:56 Potassium 4.3 mmol/L (3.5-5.1) 11/22/18 07:56 Chloride 105 mmol/L (98-107) 11/22/18 07:56 Carbon Dioxide 28 mmol/L (22-30) 11/22/18 07:56 Anion Gap 6 mmol/L 11/22/18 07:56 BUN 13 mg/dL (9-20) 11/22/18 07:56 Creatinine 0.99 mg/dL (0.66-1.25) 11/22/18 07:56 Est GFR (CKD-EPI)AfAm 82 (>60 ml/min/1.73 sqM) 11/22/18 07:56 Est GFR (CKD-EPI)NonAf 71 (>60 ml/min/1.73 sqM) 11/22/18 07:56 Glucose 98 mg/dL (74-99) 11/22/18 07:56 Plasma Lactic Acid Kei 1.3 mmol/L (0.7-2.0) 11/20/18 19:13 Calcium 8.9 mg/dL (8.4-10.2) 11/22/18 07:56 Total Bilirubin 1.5 mg/dL (0.2-1.3) H 11/22/18 07:56 Conjugated Bilirubin 0.0 mg/dL (0.0-0.3) 11/22/18 07:56 Unconjugated Bilirubin 0.9 mg/dL (0.0-1.1) 11/22/18 07:56 Delta Bilirubin 0.6 mg/dL (0.0-0.2) H 11/22/18 07:56 AST 34 U/L (17-59) 11/22/18 07:56 ALT 70 U/L (21-72) 11/22/18 07:56 Alkaline Phosphatase 160 U/L (38-126) H 11/22/18 07:56 Troponin I <0.012 ng/mL (0.000-0.034) 11/20/18 19:15 Total Protein 5.7 g/dL (6.3-8.2) L 11/22/18 07:56 Albumin 3.0 g/dL (3.5-5.0) L 11/22/18 07:56 Amylase 49 U/L (30-110) 11/20/18 19:13 Lipase 74 U/L (23-300) 11/20/18 19:13 Urine Color Yellow 11/20/18 21:15 Urine Appearance Clear (Clear) 11/20/18 21:15 Urine pH 6.0 (5.0-8.0) 11/20/18 21:15 Ur Specific [place] 1.034 (1.001-1.035) 11/20/18 21:15 Urine Protein Negative (Negative) 11/20/18 21:15 Urine Glucose (UA) Negative (Negative) 11/20/18 21:15 Urine Ketones Negative (Negative) 11/20/18 21:15 Urine Blood Negative (Negative) 11/20/18 21:15 Urine Nitrite Negative (Negative) 11/20/18 21:15 Urine Bilirubin Negative (Negative) 11/20/18 21:15 Urine Urobilinogen 8.0 mg/dL (<2.0) 11/20/18 21:15 Ur Leukocyte Esterase Negative (Negative) 11/20/18 21:15 Influenza Type A RNA Not Detected (Not Detectd) 11/20/18 19:13 Influenza Type B (PCR) Not Detected (Not Detectd) 11/20/18 19:13 CBC & Chem 7: 11/22/18 07:56 11/22/18 07:56 Labs: Abnormal Lab Results - Last 24 Hours (Table) 11/22/18 11/22/18 Range/Units 07:56 07:56 RBC 3.64 L (4.30-5.90) m/uL Hgb 11.7 L (13.0-17.5) gm/dL Hct 36.5 L (39.0-53.0) % MCV 100.3 H (80.0-100.0) fL Total Bilirubin 1.5 H (0.2-1.3) mg/dL Delta Bilirubin 0.6 H (0.0-0.2) mg/dL Alkaline Phosphatase 160 H (38-126) U/L Total Protein 5.7 L (6.3-8.2) g/dL Albumin 3.0 L (3.5-5.0) g/dL Microbiology - Last 24 Hours (Table) 11/20/18 19:15 Blood Culture - Preliminary Blood No Growth after 24 hours 11/20/18 21:12 Urine Culture - Preliminary Urine,Voided Assessment and Plan Plan: This is an 83-year-old male who presents to hospital with choledo cholithiasis. He is scheduled for ERCP tomorrow with Dr. Bassett. He has had significant improvement of his liver function test. He is currently maintained on Zosyn. Continue supportive care. Further recommendations as patient progresses. The above dictated assessment and findings were discussed with Dr. Noyola. The impression and plan of care have been directed as dictated. Gwendolyn Ibarra nurse practitioner acting as scribe for Dr. Noyola.
[2018-11-22] MEDS: ATORVASTATIN 20 MG TAB PO SCH (20:13)
--- NOTE | 2018-11-22 22:12 | P.CON ---
Consult Note - . Consult date: 11/22/18 Assessment/Plan:: This is an 83-year-old male patient who was last seen in March 2018 at which time he was treated for acute pancreatitis, choledocholithiasis was not ruled out, history of alcoholic hepatitis and Klebsiella bacteremia and was discharged home on oral Levaquin. Patient states that he was having fever and chills at home along with some nausea and upper abdominal pain. The symptoms were similar to when he had the previous pain grade [place]. He was seen by Dr. Pina in the office and the patient had fever he was to come into the emergency center. Patient did present to the emergency center on November 20 where he was found to have a temperature of 101.9, heart rate 100, blood pressure 100/62, creatinine 0.9. Total bilirubin 3.6, AST 113, ALT 108, alkaline phosphatase 255. Amylase and lipase were normal. Lactic acid 1.3, urinalysis negative, influenza and testing negative. CAT scan of the abdomen and pelvis with contrast showed colonic extensive diverticulosis without diverticulitis. Clearing of minimal left-sided retroperitoneal fluid. Patchy interstitial infiltrates and atelectasis at the lung bases improved. Chest x-ray showed mild cardiomegaly. No heart failure. Patient was given 1 L of IV fluids and started on Unasyn and [facility] Patient has been seen in consultation by GI. He underwent an MRI of the abdomen yesterday that did show a 6 mm partially obstructed gallstone distal CBD before ampulla and pancreatic duct junction. Total bilirubin and liver function tests have improved since admission. He has been maintained on Zosyn. GI his scheduled ERCP for tomorrow. His last bowel movement was this morning at 3 AM and was normal. He states that fever and chills as well as abdominal pain have all resolved.Please see the consult note as dictated by nurse practitioner Yogi Gwendolyn Ibarra. This pleasant gentleman presents to Hospital feeling very poorly with severe abdominal pain as well as nausea fever and chill. Is noted because he's had this in the past he was concerned and presented to the emergency center. Temperature 103 at home, 101.9 and emergency center. Patient has been admitted for sepsis due to the biliary tract and MRI has been requested by gastroenterology. There is evidence of a 6 mm stone in the common bile duct. Plans for ERCP tomorrow to further evaluate and possibly treat with sphincterotomy and stenting if needed. Responding well to current interventions which include fluids, antibiotic therapy with Zosyn and supportive care. Patient's cultures were further help direct the course of antibiotic therapy. Given his rapid response, hopefully he does not have bacteremia and oral antimicrobial therapy at discharge can be utilized. I agree with evaluation, assessment and plan as dictated by nurse practitioner Mrs. Gwendolyn Ibarra.
--- NOTE | 2018-11-23 02:28 | PN ---
PROGRESS NOTE DATE OF SERVICE: November 22, 2018. PRESENT COMPLAINT: Chills. INTERVAL HISTORY: The patient admitted with fever, chills, abdominal pain. MRI done today did show a stone in the remnant common bile duct. Plan is for evacuation/ERCP tomorrow as patient has had his last dose of Xarelto 2 days ago. No further abdominal pain. Overall feeling better. REVIEW OF SYSTEMS: Done for constitutional, cardiovascular, GI, pulmonary and relevant findings as above. CURRENT MEDICATIONS: Reviewed they include IV Zosyn. EXAMINATION: VITAL SIGNS: Afebrile. Pulse 56. Respirations 16, blood pressure 124/66, pulse ox 98% on room air. GENERAL APPEARANCE: Sitting up, more comfortable. EYES: Pupils equal. Conjunctivae normal. NECK: JVD not raised. Mass not palpable. RESPIRATORY: Effort normal. LUNGS are clear. CARDIOVASCULAR: 1st and 2nd sounds normal. No edema. ABDOMEN: Soft, nontender. Liver and spleen not palpable. PSYCHIATRY: Alert and oriented x3. Mood and affect normal. INVESTIGATIONS: White count 5.7, hemoglobin 11.7, potassium 4.3. AST is 34, ALT 70. ASSESSMENT: 1. Common bile duct stone in the remnant causing acute cholangitis with clinical good clinical response. 2. Colonic diverticulosis. 3. Hyperlipidemia. 4. Essential hypertension. 5. Gastroesophageal reflux disease. 6. 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 PLAN: Continue patient on IV Zosyn. Awaiting ERCP tomorrow. The patient was seen also by Dr. Dennys SCHULTZ. Follow. MMODL / IJN: [id number] /
[2018-11-23] MEDS: SODIUM CHLORIDE 0.9% 1,000 ML IV SCH ×2 (05:17→15:16)
[2018-11-23] MEDS: PIPERACILLIN-TAZOBACTAM 3.375 GM in SODIUM CHLORIDE 0.9% 100 ML IVPB SCH ×3 (06:02→22:05)
[2018-11-23] MEDS: PANTOPRAZOLE 40 MG TABLET PO SCH (07:38)
[2018-11-23] MEDS: LISINOPRIL 10 MG TAB PO SCH (07:38)
[2018-11-23 09:18] LABS: Albumin 3.6 g/dL (3.5-5.0); Bilirubin, Delta 0.7 mg/dL (0.0-0.2); Bilirubin,Unconjugated 0.9 mg/dL (0.0-1.1); Total Bilirubin 1.6 mg/dL (0.2-1.3); Total Protein 6.9 g/dL (6.3-8.2)
[2018-11-23] MEDS: METOPROLOL TARTRATE 25 MG TAB PO SCH ×2 (10:00→21:24)
--- NOTE | 2018-11-23 11:38 | P.ONQ ---
Anesthesiology Proc Note - PNB - Peripheral Nerve Block Performed Bilateral Transversus Abdominis Single Time Out Performed: Yes Procedure Start Time: Procedure Stop Time: Indication: Acute Post-Operative Pain, Analgesia, Requested by physician Sedation Type: Sedate with meaningful contact maintained Preparation: Sterile Prep Position: Supine Catheter: None Needle Types: On-Q Needle Size: 100mm (4") Needle Gauge: 21 Technique: Ultrasound Injectate: Other (see comment) (0.5 ropivaciane 15cc each side with 5cc of 1% lidocaine with 1:20k epinephrine) Adjunct: Epinephrine (see comment for dilution ratio) Blood Aspirated: No Pain Paresthesia on Injection Noted: No Resistance on Injection: Normal Events: Uneventful and Well Tolerated
[2018-11-23] MEDS ORDERED: PROPOFOL 10 MG/ML 20 ML VIAL IV ONE (11:42)
[2018-11-23] MEDS ORDERED: fentaNYL (PF) 50 MCG/ML 2 ML AMP ONE (11:42)
[2018-11-23] MEDS ORDERED: GLYCOPYRROLATE 0.2 MG/ML 2 ML VIAL ONE (11:42)
[2018-11-23] MEDS ORDERED: IV FLUID CONTINUATION 100 ML IV ONE (11:43)
[2018-11-23] MEDS ORDERED: INDOMETHACIN 50MG SUPPOSITORY RECTAL ONE (12:00)
[2018-11-23] MEDS ORDERED: LACTATED RINGERS 1,000 ML IV ONE (12:06)
[2018-11-23] MEDS ORDERED: IOPAMIDOL-300 50ML BTL MISCELLANE ONE (13:52)
[2018-11-23] MEDS: hydrALAZINE HCL 20 MG/ML 1 ML VIAL IV ONE ×2 (14:30→14:49)
[2018-11-23] MEDS ORDERED: ENALAPRILAT 1.25 MG/ML 1 ML VIAL IV ONE (14:30)
--- NOTE | 2018-11-23 14:30 | P.PCN ---
Date of Procedure: 11/23/18 Description of Procedure: Brief history: 83-year-old male with a medical history significant for GERD, hyperlipidemia, hypertension, previous episode of gallstone pancreatitis, previous episode of PE /DVT on Xarelto therapy who presented with complaints of abdominal pain, nausea and chills. The patient reports having 3 episodes similar in the past, at the beginning of September, October and then prior to presentation he reports episodes of chills with fevers as high as 103F. The patient had associated nausea without vomiting. The patient describes associated epigastric abdominal pain. Described as in the periumbilical and epigastric region, achy in quality without radiation. He previously was diagnosed with gallstone pancreatitis and underwent cholecystectomy. Denies any NSAID use. On presentation hemoglobin was 13.9, platelets 182,000, total bilirubin 3.6, alkaline phosphatase 255, AST 113, and ALT 108. MRI of the abdomen was performed and showed a partially obstructing distal CBD stone. Procedure performed: ERCP with cholangiogram, sphincterotomy and balloon sweep Preoperative diagnoses: Choledocholithiasis, elevated bilirubin, abnormal MRI imaging IV sedation per anesthesia Estimated blood loss: Minimal. Procedure: After informed consent was obtained from the patient and after the risks benefits and complications including bleeding perforation and pancreatitis explained in detail the patient was brought into the endoscopy unit. The patient was placed in prone position and general anesthesia was administered by anesthesia under continuous monitoring. The Olympus side-viewing duodenoscope was then inserted into the mouth and esophagus intubated without any difficulty. The scope was gradually advanced into the stomach and duodenum. The major papilla was identified without any difficulty. The ampulla was successfully cannulated with a sphincterotome. Wire was passed into the common bile duct. Cholangiogram was then performed which was significant for a dilated CBD. The sphincterotome was then used to make a 9 mm sphincterotomy. A balloon was then advanced through the common bile duct into the common hepatic duct into the hilum where it was inflated to 8.5 mm and the duct was swept. This was repeated approximately 10 times with sludge noted. Good bile flow was seen. The patient tolerated the procedure well. Impression: 1. ERCP with sphincterotomy, cholangiogram and balloon sweep. 2. CBD sludge. 3. Dilated CBD. Recommendations: The findings of this examination were discussed with the patient as well as a family. Watch for signs and symptoms of pancreatitis. Okay for full liquid diet, advance as tolerated. Monitor liver enzymes. If patient remains asymptomatic tomorrow in hemoglobin is stable okay to restart anticoagulation. Continue antibiotic therapy for 7-10 days.
--- NOTE | 2018-11-23 16:12 | FL ---
EXAMINATION TYPE: FL ERCP biliary duct only DATE OF EXAM: 11/23/2018 COMPARISON: NONE HISTORY: Biliary sludge Fluoroscopy support supplied to the referring clinician. See dictated report from gastroenterology, 4 minutes 15 seconds fluoroscopy time, 2 intraoperative C-arm images document the procedure
--- NOTE | 2018-11-23 18:13 | ECHOF ---
Referral Reason:r/o vegetation MEASUREMENTS -------- HEIGHT: 182.9 cm WEIGHT: 102.1 kg BP: RVIDd: 3.2 cm (< 3.3) IVSd: 1.3 cm (0.6 - 1.1) LVIDd: 4.7 cm (3.9 - 5.3) LVPWd: 1.6 cm (0.6 - 1.1) IVSs: 1.8 cm LVIDs: 3.5 cm LVPWs: 1.8 cm LA Diam: 4.1 cm (2.7 - 3.8) LAESV Index (A-L): 27.31 ml/m Ao Diam: 3.4 cm (2.0 - 3.7) AV Cusp: 2.5 cm (1.5 - 2.6) LA Diam: 3.9 cm (2.7 - 3.8) MV EXCURSION: 24.989 mm (> 18.000) MV EF SLOPE: 91 mm/s (70 - 150) EPSS: 0.7 cm MV E Ted: 0.63 m/s MV DecT: 246 ms MV A Ted: 0.83 m/s MV E/A Ratio: 0.76 FINDINGS -------- Sinus rhythm. This was a technically adequate study. The left ventricular size is normal. There is mild concentric left ventricular hypertrophy. Overa ll left ventricular systolic function is normal with, an EF between 55 - 60 %. The right ventricle is normal in size. The left atrial size is normal. Normal LA size by volume 22+/-6 ml/m2. The right atrial size is normal. The aortic valve is trileaflet, and appears structurally normal. No aortic stenosis or regurgitation. Mild mitral annular calcification present. Mild mitral regurgitation is present. Mild tricuspid regurgitation present. There is no evidence of pulmonary hypertension. The right v entricular systolic pressure, as measured by Doppler, is {RVSP}. There is no pulmonic regurgitation present. The aortic root size is normal. There is no pericardial effusion. CONCLUSIONS -------- 1. The left ventricular size is normal. 2. Overall left ventricular systolic function is normal with, an EF between 55 - 60 %. 3. The right ventricle is normal in size. 4. The left atrial size is normal. 5. The right atrial size is normal. 6. The aortic valve is trileaflet, and appears structurally normal. No aortic stenosis or regurgitati on. 7. Mild mitral annular calcification present. 8. Mild mitral regurgitation is present. 9. Mild tricuspid regurgitation present. 10. There is no evidence of pulmonary hypertension. 11. There is no pulmonic regurgitation present. 12. The aortic root size is normal. 13. There is no pericardial effusion. LEATHER TOGGLER: Franny Fish RDCS
--- NOTE | 2018-11-23 19:57 | P.PN ---
Subjective Progress Note Date: 11/23/18 This is an 83-year-old male patient who was last seen in March 2018 at which time he was treated for acute pancreatitis, choledocholithiasis was not ruled out, history of alcoholic hepatitis and Klebsiella bacteremia and was discharged home on oral Levaquin. Patient states that he was having fever and chills at home along with some nausea and upper abdominal pain. The symptoms were similar to when he had the previous pain grade [place]. He was seen by Dr. Pina in the office and the patient had fever he was to come into the emergency center. Patient did present to the emergency center on November 20 where he was found to have a temperature of 101.9, heart rate 100, blood pressure 100/62, creatinine 0.9. Total bilirubin 3.6, AST 113, ALT 108, alkaline phosphatase 255. Amylase and lipase were normal. Lactic acid 1.3, urinalysis negative, influenza and testing negative. CAT scan of the abdomen and pelvis with contrast showed colonic extensive diverticulosis without diverticulitis. Clearing of minimal left-sided retroperitoneal fluid. Patchy interstitial infiltrates and atelectasis at the lung bases improved. Chest x-ray showed mild cardiomegaly. No heart failure. Patient was given 1 L of IV fluids and started on Unasyn [facility] Patient has been seen in consultation by GI. He underwent an MRI of the abdomen yesterday that did show a 6 mm partially obstructed gallstone distal CBD before ampulla and pancreatic duct junction. Total bilirubin and liver function tests have improved since admission. He has been maintained on Zosyn. GI his scheduled ERCP for tomorrow. His last bowel movement was this morning at 3 AM and was normal. He states that fever and chills as well as abdominal pain have all resolved. 11/23/2018 patient feeling better today after ERCP. No further fever and has tolerated some diet post procedure. Objective - Vital Signs Vital signs: Vital Signs Temp 97.7 F 11/23/18 15:27 Pulse 58 L 11/23/18 16:12 Resp 18 11/23/18 15:27 BP 155/67 11/23/18 16:12 Pulse Ox 93 L 11/23/18 15:27 Intake & Output 11/23/18 11/23/18 11/24/18 06:59 18:59 06:59 Intake Total 400 1780 Balance 400 1780 Intake: IV 1300 Oral 400 480 Other: # Voids 1 1 - Exam Gen: This is an 83-year-old obese male. He is sitting in bed and appears to be comfortable and in no acute distress. HEENT: Head is atraumatic, normocephalic. Pupils equal, round. Sclerae is anicteric. Conjunctiva pink. Mucous members of the mouth are moist. Dentures are in place.raspy voice post procedure. NECK: Supple. No JVD. No lymphadenopathy. No thyromegaly. LUNGS: Clear to auscultation. No wheezes or rhonchi. No intercostal retractions. HEART: Regular rate and rhythm. No murmur. ABDOMEN: Soft. Bowel sounds are present. No masses. No tenderness. Large scar across the upper abdomen from previous gallbladder surgery. EXTREMITIES: No pedal edema. No calf tenderness. Dorsalis pedis +2 bilaterally. NEUROLOGICAL: Patient is awake, alert and oriented x3. - Labs CBC & Chem 7: 11/22/18 07:56 11/22/18 07:56 Labs: Abnormal Lab Results - Last 24 Hours (Table) 11/23/18 Range/Units 08:27 Total Bilirubin 1.6 H (0.2-1.3) mg/dL Delta Bilirubin 0.7 H (0.0-0.2) mg/dL Alkaline Phosphatase 172 H (38-126) U/L Microbiology - Last 24 Hours (Table) 11/20/18 19:15 Blood Culture - Preliminary Blood No Growth after 48 hours Laboratory Results WBC 5.7 k/uL (3.8-10.6) 11/22/18 07:56 RBC 3.64 m/uL (4.30-5.90) L 11/22/18 07:56 Hgb 11.7 gm/dL (13.0-17.5) L 11/22/18 07:56 Hct 36.5 % (39.0-53.0) L 11/22/18 07:56 MCV 100.3 fL (80.0-100.0) H 11/22/18 07:56 MCH 32.2 pg (25.0-35.0) 11/22/18 07:56 MCHC 32.1 g/dL (31.0-37.0) 11/22/18 07:56 RDW 13.0 % (11.5-15.5) 11/22/18 07:56 Plt Count 150 k/uL (150-450) 11/22/18 07:56 Neutrophils % 72 % 11/22/18 07:56 Lymphocytes % 18 % 11/22/18 07:56 Monocytes % 5 % 11/22/18 07:56 Eosinophils % 3 % 11/22/18 07:56 Basophils % 0 % 11/22/18 07:56 Neutrophils # 4.1 k/uL (1.3-7.7) 11/22/18 07:56 Lymphocytes # 1.0 k/uL (1.0-4.8) 11/22/18 07:56 Monocytes # 0.3 k/uL (0-1.0) 11/22/18 07:56 Eosinophils # 0.2 k/uL (0-0.7) 11/22/18 07:56 Basophils # 0.0 k/uL (0-0.2) 11/22/18 07:56 PT 12.9 sec (9.0-12.0) H 11/20/18 19:13 INR 1.2 (<1.2) H 11/20/18 19:13 APTT 29.2 sec (22.0-30.0) 11/20/18 19:13 Sodium 139 mmol/L (137-145) 11/22/18 07:56 Potassium 4.3 mmol/L (3.5-5.1) 11/22/18 07:56 Chloride 105 mmol/L (98-107) 11/22/18 07:56 Carbon Dioxide 28 mmol/L (22-30) 11/22/18 07:56 Anion Gap 6 mmol/L 11/22/18 07:56 BUN 13 mg/dL (9-20) 11/22/18 07:56 Creatinine 0.99 mg/dL (0.66-1.25) 11/22/18 07:56 Est GFR (CKD-EPI)AfAm 82 (>60 ml/min/1.73 sqM) 11/22/18 07:56 Est GFR (CKD-EPI)NonAf 71 (>60 ml/min/1.73 sqM) 11/22/18 07:56 Glucose 98 mg/dL (74-99) 11/22/18 07:56 Plasma Lactic Acid Kei 1.3 mmol/L (0.7-2.0) 11/20/18 19:13 Calcium 8.9 mg/dL (8.4-10.2) 11/22/18 07:56 Total Bilirubin 1.6 mg/dL (0.2-1.3) H 11/23/18 08:27 Conjugated Bilirubin 0.0 mg/dL (0.0-0.3) 11/23/18 08:27 Unconjugated Bilirubin 0.9 mg/dL (0.0-1.1) 11/23/18 08:27 Delta Bilirubin 0.7 mg/dL (0.0-0.2) H 11/23/18 08:27 AST 26 U/L (17-59) 11/23/18 08:27 ALT 63 U/L (21-72) 11/23/18 08:27 Alkaline Phosphatase 172 U/L (38-126) H 11/23/18 08:27 Troponin I <0.012 ng/mL (0.000-0.034) 11/20/18 19:15 Total Protein 6.9 g/dL (6.3-8.2) 11/23/18 08:27 Albumin 3.6 g/dL (3.5-5.0) 11/23/18 08:27 Amylase 49 U/L (30-110) 11/20/18 19:13 Lipase 74 U/L (23-300) 11/20/18 19:13 Urine Color Yellow 11/20/18 21:15 Urine Appearance Clear (Clear) 11/20/18 21:15 Urine pH 6.0 (5.0-8.0) 11/20/18 21:15 Ur Specific [place] 1.034 (1.001-1.035) 11/20/18 21:15 Urine Protein Negative (Negative) 11/20/18 21:15 Urine Glucose (UA) Negative (Negative) 11/20/18 21:15 Urine Ketones Negative (Negative) 11/20/18 21:15 Urine Blood Negative (Negative) 11/20/18 21:15 Urine Nitrite Negative (Negative) 11/20/18 21:15 Urine Bilirubin Negative (Negative) 11/20/18 21:15 Urine Urobilinogen 8.0 mg/dL (<2.0) 11/20/18 21:15 Ur Leukocyte Esterase Negative (Negative) 11/20/18 21:15 Influenza Type A RNA Not Detected (Not Detectd) 11/20/18 19:13 Influenza Type B (PCR) Not Detected (Not Detectd) 11/20/18 19:13 Microbiology 11/20/18 19:15 Blood Blood Culture - Preliminary No Growth after 48 hours 11/20/18 21:12 Urine,Voided Urine Culture - Final Assessment and Plan (1) Choledocholithiasis Current Visit: Yes Status: Acute Code(s): K80.50 - CALCULUS OF BILE DUCT W/ O CHOLANGITIS OR CHOLECYST W/O OBST SNOMED Code(s): 283909304 (2) Fever Narrative/Plan: 83-year-old male presents to hospital with the sudden onset of severe abdominal pain with nausea emesis and fever. Shortly after admission his fever has improved and his elevated AST, ALT and bilirubin are all improved. The patient had MRI reveal evidence of the markedly abnormal biliary duct and consequently underwent an ERCP today. At the time of the procedure a sphincterotomy was performed and balloon was utilized to improved flow through the duct. Post procedure he is feeling quite well at this time. He is tolerating his diet. He is having no further fevers or chills. Blood cultures are negative. If he continues to improve will likely be ready for discharge home tomorrow and will complete a seven-day course of Augmentin. Current Visit: No Status: Acute Code(s): R50.9 - FEVER, UNSPECIFIED SNOMED Code(s): 059968427
[2018-11-23] MEDS: ATORVASTATIN 20 MG TAB PO SCH (21:23)
--- NOTE | 2018-11-24 00:08 | PN ---
PROGRESS NOTE DATE OF SERVICE: 11/23/2018 PRESENTING COMPLAINT: Tired. INTERVAL HISTORY: I saw this patient this morning before the procedure. He presented with what was felt to be acute cholangitis. Symptoms have practically resolved. Patient's Xarelto has been held. Overall feeling better. REVIEW OF SYSTEMS: Done for constitutional, cardiovascular, GI, pulmonary; relevant findings as above. CURRENT MEDICATIONS: Reviewed. They include IV Zosyn. PHYSICAL EXAMINATION: Afebrile. Pulse 63, respiration 16, blood pressure 157/80. GENERAL APPEARANCE: Sitting up, comfortable. EYES: Pupils equal. Conjunctivae normal. NECK: JVD not raised. Mass not palpable. RESPIRATORY: Effort normal. Lungs are clear. CARDIOVASCULAR: First and second sounds normal. No edema. ABDOMEN: Soft, non-tender. Liver and spleen not palpable. PSYCHIATRY: Alert and oriented x3. Mood and affect normal. INVESTIGATIONS: White count 5.7, hemoglobin 11.7, potassium 4.3. AST and ALT have normalized. ASSESSMENT: 1. Common bile duct stone in the remnant causing acute cholangitis with clinical response to antibiotics. 2. Colonic diverticulosis. 3. Hyperlipidemia. 4. Essential hypertension. 5. Gastroesophageal reflux disease. 6. 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 PLAN: Keep patient on IV antibiotics. Patient did undergo ERCP later today. Sphincterotomy was done. sludge was obtained. Will check patient's labs in the morning. Patient's bilirubin also has come down. MMODL / IJN: [id number] /
[2018-11-24] MEDS: PIPERACILLIN-TAZOBACTAM 3.375 GM in SODIUM CHLORIDE 0.9% 100 ML IVPB SCH ×2 (06:05→13:23)
[2018-11-24 07:50] VITALS: BP 164/80; PULSE 50; RESP 18; TEMP 96.3
[2018-11-24 07:54] LABS: Basophils % (A) 0 %; Eosinophils # (A) 0.2 k/uL (0-0.7); Eosinophils % (A) 4 %; HCT 37.7 % (39.0-53.0); HGB 12.3 gm/dL (13.0-17.5); Lymphocytes % (A) 20 %; MCH 32.3 pg (25.0-35.0); MCHC 32.7 g/dL (31.0-37.0); Mean Platelet Volume 7.2; Monocytes # (A) 0.3 k/uL (0-1.0); Monocytes % (A) 5 %; Neutrophils # (A) 3.4 k/uL (1.3-7.7); Neutrophils % (A) 69 %; Platelet Count 155 k/uL (150-450); RDW 12.9 % (11.5-15.5)
[2018-11-24 08:06] LABS: Albumin 3.1 g/dL (3.5-5.0); Potassium 4.2 mmol/L (3.5-5.1); Total Protein 5.9 g/dL (6.3-8.2)
--- NOTE | 2018-11-24 09:23 | P.PN ---
Subjective Progress Note Date: 11/24/18 Principal diagnosis: Abdominal pain elevated liver enzymes Status post ERCP sphincterotomy balloon sweep sludge noted. Total bilirubin this morning slightly increased 2.0. Transaminases AST 30. ALT 57. AP 186. Lipase 65. Feels well. Denies abdominal pain. Afebrile. Objective - Vital Signs Vital signs: Vital Signs Temp 96.3 F L 11/24/18 07:00 Pulse 50 L 11/24/18 07:00 Resp 18 11/24/18 07:00 BP 164/80 11/24/18 07:00 Pulse Ox 93 L 11/24/18 08:07 Intake & Output 11/23/18 11/24/18 11/24/18 18:59 06:59 18:59 Intake Total 1780 800 Balance 1780 800 Intake: IV 1300 Intake, IV Titration 800 Amount Piperacillin-Tazobactam 3 200 .375 gm In Sodium Chloride 0.9% 100 ml @ 25 mls/hr IVPB Q8H MEL Rx#: [id number] Sodium Chloride 0.9% 1, 600 000 ml @ 75 mls/hr IV . [id number] MEL Rx#:[id number] Oral 480 Other: # Voids 1 2 - Exam General appearance: The patient is alert, oriented, in no acute distress. HET: Head is normocephalic and atraumatic. Pupils are equal and reactive. Oropharynx is clear without lesions. Neck: Supple without lymphadenopathy. Trachea midline. Heart: S1 S2. Regular rate and rhythm. Lungs: No crackles or wheezes are heard. Abdomen: Soft, nontender, nondistended with bowel sounds. No peritoneal signs. No palpable organomegaly or masses. Extremities: Normal skin color and turgor. No cyanosis, rash, ulceration, clu bbing, or edema. Radial and pedal pulses are 2/4 bilaterally. Neurological: No focal deficits. Strength and sensation are grossly intact. - Labs CBC & Chem 7: 11/24/18 07:29 11/24/18 07:29 Labs: Abnormal Lab Results - Last 24 Hours (Table) 11/24/18 11/24/18 Range/Units 07:29 07:29 RBC 3.80 L (4.30-5.90) m/uL Hgb 12.3 L (13.0-17.5) gm/dL Hct 37.7 L (39.0-53.0) % Total Bilirubin 2.0 H (0.2-1.3) mg/dL Delta Bilirubin 1.0 H (0.0-0.2) mg/dL Alkaline Phosphatase 186 H (38-126) U/L Total Protein 5.9 L (6.3-8.2) g/dL Albumin 3.1 L (3.5-5.0) g/dL Microbiology - Last 24 Hours (Table) 11/20/18 19:15 Blood Culture - Preliminary Blood No Growth after 72 hours Assessment and Plan (1) Choledocholithiasis Narrative/Plan: Status post ERCP sphincterotomy balloon sweep sludge noted Current Visit: Yes Status: Acute Code(s): K80.50 - CALCULUS OF BILE DUCT W/O CHOLANGITIS OR CHOLECYST W/O OBST SNOMED Code(s): 839370873 (2) Elevated liver enzymes Current Visit: Yes Status: Acute Code(s): R74.8 - ABNORMAL LEVELS OF OTHER SERUM ENZYMES SNOMED Code(s): 051548787 (3) Abdominal pain Current Visit: Yes Status: Acute Code(s): R10.9 - UNSPECIFIED ABDOMINAL PAIN SNOMED Code(s): 30578612 (4) History of pancreatitis Current Visit: Yes Status: Acute Code(s): Z87.19 - PERSONAL HISTORY OF OTHER DISEASES OF THE DIGESTIVE SYSTEM SNOMED Code(s): 53105536395683 (5) H/O deep venous thrombosis Current Visit: Yes Status: Acute Code(s): Z86.718 - PERSONAL HISTORY OF OTHER VENOUS THROMBOSIS AND EMBOLISM SNOMED Code(s): 470502784 (6) History of pulmonary embolism Current Visit: No Status: Acute Code(s): Z86.711 - PERSONAL HISTORY OF PULMONARY EMBOLISM SNOMED Code(s): 011410411 Plan: 1. From a GI standpoint agreeable for discharge. Diet as tolerated. May restart anticoagulation. Assessment and plan a care discussed with Dr. Bassett
[2018-11-24] MEDS: LISINOPRIL 10 MG TAB PO SCH (09:37)
[2018-11-24] MEDS: SODIUM CHLORIDE 0.9% 1,000 ML IV SCH (09:37)
[2018-11-24] MEDS: METOPROLOL TARTRATE 25 MG TAB PO SCH (09:37)
[2018-11-24] MEDS: PANTOPRAZOLE 40 MG TABLET PO SCH (09:37)
[2018-11-24] MEDS ORDERED: RIVAROXABAN 20 MG TAB PO SCH (10:30)
--- NOTE | 2018-11-27 08:26 | DS ---
DISCHARGE SUMMARY DATE OF ADMISSION: 11/20/18. DATE OF DISCHARGE: 11/24/18 FINAL DIAGNOSES: 1. Acute cholangitis from a common bile duct stone. 2. Colonic diverticulosis. 3. Essential hypertension. 4. Gastroesophageal reflux disease. 5. Chronic deep vein thrombosis and pulmonary embolism, which patient is on Xarelto. HOSPITAL COURSE: The patient presented with chills, abdominal pain. Pictures compatible with acute cholangitis. The patient did undergo an abdominal MRI that showed a stone in the remnant bile duct. The patient subsequently underwent a ERCP with cholangiogram and sludge was all removed. The patient was symptom free, doing much better. In fact, his symptoms started to improve before surgery itself. The patient received antibiotics. By the day of discharge, no further abdominal pain at all. Tolerating a diet, feeling really well. PHYSICAL EXAMINATION: Temperature 96.3, pulse 50, respiratory 18, blood pressure 164/80, pulse ox 92 percent on room air. ABDOMEN: Soft, nontender. CONSULTATION: 1. Dr. Noyola of Infectious Disease. 2. Dr. Bassett from GI. ADDITIONAL INVESTIGATIONS: The patient initially had a CT scan of the abdomen and pelvis. Did also have a 2-D echocardiogram that showed the EF of 55-60 percent. DISCHARGE MEDICATIONS: 1. Prilosec 20 mg breakfast. 2. Zocor 40 mg q.h.s. 3. Lopressor 25 mg b.i.d. 4. Zestril 10 mg p.o. daily. 5. Xarelto 20 mg p.o. daily. 6. Augmentin 875 1 tablet p.o. q.12h, 14 tablets. FOLLOWUP: Follow up with Dr. Cobos on 11/28/18, Dr. Kodak Bassett on 12/01/18. CBC, CMP on 11/28/18. Discussion and discharge planning more than 35 minutes. MMODL / IJN: [id number] /
== END 2018-11-24 14:09 | disposition home or self-care (01) | DRG 445 ==
LOC: EC 18:28 → 4MS4W 22:39
PROVIDERS: ADMIT Hospitalist; ATTEND Hospitalist
PROC: 0F778ZZ Dilation of Common Hepatic Duct, Via Natural or Artificial Opening Endoscopic (ICD-10-PCS; principal; 2018-11-23 11:45)
PROC: 0F798ZZ Dilation of Common Bile Duct, Via Natural or Artificial Opening Endoscopic (ICD-10-PCS; 2018-11-23 11:45)
DX: K80.32 Calculus of bile duct with acute cholangitis without obstruction (principal); I27.82 Chronic pulmonary embolism; I82.509 Chronic embolism and thrombosis of unspecified deep veins of unspecified lower extremity; J98.11 Atelectasis; E78.5 Hyperlipidemia, unspecified; G47.33 Obstructive sleep apnea (adult) (pediatric); H91.90 Unspecified hearing loss, unspecified ear; I10 Essential (primary) hypertension; K21.9 Gastro-esophageal reflux disease without esophagitis; K57.30 Diverticulosis of large intestine without perforation or abscess without bleeding; M19.90 Unspecified osteoarthritis, unspecified site; Z87.891 Personal history of nicotine dependence; Z79.01 Long term (current) use of anticoagulants; Z79.899 Other long term (current) drug therapy; Z88.7 Allergy status to serum and vaccine; Z85.51 Personal history of malignant neoplasm of bladder; Z86.010 Personal history of colon polyps; Z87.01 Personal history of pneumonia (recurrent); Z90.49 Acquired absence of other specified parts of digestive tract; Z98.42 Cataract extraction status, left eye; Z98.41 Cataract extraction status, right eye; Z96.1 Presence of intraocular lens; Z80.0 Family history of malignant neoplasm of digestive organs; Z81.2 Family history of tobacco abuse and dependence
CPT/HCPCS: 36415; 43262; 43264; 71046; 74177; 74183; 74328; 80053; 80076; 81003; 82150; 83605; 83690; 84484; 85025; 85610; 85730; 87040; 87086; 87502; 93005; 93306; 94760; 96361; 96365; 96375; 99285

== ENCOUNTER → 2020-11-18 | Outpatient (CLI) | payer MEDICARE, BC ==
--- NOTE | 2020-11-18 19:19 | XR ---
Left elbow HISTORY: Pain, palpable lump 3 views the left elbow, no comparisons Bone mineralization, joint spaces, alignment are maintained. There is an enthesophyte present at the insertion of the triceps tendon. Calcifications are present within the region of the olecranon bursa. There is associated soft tissue swelling. There is some calcific density present near the insertion of the biceps tendon proximal radius. IMPRESSION: Correlate for olecranon bursitis with probable associated calcification. Findings at the insertion of the biceps tendon may be due to remote trauma, alternate imaging could be performed as i ndicated.
== END ==
LOC: RADXRYALE 15:54
PROVIDERS: ATTEND Nurse Practitioner Family
DX: M25.522 Pain in left elbow (principal); R22.32 Localized swelling, mass and lump, left upper limb

== ENCOUNTER → 2021-09-03 | Outpatient (CLI) | payer MEDICARE, BC ==
--- NOTE | 2021-09-03 15:53 | XR ---
Right hand and right wrist HISTORY: [id number],[id number] 3 views the right hand and 3 views the right wrist Soft tissue swelling is present. Vascular calcifications are present within the soft tissues, conside r hypercalcemic states, diabetes. There is arthropathy change with sclerosis, marginal spurring at th e radial ulnar joint distally. Bone mineralization is reduced. No fracture or dislocation. There is a lso joint space loss at the metacarpophalangeal joint of the first, second and third digits. Fifth di git is flexed, there is distortion, correlate for flexion deformity and osteoarthritic change IMPRESSION: Osteoarthritis, osteopenia. Hooklike osteophytes can be seen in CPPD arthropathy, hemachr omatosis
== END | disposition home or self-care (01) ==
LOC: RADXRYALE 15:06
PROVIDERS: ATTEND Nurse Practitioner Family
DX: M19.031 Primary osteoarthritis, right wrist (principal)

== ENCOUNTER → 2022-05-06 | Outpatient (CLI) | payer MEDICARE, BC ==
--- NOTE | 2022-05-07 09:31 | NM ---
EXAMINATION TYPE: NM bone scan whole body DATE OF EXAM: 05/06/2022 COMPARISON: MRI brain 04/24/2022, x-ray 04/03/2020 HISTORY: Pain Delayed whole-body scanning was performed following the injection of 24 mCi Tc 99m MDP. Images acqui red 3 hours post injection. FINDINGS: On the left superior iliac crest is a mild area of increased uptake. Abnormal uptake involving the ankle and feet could be posttraumatic or postarthritic Abnormal uptake involving the shoulders and knees likely osteoarthritic. Abnormal uptake involving the hands likely postoperative. A moderate intensity uptake throughout the thoracic portions of the lumbar spine likely degenerative. Abnormal uptake involving the nasal bones could be in the bases chronic sinusitis hyperostosis. Faint abnormal uptake sternoclavicular joints likely postoperative. IMPRESSION: 1. Abnormal uptake involving the vertebral column likely degenerative. Additional areas of abnormal u ptake are likely postarthritic or posttraumatic. 2. Mild intensity abnormal uptake superior left iliac crest was not included in [id number] of the MRI and does not correspond to the area of reported abnormality which demonstrates no sizable abnorma l uptake.
== END | disposition home or self-care (01) ==
LOC: RADNMMAIN 11:10
PROVIDERS: ATTEND Physical Medicine & Rehabilitation
DX: M47.817 Spondylosis without myelopathy or radiculopathy, lumbosacral region (principal)
CPT/HCPCS: 78306; A9503

== ENCOUNTER 2023-01-21 11:16 | Emergency (ER) | payer MEDICARE ==
[2023-01-21 11:45] VITALS: TEMP 98.3
--- NOTE | 2023-01-21 13:25 | XR ---
EXAMINATION TYPE: XR forearm RT, XR wrist complete RT DATE OF EXAM: 01/21/2023 CLINICAL HISTORY: Pain and swelling TECHNIQUE: Two views of the right forearm are obtained. 4 views right wrist including scaphoid view. COMPARISON: None. FINDINGS: Osseous structures are demineralized which is noted to the radiographic sensitivity. There is no acute displaced fracture seen in the proximal to mid right radius or ulna. There is some bowi ng at midshaft level of the radius on frontal view. Some spurring at the elbow joint is seen. There i s distal arteriovascular calcification noted. The overlying soft tissue appears within normal limits . Moderate to severe triscaphe degenerative change is redemonstrated. Moderate narrowing at the base of first metacarpal is redemonstrated. There is mild to moderate diffuse subcutaneous edema. No acute d isplaced fracture in the right wrist. IMPRESSION: Demineralization is significantly more prominent from August 2021 wrist xray and may wa rrant further clinical workup. No new acute displaced fracture in the right wrist or forearm.
--- NOTE | 2023-01-21 14:56 | US ---
EXAMINATION TYPE: US venous doppler duplex UE RT DATE OF EXAM: 01/21/2023 COMPARISON: NONE CLINICAL INDICATION: Male, 87 years old with history of right wrist/hand swelling, pain; right hand s welling had surgery 10/2022 SIDE PERFORMED: right arm Right Arm: Negative for DVT Grayscale, color doppler, spectral doppler imaging performed of the deep veins of the right upper ext remity. There is normal flow, compressibility and vascular waveforms. IMPRESSION: No ultrasound evidence for acute deep or superficial venous thrombosis in the right upper extremity
--- NOTE | 2023-01-21 15:12 | ED ---
General Adult HPI - General Chief complaint: Recheck/Abnormal Lab/Rx Stated complaint: rt hand pain Time Seen by Provider: 01/21/23 11:55 Source: patient, RN notes reviewed Mode of arrival: ambulatory Limitations: no limitations - History of Present Illness Initial comments: 87-year-old male presents to the emergency department chief complaint of right hand swelling and pain 3 months. Patient was sent down by pain management for evaluation. He states that this started after his carpal tunnel surgery that he had on 2122 and he states that he was advised to wear a bandage for 20 days. He states that he was having a lot of pain while wearing a bandage and advised his hand surgeon which apparently told him to continue wearing the bandage. Since then he has had swelling that gets better with elevation and worse throughout the day. Patient has been seen occupational therapy and he states that after his appointments he has some improvement in the swelling. Patient states that he has been reevaluated by his hand surgeon and his primary care provider. - Related Data Home Medications Medication Instructions Recorded Confirmed Omeprazole [PriLOSEC] 20 mg PO AC-BRKFST 08/17/15 11/21/18 Simvastatin [Zocor] 40 mg PO HS 08/17/15 11/21/18 Rivaroxaban [Xarelto] 20 mg PO DAILY 11/21/18 11/21/18 Previous Rx's Medication Instructions Recorded Metoprolol Tartrate [Lopressor] 25 mg PO BID #60 tab 12/07/17 lisinopriL [Zestril] 10 mg PO DAILY #30 tab 04/05/18 Amoxicillin/Potassium Clav 1 tab PO Q12HR #14 tab 11/24/18 [Augmentin 875-125 Tablet] Allergies Allergy/AdvReac Type Severity Reaction Status Date / Time tetanus toxoid, adsorbed AdvReac Nausea & Verified 01/21/23 11:42 Vomiting Review of Systems ROS Statement: Those systems with pertinent positive or pertinent negative responses have been documented in the HPI. ROS Other: All systems not noted in ROS Statement are negative. 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, vertigo, no cpap machine- tired in past but could'nt tolerate."never definitely told if he had aheart attack or not when here in november" History of Any Multi-Drug Resistant Organisms: CRE, ESBL, Other MDRO Date of last positivie culture/infection: 04/01/18 CRE CONFIRMED [facility] MDRO Source:: BLOOD Past Surgical History: Cholecystectomy, Heart Catheterization Additional Past Surgical History / Comment(s): bladder cancer d/t cancer(sx only, no chemo, no radiaiton), maximilian cataracats removed-lens implants, col onoscopy/polypectomy-benign Past Anesthesia/Blood Transfusion Reactions: Motion Sickness Past Psychological History: No Psychological Hx Reported Smoking Status: Never smoker - Past Family History Mother History Unknown: Yes Additional Family Medical History / Comment(s): bladder tumor. lived till age 93 Father Additional Family Medical History / Comment(s): ? cancer of the stomach, lung disease, smoker General Exam Limitations: no limitations General appearance: alert, in no apparent distress Head exam: Present: atraumatic, normocephalic, normal inspection Eye exam: Present: normal appearance ENT exam: Present: normal exam, mucous membranes moist Respiratory exam: Present: normal lung sounds bilaterally. Absent: respiratory distress, wheezes, rales, rhonchi, stridor Cardiovascular Exam: Present: regular rate, normal rhythm, normal heart sounds. Absent: systolic murmur, diastolic murmur, rubs, gallop, clicks Extremities exam: Present: other (Right hand swelling, erythema significant swelling to the second through fourth digit, no swelling to the right elbow; radial pulses 2+, Cap Refill less than 2 seconds, ) Neurological exam: Present: alert, oriented X3 Psychiatric exam: Present: normal affect, normal mood Skin exam: Present: warm, dry, intact, erythema (Mild erythema in the right hand). Absent: rash Course Vital Signs 01/21/23 01/21/23 11:42 15:17 Temperature 98.3 F Pulse Rate 50 L 55 L Respiratory 18 20 Rate Blood Pressure 113/68 140/75 O2 Sat by Pulse 95 97 Oximetry Medical Decision Making - Medical Decision Making Was pt. sent in by a medical professional or institution (, PA, FRAMING CONSULTANT, urgent care, hospital, or custodial...) When possible be specific @ -No Did you speak to anyone other than the patient for history (EMS, parent, family, police, friend...)? What history was obtained from this source @ -No Did you review nursing and triage notes (agree or disagree)? Why? @ -I reviewed and agree with nursing and triage notes Were old charts reviewed (outside hosp., previous admission, EMS record, old EKG, old radiological studies, urgent care reports/EKG's, custodial records)? Report findings @ -Records from pain management the patient brought from upstairs reviewed Differential Diagnosis (chest pain, altered mental status, abdominal pain women, abdominal pain men, vaginal bleeding, weakness, fever, dyspnea, syncope, headache, dizziness, GI bleed, back pain, seizure, CVA, palpatations, mental health, musculoskeletal)? @ -Differential Musculoskeletal Muscular strain, contusion, ligament sprain, fracture, arthritis, septic arthritis, bursitis, cellulitis, muscle spasm, nerve compression, DVT, arterial occlusion, herpes zoster, electrolyte abnormality, tumor.... This is not meant to be in all inclusive list EKG interpreted by me (3pts min.). @ -None X-rays interpreted by me (1pt min.). @ -X-ray CT interpreted by me (1pt min.). @ -None done U/S interpreted by me (1pt. min.). @ -None done What testing was considered but not performed or refused? (CT, X-rays, U/S, labs)? Why? @ -None What meds were considered but not given or refused? Why? @ -None Did you discuss the management of the patient with other professionals (professionals i.e. , PA, FRAMING CONSULTANT, lab, RT, psych nurse, director of social services, director credit risk, teacher, evp and chief operating officer, insurance case manager)? Give summary @ -No Was smoking cessation discussed for >3mins.? @ -No Was critical care preformed (if so, how long)? @ -No Were there social determinants of health that impacted care today? How? (Homelessness, low income, unemployed, alcoholism, drug addiction, transportation, low edu. Level, literacy, decrease access to med. care, intermediate, rehab)? @ -No Was there de-escalation of care discussed even if they declined (Discuss DNR or withdrawal of care, Hospice)? DNR status @ -No What co-morbidities impacted this encounter? (DM, HTN, Smoking, COPD, CAD, Cancer, CVA, ARF, Chemo, Hep., AIDS, mental health diagnosis, sleep apnea, morbid obesity)? @ -None Was patient admitted / discharged? Hospital course, mention meds given and route, prescriptions, significant lab abnormalities, going to OR and other pertinent info. @ -discharged. Patient presented emergency department chief complaint of right hand pain and swelling 3 months. Patient was sent down from pain management for evaluation. Patient was evaluated by my attending, Dr. Cuevas. X-ray of right wrist and forearm were obtained which showed demineralization more prominent from September 10 wrist x-ray, no new acute displaced fracture in the wrist or forearm. Ultrasound of the right upper extremity showed no acute DVT. Compartment syndrome unlikely based on the duration of the symptoms, patient has good radial pulses, patient is tender but not out of proportion, capillary refill less than 2 seconds. Patient was advised to follow up with his hand surgeon and primary care provider. Undiagnosed new problem with uncertain prognosis? @ -No Drug Therapy requiring intensive monitoring for toxicity (Heparin, Nitro, Insulin, Cardizem)? @ -No Were any procedures done? @ -No Diagnosis/symptom? @ -Right hand swelling Acute, or Chronic, or Acute on Chronic? @ -Acute on chronic Uncomplicated (without systemic symptoms) or Complicated (systemic symptoms)? @ -Uncomplicated Side effects of treatment? @ -No Exacerbation, Progression, or Severe Exacerbation? @ -No Poses a threat to life or bodily function? How? (Chest pain, [place], [place], pneumonia, PE, COPD, DKA, ARF, appy, cholecystitis, CVA, Diverticulitis, Homicidal, Suicidal, threat to staff... and all critical care pts) @ -No Disposition Clinical Impression: Hand swelling Disposition: HOME SELF-CARE Condition: Stable Instructions (If sedation given, give patient instructions): Osteoarthritis (ED) Additional Instructions: Please return to the Emergency Department if symptoms worsen or any other concerns. Is patient prescribed a controlled substance at d/c from ED?: No Referrals: Tracy Tamez NPC [Primary Care Provider] - 1-2 days Time of Disposition: 15:12
[2023-01-21 15:27] VITALS: BP 140/75; PULSE 55; RESP 20
== END 2023-01-21 15:25 | disposition home or self-care (01) ==
LOC: EC 11:16
DX: M79.89 Other specified soft tissue disorders (principal); K21.9 Gastro-esophageal reflux disease without esophagitis; E78.5 Hyperlipidemia, unspecified; I10 Essential (primary) hypertension; G47.30 Sleep apnea, unspecified; Z86.711 Personal history of pulmonary embolism; Z88.7 Allergy status to serum and vaccine; Z79.01 Long term (current) use of anticoagulants; Z79.899 Other long term (current) drug therapy
CPT/HCPCS: 99284

== ENCOUNTER → 2023-01-21 | Outpatient (CLI) | payer BC, MEDICARE ==
[2023-01-21 10:33] VITALS: BP 126/59; PULSE 69; RESP 16; TEMP 97.7
--- NOTE | 2023-01-21 11:00 | P.PAINPG ---
PQRS Measure Charge Sheet Comment: HISTORY OF PRESENT ILLNESS: 87 yr old male as a referral from Dr Vasquez presents today w severe and chronic BL hand pain secondary to failed Carpal Tunnel Release for evaluation. Pt states pain level is provoked at 4 /10 in intensity, constant, localized in the R wrists, hands and fingers, tender in character w/o shooting pain. +Swelling. +Erythema. Pt admits to tingling and loss of sensations. Admits to short course of sling use to reduce swelling. Pain has no known provocative factors. Pain is alleviated by PT integrated w massage x 2 wks which he is currently in, heat, ice, medications (Tyl), wrist brace use and rest. PMH: Choledocholithiasis, Bladder CA (2001), DVT (2017), GERD, Hearing Disorder / Deafness, Hyperlipidemia, HTN, OA, PE (2017), Sleep Apnea/CPAP/BIPAP PSH: ERCP (2019), Cholecystectomy, Heart Catheterization, BL Cataract Resection w Lens Implant, Colonoscopy w Polypectomy, R Carpal Tunnel Release SH: . Lives w and Family. Retired [employer]. 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 Former tobacco user (quit 2019), Hx of ETOH abuse, No illicit drug use FH: Mo- Bladder Tumor/ at age 89. Fa- Stomach CA/ Lung CA/ Hx of tobacco user. All: See list Meds: See list REVIEW OF ORGAN SYSTEMS: CONSTITUTIONAL: No fevers or chills. No recent weight loss. NEUROLOGICAL: + numbness and tingling along the distal extremities. No seizure disorders or headaches. MUSCULOSKELETAL: + pain PSYCHIATRIC: Denies current depression or suicidal thoughts. Physical Examinations : Constitutional : Cooperative , not in acute distress . Neurologic : Cranial nerve II to XII intact. No focal neurological deficits. Psychiatric : alert & oriented x 3. Matching mood & appropriate affect. Judgment & insight intact. 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 Normal Left side Motor strength biceps and the wrist extensors: Normal right side . Normal left side Motor strength in the triceps muscle: Normal right side. Normal left side Deep tendon reflexes: Normal at the biceps. Normal at Brachioradialis. Normal at triceps Vertebral body tenderness to deep palpation over Cervical facet loading test: positive bilaterally Spurling test: positive bilaterally Neck distraction test: positive bilaterally Stephan sign: positive bilaterally Lumbar spine Motor strength lower extremities ,thigh and legs 5/5 Right side , 5/5 Left side Deep tendon reflexes : Normal Knee Jerk. Normal Ankle Jerk Vertebral body tenderness over Lumbar facet Loading Test: positive Right / positive Left Range of motion of the lumbar spine Flexion 30 degrees, extension 10 degrees Straight Leg Raise test: Left/ Right positive at degree Debbie test: positive right / positive left. Severe tenderness over the Sacroiliac joint on the Right / Left sides Gaenslen test: positive bilaterally Seated flexion test: positive bilaterally. Sacral spine : Severe tenderness over the Sacroiliac joint: right side / left side Range of motion: Flexion of the lumbar spine <60 degrees Range of motion: Extension of the lumbar spine <20 degrees Gaenslen's Test positive Bryan's Test positive Debbie test: positive right side / left side Thigh Thrust Test Sacral Thrust Test Imaging: R wrist x ray 09/22/22 reviewed Assessment/ Plan : BL Carpal Tunnel Syndrome, Complex Regional Pain Syndrome, r/o Compartment Syndrome Recommendation of ER evaluation to r/o Compartment syndrome. All questions answered. I have spent greater than 30 minutes on patient care today. Dr Hahn was available by phone for the evaluation of this patient. The time was used to review the medical records including relevant urine studies and Prescription history (MAPs), review of the available imaging, evaluation and examination of the patient, coordination of care with the medical staff and if applicable referring physicians, as well as creation of the medical record - Pain Location Right Hand Non-Pharmacological Interventions: Elevation, Heat, Ice, Massage, Physical Therapy Pharmacological Interventions: Medication, PRN Medication PQRS Narrative: Smoking Status Former smoker Home Medications: Ambulatory Orders Omeprazole [PriLOSEC] 20 mg PO AC-BRKFST 08/17/15 Simvastatin [Zocor] 40 mg PO HS 08/17/15 Metoprolol Tartrate [Lopressor] 25 mg PO BID #60 tab 12/07/17 lisinopriL [Zestril] 10 mg PO DAILY #30 tab 04/05/18 Rivaroxaban [Xarelto] 20 mg PO DAILY 11/21/18 Amoxicillin/Potassium Clav [Augmentin 875-125 Tablet] 1 tab PO Q12HR #14 tab 11/24/18 Controlled Substance Measures - Controlled Substance Measures Is patient prescribed a controlled substance at discharge?: No
== END ==
LOC: PNWHC3 09:49
PROVIDERS: ATTEND Specialist
DX: G90.511 Complex regional pain syndrome I of right upper limb (principal); Z98.890 Other specified postprocedural states; Z86.718 Personal history of other venous thrombosis and embolism; K21.9 Gastro-esophageal reflux disease without esophagitis; I10 Essential (primary) hypertension; M19.90 Unspecified osteoarthritis, unspecified site; K80.50 Calculus of bile duct without cholangitis or cholecystitis without obstruction; Z87.891 Personal history of nicotine dependence; Z79.899 Other long term (current) drug therapy; Z88.7 Allergy status to serum and vaccine
CPT/HCPCS: 99202

== ENCOUNTER → 2024-10-24 | Outpatient (CLI) | payer MEDICARE ==
[2024-10-24 19:08] LABS: HCT 41.1 % (39.6-50.0); HGB 13.1 g/dL (13.0-17.0); MCH 32.7 pg (27.0-32.0); MCHC 31.9 g/dL (32.0-37.0); MCV 102.5 FL (80.0-97.0); Mean Platelet Volume 10.7 FL (9.5-12.2); NRBC Per 100 WBC 0 X 10*3/uL (0.00-0.01); Platelet Count 184 X 10*3/uL (140-440); RBC 4.01 X 10*6/uL (4.40-5.60); RDW 12.7 % (11.5-14.5); WBC 4.89 X 10*3/uL (4.50-10.00)
[2024-10-24 20:01] LABS: ALT 15 U/L (10-49); AST 19 U/L (14-35); Albumin 3.5 g/dL (3.8-4.9); Alkaline Phosphatase 104 U/L (41-126); BUN/Creat Ratio 8.29 Ratio (12.00-20.00); Blood Urea Nitrogen 11.6 mg/dL (9.0-27.0); Calcium 8.9 mg/dL (8.7-10.3); Carbon Dioxide 24.9 mmol/L (21.6-31.8); Chloride 101 mmol/L (96-109); Globulin 2.7 g/dL (1.6-3.3); Glucose 111 mg/dL (70-110); Potassium 5.3 mmol/L (3.5-5.5); Sodium 137 mmol/L (135-145); Total Bilirubin 0.4 mg/dL (0.3-1.2); Total Protein 6.2 g/dL (6.2-8.2)
== END | disposition home or self-care (01) ==
LOC: LABWHC1 14:46
PROVIDERS: ATTEND Internal Medicine Interventional Cardiology
DX: I95.9 Hypotension, unspecified (principal); R00.0 Tachycardia, unspecified
CPT/HCPCS: 36415; 80053; 85027